=== PATIENT | female | born 1955 | race Caucasian/White ===

== ENCOUNTER 2023-10-02 11:31 | Emergency (ER) | payer MEDICARE, MEDICAID, SELFPAY ==
--- NOTE | 2023-10-02 12:04 | XR_ITS ---
[facility] [id number] Patient Name: MACKENZIE RANDALL MRN: [id number] date: 1955 Sex: F Assigned Patient Location: ER Current Patient Location: ER Accession/Order Number: [id number] Exam Date: 10/02/2023 12:15 Report Date: 10/02/2023 13:01 At the request of: SAMINA COCHRAN Procedure: XR foot LT min 3V STUDY: XR foot LT min 3V, [id number] HISTORY: diabetic, 4th toe infection COMPARISON: None FINDINGS: No acute fracture, dislocation, or suspicious osseous lesion. No osteolysis to suggest osteomyelitis. No radiopaque foreign body. Small curvilinear henry of calcification projecting over the dorsal and medial aspect of the left fourth middle phalanx which is favored represent a chronic soft tissue calcification. Mild osteoarthritis of the first metatarsophalangeal joint. There is a large plantar calcaneal spur and moderate Achilles insertional enthesopathy. Extensive vascular calcifications are present. There is an unfused os peroneus. XR/XR foot LT min 3V IMPRESSION: No radiographic evidence of osteomyelitis. Electronically authenticated by: EMELIA TRAMMELL Date: 10/02/2023 13:01
--- NOTE | 2023-10-02 12:04 | ED.GENADUL1 ---
HPI - General Adult General Chief complaint: Skin/Abscess/Foreign Body Stated complaint: TOE TURNING BLACK Time Seen by Provider: 10/02/23 12:00 History of Present Illness HPI narrative: 68-year-old female presents for problem with her left 4th toe. She states several months ago she was trying to trim an ingrown nail and she cut her toe. Sexually she developed an infection and she saw a foot doctor in [place]. She states over the past week or two it's looking discolored and she is worried about an infection. No fever or drainage. Related Data Previous Rx's Medication Instructions Recorded amoxicillin 875 mg-potassium 1 tab PO BID #20 tabs 10/02/23 clavulanate 125 mg tablet Allergies Allergy/AdvReac Type Severity Reaction Status Date / Time moxifloxacin [From Avelox] Allergy Severe Verified 10/02/23 12:16 keflex Allergy Severe Uncoded 10/02/23 12:16 Review of Systems ROS Narrative A ten point review of systems is negative except as noted above. Exam Narrative Exam Narrative: Nurses note and vital signs reviewed and patient is not hypoxic. General: The patient appears well and in no apparent distress. Patient is resting comfortably on cart. Skin: Warm, dry, no pallor noted. There is no rash noted. Head: Normocephalic, atraumatic Eye: Normal conjunctiva, no drainage Ears, Nose, Mouth, and Throat: oral mucosa is moist. Nares patent. Cardiovascular: Regular Rate and Rhythm Respiratory: Patient is in no distress, no accessory muscle use, lungs are clear to auscultation, no wheezing, rales or rhonchi Back: non-tender GI: nontender Musculoskeletal: left 4th toe is discolored at the distal aspect. Dorsalis pedis pulse 2+ in the other toes are unaffected. The toe is not black but rather white to yellow discoloration. Neurological: A&O, normal speech Psychiatric: Cooperative Constitutional Vital Signs, click to edit/add: Last Vital Signs Temp 98.4 F 10/02/23 12:17 Pulse 72 10/02/23 12:17 Resp 18 10/02/23 12:17 BP 171/59 H 10/02/23 12:17 Pulse Ox 100 10/02/23 12:17 O2 Del Method Room Air 10/02/23 12:17 Course Vital Signs Vital signs: Vital Signs Temperature 98.4 F 10/02/23 12:17 Pulse Rate 72 10/02/23 12:17 Respiratory Rate 18 10/02/23 12:17 Blood Pressure 171/59 H 10/02/23 12:17 Pulse Oximetry 100 10/02/23 12:17 Oxygen Delivery Method Room Air 10/02/23 12:17 Temperature 98.4 F 10/02/23 12:17 Pulse Rate 72 10/02/23 12:17 Respiratory Rate 18 10/02/23 12:17 Blood Pressure 171/59 H 10/02/23 12:17 Pulse Oximetry 100 10/02/23 12:17 Oxygen Delivery Method Room Air 10/02/23 12:17 Medical Decision Making MDM Narrative Medical decision making narrative: x-ray and blood work are negative. She is referred to podiatry and prescribed Augmentin. Incision and drainage is not indicated at this point. Treatment diagnosis and follow-up were discussed with the patient Lab Data Lab results reviewed: Yes I reviewed the patient's lab results Labs: Lab Results 10/02/23 Range/Units 12:20 WBC 10.2 (4.0-11.0) 10^3/uL RBC 3.99 L (4.20-5.40) 10^6/uL Hgb 12.5 (12.0-16.0) g/dL Hct 37.9 (36.0-48.0) % MCV 95.0 (81.0-99.0) fL MCH 31.3 (26.7-34.0) pg MCHC 33.0 (29.9-35.2) g/dL RDW 14.3 (11.0-15.0) % Plt Count 226 (150-450) 10^3/uL MPV 10.6 (9.5-13.5) fL Neut % (Auto) 57.0 (43.0-75.0) % Lymph % (Auto) 28.6 (20.5-60.0) % Jack % (Auto) 10.3 (1.7-12.0) % Eos % (Auto) 2.2 (0.9-7.0) % Baso % (Auto) 1.0 (0.2-2.0) % Neut # (Auto) 5.8 (1.4-6.5) 10^3/uL Lymph # (Auto) 2.9 (1.2-3.8) 10^3/uL Jack # (Auto) 1.1 H (0.3-0.8) 10^3/uL Eos # (Auto) 0.2 (0.0-0.7) 10^3/uL Baso # (Auto) 0.1 (0.0-0.1) 10^3/uL Abs Immat Gran (auto) 0.09 H (0.00-0.03) 10^3/uL Imm/Tot Granulo (auto) 0.9 H (0.0-0.5) % Sodium 135 L (136-145) mmol/L Potassium 4.6 (3.5-5.1) mmol/L Chloride 103 (98-107) mmol/L Carbon Dioxide 24.7 (21.0-32.0) mmol/L Anion Gap 11.9 BUN 22.0 H (7.0-18.0) mg/dL Creatinine 0.71 (0.55-1.02) mg/dL Est GFR ( Amer) >60 (>=60) Est GFR (Non-Af Amer) >60 (>=60) BUN/Creatinine Ratio 31.0 Glucose 211 H (74-106) mg/dL Calcium 9.3 (8.5-10.1) mg/dL Imaging Data foot x-ray: Radiologist's impression: no acute findings per radiologist Discharge Plan Discharge Chief Complaint: Skin/Abscess/Foreign Body Clinical Impression: Cellulitis Patient Disposition: Home, Self-Care Time of Disposition Decision: 13:19 Condition: Good Mode of Transportation: Private Vehicle Prescriptions / Home Meds: New amoxicillin-pot clavulanate 875-125 mg tablet 1 tab PO BID Qty: 20 0RF Instructions: Cellulitis (ED), Warm Compress or Soak (ED) Additional Instructions: follow-up with Dr. Lopes. Call today to make an appointment. Stand Alone Forms: Portal Instructions Referrals: Physician,Non-Staff, MD [Primary Care Provider] - 1 week
[2023-10-02 12:17] VITALS: BP 171/59; PULSE 72; RESP 18; TEMP 36.9; O2SAT 100; BMI 35.5
[2023-10-02 12:32] LABS: Basophils Absolute Auto 0.1 10^3/uL (0.0-0.1); Eosinophils Absolute Auto 0.2 10^3/uL (0.0-0.7); Eosinophils Percent Auto 2.2 % (0.9-7.0); Hematocrit 37.9 % (36.0-48.0); Hemoglobin 12.5 g/dL (12.0-16.0); Immature Granulocytes Abs Auto 0.09 10^3/uL (0.00-0.03); Immature Granulocytes Pct Auto 0.9 % (0.0-0.5); Lymphocytes Absolute Auto 2.9 10^3/uL (1.2-3.8); Lymphocytes Percent Auto 28.6 % (20.5-60.0); Mean Corpuscular Hemoglobin 31.3 pg (26.7-34.0); Mean Platelet Volume 10.6 fL (9.5-13.5); Monocytes Absolute Auto 1.1 10^3/uL (0.3-0.8); Monocytes Percent Auto 10.3 % (1.7-12.0); Neutrophils Absolute Auto 5.8 10^3/uL (1.4-6.5); Platelet Count 226 10^3/uL (150-450); Red Blood Count 3.99 10^6/uL (4.20-5.40); Red Cell Distribution Width 14.3 % (11.0-15.0); White Blood Count 10.2 10^3/uL (4.0-11.0)
[2023-10-02 12:40] LABS: Anion Gap 11.9; Calcium 9.3 mg/dL (8.5-10.1); Carbon Dioxide 24.7 mmol/L (21.0-32.0); Chloride 103 mmol/L (98-107); Estimated GFR (African America >60 (>=60); Estimated GFR (Non-African Ame >60 (>=60); Glucose 211 mg/dL (74-106); Potassium 4.6 mmol/L (3.5-5.1); Sodium 135 mmol/L (136-145)
== END 2023-10-02 13:32 | disposition home or self-care (01) ==
PROVIDERS: Emergency Provider Emergency Medicine
DX: L03.032 Cellulitis of left toe (principal)
CPT/HCPCS: 36415; 73630; 80048; 85025; 99284

== ENCOUNTER 2023-10-28 08:48 | Outpatient (OUT) | payer MEDICARE, MEDICAID, SELFPAY ==
--- OUTSIDE RECORDS SUMMARY | 2023-10-28 08:56 | XMS_ITS | CCD ---
Author Name Unknown Address [id number] [place] [address] Organization [facility] Care Team Providers Care Presser First Name Role Phone SOLOMON SCHMITT JR Unavailable Unavailable GALILEO HARRISON Unavailable Unavailable Minna Segura Primary Care Provider MINNA SEGURA Primary Care Unavailable Minna Smith APRN, CNP Primary Care Provider Minna Smith APRN, CNP Primary Care Provider DAGO GARDNER Admitting Unavailabl DAGO Choi Primary Care Unavailabl e DAGO GARDNER Consulting Unavailabl e DAGO GARDNER Attending Unavailabl e HARIS ANGELO Attending Unavailable MINNA VOSS Primary Care Unavail able DASIA CARL Consulting Unavailable HARIS ANGLEO Admitting Unavailable MARIELRADHA THOMPSON S Consulting Unavailable Allergies Allergy Classification Reported Allergen(s) Allergy Type Date of Onset Reaction(s) Facility (3 sources) Cephalexin Drug Allergy 4 [place] (3 sources) insulin detemir Drug Allergy 4 [place] (3 sources) MITE EXTRACT Drug Allergy 4 [place] (3 sources) Mold Extract Drug Allergy 4 [place] (3 sources) moxifloxacin Drug Allergy 4 [place] (3 sources) predniSONE Drug Allergy 4 Itching [facility] [place], [place] (3 sources) traMADol Drug Allergy 6 [place] NEGATED: Highlighted row has been ruled out! (2 sources) Other Propensity to adverse reactions 1 [facility] (See Comments[facility] Current Medications Medication Drug Class(es) Dates Sig (Normalized) Sig (Original) Acetaminophen (2 sources) Start: 01-03-2023 acetaminophen (TYLENOL) tablet 650 mg Start: 11-12-2020 End: 11-12-2020 acetaminophen (TYLENOL) tabl et 1,000 mg Aerosol Tubing (2 sources) Start: 05-08-2017 Aerosol Tubing Indications: Pulmonary emphysema, unspecified emphysema type (HCC) To be used with Nebulizer every 4-6 hours as needed for wheezing. 1 each 11 05/08/2017 Active albuterol 0.833 mg/ml / ipratropium bromide 0.167 mg/ml inhalant solution (1 source) Anticholinergic, beta2-Adrenergic Agonist Start: 04-02-2017 take 3 mL by inhalation every four hours as needed ipratropium-albute rol (DUONEB) 0.5-2.5 (3) MG/3ML SOLN nebulizer solution Indications: Cough due to bronchospasm Inhale 3 mLs into the lungs every 4 hours as needed for Shortness of Breath 360 mL 1 04/02/2017 Active ascorbic acid 60 mg / beta carotene 5000 unt / copper sulfate 40 mg / dl-alpha tocopheryl acetate 30 unt / sodium selenite 0.04 mg / zinc oxide 40 mg oral tablet (1 source) Vitamin C take 1 tablet by mouth once daily Multiple Vitamins-Minerals (THERAPEUTIC MULTIVITAMIN-COMMERCIAL GREEN RETROFIT ARCHITECT ALS) tablet Take 1 tablet by mouth daily. 0 Active atorvastatin 80 mg oral tablet (1 source) HMG-CoA Reductase Inhibitor take 1 tablet by mouth once daily atorvastatin (LIPITOR) 80 MG tablet Indications: HLD (hyperlipidemia) Take 80 mg by mouth daily. 0 Active 60 actuat budesonide 0.16 mg/actuat / formoterol fumarate 0.0045 mg/actuat metered dose inhaler (1 source) Corticosteroid, beta2-Adrenergic Agonist Start: 12-06-2015 take 2 puff(s) by inhalation twice daily budesonide-formote rol (SYMBICORT) 160-4.5 MCG/ACT AERO Indications: Chronic obstructive pulmonary disease, unspecified COPD type (HCC) Inhale 2 puffs into the lungs 2 times daily 1 Inhaler 3 12/06/2015 Active Calcium Carbonate / Vitamin D (2 sources) take 600 mg by mouth once daily Calcium Carbonate-Vitamin D (CALCIUM + D PO) Take 600 mg by mouth Daily. 0 Active carvedilol 12.5 mg oral tablet (4 sources) alpha-Adrenergic Mariusz, beta-Adrenergic Mariusz Start: 12-31-2021 carvedilol (COREG) tablet 12.5 mg Start: 05-10-2016 take 1 tablet by marjorie twice daily carvedilol (COREG) 12.5 MG tablet Indications: Hyperlipidemia, unspecified hyperlipidemia type Take 1 tablet by mouth 2 times daily 180 tablet 3 05/10/2016 Active clobetasol propionate 0.5 mg/ml topical solution (1 source) Corticosteroid Start: 05-28-2016 clobetasol (TE MOVATE) 0.05 % external solution clotrimazole 10 mg/ml topical cream (1 source) Azole Antifungal clotrimazole (LOTRIMIN) 1 % cream Apply topically 2 times daily as needed. Apply topically 2 times daily. 0 Active diatrizoate meglumine-sodium (GASTROGRAFIN) 66-10 % solution 30 mL (1 source) Start: 01-03-2023 diatrizoate meglumine-sodium (GASTROGRAFIN) 66-10 % solution 30 mL 0.5 ml dulaglutide 1.5 mg/ml auto-injector (1 source) GLP-1 Receptor Agonist Start: 02-21-2017 TRULICI TY 0.75 MG/0.5ML SOPN fluocinonide 0.5 mg/ml topical cream (1 source) Corticosteroid Start: 06-14-2016 fluocinonide ( LIDEX) 0.05 % cream Glucose (3 sources) Start: 01-03-2023 dextrose bolus 10% 125 mL Start: 01-03-2023 take 1 mL intravenou sly every hour IntraVENous, at 100 mL/hr, CONTINUOUS PRN, if blood glucose remains LESS THAN 70 mg/dL after 2 dextrose 10% intravenous boluses or administration of glucagon, Starting on Fri01/03/23 at 0216 If blood glucose fails to stabilize after 2 dextrose 10% intravenous boluses or glucagon administration, start dextrose 10% infusion at 100 mL/hour and repeat blood glucose at 30 and 60 minutes. If blood glucose is GREATER THAN 70 mg/dL after 60 minutes, discontinue dextrose 10% infusion. Start: 01-03-2023 16 g (4 tablet ), Oral, PRN, Starting on Fri01/03/23 at 0216, Until Discontinued, Low blood sugar If blood glucose is LESS than 70 mg/dL and patient is alert and tolerating oral. Give 4 tablets (16g) Repeat blood glucose in 15 minutes. If blood glucose is less than 70 mg/dL, repeat treatment and recheck blood glucose in 15 minutes x 2. If blood glucose remains LESS than 70 mg/dL, notify provider. hydrocortisone 25 mg/ml topical cream (2 sources) Corticosteroid Start: 10-01-2021 hydrocortisone (ANUSOL-HC) 2.5 % CREA rectal cream Place rectally 2 times daily 28 g 0 10/01/2021 Active Start: 10-01-2021 hydrocortisone (ANUSOL-HC) 2.5 % CREA rectal cream Place rectally 2 times daily 28 g 0 10/01/2021 Suspended ibuprofen 600 mg oral tablet (3 sources) Nonsteroidal Anti-inflammatory Drug Start: 07-22-2022 End: 01-06-2023 take 1 tablet by mouth twice daily at mealtime as needed ibuprofen (ADVIL;MOTRIN) 600 MG tablet TAKE 1 TABLET BY MOUTH TWICE A DAY WITH FOOD OR MILK NEEDED 180 tablet 0 07/22/2022 01/06/2023 Discontinued (Stop Taking at Discharge) Start: 12-17-2021 take 1 tablet by marjorie th twice daily at mealtime as needed ibuprofen (ADVIL;MOTRIN) 600 MG tablet TAKE 1 TABLET BY MOUTH TWICE A DAY WITH FOOD OR MILK NEEDED 120 tablet 0 12/17/2021 Active Start: 07-27-2020 take 1 tablet by marjorie th twice daily at mealtime as needed ibuprofen (ADVIL;MOTRIN) 600 MG tablet TAKE 1 TABLET BY MOUTH TWICE A DAY WITH FOOD OR MILK NEEDED 0 07/27/2020 Active icosapent ethyl 1000 mg oral capsule (1 source) Start: 07-17-2020 take 2 capsules by mouth twice daily at mealtime VASCEPA 1 g CAPS capsule TAKE 2 CAPSULES BY MOUTH TWICE A DAY WITH MEALS 0 07/17/2020 Active 3 ml insulin lispro 50 unt/ml / insulin, protamine lispro, human 50 unt/ml pen injector (1 source) Insulin Analog insulin lispro prot & lispro (HUMALOG MIX 50/50 KWIKPEN) (50-50) 100 UNIT per ML SUPN injection pen Inject 60 Units into the skin 3 times daily 0 Active lidocaine 0.05 mg/mg medicated patch (1 source) Antiarrhythmic, Amide Local Anesthetic Start: 11-12-2020 End: 11-22-2020 lidocaine (LIDODERM) 5 % Place 1 patch onto the skin daily for 10 days 12 hours on, 12 hours off. 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) , Decreased pedal pulses by Does not apply route 1 each 0 07/04/2022 Suspended loratadine 10 mg oral tablet (2 sources) Start: 05-02-2017 take 1 tablet by mouth once daily ALLERGY RELIEF 10 MG tablet TAKE 1 TABLET BY MOUTH EVERY DAY 90 tablet 0 05/02/2017 Active mometasone furoate 0.05 mg/actuat metered dose nasal spray (1 source) Corticosteroid Start: 01-01-2016 take 2 spray(s) by inhalation once daily mometasone (NASONEX) 50 MCG/ACT nasal spray 2 sprays by Nasal route daily 1 Inhaler 3 01/01/2016 Active 1 ml morphine sulfate 2 mg/ml cartridge (1 source) Opioid Agonist Start: 01-03-2023 morphine (PF) injection 2 mg Multiple Vitamins-Minerals (THERAPEUTIC MULTIVITAMIN-COMMERCIAL GREEN RETROFIT ARCHITECT ALS) tablet (1 source) take 1 tablet by mouth once daily Multiple Vitamins-Minerals (THERAPEUTIC MULTIVITAMIN-COMMERCIAL GREEN RETROFIT ARCHITECT ALS) tablet Take 1 tablet by mouth daily. 0 Active nitroglycerin 0.4 mg sublingual tablet (2 sources) Nitrate Vasodilator Start: 10-31-2021 nitroGLYCERIN (NITROSTAT) 0.[address] 1 tablet under the tongue every 5 minutes as needed for Chest pain 25 tablet 2 10/31/2021 Active nitroGLYCERIN (N ITROSTAT) 0.[address] 0.4 mg under the tongue every 5 minutes as needed for Chest pain. 0 Active Nutritional Supplements (ARTHRO-COMPLEX PO) (1 source) Nutritional Supplements (ARTHRO-COMPLEX PO) Take by mouth 0 Active omega-3 acid ethyl esters (group home) 1000 mg oral capsule (1 source) take 2 capsules by mouth twice daily omega-3 acid ethyl esters (LOVAZA) 1 G capsule Indications: HLD (hyperlipidemia) Take 2 g by mouth 2 times daily. 2 capsules twice daily 0 Active ondansetron (ZOFRAN-ODT) disintegrating tablet 4 mg (1 source) Start: 023 ondansetron (ZOFRAN-ODT) disintegrating tablet 4 mg pantoprazole (PROTONIX) 40 mg in sodium chloride (PF) 0.9 % 10 mL injection (1 source) Start: 023 40 mg, IntraVENous, DAILY, First dose on Fri01/03/23 at 0900 Reconstitute with 10 mL 0.9 % sodium chloride and administer over at least 2 minutes. regular insulin, human 500 unt/ml injectable solution (1 source) Insulin Start: 014 insulin regular human (HUMULIN R) 500 UNIT/ML injection Inject 23 Units into the skin 3 times daily (before meals). 1 vial 0 08/21/2014 Active rifAXIMin 550 mg oral tablet (1 source) Rifamycin Antibacterial take 1 tablet by mouth twice daily rifaximin (XIFAXAN) 550 MG tablet Take 550 mg by mouth 2 times daily 0 Active 0.25 mg, 0.5 mg dose 1.5 ml semaglutide 1.34 mg/ml pen injector (3 sources) Start: 020 End: 023 OZEMPIC, 0.25 OR 0.5 MG/DOSE, 2 MG/1.5ML SOPN Inject 0.5 mg into the skin once a week 0 06/11/2020 01/06/2023 Discontinued (Stop Taking at Discharge) Completed/Discontinued Medications Medication Drug Class(es) Dates Sig (Normalized) Sig (Original) [id number] 200 actuat albuterol 0.09 mg/actuat metered dose inhaler (3 sources) beta2-Adrenergic Agonist Start: 02-05-2021 take 2 puff(s) by inhalation every six hours as needed 2 puff, Inhalation, EVERY 6 HOURS PRN, Starting on 01/05/23 at 1036, Until Discontinued, Wheezing Initiate RT Bronchodilator Protocol: Yes - Inpatient Protocol aspirin 81 mg delayed release oral tablet (4 sources) Platelet Aggregation Inhibitor, Nonsteroidal Anti-inflammatory Drug Start: 11-19-2021 End: 02-17-2022 take 81 mg by mouth once daily 81 mg, Oral, DAILY, First dose on 01/05/23 at 1100, Until Discontinued Do not crush or break. take 1 tablet by mouth once gage y aspirin 81 MG tablet Take 81 mg by mouth daily. 0 Active 24 hr buPROPion hydrochloride 300 mg extended release oral tablet (4 sources) Aminoketone Start: 12-26-2022 End: 01-25-2023 take 300 mg by mouth once daily 300 mg, Oral, NIGHTLY, First dose on 01/04/23 at 2100, Until Discontinued Do not crush or break. Start: 12-17-2021 take 1 tablet by marjorie th once daily in the morning buPROPion (WELLBUTRIN XL) 150 MG extended release tablet TAKE 1 TABLET BY MOUTH EVERY DAY IN THE MORNING 90 tablet 0 12/17/2021 Active Start: 03-18-2019 take 1 tablet by marjorie th once daily buPROPion (WELLBUTRIN XL) 150 MG extended release tablet TAKE 1 TABLET BY MOUTH EVERY DAY 2 03/18/2019 Active canagliflozin 100 mg oral tablet (3 sources) Sodium-Glucose Cotransporter 2 Inhibitor Start: 07-28-2020 take 1 tablet by mouth once daily before breakfast INVOKANA 100 MG TABS tablet Take 100 mg by mouth every morning (before breakfast) 0 07/28/2020 Suspended clopidogrel 75 mg oral tablet (4 sources) P2Y12 Platelet Inhibitor Start: 04-16-2016 take 75 mg by mouth once daily 75 mg, Oral, DAILY, First dose on 01/05/23 at 1100, Until Discontinued cyclobenzaprine hydrochloride 10 mg oral tablet (5 sources) Muscle Relaxant Start: 11-26-2022 take 10 mg by mouth once daily 10 mg, Oral, NIGHTLY, First dose on 01/05/23 at 2100, Until Discontinued Start: 12-17-2021 take 1 tablet by marjorie th once daily at bedtime as needed cyclobenzaprine (FLEXERIL) 10 MG tablet Indications: Hyperlipidemia, unspecified hyperlipidemia type , Tooth ache TAKE 1 TABLET BY MOUTH EVERY DAY AT BEDTIME NEEDED 30 tablet 2 12/17/2021 Active Start: 11-12-2020 take 1 tablet by marjorie th twice daily as needed for muscle spasms cyclobenzaprine (FLEXERIL) 5 MG tablet Take 1 tablet by mouth 2 times daily as needed for Muscle spasms 10 tablet 0 11/12/2020 Active Start: 11-06-2020 End: 11-12-2020 take 1 tablet by mouth at bedtime as needed cyclobenzaprine (FLEXERIL) 10 MG tablet Indications: Hyperlipidemia, unspecified hyperlipidemia type , Tooth ache TAKE 1 TABLET BY MOUTH AT BEDTIME NEEDED 30 tablet 1 11/06/2020 11/12/2020 Discontinued (LIST CLEANUP) desoximetasone 0.5 mg/ml topical cream (1 source) Corticosteroid desoximetasone (TOPICORT) 0.05 % cream Apply topically 2 times daily Apply topically 2 times daily. 0 Suspended docusate sodium 100 mg oral capsule (1 source) take 1 capsule by mouth in the morning docusate sodium (COLACE) 100 MG capsule Take 100 mg by mouth in the morning. 0 Suspended 3.5 ml evolocumab 120 mg/ml cartridge (3 sources) PCSK9 Inhibitor Start: 0 REPATHA PUSHTRONEX SYSTEM 420 MG/3.5ML SOCT Inject 420 mg into the skin every 30 days 0 05/19/2020 Suspended Start: 05-19-2020 REPATHA PUSHTR ONEX SYSTEM 420 MG/3.5ML SOCT 3.5 ML MONTHLY SUBCUTANEOUS 90 DAYS 0 05/19/2020 Active ezetimibe 10 mg oral tablet (4 sources) Dietary Cholesterol Absorption Inhibitor Start: 05-10-2016 take 10 mg by mouth once daily 10 mg, Oral, DAILY, First dose on 01/05/23 at 1100, Until Discontinued fenofibrate 134 mg oral capsule (5 sources) Peroxisome Proliferator Receptor alpha Agonist Start: 12-16-2022 take 1 capsule by mouth once daily before breakfast fenofibrate micronized (LOFIBRA) 134 MG capsule TAKE 1 CAPSULE BY MOUTH EVERY DAY IN THE MORNING BEFORE BREAKFAST 90 capsule 0 12/16/2022 Suspended Start: 11-02-2021 take 1 capsule by mo uth once daily before breakfast fenofibrate micronized (LOFIBRA) 134 MG capsule TAKE 1 CAPSULE BY MOUTH EVERY DAY IN THE MORNING BEFORE BREAKFAST 90 capsule 1 11/02/2021 Active Start: 10-02-2020 take 1 capsule by mo ut once daily before breakfast fenofibrate micronized (LOFIBRA) 134 MG capsule TAKE 1 CAPSULE BY MOUTH EVERY DAY IN THE MORNING BEFORE BREAKFAST 30 capsule 2 10/02/2020 Active Start: 03-29-2016 take 1 capsule by mo uth once daily choline fenofibrate (TRILIPIX) 135 MG CPDR Indications: Hyperlipidemia, unspecified hyperlipidemia type Take 1 capsule by mouth daily 90 capsule 3 03/29/2016 Active take 1 tablet by marjorie once daily fenofibrate (TRICOR) 145 MG tablet Take 145 mg by mouth daily 0 Active 1 ml fentaNYL 0.05 mg/ml injection (1 source) Opioid Agonist Start: 01-02-2023 End: 01-02-2023 fentaNYL (SUBLIMAZE) injection 50 mcg furosemide 20 mg oral tablet (4 sources) Loop Diuretic Start: 02-23-2016 take 20 mg by mouth once daily 20 mg, Oral, DAILY, First dose on Fri01/03/23 at 0900, Until Discontinued glimepiride 2 mg oral tablet (2 sources) Sulfonylurea Start: 03-21-2022 glimepiride (A MARYL) 2 MG tablet TAKE 1 TABLET 3 TIMES DAILY FOR 90 DAYS 0 03/21/2022 Suspended Start: 05-24-2020 glimepiride (A MARYL) 2 MG tablet TAKE 1 TABLET 3 TIMES DAILY 0 05/24/2020 Active glucagon (rdna) 1 mg injection (1 source) Antihypoglycemic Agent Start: 01-03-2023 take 1 mL intravenously every hour 1 mg, IntraMUSCular, PRN, Starting on Fri01/03/23 at 0216, Until Discontinued, Low blood sugar, Blood glucose less than 70 mg/dL and patient NOT ALERT or NPO and does not have IV access. After administration, attempt intravenous access and start D5W at 100 mL/hr. Repeat blood glucose in 15 minutes x2 and notify provider. 250 ml glucose 50 mg/ml / sodium chloride 9 mg/ml injection (1 source) Start: 01-03-2023 End: 01-05-2023 dextrose 5 % and 0.9 % sodium chloride infusion Handicap Placard MISC (1 source) Start: 05-22-2022 Handicap Placard MISC Indications: Chronic ischemic heart disease , Chronic knee pain, unspecified laterality , Coronary artery disease involving venetie coronary artery of venetie heart without angina pectoris , Other diabetic neurological complication associated with type 2 diabetes mellitus (HCC) by Does not apply route Sanya is disabled and is in need of renewal of disability plates. Duration 05/22/2022 through 05/21/2027 1 each 0 05/22/2022 Suspended 3 ml insulin glargine 300 unt/ml pen injector (3 sources) Insulin Analog Insulin Glargine , 2 Unit Dial, (TOUJEO MAX SOLOSTAR) 300 UNIT/ML SOPN Inject 90 Units into the skin daily 0 Suspended Insulin Glargine , 2 Unit Dial, (TOUJEO MAX SOLOSTAR) 300 UNIT/ML SOPN Kwikpen, 90u in am 0 Active insulin lispro 100 unt/ml injectable solution (4 sources) Insulin Analog Start: 01-03-2023 0-4 Units, Sub CUTAneous, NIGHTLY, First dose on Fri01/03/23 at 2100, Until Discontinued If continuous tube feedings/TPN/NPO, give correction dose based on result, no reduction in dose. If eating or bolus tube feeding: Corrective Bedtime Algorithm Glucose: Dose: 70-299 No Insulin 300-349 4 Units Over 349 4 Units and notify physician Start: 01-03-2023 0-8 Units, Sub CUTAneous, 3 TIMES DAILY WITH MEALS, First dose on Fri01/03/23 at 0800, Until Discontinued Medium Dose Corrective Algorithm Glucose: Dose: 70-199 No Insulin 200-249 2 Units 250-299 4 Units 300-349 6 Units Over 349 8 Units and notify physician insulin lispro, 1 Unit Dial, 100 UNIT/ML SOPN up to 200units daily 0 Suspended iopamidol (ISOVUE-370) 76 % injection 100 mL (1 source) Start: 01-02-2023 End: 01-02-2023 iopamidol (ISOVUE-370) 76 % injection 100 mL ketoconazole 20 mg/ml topical cream (1 source) Azole Antifungal Start: 09-10-2022 ketoconazole (NIZORAL) 2 % cream Indications: Rash of foot Apply topically daily. 30 g 1 09/10/2022 Suspended levothyroxine (4 sources) l-Thyroxine Start: 01-03-2023 take 137 ug by mouth once daily 137 mcg, Oral, DAILY, First dose on Fri01/03/23 at 0900, Until Discontinued Tube feeding (TF) interaction, obtain physician order to manage, recommend holding TF for 30 minutes before and after dose. Start: 01-15-2021 take 1 tablet by marjorie th once daily levothyroxine (SYNTHROID) 137 MCG tablet Take 137 mcg by mouth daily 0 01/15/2021 Suspended take 1 tablet by marjorie th once daily levothyroxine (SYNTHROID) 112 MCG tablet Indications: Hypothyroidism Take 112 mcg by mouth Daily. 0 Active linaclotide 0.145 mg oral capsule (3 sources) Guanylate Cyclase-C Agonist Start: 10-08-2022 take 1 capsule by mouth once daily before breakfast linaclotide (LINZESS) 145 MCG capsule Indications: Other constipation TAKE 1 CAPSULE BY MOUTH EVERY DAY IN THE MORNING BEFORE BREAKFAST 30 capsule 2 10/08/2022 Suspended Start: 11-30-2021 take 1 capsule by mo uth once daily before breakfast LINZESS 145 MCG capsule Indications: Other constipation TAKE 1 CAPSULE BY MOUTH EVERY DAY IN THE MORNING BEFORE BREAKFAST 30 capsule 2 11/30/2021 Active Start: 11-06-2020 take 1 capsule by mo uth once daily before breakfast linaclotide (LINZESS) 145 MCG capsule Indications: Chronic constipation TAKE 1 CAPSULE BY MOUTH EVERY DAY IN THE MORNING BEFORE BREAKFAST 30 capsule 1 11/06/2020 Active lisinopril 20 mg oral tablet (3 sources) Angiotensin Converting Enzyme Inhibitor Start: 11-07-2022 take 1 tablet by mouth once daily lisinopril (PRINIVIL;ZESTRIL) 20 MG tablet TAKE 1 TABLET BY MOUTH EVERY DAY 90 tablet 1 11/07/2022 Suspended Start: 08-14-2021 take 1 tablet by marjorie th once daily lisinopril (PRINIVIL;ZESTRIL) 20 MG tablet TAKE 1 TABLET BY MOUTH EVERY DAY 90 tablet 1 08/14/2021 Active Start: 09-08-2020 take 1 tablet by marjorie th once daily lisinopril (PRINIVIL;ZESTRIL) 20 MG tablet Take 1 tablet by mouth daily 30 tablet 0 09/08/2020 Active meclizine hydrochloride 25 mg oral tablet (3 sources) Antiemetic Start: 01-08-2022 take 1 tablet by mouth twice daily as needed meclizine (ANTIVERT) 25 MG tablet TAKE 1 TABLET BY MOUTH TWICE A DAY NEEDED 60 tablet 2 01/08/2022 Suspended meclizine (ANTIV ERT) 25 MG CHEW Take 25 mg by mouth 0 Active Nebulizers (COMPRESSOR/NEBULIZER) MIS (2 sources) Start: 11-22-2015 Nebulizers (COMPRESSOR/NEBULIZER) [facility] [place]ications: SOB (shortness of breath) , Bronchitis with bronchospasm 1 each by Does not apply route 4 times daily for 14 days Use with medications as directed 1 each 0 11/22/2015 Suspended Start: 11-22-2015 Nebulizers (CO MPRESSOR/NEBULIZER) [facility] [place] Indications: SOB (shortness of breath) , Bronchitis with bronchospasm 1 each by Does not apply route 4 times daily for 14 days Use with medications as directed 1 each 0 11/22/2015 Active omeprazole 20 mg delayed release oral capsule (3 sources) Proton Pump Inhibitor Start: 12-06-2022 take 1 capsule by mouth once daily omeprazole (PRILOSEC) 20 MG delayed release capsule TAKE 1 CAPSULE BY MOUTH EVERY DAY 30 capsule 0 12/06/2022 Suspended Start: 07-09-2021 take [address] [facility] once daily omeprazole (PRILOSEC) 20 MG delayed release capsule TAKE 1 CAPSULE BY MOUTH EVERY DAY 90 capsule 3 07/09/2021 Active Start: 05-14-2017 take 1 capsule by mo uth once daily omeprazole (PRILOSEC) 20 MG delayed release capsule TAKE 1 CAPSULE BY MOUTH DAILY 90 capsule 3 05/14/2017 Active 2 ml ondansetron 2 mg/ml injection (1 source) Serotonin-3 Receptor Antagonist Start: 01-02-2023 End: 01-02-2023 ondansetron (ZOFRAN) injection 4 mg polyethylene glycol [id number] mg powder for oral solution (1 source) Osmotic Laxative Start: 01-03-2023 17 g, Oral, D AILY PRN, Starting on Fri01/03/23 at 0216, Until Discontinued, Constipation First line therapy for constipation pregabalin 100 mg oral capsule (4 sources) Start: 01-05-2023 take 100 mg by mouth once daily 100 mg, Oral, DAILY, First dose on Fri01/05/23 at 1100, Until Discontinued Start: 05-30-2020 take [address] [facility] at bedtime pregabalin (LYRICA) 75 MG capsule TAKE 1 CAPSULE BY MOUTH AT BEDTIME 0 05/30/2020 Active rOPINIRole 4 mg oral tablet (3 sources) Nonergot Dopamine Agonist Start: 12-23-2022 take 1 tablet by mouth once daily in the evening rOPINIRole (REQUIP) 4 MG tablet Indications: Restless leg TAKE 1 TABLET BY MOUTH EVERY DAY IN THE EVENING 14 tablet 0 12/23/2022 Suspended Start: 12-17-2021 take 1 tablet by marjorie once daily in the evening rOPINIRole (REQUIP) 4 MG tablet Indications: Restless leg TAKE 1 TABLET BY MOUTH EVERY DAY IN THE EVENING 90 tablet 0 12/17/2021 Active Start: 01-21-2017 take 1 tablet by marjorie once daily in the evening rOPINIRole (REQUIP) 4 MG tablet TAKE 1 TABLET BY MOUTH EVERY EVENING 90 tablet 0 01/21/2017 Active 5 ml sodium chloride 9 mg/ml injection (7 sources) Start: 01-03-2023 take 1 dose intravenously twice daily 5-40 mL, IntraVENous, EVERY 12 HOURS SCHEDULED (2 times per day), First dose on Fri01/03/23 at 0900, Until Discontinued For Line Patency: Peripheral IV = 5 mL; Midline or Central Line = 10 mL/lumen. If following IV push medication, administer flush at same rate as the IV push. Flush volume is determined by type of infusion therapy being given. For non-viscous solutions use: Peripheral IV = 5 mL Midline or Central Line = 10 mL/lumen For viscous solutions (i.e. blood components, parenteral nutrition, contrast media, or after obtaining blood sample) use: Peripheral IV = 10 mL Midline or Central Line = 20 mL/lumen Start: 01-03-2023 End: 01-03-2023 IntraVENous, at 50 mL/hr, CONTINUOUS, Starting on Fri01/03/23 at 0245 Start: 01-03-2023 IntraVENous, a t 5-250 mL/hr, PRN, if patient receiving piggyback infusions and maintenance fluids are not ordered OR KVO fluids to protect IV site / prevent frequent line interruptions/ long duration, Starting on Fri01/03/23 at 0216 For piggyback infusion, administer at same rate as piggyback for a total of 25 mL. Enter 25 mL into dose field and piggyback rate into rate field of order. If piggyback is infusing at a rate less than 100 mL/hr, enter 25 mL into dose field and 100 mL/hr into rate field of order. For KVO fluids, enter rate of 20 mL/hr or less into rate field of order. Start: 01-03-2023 take 5-40 mL intrave nously once as needed 5-40 mL, IntraVENous, PRN, Starting on Fri01/03/23 at 0216, Until Discontinued, Line Care, After every IV line use For Line Patency: Peripheral IV = 5 mL; Midline or Central Line = 10 mL/lumen. If following IV push medication, administer flush at same rate as the IV push. Flush volume is determined by type of infusion therapy being given. For non-viscous solutions use: Peripheral IV = 5 mL Midline or Central Line = 10 mL/lumen For viscous solutions (i.e. blood components, parenteral nutrition, contrast media, or after obtaining blood sample) use: Peripheral IV = 10 mL Midline or Central Line = 20 mL/lumen Start: 01-02-2023 sodium chlorid e flush 0.9 % injection 10 mL Start: 01-02-2023 End: 01-03-2023 0.9 % sodium chloride bolus Problems Active Problems Problem Classification Problem Date Documented Date Episodic/Chronic Cataract (2 sources) Age-related nuclear cataract, right eye; Translations: [Age-related nuclear cataract, right eye] Onset: 06-03-2017 Chronic Chronic obstructive pulmonary disease and bronchiectasis (7 sources) Pulmonary emphysema; Translations: [Chronic obstructive lung disease] Onset: 12-06-2015 02-24-2014 Chronic Coronary atherosclerosis and other heart disease (5 sources) Coronary arteriosclerosis; Translations: [Atherosclerotic heart disease of [place] coronary artery without angina pectoris] Onset: 01-31-2021 02-24-2014 Chronic Diabetes mellitus with complications (6 sources) Type 2 diabetes mellitus; Translations: [Type 2 diabetes mellitus with other specified complication] Onset: 01-31-2021 01-31-2021 Chronic Diabetes mellitus without complication (5 sources) Diabetes mellitus; Translations: [Type 2 diabetes mellitus] Onset: 12-19-2014 08-16-2015 Chronic Disorders of lipid metabolism (6 sources) Hyperlipidemia; Translations: [Hypercholesterolemia] Onset: 02-24-2014 02-24-2014 Chronic Esophageal disorders (3 sources) Gastroesophageal reflux disease; Translations: [Gastro-esophageal reflux disease without esophagitis] 02-24-2014 Chronic Essential hypertension (3 sources) Hypertensive disorder; Translations: [Essential hypertension] 02-24-2014 Chronic External cause codes: Fall (1 source) Fall; Translations: [Fall, initial encounter] Fracture of lower limb (1 source) Closed fracture of calcaneus; Translations: [Closed traumatic nondisplaced fracture of left calcaneus, initial encounter] Episodic Menopausal disorders (2 sources) Menopausal and postmenopausal disorders; Translations: [Unspecified menopausal and perimenopausal disorder] Onset: 01-31-2021 01-31-2021 Chronic Mood disorders (3 sources) Depressive disorder; Translations: [Depression] 02-24-2014 Chronic Osteoarthritis (3 sources) Osteoarthritis; Translations: [Unspecified osteoarthritis, unspecified site] 02-24-2014 Chronic Other aftercare (1 source) Other buttermaker (current) drug therapy; Translations: [Other buttermaker (current) drug therapy] Onset: 07-18-2023 Episodic Other connective tissue disease (1 source) Calcaneal spur of left foot; Translations: [Calcaneal spur of foot, left] Other endocrine disorders (2 sources) Hyperaldosteronism; Translations: [Hyperaldosteronism, unspecified] Onset: 01-31-2021 01-31-2021 Chronic Other inflammatory condition of skin (3 sources) Psoriasis; Translations: [Psoriasis, unspecified] Onset: 02-24-2014 02-24-2014 Chronic Other nutritional; endocrine; and metabolic disorders (2 sources) Body mass index 40+ - severely obese; Translations: [Body mass index (BMI) 40.0-44.9, adult] Onset: 01-31-2021 01-31-2021 Chronic Other nutritional; endocrine; and metabolic disorders (2 sources) Severe obesity; Translations: [Morbid (severe) obesity due to excess calories] Onset: 05-03-2021 10-31-2021 Chronic Other screening for suspected conditions (not mental disorders or infectious disease) (1 source) Patient encounter status; Translations: [Encounter for screening mammogram for malignant neoplasm of breast] Episodic Peripheral and visceral atherosclerosis (3 sources) Intermittent claudication; Translations: [Peripheral vascular disease, unspecified] Onset: 12-19-2014 12-19-2014 Chronic Residual codes; unclassified (3 sources) Sleep apnea; Translations: [Sleep apnea, unspecified] Onset: 05-18-2014 05-18-2014 Chronic Screening and history of mental health and substance abuse codes (1 source) Tobacco use and exposure - finding; Translations: [Tobacco use] Onset: 02-24-2014 02-24-2014 Chronic Spondylosis; intervertebral disc disorders; other back problems (3 sources) Prolapsed lumbar intervertebral disc; Translations: [Other intervertebral disc displacement, lumbar region] 02-24-2014 Chronic Sprains and strains (1 source) Lumbar sprain; Translations: [Lumbar sprain, initial encounter] Episodic Thyroid disorders (4 sources) Hypothyroidism; Translations: [Hypothyroidism, unspecified] 08-16-2015 Chronic Past or Other Problems Problem Classification Problem Date Documented Da te Episodic/Chronic Acute and unspecified renal failure (3 sources) Acute injury of kidney; Translations: [Acute kidney failure, unspecified] Onset: 01-03-2023 Episodic Intestinal obstruction without hernia (4 sources) Small bowel obstruction; Translations: [Unspecified intestinal obstruction, unspecified as to partial versus complete obstruction] Onset: 01-03-2023 Episodic Other connective tissue disease (3 sources) Acquired trigger finger; Translations: [Trigger finger, unspecified finger] Onset: 09-25-2016 07-26-2017 Episodic Other ear and sense organ disorders (3 sources) Bilateral earache; Translations: [Otalgia, bilateral] Onset: 03-19-2016 03-19-2016 Episodic Other non-traumatic joint disorders (1 source) Knee pain; Translations: [Chronic knee pain] Onset: 06-26-2016 06-26-2016 Episodic Other non-traumatic joint disorders (2 sources) Pain in unspecified knee; Translations: [Pain in joint, lower leg] Onset: 06-26-2016 06-26-2016 Episodic Other skin disorders (2 sources) Alopecia; Translations: [Nonscarring hair loss, unspecified] Onset: 01-31-2021 01-31-2021 Episodic Other skin disorders (2 sources) Hirsutism; Translations: [Hirsutism] Onset: 01-31-2021 01-31-2021 Episodic Other upper respiratory disease (3 sources) Bronchospasm; Translations: [Acute bronchospasm] Onset: 04-02-2017 04-02-2017 Episodic Residual codes; unclassified (3 sources) Needs influenza immunization; Translations: [Encounter for immunization] Onset: 06-26-2016 06-26-2016 Episodic Residual codes; unclassified (2 sources) Tobacco user; Translations: [Tobacco use] Onset: 02-24-2014 01-31-2021 Episodic Unclassified (1 source) Patient encounter status; Translations: [Encounter for screening mammogram for malignant neoplasm of breast] Onset: 05-05-2017 Resolved: 07-08-2018 07-08-2018 Urinary tract infections (3 sources) Cystitis; Translations: [Cystitis, unspecified without hematuria] Onset: 05-10-2016 05-10-2016 Episodic Results Test Name Value Interpretation Reference Range Facility Basic Metabolic Profon 07-20 Anion gap [Moles/Vol] 9 mmol/L Normal 9-17 [facility] Comment on above: Performed By: #### C JUAN A BMP #### [facility] [address] [place] [address] Ring Facer: Ajit Stevens DO Calcium [Mass/Vol] 9.8 mg/dL Normal 8.6-10.4 [facility] Comment on above: Performed By: #### C DP, BMP #### [facility] [address] [facility] [place] [address] Ring Facer: Ajit Stevens DO Chloride [Moles/Vol] 105 mmol/L Normal 98-107 [facility] Comment on above: Performed By: #### C DP, BMP #### [facility] [address] [facility] [place] [address] Ring Facer: Ajit Stevens DO CO2 [Moles/Vol] 23 mmol/L Normal 20-31 [facility] Comment on above: Performed By: #### C JUAN A, BMP #### [facility] [address] [facility] [place] [address] Ring Facer: Ajit Stevens DO Creatinine [Mass/Vol] 0.6 mg/dL Normal 0.5-0.9 [facility] Comment on above: Performed By: #### C JUAN A, BMP #### [facility] [address] [facility] [place] [address] Ring Facer: Ajit Stevens DO GFR/1.73 sq M.predicted among non-blacks MDRD (S/P/Bld) [Vol rate/Area] mL/min/{1.73_m2} Normal >60 [facility] Comment on above: Result Comment: These results are not intended for use in patients <18 years of age. eGFR results are calculated without a race factor using the 2020 CKD-EPI equation. Careful clinical correlation is recommended, particularly when comparing to results calculated using previous equations. The CKD-EPI equation is less accurate in patients with extremes of muscle mass, extra-renal metabolism of creatine, excessive creatine ingestion, or following therapy that affects renal tubular secretion. Performed By: #### C DP, BMP #### [facility] [address] [facility] [place] [address] Ring Facer: Ajit Stevens DO Glucose [Mass/Vol] 198 mg/dL High 70-99 [facility] Comment on above: Performed By: #### C JUAN A, BMP #### [facility] [address] [place] [address] Ring Facer: Ajit Stevens DO Potassium [Moles/Vol] 4.0 mmol/L Normal 3.7-5.3 [facility] Comment on above: Performed By: #### C JUAN A, BMP #### [facility] [address] [place], [place] [address] [place] [address] Ring Facer: Ajit Stevens DO Sodium [Moles/Vol] 137 mmol/L Normal 135-144 [facility] Comment on above: Performed By: #### C JUAN A, BMP #### [facility] [address] [place] [phone] Ring Facer: Ajit Stevens DO Urea nitrogen [Mass/Vol] 14 mg/dL Normal 8-23 [facility] Comment on above: Performed By: #### C JUAN A, BMP #### [facility] [address] [place] [address] Ring Facer: Ajit Stevens DO CBC with Diffon 07-20-2023 Abs. Basophil 0.10 k/uL Normal 0.0-0.2 [facility] Comment on above: Performed By: #### C JUAN A, BMP #### [facility] [address] [place] [address] Ring Facer: Ajit Stevens DO Abs.Neutrophil (Seg) 4.80 k/uL Normal 1.3-9.1 [facility] Comment on above: Performed By: #### C JUAN A, BMP #### [facility] [address] [place] [phone] Ring Facer: Ajit Stevens DO Basophils/100 WBC (Bld) 1 % Normal 0-2 [facility] Comment on above: Performed By: #### C DP, BMP #### [facility] [address] [place] [address] Ring Facer: Ajit Stevens DO Eosinophils (Bld) [#/Vol] 0.30 10*3/uL Normal 0.0-0.4 [facility] Comment on above: Performed By: #### C DP, BMP #### [facility] [place] [address] Ring Facer: Ajit Stevens DO Eosinophils/100 WBC (Bld) 3 % Normal 0-4 [facility] Comment on above: Performed By: #### C DP, BMP #### [facility] [address] [place] [address] Ring Facer: Ajit Stevens DO Erythrocyte distribution width (RBC) [Ratio] 14.2 % Normal 11.5-14.9 [facility] Comment on above: Performed By: #### C JUAN A, BMP #### [facility] [address] [place] [address] Ring Facer: Ajit Stevens DO Hematocrit (Bld) [Volume fraction] 38.3 % Normal 36-46 [facility] Comment on above: Performed By: #### C JUAN A, BMP #### [facility] [address] [place] [address] Ring Facer: Ajit Stevens DO Hemoglobin (Bld) [Mass/Vol] 12.8 g/dL Normal 12.0-16.0 [facility] Comment on above: Performed By: #### C DP, BMP #### [facility] [place] [address] Ring Facer: Ajit Stevens DO Lymphocytes (Bld) [#/Vol] 2.50 10*3/uL Normal 1.0-4.8 [facility] Comment on above: Performed By: #### C DP, BMP #### [facility] [place] [address] Ring Facer: Ajit Stevens DO Lymphocytes/100 WBC (Bld) 29 % Normal 24-44 [facility] Comment on above: Performed By: #### C DP, BMP #### [facility] [address] [place] [phone] Ring Facer: Ajit Stevens DO MCH (RBC) [Entitic mass] 31.4 pg Normal 26-34 [facility] Comment on above: Performed By: #### C DP, BMP #### [facility] [address] [place] [phone] Ring Facer: Ajit Stevens DO MCHC (RBC) [Mass/Vol] 33.3 g/dL Normal 31-37 [facility] Comment on above: Performed By: #### C DP, BMP #### [facility] [address] [place] [address] Ring Facer: Ajit Stevens DO MCV (RBC) [Entitic vol] 94.1 fL Normal 80-100 [facility] Comment on above: Performed By: #### C DP, BMP #### [facility] [address] [place] [phone] Ring Facer: Ajit Stevens DO Monocytes (Bld) [#/Vol] 0.70 10*3/uL Normal 0.1-1.3 [facility] Comment on above: Performed By: #### C DP, BMP #### [facility] [address] [place] [address] Ring Facer: Ajit Stevens DO Monocytes/100 WBC (Bld) 9 % High 1-7 [facility] Comment on above: Performed By: #### C DP, BMP #### [facility] [address] [place] [address] Ring Facer: Ajit Stevens DO Neutrophil (Seg) 58 % Normal 36-66 [facility] Comment on above: Performed By: #### C DP, BMP #### [facility] [address] [facility] [place] [address] Ring Facer: Ajit Stevens DO Platelet mean volume (Bld) [Entitic vol] 8.7 fL Normal 6.0-12.0 [facility] Comment on above: Performed By: #### C JUAN A, BMP #### [facility] [address] [facility] [place] [address] Ring Facer: Ajit Stevens DO Platelets (Bld) [#/Vol] 196 10*3/uL Normal 150-450 [facility] Comment on above: Performed By: #### C JUAN A, BMP #### [facility] [place] [address] Ring Facer: Ajit Stevens DO RBC (Bld) [#/Vol] 4.07 10*6/uL Normal 4.0-5.2 [facility] Comment on above: Performed By: #### C JUAN A, BMP #### [facility] [place] [address] Ring Facer: Ajit Stevens DO WBC (Bld) [#/Vol] 8.4 10*3/uL Normal 3.5-11.0 [facility] Comment on above: Performed By: #### C DP, BMP #### [facility] [place] [address] Ring Facer: Ajit Stevens DO Basic Metab w/rfx MGon 07-19 Anion gap [Moles/Vol] 9 mmol/L Normal 9-17 [facility] Comment on above: Performed By: #### P HO, BMPX, BNP #### [facility] [address] [facility] [place] [address] Ring Facer: Ajit Stevens DO Calcium [Mass/Vol] 9.7 mg/dL Normal 8.6-10.4 [facility] Comment on above: Performed By: #### P HO, BMPX, BNP #### [facility] [address] [facility] [place] [address] Ring Facer: Ajit Stevens DO Chloride [Moles/Vol] 102 mmol/L Normal 98-107 [facility] Comment on above: Performed By: #### P HO, BMPX, BNP #### [facility] [address] [facility] [place] [address] Ring Facer: Ajit Stevens DO CO2 [Moles/Vol] 26 mmol/L Normal 20-31 [facility] Comment on above: Performed By: #### P HO, BMPX, BNP #### [facility] [address] [facility] [place] [address] Ring Facer: Ajit Stevens DO Creatinine [Mass/Vol] 0.6 mg/dL Normal 0.5-0.9 [facility] Comment on above: Performed By: #### P HO, BMPX, BNP #### [facility] [address] [facility] [place] [address] Ring Facer: Ajit Stevens DO GFR/1.73 sq M.predicted among non-blacks MDRD (S/P/Bld) [Vol rate/Area] mL/min/{1.73_m2} Normal >60 [facility] Comment on above: Result Comment: These results are not intended for use in patients <18 years of age. eGFR results are calculated without a race factor using the 2020 CKD-EPI equation. Careful clinical correlation is recommended, particularly when comparing to results calculated using previous equations. The CKD-EPI equation is less accurate in patients with extremes of muscle mass, extra-renal metabolism of creatine, excessive creatine ingestion, or following therapy that affects renal tubular secretion. Performed By: #### P HO, BMPX, BNP #### [facility] [address] [place] [address] Ring Facer: Ajit Stevens DO Glucose [Mass/Vol] 308 mg/dL High 70-99 [facility] Comment on above: Performed By: #### P HO, BMPX, BNP #### [facility] [address] [place] [phone] Ring Facer: Ajit Stevens DO Potassium [Moles/Vol] 4.4 mmol/L Normal 3.7-5.3 [facility] Comment on above: Performed By: #### P HO, BMPX, BNP #### [facility] [address] [place] [address]. [place] [address] Ring Facer: Ajit Stevens DO Sodium [Moles/Vol] 137 mmol/L Normal 135-144 [facility] Comment on above: Performed By: #### P HO, BMPX, BNP #### [facility] [address] [place] [address] Ring Facer: Ajit Stevens DO Urea nitrogen [Mass/Vol] 17 mg/dL Normal 8-23 [facility] Comment on above: Performed By: #### P HO, BMPX, BNP #### [facility] [address] [place] [phone] Ring Facer: Ajit Stevens DO CBC with Diffon 07-19-2023 Abs. Basophil 0.10 k/uL Normal 0.0-0.2 [facility] Comment on above: Performed By: #### P HO, BMPX, BNP #### [facility] [address] [place] [phone] Ring Facer: Ajit Stevens DO Abs.Neutrophil (Seg) 4.70 k/uL Normal 1.3-9.1 [facility] Comment on above: Performed By: #### P HO, BMPX, BNP #### [facility] [address] [place] [address] Ring Facer: Ajit Stevens DO Basophils/100 WBC (Bld) 1 % Normal 0-2 [facility] Comment on above: Performed By: #### P HO, BMPX, BNP #### [facility] [address] [place] [address] Ring Facer: Ajit Stevens DO Eosinophils (Bld) [#/Vol] 0.20 10*3/uL Normal 0.0-0.4 [facility] Comment on above: Performed By: #### P HO, BMPX, BNP #### [facility] [address] [place] [phone] Ring Facer: Ajit Stevens DO Eosinophils/100 WBC (Bld) 2 % Normal 0-4 [facility] Comment on above: Performed By: #### P HO, BMPX, BNP #### [facility] [address] [place] [address] Ring Facer: Ajit Stevens DO Erythrocyte distribution width (RBC) [Ratio] 14.5 % Normal 11.5-14.9 [facility] Comment on above: Performed By: #### P HO, BMPX, BNP #### [facility] [address] [place] [address] Ring Facer: Ajit Stevens DO Hematocrit (Bld) [Volume fraction] 38.2 % Normal 36-46 [facility] Comment on above: Performed By: #### P HO, BMPX, BNP #### [facility] [address] [place] [phone] Ring Facer: Ajit Stevens DO Hemoglobin (Bld) [Mass/Vol] 12.4 g/dL Normal 12.0-16.0 [facility] Comment on above: Performed By: #### P HO, BMPX, BNP #### [facility] [place] [address] Ring Facer: Ajit Stevens DO Lymphocytes (Bld) [#/Vol] 2.20 10*3/uL Normal 1.0-4.8 [facility] Comment on above: Performed By: #### P HO, BMPX, BNP #### [facility] [address] [place] [address] Ring Facer: Ajit Stevens DO Lymphocytes/100 WBC (Bld) 28 % Normal 24-44 [facility] Comment on above: Performed By: #### P HO, BMPX, BNP #### [facility] [address] [place] [address] Ring Facer: Ajit Stevens DO MCH (RBC) [Entitic mass] 30.7 pg Normal 26-34 [facility] Comment on above: Performed By: #### P HO, BMPX, BNP #### [facility] [address] [place] [phone] Ring Facer: Ajit Stevens DO MCHC (RBC) [Mass/Vol] 32.5 g/dL Normal 31-37 [facility] Comment on above: Performed By: #### P HO, BMPX, BNP #### [facility] [address] [place] [address] Ring Facer: Ajit Stevens DO MCV (RBC) [Entitic vol] 94.5 fL Normal 80-100 [facility] Comment on above: Performed By: #### P HO, BMPX, BNP #### [facility] [place] [address] Ring Facer: Ajit Stevens DO Monocytes (Bld) [#/Vol] 0.60 10*3/uL Normal 0.1-1.3 [facility] Comment on above: Performed By: #### P HO, BMPX, BNP #### [facility] [address] [place] [address] Ring Facer: Ajit Stevens DO Monocytes/100 WBC (Bld) 7 % Normal 1-7 [facility] Comment on above: Performed By: #### P HO, BMPX, BNP #### [facility] [address] [place] [phone] Ring Facer: Ajit Stevens DO Neutrophil (Seg) 62 % Normal 36-66 [facility] Comment on above: Performed By: #### P HO, BMPX, BNP #### [facility] [address] [place] [address] Ring Facer: Ajit Stevens DO Platelet mean volume (Bld) [Entitic vol] 8.4 fL Normal 6.0-12.0 [facility] Comment on above: Performed By: #### P HO, BMPX, BNP #### [facility] [address] [place] [phone] Ring Facer: Ajit Stevens DO Platelets (Bld) [#/Vol] 214 10*3/uL Normal 150-450 [facility] Comment on above: Performed By: #### P HO, BMPX, BNP #### [facility] [address] [place] [phone] Ring Facer: Ajit Stevens DO RBC (Bld) [#/Vol] 4.04 10*6/uL Normal 4.0-5.2 [facility] Comment on above: Performed By: #### P HO, BMPX, BNP #### [facility] [address] [facility] [place] [address] Ring Facer: Ajit Stevens DO WBC (Bld) [#/Vol] 7.7 10*3/uL Normal 3.5-11.0 [facility] Comment on above: Performed By: #### P HO, BMPX, BNP #### [facility] [address] [facility] [place] [address] Ring Facer: Ajit Stevens DO Cult,Urineon 07-19-2023 Cult,Urine Specimen Description .CLEAN CATCH URINE Culture ESCHERICHIA COLI >100,000 CFU/ML Report Status FINAL 07/19/2023 SUSCEPTIBILITY Organism ESCHERICHIA COLI Method CADENCE Ampicillin <=2 SUSCEPTIBLE Cefazolin <=4 SUSCEPTIBLE Cefazolin sensitivity results can be used to predict the effectiveness of oral cephalosporins (eg. Cephalexin) in uncomplicated Urinary Tract Infections due to E. coli, K. pneumoniae, and P. mirabilis Ceftriaxone <=0.25 SUSCEPTIBLE ESBL NEGATIVE Gentamicin <=1 SUSCEPTIBLE Levofloxacin <=0.12 SUSCEPTIBLE Nitrofurantoin <=16 SUSCEPTIBLE Piperacillin/Tazobact am <=4 SUSCEPTIBLE Tobramycin <=1 SUSCEPTIBLE Trimethoprim/Sulfa <=20 SUSCEPTIBLE Susceptible [facility] Comment on above: Performed By: #### V BG #### [facility] [address] [facility] [place] [address] Ring Facer: Ajit Stevens DO CT HEAD WO CONTRASTon 2022 CT HEAD WO CONTRAST EXAMINATION: CT OF THE HEAD WITHOUT CONTRAST 07/17/2023 9:40 pm TECHNIQUE: CT of the head was performed without the administration of intravenous contrast. Automated exposure control, iterative reconstruction, and/or weight based adjustment of the mA/kV was utilized to reduce the radiation dose to as low as reasonably achievable. COMPARISON: None. HISTORY: Altered mental status, multiple falls a few weeks ago. FINDINGS: BRAIN/VENTRICLES: No acute intracranial hemorrhage, mass effect, or midline shift. No abnormal extra-axial fluid collection. The pacheco-white differentiation is maintained without evidence of an acute infarct. Age commensurate parenchymal volume loss. No hydrocephalus. ORBITS: The visualized portion of the orbits demonstrate no acute abnormality. SINUSES: The visualized paranasal sinuses and mastoid air cells demonstrate no acute abnormality. SOFT TISSUES/SKULL: No acute abnormality of the visualized skull or soft tissues. IMPRESSION: No acute abnormality. Interpreted by: Flip Ferris MD Signed by: Flip Ferris MD 07/17/23 Final result Normal [facility] Hemoglobin A1Con 07-18-2023 Glucose [Mass/Vol] 186 mg/dL Normal [facility] Comment on above: Result Comment: The ADA and AACC recommend providing the estimated average glucose result to permit better patient understanding of their HBA1c result. Performed By: #### P HO, BMPX, BNP #### [facility] [address] [place] [address] Ring Facer: Ajit Stevens DO HbA1c (Bld) [Mass fraction] 8.1 % High 4.0-6.0 [facility] Comment on above: Performed By: #### P HO, BMPX, BNP #### [facility] [address] [place] [address] Ring Facer: Ajit Stevens DO TSH w/reflex to FT4on 2022 Thyroid Stim. Horm. 5.23 uIU/mL High 0.30-5.00 [facility] Comment on above: Performed By: #### P HO, BMPX, BNP #### [facility] [address] [place] [address] Ring Facer: Ajit Stevens DO Thyroxine, Freeon 07-18-2023 Thyroxine, Free 1.5 ng/dL Normal 0.9-1.7 [facility] Comment on above: Performed By: #### P HO, BMPX, BNP #### [facility] [address] [place] [address] Ring Facer: Ajit Stevens DO Urinalysis, Routineon 2022 Bilirubin, SemiQt,Ur Negative Normal NEG [facility] Comment on above: Performed By: #### U WILLY, UAX #### [facility] [address] [place] [phone] Ring Facer: Ajit Stevens DO Blood, Urine Negative Normal NEG [facility] Comment on above: Performed By: #### U JAMIO, UAX #### [facility] [address] [place] [phone] Ring Facer: Ajit Stevens DO Clarity (U) Cloudy Abnormal CLEAR [facility] Comment on above: Performed By: #### U JAMIO, UAX #### [facility] [address] [place] [address] Ring Facer: Ajit Stevens DO Color (U) Dark Yellow Abnormal YEL [facility] Comment on above: Performed By: #### U JAMIO, UAX #### [facility] [address] [place] [address] Ring Facer: Ajit Stevens DO Glucose Ql (U) LARGE Abnormal NEG [facility] Comment on above: Performed By: #### U JAMIO, UAX #### [facility] [address] [place] [phone] Ring Facer: Ajit Stevens DO Ketones Ql (U) Negative Normal NEG [facility] Comment on above: Performed By: #### U WILLY, UAX #### [facility] [address] [place] [phone] Ring Facer: Ajit Stevens DO Leukocyte esterase Test strip Ql (U) Negative Normal NEG [facility] Comment on above: Performed By: #### U WILLY, UAX #### [facility] [address] [place] [address] Ring Facer: Ajit Stevens DO Nitrite,Ur Negative Normal NEG [facility] Comment on above: Performed By: #### COREY BOUCHERX #### [facility] [address] [place] [address] Ring Facer: Ajit Stevens DO PH,Ur 5.0 Normal 5.0-8.0 [facility] Comment on above: Performed By: #### Elaina AGUILERA UAX #### [facility] [address] [place] [address] Ring Facer: Ajit Stevens DO Protein Ql (U) TRACE Abnormal NEG [facility] Comment on above: Performed By: #### COREY BOUCHERX #### [facility] [address] [place] [address] Ring Facer: Ajit Stevens DO Spec. [place],Ur 1.026 Normal 1.000-1.030 [facility] Comment on above: Performed By: #### TODD BOUCHER #### [facility] [address] [place] [address] Ring Facer: Ajit Stevens DO Urobilinogen,Ur Normal Normal 0.0-1.0 [facility] Comment on above: Performed By: #### TODD BOUCHER #### [facility] [address] [place] [address] Ring Facer: Ajit Stevens DO Urinalysis,Microon 3 Bacteria MANY Abnormal NONE [facility] Comment on above: Performed By: #### Elaina AGUILERA UAX #### [facility] [address] [place] [phone] Ring Facer: Ajit Stevens DO Epithelial cells LM Ql (Urine sed) 0 TO 2 Normal [facility] Comment on above: Performed By: #### Elaina AGUILERA UAX #### [facility] [place] [address] Ring Facer: Ajit Stevens DO Urine RBC's 0 TO 2 Normal R02 [facility] Comment on above: Performed By: #### Elaina AGUILERA UAX #### [facility] [place] [address] Ring Facer: Ajit Stevens DO Urine WBC's 0 TO 2 Abnormal R05 [facility] Comment on above: Performed By: #### Elaina AGUILERA UAX #### [facility] [place] [address] Ring Facer: Ajit Stevens DO Venous Blood Gaseson 023 Carboxy Hgb 5.1 % High 0-5 [facility] Comment on above: Result Comment: Reference Range: Non-Smokers 0-2% Average Smoker 2-4% Heavy Smoker <10% Performed By: #### V BG #### [facility] [address] [place] [address] Ring Facer: Ajit Stevens DO HCO3 (Bld) [Moles/Vol] 27.6 mmol/L Normal 24.0-30.0 [facility] Comment on above: Performed By: #### V BG #### [facility] [address] [place] [phone] Ring Facer: Ajit Stevens DO Methemoglobin 0.4 % Normal 0.0-1.9 [facility] Comment on above: Performed By: #### V BG #### [facility] [address] [place] [address] Ring Facer: Ajit Stevens DO Oxygen saturation in Blood 87.2 % High 60.0-85.0 [facility] Comment on above: Performed By: #### V BG #### [facility] [address] [facility] [place] [address] Ring Facer: Ajit Stevens DO pCO2 46.4 mm Hg Normal 39.0-55.0 [facility] Comment on above: Performed By: #### V BG #### [facility] [place] [address] Ring Facer: Ajit Stevens DO pH (Bld) 7.383 [pH] Normal 7.320-7.420 [facility] Comment on above: Performed By: #### V BG #### [facility] [place] [address] Ring Facer: Ajit Stevens DO pO2 57.8 mm Hg High 30.0-50.0 [facility] Comment on above: Performed By: #### V BG #### [facility] [place] [address] Ring Facer: Ajit Stevens DO Positive Base Excess 2.5 mmol/L High 0.0-2.0 [facility] Comment on above: Performed By: #### V BG #### [facility] [address] [place] [address]. [place] [address] Ring Facer: Ajit Stevens DO Text for Respiratory RESULTS GIVEN TO PHYSICIAN. Normal [facility] Comment on above: Performed By: #### V BG #### [facility] [address] [place] [address] Ring Facer: Ajit Stevens DO XR CHEST PORTABLEon 07-18-20 XR CHEST PORTABLE EXAMINATION: ONE XRAY VIEW OF THE CHEST 07/17/2023 9:26 pm COMPARISON: None. HISTORY: ORDERING SYSTEM PROVIDED HISTORY: sepsis r/o TECHNOLOGIST PROVIDED HISTORY: sepsis r/o Reason for Exam: sepsis r/o Additional signs and symptoms: sepsis r/o Relevant Medical/Surgical History: sepsis r/o FINDINGS: The cardiomediastinal silhouette is within normal limits. There is no consolidation, pneumothorax or evidence for edema. No evidence for effusion. No acute osseous abnormality is identified. IMPRESSION: No acute airspace disease identified. Interpreted by: Kevin Andujar MD Signed by: Kevin Andujar MD 07/17/23 Final result Normal [facility] XR HIP 2-3 VW W PELVIS RIGHT on 07-18-2023 XR HIP 2-3 VW W PELVIS RIGHT EXAMINATION: ONE XRAY VIEW OF THE PELVIS AND TWO XRAY VIEWS RIGHT HIP 07/17/2023 9:26 pm COMPARISON: None. HISTORY: ORDERING SYSTEM PROVIDED HISTORY: R hip pain, AMS TECHNOLOGIST PROVIDED HISTORY: R hip pain, AMS Reason for Exam: R hip pain, AMS pt denies fall. States hips have hurt her for awhile FINDINGS: There is mild joint space narrowing of the weight-bearing aspect of both hip joints. There is no evidence of fracture or dislocation. The SI joints and pubic symphysis are congruent. Arterial vascular calcifications are noted. IMPRESSION: No fracture or dislocation. Interpreted by: Cory Leong MD Signed by: Cory Leong MD 07/17/23 Final result Normal [facility] CBC with Diffon 07-17-2023 Abs. Basophil 0.10 k/uL Normal 0.0-0.2 [facility] Comment on above: Performed By: #### P HO, BMPX, BNP #### [facility] [address] [facility] [place] [address] Ring Facer: Ajit Stevens DO Abs.Neutrophil (Seg) 6.00 k/uL Normal 1.3-9.1 [facility] Comment on above: Performed By: #### P HO, BMPX, BNP #### [facility] [address] [facility] [place] [address] Ring Facer: Ajit Stevens DO Basophils/100 WBC (Bld) 1 % Normal 0-2 [facility] Comment on above: Performed By: #### P HO, BMPX, BNP #### [facility] [place] [address] Ring Facer: Ajit Stevens DO Eosinophils (Bld) [#/Vol] 0.20 10*3/uL Normal 0.0-0.4 [facility] Comment on above: Performed By: #### P HO, BMPX, BNP #### [facility] [address] [place] [phone] Ring Facer: Ajit Stevens DO Eosinophils/100 WBC (Bld) 2 % Normal 0-4 [facility] Comment on above: Performed By: #### P HO, BMPX, BNP #### [facility] [address] [place] [address] Ring Facer: Ajit Stevens DO Erythrocyte distribution width (RBC) [Ratio] 14.6 % Normal 11.5-14.9 [facility] Comment on above: Performed By: #### P HO, BMPX, BNP #### [facility] [address] [place] [address] Ring Facer: Ajit Stevens DO Hematocrit (Bld) [Volume fraction] 37.2 % Normal 36-46 [facility] Comment on above: Performed By: #### P HO, BMPX, BNP #### [facility] [address] [place] [phone] Ring Facer: Ajit Stevens DO Hemoglobin (Bld) [Mass/Vol] 12.4 g/dL Normal 12.0-16.0 [facility] Comment on above: Performed By: #### P HO, BMPX, BNP #### [facility] [address] [place] [address] Ring Facer: Ajit Stevens DO Lymphocytes (Bld) [#/Vol] 2.70 10*3/uL Normal 1.0-4.8 [facility] Comment on above: Performed By: #### P HO, BMPX, BNP #### [facility] [place] [address] Ring Facer: Ajit Stevens DO Lymphocytes/100 WBC (Bld) 27 % Normal 24-44 [facility] Comment on above: Performed By: #### P HO, BMPX, BNP #### [facility] [address] [place] [address] Ring Facer: Ajit Stevens DO MCH (RBC) [Entitic mass] 31.5 pg Normal 26-34 [facility] Comment on above: Performed By: #### P HO, BMPX, BNP #### [facility] [address] [place] [address] Ring Facer: Ajit Stevens DO MCHC (RBC) [Mass/Vol] 33.3 g/dL Normal 31-37 [facility] Comment on above: Performed By: #### P HO, BMPX, BNP #### [facility] [address] [place] [phone] Ring Facer: Ajit Stevens DO MCV (RBC) [Entitic vol] 94.5 fL Normal 80-100 [facility] Comment on above: Performed By: #### P HO, BMPX, BNP #### [facility] [address] [place] [address] Ring Facer: Ajit Stevens DO Monocytes (Bld) [#/Vol] 0.90 10*3/uL Normal 0.1-1.3 [facility] Comment on above: Performed By: #### P HO, BMPX, BNP #### [facility] [address] [place] [address] Ring Facer: Ajit Stevens DO Monocytes/100 WBC (Bld) 9 % High 1-7 [facility] Comment on above: Performed By: #### P HO, BMPX, BNP #### [facility] [address] [place] [address] Ring Facer: Ajit Stevens DO Neutrophil (Seg) 61 % Normal 36-66 [facility] Comment on above: Performed By: #### P HO, BMPX, BNP #### [facility] [address] [place] [phone] Ring Facer: Ajit Stevens DO Platelet mean volume (Bld) [Entitic vol] 8.7 fL Normal 6.0-12.0 [facility] Comment on above: Performed By: #### P HO, BMPX, BNP #### [facility] [address] [place] [address] Ring Facer: Ajit Stevens DO Platelets (Bld) [#/Vol] 200 10*3/uL Normal 150-450 [facility] Comment on above: Performed By: #### P HO, BMPX, BNP #### [facility] [address] [place] [address] Ring Facer: Ajit Stevens DO RBC (Bld) [#/Vol] 3.94 10*6/uL Low 4.0-5.2 [facility] Comment on above: Performed By: #### P HO, BMPX, BNP #### [facility] [address] [place] [address] Ring Facer: Ajit Stevens DO WBC (Bld) [#/Vol] 9.9 10*3/uL Normal 3.5-11.0 [facility] Comment on above: Performed By: #### P HO, BMPX, BNP #### [facility] [address] [place] [phone] Ring Facer: Ajit Stevens DO Comp Metabolic Pr/rfx MGon 1 0--2022 Bilirubin [Mass/Vol] mg/dL Low 0.3-1.2 [facility] Comment on above: Performed By: #### P HO, BMPX, BNP #### [facility] [address] [place] [address] Ring Facer: Ajit Stevens DO Albumin [Mass/Vol] 3.6 g/dL Normal 3.5-5.2 [facility] Comment on above: Performed By: #### P HO, BMPX, BNP #### [facility] [place] [address] Ring Facer: Ajit Stevens DO Alkaline Phos 64 U/L Normal 35-104 [facility] Comment on above: Performed By: #### P HO, BMPX, BNP #### [facility] [address] [place] [address] Ring Facer: Ajit Stevens DO ALT [Catalytic activity/Vol] 15 U/L Normal 5-33 [facility] Comment on above: Performed By: #### P HO, BMPX, BNP #### [facility] [place] [address] Ring Facer: Ajit Stevens DO Anion gap [Moles/Vol] 12 mmol/L Normal 9-17 [facility] Comment on above: Performed By: #### P HO, BMPX, BNP #### [facility] [address] [place] [address] Ring Facer: Ajit Stevens DO AST [Catalytic activity/Vol] 11 U/L Normal <32 [facility] Comment on above: Performed By: #### P HO, BMPX, BNP #### [facility] [address] [place] [address] Ring Facer: Ajit Stevens DO Calcium [Mass/Vol] 9.5 mg/dL Normal 8.6-10.4 [facility] Comment on above: Performed By: #### P HO, BMPX, BNP #### [facility] [address] [facility] [place] [address] Ring Facer: Ajit Stevens DO Chloride [Moles/Vol] 105 mmol/L Normal 98-107 [facility] Comment on above: Performed By: #### P HO, BMPX, BNP #### [facility] [address] [facility] [place] [address] Ring Facer: Ajit Stevens DO CO2 [Moles/Vol] 24 mmol/L Normal 20-31 [facility] Comment on above: Performed By: #### P HO, BMPX, BNP #### [facility] [address] [facility] [place] [address] Ring Facer: Ajit Stevens DO Creatinine [Mass/Vol] 1.2 mg/dL High 0.5-0.9 [facility] Comment on above: Performed By: #### P HO, BMPX, BNP #### [facility] [address] [facility] [place] [address] Ring Facer: Ajit Stevens DO GFR/1.73 sq M.predicted among non-blacks MDRD (S/P/Bld) [Vol rate/Area] 49 mL/min/{1.73_m2} Low >60 [facility] Comment on above: Result Comment: These results are not intended for use in patients <18 years of age. eGFR results are calculated without a race factor using the 2020 CKD-EPI equation. Careful clinical correlation is recommended, particularly when comparing to results calculated using previous equations. The CKD-EPI equation is less accurate in patients with extremes of muscle mass, extra-renal metabolism of creatine, excessive creatine ingestion, or following therapy that affects renal tubular secretion. Performed By: #### P HO, BMPX, BNP #### [facility] [address] [facility] [place] [address] Ring Facer: Ajit Stevens DO Glucose [Mass/Vol] 113 mg/dL High 70-99 [facility] Comment on above: Performed By: #### P HO, BMPX, BNP #### [facility] [place] [address] Ring Facer: Ajit Stevens DO Potassium [Moles/Vol] 3.9 mmol/L Normal 3.7-5.3 [facility] Comment on above: Performed By: #### P HO, BMPX, BNP #### [facility] [place] [address] Ring Facer: Ajit Stevens DO Protein [Mass/Vol] 6.6 g/dL Normal 6.4-8.3 [facility] Comment on above: Performed By: #### P HO, BMPX, BNP #### [facility] [address] [place] [phone] Ring Facer: Ajit Stevens DO Sodium [Moles/Vol] 141 mmol/L Normal 135-144 [facility] Comment on above: Performed By: #### P HO, BMPX, BNP #### [facility] [address] [place] [phone] Ring Facer: Ajit Stevens DO Urea nitrogen [Mass/Vol] 34 mg/dL High 8-23 [facility] Comment on above: Performed By: #### P HO, BMPX, BNP #### [facility] [address] [place] [phone] Ring Facer: Ajit Stevens DO Lactic Acidon 07-17-2023 Lactate [Moles/Vol] 1.5 mmol/L Normal 0.5-2.2 [facility] Comment on above: Performed By: #### P HO, BMPX, BNP #### [facility] [address] [facility] [place] [address] Ring Facer: Ajit Stevens DO Prot. Electroph, Blon 2022 Pathologist Review: ELECTRONICALLY SIGNED. ALLEN BRICENO M.D. Normal [facility] Comment on above: Performed By: #### P HO, BMPX, BNP #### [facility] [place] [address] Ring Facer: Ajit Stevens DO Prot. Elect-Interp NORMAL ELECTROPHORETIC PATTERN Normal [facility] Comment on above: Performed By: #### P HO, BMPX, BNP #### [facility] [address] [place] [address]. [place] [address] Ring Facer: Ajit Stevens DO PAUL Screen w/reflexon 2022 PAUL Screen Negative Normal NEG [facility] Comment on above: Performed By: #### P HO, BMPX, BNP #### [facility] [place] [address] Ring Facer: Ajit Stevens DO Anti-dsDNA 1.1 IU/mL Normal <10.0 [facility] Comment on above: Result Comment: Reference Range: <10.0 Negative 10.0-15.0 Equivocal >15.0 Positive Performed By: #### P HO, BMPX, BNP #### [facility] [place] [address] Ring Facer: Ajit Stevens DO SVETLANA Screen 0.3 U/mL Normal <0.7 [facility] Comment on above: Result Comment: Reference Range: <0.7 Negative 0.7-1.0 Equivocal >1.0 Positive SVETLANA Screen includes U1RNP,RNP70,Sm,Ro(SS-A),La(SS-B),CENP,Scl-70,Gem-1 Performed By: #### P HO, BMPX, BNP #### [facility] [address] [place] [address] Ring Facer: Ajit Stevens, CBC with Auto Differentialon 01-06-2023 Absolute Eos # 0.20 [facility] Absolute Lymph # 3.20 [facility] Absolute Morris # 0.80 [facility] Basophils (Bld) [#/Vol] 0.10 10*3/uL [facility] Basophils/100 WBC (Bld) 1 % 0 - 2 % [facility] Eosinophils/100 WBC (Bld) 3 % 0 - 4 % [facility] Hematocrit (Bld) [Volume fraction] 41.8 % 36 - 46 % [facility] Hemoglobin (Bld) [Mass/Vol] 14.1 g/dL 12.0 - 16.0 g/dL [facility] Interpretation and review of laboratory results Abnormal [facility] Lymphocytes/100 WBC (Bld) 37 % 24 - 44 % [facility] MCH (RBC) [Entitic mass] 30.8 pg 26 - 34 pg [facility] MCHC (RBC) [Mass/Vol] 33.7 g/dL 31 - 37 g/dL [facility] MCV (RBC) [Entitic vol] 91.5 fL 80 - 100 fL [facility] Monocytes/100 WBC (Bld) 9 % High 1 - 7 % [facility] Platelet distribution width (Bld) [Ratio] 14.2 % 11.5 - 14.9 % [facility] Platelet mean volume (Bld) [Entitic vol] 8.2 fL 6.0 - 12.0 fL [facility] Platelets (Bld) [#/Vol] 260 10*3/uL [facility] RBC (Bld) [#/Vol] 4.56 10*6/uL 4.0 - 5.2 m/uL [facility] Segmented neutrophils/100 WBC (Bld) 50 % 36 - 66 % [facility] Segs Absolute 4.40 [facility] WBC (Bld) [#/Vol] 8.7 10*3/uL [facility] CBC with Diffon 01-06-2023 Abs. Basophil 0.10 k/uL Normal 0.0-0.2 [facility] Comment on above: Performed By: #### V BG #### [facility] [address] [place] [address] Ring Facer: Ajit Stevens DO Abs.Neutrophil (Seg) 4.40 k/uL Normal 1.3-9.1 [facility] Comment on above: Performed By: #### V BG #### [facility] [address] [place] [phone] Ring Facer: Ajit Stevens DO Basophils/100 WBC (Bld) 1 % Normal 0-2 [facility] Comment on above: Performed By: #### V BG #### [facility] [place] [address] Ring Facer: Ajit Stevens DO Eosinophils (Bld) [#/Vol] 0.20 10*3/uL Normal 0.0-0.4 [facility] Comment on above: Performed By: #### V BG #### [facility] [address] [place] [address] Ring Facer: Ajit Stevens DO Eosinophils/100 WBC (Bld) 3 % Normal 0-4 [facility] Comment on above: Performed By: #### V BG #### [facility] [place] [address] Ring Facer: Ajit Stevens DO Erythrocyte distribution width (RBC) [Ratio] 14.2 % Normal 11.5-14.9 [facility] Comment on above: Performed By: #### V BG #### [facility] [place] [address] Ring Facer: Ajit Stevens DO Hematocrit (Bld) [Volume fraction] 41.8 % Normal 36-46 [facility] Comment on above: Performed By: #### Eladia BG #### [facility] [address] [place] [address] Ring Facer: Ajit Stevens DO Hemoglobin (Bld) [Mass/Vol] 14.1 g/dL Normal 12.0-16.0 [facility] Comment on above: Performed By: #### Eladia BG #### [facility] [place] [address] Ring Facer: Ajit Stevens DO Lymphocytes (Bld) [#/Vol] 3.20 10*3/uL Normal 1.0-4.8 [facility] Comment on above: Performed By: #### Eladia BG #### [facility] [place] [address] Ring Facer: Ajit Stevens DO Lymphocytes/100 WBC (Bld) 37 % Normal 24-44 [facility] Comment on above: Performed By: #### Eladia BG #### [facility] [place] [address] Ring Facer: Ajit Stevens DO MCH (RBC) [Entitic mass] 30.8 pg Normal 26-34 [facility] Comment on above: Performed By: #### V BG #### [facility] [place] [address] Ring Facer: Ajit Stevens DO MCHC (RBC) [Mass/Vol] 33.7 g/dL Normal 31-37 [facility] Comment on above: Performed By: #### Eladia BG #### [facility] [place] [address] Ring Facer: Ajit Stevens DO MCV (RBC) [Entitic vol] 91.5 fL Normal 80-100 [facility] Comment on above: Performed By: #### Eladia BG #### [facility] [address] [place] [address] Ring Facer: Ajit Stevens DO Monocytes (Bld) [#/Vol] 0.80 10*3/uL Normal 0.1-1.3 [facility] Comment on above: Performed By: #### Eladia BG #### [facility] [address] [place] [address] Ring Facer: Ajit Stevens DO Monocytes/100 WBC (Bld) 9 % High 1-7 [facility] Comment on above: Performed By: #### Eladia JOHNSON #### [facility] [address] [place] [address] Ring Facer: Ajit Stevens DO Neutrophil (Seg) 50 % Normal 36-66 [facility] Comment on above: Performed By: #### Eladia JOHNSON #### [facility] [address] [place] [address] Ring Facer: Ajit Stevens DO Platelet mean volume (Bld) [Entitic vol] 8.2 fL Normal 6.0-12.0 [facility] Comment on above: Performed By: #### Eladia BG #### [facility] [place] [address] Ring Facer: Ajit Stevens DO Platelets (Bld) [#/Vol] 260 10*3/uL Normal 150-450 [facility] Comment on above: Performed By: #### Eladia BG #### [facility] [place] [address] Ring Facer: Ajit Stevens DO RBC (Bld) [#/Vol] 4.56 10*6/uL Normal 4.0-5.2 [facility] Comment on above: Performed By: #### V BG #### [facility] [address] [facility] [place] [address] Ring Facer: Ajit Stevens DO WBC (Bld) [#/Vol] 8.7 10*3/uL Normal 3.5-11.0 [facility] Comment on above: Performed By: #### V BG #### [facility] [address] [place] [address] Ring Facer: Ajit Stevens DO POC Glucose Fingerstickon Glucose [Mass/Vol] 319 mg/dL High 65 - 105 mg/dL [facility] Interpretation and review of laboratory results Abnormal [facility] Glucose [Mass/Vol] 210 mg/dL High 65 - 105 mg/dL [facility] Interpretation and review of laboratory results Abnormal [facility] Prot. Electroph, Blon 2022 Albumin [Mass/Vol] 3.5 g/dL Normal 3.2-5.2 [facility] Comment on above: Performed By: #### P HO, BMPX, BNP #### [facility] [address] [facility] [place] [address] Ring Facer: Ajit Stevens DO Albumin, % 59 % Normal 45-65 [facility] Comment on above: Performed By: #### P HO, BMPX, BNP #### [facility] [address] [place] [address] Ring Facer: Ajit Stevens DO Bdebn-1-tnqcnofzl 0.2 g/dL Normal 0.1-0.4 [facility] Comment on above: Performed By: #### P HO, BMPX, BNP #### [facility] [address] [place] [address] Ring Facer: Ajit Stevens, DO Rqubq-1-qnbehixey,% 3 % Normal 3-6 [facility] Comment on above: Performed By: #### P HO, BMPX, BNP #### [facility] [address] [facility] [place] [address] Ring Facer: Ajit Stevens DO Oewqh-0-vkeblaewd 0.8 g/dL Normal 0.5-0.9 [facility] Comment on above: Performed By: #### P HO, BMPX, BNP #### [facility] [address] [place] [address] Ring Facer: Ajit Stevens DO Hqjjl-0-sadhehwcx,% 13 % Normal 6-13 [facility] Comment on above: Performed By: #### P HO, BMPX, BNP #### [facility] [place] [address] Ring Facer: Ajit Stevens DO Beta-globulins 0.9 g/dL Normal 0.5-1.1 [facility] Comment on above: Performed By: #### P HO, BMPX, BNP #### [facility] [place] [address] Ring Facer: Ajit Stevens DO Beta-globulins,% 14 % Normal 11-19 [facility] Comment on above: Performed By: #### P HO, BMPX, BNP #### [facility] [address] [facility] [place] [address] Ring Facer: Ajit Stevens DO Gamma-globulins 0.7 g/dL Normal 0.5-1.5 [facility] Comment on above: Performed By: #### P HO, BMPX, BNP #### [facility] [place] [address] Ring Facer: Ajit Stevens DO Gamma-globulins,% 11 % Normal 9-20 [facility] Comment on above: Performed By: #### P HO, BMPX, BNP #### [facility] [address] [place] [address] Ring Facer: Ajit Stevens DO Total Prot. Sum 6.1 g/dL Low 6.3-8.2 [facility] Comment on above: Performed By: #### P HO, BMPX, BNP #### [facility] [address] [facility] [place] [address] Ring Facer: Ajit Stevens DO Total Prot. Sum,% 100 % Normal 98-102 [facility] Comment on above: Performed By: #### P HO, BMPX, BNP #### [facility] [address] [facility] [place] [address] Ring Facer: Ajit Stevens DO Basic Metab w/rfx MGon 01-05 Anion gap [Moles/Vol] 12 mmol/L Normal 9-17 [facility] Comment on above: Performed By: #### C DP, BMPX #### [facility] [address] [facility] [place] [address] Ring Facer: Ajit Stevens DO Calcium [Mass/Vol] 9.0 mg/dL Normal 8.6-10.4 [facility] Comment on above: Performed By: #### C DP, BMPX #### [facility] [address] [facility] [place] [address] Ring Facer: Ajit Stevens DO Chloride [Moles/Vol] 104 mmol/L Normal 98-107 [facility] Comment on above: Performed By: #### C DP, BMPX #### [facility] [address] [facility] [place] [address] Ring Facer: Fanelly, Ajit, DO CO2 [Moles/Vol] 20 mmol/L Normal 20-31 [facility] Comment on above: Performed By: #### C DP, BMPX #### [facility] [address] [facility] [place] [address] Ring Facer: Ajit Stevens DO Creatinine [Mass/Vol] 0.58 mg/dL Normal 0.50-0.90 [facility] Comment on above: Performed By: #### C DP, BMPX #### [facility] [address] [facility] [place] [address] Ring Facer: Ajit Stevens DO GFR/1.73 sq M.predicted among non-blacks MDRD (S/P/Bld) [Vol rate/Area] mL/min/{1.73_m2} Normal >60 [facility] Comment on above: Result Comment: These results are not intended for use in patients <18 years of age. eGFR results are calculated without a race factor using the 2020 CKD-EPI equation. Careful clinical correlation is recommended, particularly when comparing to results calculated using previous equations. The CKD-EPI equation is less accurate in patients with extremes of muscle mass, extra-renal metabolism of creatine, excessive creatine ingestion, or following therapy that affects renal tubular secretion. Performed By: #### C DP, BMPX #### [facility] [address] [facility] [place] [address] Ring Facer: Ajit Stevens DO Glucose [Mass/Vol] 191 mg/dL High 70-99 [facility] Comment on above: Performed By: #### C DP, BMPX #### [facility] [address] [facility] [place] [address] Ring Facer: Ajit Stevens DO Potassium [Moles/Vol] 3.9 mmol/L Normal 3.7-5.3 [facility] Comment on above: Performed By: #### C DP, BMPX #### [facility] [address] [facility] [place] [address] Ring Facer: Ajit Stevens DO Sodium [Moles/Vol] 136 mmol/L Normal 135-144 [facility] Comment on above: Performed By: #### C DP, BMPX #### [facility] [address] [facility] [place] [address] Ring Facer: Ajit Stevens DO Urea nitrogen [Mass/Vol] 9 mg/dL Normal 8-23 [facility] Comment on above: Performed By: #### C DP, BMPX #### [facility] [address] [facility] [place] [address] Ring Facer: Ajit Stevens DO Basic Metabolic Panel w/ Ref tena to MG 01-05-2023 Anion gap [Moles/Vol] 12 mmol/L 9 - 17 mmol/L [facility] Calcium [Mass/Vol] 9.0 mg/dL 8.6 - 10. 4 mg/dL [facility] Chloride [Moles/Vol] 104 mmol/L 98 - 10 7 mmol/L [facility] CO2 [Moles/Vol] 20 mmol/L 20 - 31 mmol/L [facility] Creatinine [Mass/Vol] 0.58 mg/dL 0.50 - 0.90 mg/dL [facility] GFR/1.73 sq M.predicted MDRD (S/P/Bld) [Vol rate/Area] - PINF [facility] Comment on above: These results are not intended for use in patients <18 years of age. eGFR results are calculated without a race factor using the 2020 CKD-EPI equation. Careful clinical correlation is recommended, particularly when comparing to results calculated using previous equations. The CKD-EPI equation is less accurate in patients with extremes of muscle mass, extra-renal metabolism of creatine, excessive creatine ingestion, or following therapy that affects renal tubular secretion. Glucose [Mass/Vol] 191 mg/dL High 70 - 99 mg/dL [facility] Interpretation and review of laboratory results Abnormal [facility] Potassium [Moles/Vol] 3.9 mmol/L 3.7 - 5.3 mmol/L [facility] Sodium [Moles/Vol] 136 mmol/L 135 - 144 mmol/L [facility] Urea nitrogen [Mass/Vol] 9 mg/dL 8 - 23 mg/dL [facility] CBC with Auto Differentialon 01-05-2023 Absolute Eos # 0.30 [facility] Absolute Lymph # 2.70 [facility] Absolute Morris # 0.90 [facility] Basophils (Bld) [#/Vol] 0.10 10*3/uL [facility] Basophils/100 WBC (Bld) 1 % 0 - 2 % [facility] Eosinophils/100 WBC (Bld) 3 % 0 - 4 % [facility] Hematocrit (Bld) [Volume fraction] 38.8 % 36 - 46 % [facility] Hemoglobin (Bld) [Mass/Vol] 12.9 g/dL 12.0 - 16.0 g/dL [facility] Interpretation and review of laboratory results Abnormal [facility] Lymphocytes/100 WBC (Bld) 32 % 24 - 44 % [facility] MCH (RBC) [Entitic mass] 31.3 pg 26 - 34 pg [facility] MCHC (RBC) [Mass/Vol] 33.3 g/dL 31 - 37 g/dL [facility] MCV (RBC) [Entitic vol] 94.2 fL 80 - 100 fL [facility] Monocytes/100 WBC (Bld) 10 % High 1 - 7 % [facility] Platelet distribution width (Bld) [Ratio] 14.6 % 11.5 - 14.9 % [facility] Platelet mean volume (Bld) [Entitic vol] 7.9 fL 6.0 - 12.0 fL [facility] Platelets (Bld) [#/Vol] 217 10*3/uL [facility] RBC (Bld) [#/Vol] 4.12 10*6/uL 4.0 - 5.2 m/uL [facility] Segmented neutrophils/100 WBC (Bld) 54 % 36 - 66 % [facility] Segs Absolute 4.70 [facility] WBC (Bld) [#/Vol] 8.7 10*3/uL [facility] CBC with Diffon 01-05-2023 Abs. Basophil 0.10 k/uL Normal 0.0-0.2 [facility] Comment on above: Performed By: #### C DP, BMPX #### [facility] [place] [address] Ring Facer: Ajit Stevens DO Abs.Neutrophil (Seg) 4.70 k/uL Normal 1.3-9.1 [facility] Comment on above: Performed By: #### C DP, BMPX #### [facility] [address] [place] [address] Ring Facer: Ajit Stevens DO Basophils/100 WBC (Bld) 1 % Normal 0-2 [facility] Comment on above: Performed By: #### C DP, BMPX #### [facility] [place] [address] Ring Facer: Ajit Stevens DO Eosinophils (Bld) [#/Vol] 0.30 10*3/uL Normal 0.0-0.4 [facility] Comment on above: Performed By: #### C DP, BMPX #### [facility] [address] [place] [address] Ring Facer: Ajit Stevens DO Eosinophils/100 WBC (Bld) 3 % Normal 0-4 [facility] Comment on above: Performed By: #### C DP, BMPX #### [facility] [address] [place] [address] Ring Facer: Ajit Stevens DO Erythrocyte distribution width (RBC) [Ratio] 14.6 % Normal 11.5-14.9 [facility] Comment on above: Performed By: #### C DP, BMPX #### [facility] [address] [place] [address] Ring Facer: Ajit Stevens DO Hematocrit (Bld) [Volume fraction] 38.8 % Normal 36-46 [facility] Comment on above: Performed By: #### C DP, BMPX #### [facility] [place] [address] Ring Facer: Ajit Stevens DO Hemoglobin (Bld) [Mass/Vol] 12.9 g/dL Normal 12.0-16.0 [facility] Comment on above: Performed By: #### C DP, BMPX #### [facility] [address] [place] [address] Ring Facer: Ajit Stevens DO Lymphocytes (Bld) [#/Vol] 2.70 10*3/uL Normal 1.0-4.8 [facility] Comment on above: Performed By: #### C DP, BMPX #### [facility] [place] [address] Ring Facer: Ajit Stevens DO Lymphocytes/100 WBC (Bld) 32 % Normal 24-44 [facility] Comment on above: Performed By: #### C DP, BMPX #### [facility] [address] [place] [address] Ring Facer: Ajit Stevens DO MCH (RBC) [Entitic mass] 31.3 pg Normal 26-34 [facility] Comment on above: Performed By: #### C DP, BMPX #### [facility] [address] [place] [address] Ring Facer: Ajit Stevens DO MCHC (RBC) [Mass/Vol] 33.3 g/dL Normal 31-37 [facility] Comment on above: Performed By: #### C DP, BMPX #### [facility] [address] [facility] [place] [address] Ring Facer: Ajit Stevens DO MCV (RBC) [Entitic vol] 94.2 fL Normal 80-100 [facility] Comment on above: Performed By: #### C DP, BMPX #### [facility] [place] [address] Ring Facer: Ajit Stevens DO Monocytes (Bld) [#/Vol] 0.90 10*3/uL Normal 0.1-1.3 [facility] Comment on above: Performed By: #### C DP, BMPX #### [facility] [address] [place] [address] Ring Facer: Ajit Stevens DO Monocytes/100 WBC (Bld) 10 % High 1-7 [facility] Comment on above: Performed By: #### C DP, BMPX #### [facility] [address] [place] [address] Ring Facer: Ajit Stevens DO Neutrophil (Seg) 54 % Normal 36-66 [facility] Comment on above: Performed By: #### C DP, BMPX #### [facility] [address] [place] [address] Ring Facer: Ajit Stevens DO Platelet mean volume (Bld) [Entitic vol] 7.9 fL Normal 6.0-12.0 [facility] Comment on above: Performed By: #### C DP, BMPX #### [facility] [address] [place] [address] Ring Facer: Ajit Stevens DO Platelets (Bld) [#/Vol] 217 10*3/uL Normal 150-450 [facility] Comment on above: Performed By: #### C DP, BMPX #### [facility] [address] [place] [address] Ring Facer: Ajit Stevens DO RBC (Bld) [#/Vol] 4.12 10*6/uL Normal 4.0-5.2 [facility] Comment on above: Performed By: #### C DP, BMPX #### [facility] [address] [facility] [place] [address] Ring Facer: Ajit Stevens DO WBC (Bld) [#/Vol] 8.7 10*3/uL Normal 3.5-11.0 [facility] Comment on above: Performed By: #### C JUAN A BMPX #### [facility] [address] [facility] [place] [address] Ring Facer: Ajit Stevens DO POC Glucose Fingerstickon Glucose [Mass/Vol] 260 mg/dL High 65 - 105 mg/dL [facility] Interpretation and review of laboratory results Abnormal [facility] Glucose [Mass/Vol] 182 mg/dL High 65 - 105 mg/dL [facility] Interpretation and review of laboratory results Abnormal [facility] Glucose [Mass/Vol] 238 mg/dL High 65 - 105 mg/dL [facility] Interpretation and review of laboratory results Abnormal [facility] Glucose [Mass/Vol] 185 mg/dL High 65 - 105 mg/dL [facility] Interpretation and review of laboratory results Abnormal [facility] Basic Metab w/rfx MGon 01-04 GFR/1.73 sq M.predicted among non-blacks MDRD (S/P/Bld) [Vol rate/Area] mL/min/{1.73_m2} Normal >60 [facility] Comment on above: Result Comment: These results are not intended for use in patients <18 years of age. eGFR results are calculated without a race factor using the 2020 CKD-EPI equation. Careful clinical correlation is recommended, particularly when comparing to results calculated using previous equations. The CKD-EPI equation is less accurate in patients with extremes of muscle mass, extra-renal metabolism of creatine, excessive creatine ingestion, or following therapy that affects renal tubular secretion. Performed By: #### P HO, BMPX, BNP #### [facility] [address] [place] [address]. [place] [address] Ring Facer: Ajit Stevens DO Anion gap [Moles/Vol] 10 mmol/L Normal 9-17 [facility] Comment on above: Performed By: #### P HO, BMPX, BNP #### [facility] [address] [place] [address]. [place] [address] Ring Facer: Ajit Stevens DO Calcium [Mass/Vol] 9.1 mg/dL Normal 8.6-10.4 [facility] Comment on above: Performed By: #### P HO, BMPX, BNP #### [facility] [address] [place] [address]. [place] [address] Ring Facer: Ajit Stevens DO Chloride [Moles/Vol] 105 mmol/L Normal 98-107 [facility] Comment on above: Performed By: #### P HO, BMPX, BNP #### [facility] [address] [place] [address]. [place] [address] Ring Facer: Ajit Stevens DO CO2 [Moles/Vol] 24 mmol/L Normal 20-31 [facility] Comment on above: Performed By: #### P HO, BMPX, BNP #### [facility] [address] [place] [address]. [place] [address] Ring Facer: Ajit Stevens DO Creatinine [Mass/Vol] 0.77 mg/dL Normal 0.50-0.90 [facility] Comment on above: Performed By: #### P HO, BMPX, BNP #### [facility] [address] [place] [address]. [place] [address] Ring Facer: Ajit Stevens DO Glucose [Mass/Vol] 170 mg/dL High 70-99 [facility] Comment on above: Performed By: #### P HO, BMPX, BNP #### [facility] [address] [place] [address]. [place] [address] Ring Facer: Ajit Stevens DO Potassium [Moles/Vol] 4.2 mmol/L Normal 3.7-5.3 [facility] Comment on above: Performed By: #### P HO, BMPX, BNP #### [facility] [address] [place] [address]. [place] [address] Ring Facer: Ajit Stevens DO Sodium [Moles/Vol] 139 mmol/L Normal 135-144 [facility] Comment on above: Performed By: #### P HO, BMPX, BNP #### [facility] [address] [place] [address]. [place] [address] Ring Facer: Ajit Stevens DO Urea nitrogen [Mass/Vol] 20 mg/dL Normal 8-23 [facility] Comment on above: Performed By: #### P HO, BMPX, BNP #### [facility] [address] [place] [address]. [place] [address] Ring Facer: Ajit Stevens DO Basic Metabolic Panel w/ Ref tena to MGon 01-04-2023 GFR/1.73 sq M.predicted MDRD (S/P/Bld) [Vol rate/Area] - PINF [facility] Comment on above: These results are not intended for use in patients <18 years of age. eGFR results are calculated without a race factor using the 2020 CKD-EPI equation. Careful clinical correlation is recommended, particularly when comparing to results calculated using previous equations. The CKD-EPI equation is less accurate in patients with extremes of muscle mass, extra-renal metabolism of creatine, excessive creatine ingestion, or following therapy that affects renal tubular secretion. Interpretation and review of laboratory results Abnormal [facility] CBC with Auto Differentialon 01-04-2023 Absolute Eos # 0.20 [facility] Absolute Lymph # 2.90 [facility] Absolute Morris # 0.80 [facility] Basophils (Bld) [#/Vol] 0.10 10*3/uL [facility] Basophils/100 WBC (Bld) 1 % 0 - 2 % [facility] Eosinophils/100 WBC (Bld) 3 % 0 - 4 % [facility] Hematocrit (Bld) [Volume fraction] 38.7 % 36 - 46 % [facility] Hemoglobin (Bld) [Mass/Vol] 13.2 g/dL 12.0 - 16.0 g/dL [facility] Interpretation and review of laboratory results Abnormal [facility] Lymphocytes/100 WBC (Bld) 33 % 24 - 44 % [facility] MCH (RBC) [Entitic mass] 31.3 pg 26 - 34 pg [facility] MCHC (RBC) [Mass/Vol] 34.1 g/dL 31 - 37 g/dL [facility] MCV (RBC) [Entitic vol] 91.7 fL 80 - 100 fL [facility] Monocytes/100 WBC (Bld) 9 % High 1 - 7 % [facility] Platelet distribution width (Bld) [Ratio] 14.6 % 11.5 - 14.9 % [facility] Platelet mean volume (Bld) [Entitic vol] 8.1 fL 6.0 - 12.0 fL [facility] Platelets (Bld) [#/Vol] 231 10*3/uL [facility] RBC (Bld) [#/Vol] 4.21 10*6/uL 4.0 - 5.2 m/uL [facility] Segmented neutrophils/100 WBC (Bld) 54 % 36 - 66 % [facility] Segs Absolute 4.80 [facility] WBC (Bld) [#/Vol] 8.8 10*3/uL [facility] CBC with Diffon 01-04-2023 Abs. Basophil 0.10 k/uL Normal 0.0-0.2 [facility] Comment on above: Performed By: #### P HO, BMPX, BNP #### [facility] [facility] [place] [address] Ring Facer: Ajit Stevens DO Abs.Neutrophil (Seg) 4.80 k/uL Normal 1.3-9.1 [facility] Comment on above: Performed By: #### P HO, BMPX, BNP #### [facility] [address] [place] [phone] Ring Facer: Ajit Stevens DO Basophils/100 WBC (Bld) 1 % Normal 0-2 [facility] Comment on above: Performed By: #### P HO, BMPX, BNP #### [facility] [address] [place] [phone] Ring Facer: Ajit Stevens DO Eosinophils (Bld) [#/Vol] 0.20 10*3/uL Normal 0.0-0.4 [facility] Comment on above: Performed By: #### P HO, BMPX, BNP #### [facility] [address] [place] [phone] Ring Facer: Ajit Stevens DO Eosinophils/100 WBC (Bld) 3 % Normal 0-4 [facility] Comment on above: Performed By: #### P HO, BMPX, BNP #### [facility] [address] [place] [phone] Ring Facer: Ajit Stevens DO Erythrocyte distribution width (RBC) [Ratio] 14.6 % Normal 11.5-14.9 [facility] Comment on above: Performed By: #### P HO, BMPX, BNP #### [facility] [address] [place] [phone] Ring Facer: Ajit Stevens DO Hematocrit (Bld) [Volume fraction] 38.7 % Normal 36-46 [facility] Comment on above: Performed By: #### P HO, BMPX, BNP #### [facility] [place] [address] Ring Facer: Ajit Stevens DO Hemoglobin (Bld) [Mass/Vol] 13.2 g/dL Normal 12.0-16.0 [facility] Comment on above: Performed By: #### P HO, BMPX, BNP #### [facility] [address] [place] [phone] Ring Facer: Ajit Stevens DO Lymphocytes (Bld) [#/Vol] 2.90 10*3/uL Normal 1.0-4.8 [facility] Comment on above: Performed By: #### P HO, BMPX, BNP #### [facility] [address] [place] [phone] Ring Facer: Ajit Stevens DO Lymphocytes/100 WBC (Bld) 33 % Normal 24-44 [facility] Comment on above: Performed By: #### P HO, BMPX, BNP #### [facility] [address] [place] [phone] Ring Facer: Ajit Stevens DO MCH (RBC) [Entitic mass] 31.3 pg Normal 26-34 [facility] Comment on above: Performed By: #### P HO, BMPX, BNP #### [facility] [address] [place] [phone] Ring Facer: Ajit Stevens DO MCHC (RBC) [Mass/Vol] 34.1 g/dL Normal 31-37 [facility] Comment on above: Performed By: #### P HO, BMPX, BNP #### [facility] [address] [place] [phone] Ring Facer: Ajit Stevens DO MCV (RBC) [Entitic vol] 91.7 fL Normal 80-100 [facility] Comment on above: Performed By: #### P HO, BMPX, BNP #### [facility] [address] [facility] [place] [address] Ring Facer: Ajit Stevens DO Monocytes (Bld) [#/Vol] 0.80 10*3/uL Normal 0.1-1.3 [facility] Comment on above: Performed By: #### P HO, BMPX, BNP #### [facility] [address] [place] [phone] Ring Facer: Ajit Stevens DO Monocytes/100 WBC (Bld) 9 % High 1-7 [facility] Comment on above: Performed By: #### P HO, BMPX, BNP #### [facility] [place] [address] Ring Facer: Ajit Stevens DO Neutrophil (Seg) 54 % Normal 36-66 [facility] Comment on above: Performed By: #### P HO, BMPX, BNP #### [facility] [address] [place] [phone] Ring Facer: Ajit Stevens DO Platelet mean volume (Bld) [Entitic vol] 8.1 fL Normal 6.0-12.0 [facility] Comment on above: Performed By: #### P HO, BMPX, BNP #### [facility] [address] [place] [phone] Ring Facer: Ajit Stevens DO Platelets (Bld) [#/Vol] 231 10*3/uL Normal 150-450 [facility] Comment on above: Performed By: #### P HO, BMPX, BNP #### [facility] [address] [place] [address] [place] [address] Ring Facer: Ajit Stevens DO RBC (Bld) [#/Vol] 4.21 10*6/uL Normal 4.0-5.2 [facility] Comment on above: Performed By: #### P HO, BMPX, BNP #### [facility] [address] [facility] [place] [address] Ring Facer: Ajit Stevens DO WBC (Bld) [#/Vol] 8.8 10*3/uL Normal 3.5-11.0 [facility] Comment on above: Performed By: #### P HO, BMPX, BNP #### [facility] [address] [facility] [place] [address] Ring Facer: Ajit Stevens DO CT ABDOMEN PELVIS WO CONTRAS Ton 01-04-2023 CT ABDOMEN PELVIS WO CONTRAST EXAMINATION: CT OF THE ABDOMEN AND PELVIS WITHOUT CONTRAST 01/03/2023 4:49 pm TECHNIQUE: CT of the abdomen and pelvis was performed without the administration of intravenous contrast. Multiplanar reformatted images are provided for review. Automated exposure control, iterative reconstruction, and/or weight based adjustment of the mA/kV was utilized to reduce the radiation dose to as low as reasonably achievable. COMPARISON: 01/02/2023 HISTORY: ORDERING SYSTEM PROVIDED HISTORY: Evaluate small bowel obstruction TECHNOLOGIST PROVIDED HISTORY: Evaluate small bowel obstruction Reason for Exam: Evaluate small bowel obstruction Additional signs and symptoms: abdominal pain, nausea FINDINGS: Lower Chest: No acute abnormality. Organs: The liver continues to demonstrate fatty infiltration but no focal disease. Status post cholecystectomy. The pancreas, spleen, adrenals, kidneys, aorta and IVC appear stable. The aorta is calcified but nonaneurysmal. GI/Bowel: Nasogastric tube well positioned in the stomach. There is persistent dilation of small bowel loops with some air-fluid levels perhaps slightly less pronounced compared to the previous evaluation. There is transit of small-bowel contrast to proximal ileum. Normal appendix. Constipation and stool impaction in the rectum. Pelvis: The urinary bladder appears unremarkable. The uterus and adnexa appear unremarkable. No evidence of lymphadenopathy. Peritoneum/Retroperit oneum: No evidence of retroperitoneal lymphadenopathy. No evidence of free air. Bones/Soft Tissues: No acute abnormality. IMPRESSION: 1. Persistent dilation of small bowel loops with air-fluid levels beyond the jejunum which likely represents ileus rather than bowel obstruction. Early bowel obstruction cannot be excluded although there is no significant worsening compared to the previous evaluation. Normal appendix. 2. Constipation and stool impaction in the rectum. 3. Fatty liver but no focal disease. Status post cholecystectomy. 4. Well-positioned nasogastric tube in the stomach. Interpreted by: Ledy Betancourt MD Signed by: Ledy Betancourt MD 01/03/23 Final result Normal [facility] EKG 12 LeadOrdered By: Jerman Obando on 01-04-2023 Atrial Rate 79 BPM [employer] Work Phone: P [place] 36 degrees [employer] [place] Work Phone: P-R Interval 136 ms [employer] Work Phone: Q-T Interval 386 ms [employer] Work Phone: QRS Duration 94 ms [employer] Work Phone: QTc Calculation (Bazett) 442 ms [employer] Work Phone: R [place] 36 degrees [employer] Work Phone: T [place] 35 degrees [employer] Work Phone: Ventricular Rate 79 BPM [employer] Work Phone: [employer] Work Phone: EKG 12 Leadon 01-04-2023 Normal sinus rhythm Normal ECG When compared with ECG of 25-NOV-2015 01:31, No significant change was found [facility] ST MUSE Gisella, Jerman Estrada MD - 01/04/2023 Normal sinus rhythm Normal ECG When compared with ECG of 25-NOV-2015 01:31, No significant change was found [employer] Phone: POC Glucose Fingerstickon 03 -25-2023 Glucose [Mass/Vol] 188 mg/dL High 65 - 105 mg/dL [facility] Interpretation and review of laboratory results Abnormal [facility] Glucose [Mass/Vol] 192 mg/dL High 65 - 105 mg/dL [facility] Interpretation and review of laboratory results Abnormal [facility] Glucose [Mass/Vol] 173 mg/dL High 65 - 105 mg/dL [facility] Interpretation and review of laboratory results Abnormal [facility] PTH, Intacton 01-04-2023 Calcium [Moles/Vol] 1.31 mmol/L Normal 1.13-1.33 [facility] Comment on above: Performed By: #### P CARLEY BMPX, BNP #### [facility] [address] [facility]. [place] [id number] Ring Facer: Ajit Stevens DO PTH, Intact 12.2 pg/mL Low 14.0-72.0 [facility] Comment on above: Result Comment: SAMP LES FROM PATIENTS ROUTINELY RECEIVING HIGH DOSE BIOTIN THERAPY MAY SHOW FALSELY DEPRESSED RESULTS. ADDITIONAL INFORMATION MAY BE REQUIRED FOR DIAGNOSIS. Performed By: #### P CARLEY BMPX, BNP #### [facility] [address] [facility] [place] [address] Ring Facer: Ajit Stevens DO PTH, Intact with Ionized Owen ciumon 01-04-2023 Calcium.ionized (Bld) [Moles/Vol] 1.31 mmol/L 1.13 - 1.33 mmol/L [facility] Interpretation and review of laboratory results Abnormal [facility] Parathyrin.intact [Mass/Vol] 12.2 pg/mL Low 14.0 - 72.0 pg/mL [facility] Comment on above: SAMPLES FROM PATIENT S ROUTINELY RECEIVING HIGH DOSE BIOTIN THERAPY MAY SHOW FALSELY DEPRESSED RESULTS. ADDITIONAL INFORMATION MAY BE REQUIRED FOR DIAGNOSIS. [facility] Prot. Electroph, Blon 2022 Protein [Mass/Vol] 6.0 g/dL Low 6.4-8.3 [facility] Comment on above: Performed By: #### P HO, BMPX, BNP #### [facility] [address] [place] [address] Ring Facer: Ajit Stevens DO US RETROPERITONEAL COMPLETEo n 01-04-2023 US RETROPERITONEAL COMPLETE EXAMINATION: RETROPERITONEAL ULTRASOUND OF THE KIDNEYS 01/04/2023 COMPARISON: None HISTORY: ORDERING SYSTEM PROVIDED HISTORY: renal failure TECHNOLOGIST PROVIDED HISTORY: renal failure FINDINGS: Kidneys: The right kidney measures 12.3 cm in length and the left kidney measures 12.4 cm in length. Kidneys demonstrate normal cortical echogenicity. No evidence of hydronephrosis or intrarenal stones. IMPRESSION: Unremarkable appearing kidneys Interpreted by: Clif Shane MD Signed by: Clif Shane MD 01/04/23 Final result Normal [facility] Unremarkable appearing kidneys [facility] RIS CONSOLIDATED EXAMINATION: RETROPERITONEAL ULTRASOUND OF THE KIDNEYS 01/04/2023 COMPARISON: None HISTORY: ORDERING SYSTEM PROVIDED HISTORY: renal failure TECHNOLOGIST PROVIDED HISTORY: renal failure FINDINGS: Kidneys: The right kidney measures 12.3 cm in length and the left kidney measures 12.4 cm in length. Kidneys demonstrate normal cortical echogenicity. No evidence of hydronephrosis or intrarenal stones. [facility] RIS CONSOLIDATED Clif Shaen MD - 01/04/2023 EXAMINATION: RETROPERITONEAL ULTRASOUND OF THE KIDNEYS 01/04/2023 COMPARISON: None HISTORY: ORDERING SYSTEM PROVIDED HISTORY: renal failure TECHNOLOGIST PROVIDED HISTORY: renal failure FINDINGS: Kidneys: The right kidney measures 12.3 cm in length and the left kidney measures 12.4 cm in length. Kidneys demonstrate normal cortical echogenicity. No evidence of hydronephrosis or intrarenal stones. IMPRESSION: Unremarkable appearing kidneys [employer] Phone: Radiology Study observation (narrative) [employer] Phone: US RETROPERITONEAL COMPLETEO rdered By: Clif Shane on 01-04-2023 [employer] Phone: XR ABDOMEN (KUB) (SINGLE AP VIEW)on 01-04-2023 XR ABDOMEN (KUB) (SINGLE AP VIEW) EXAMINATION: ONE SUPINE XRAY VIEW(S) OF THE ABDOMEN 01/03/2023 11:06 pm COMPARISON: 01/03/2023 HISTORY: ORDERING SYSTEM PROVIDED HISTORY: Evaluate contrast to rule out small bowel obstruction TECHNOLOGIST PROVIDED HISTORY: Evaluate contrast to rule out small bowel obstruction Reason for Exam: Evaluate contrast to rule out small bowel obstruction. Ordered for 23:00 bb Additional signs and symptoms: Evaluate contrast to rule out small bowel obstruction. Ordered for 23:00 bb Relevant Medical/Surgical History: Evaluate contrast to rule out small bowel obstruction. Ordered for 23:00 bb FINDINGS: Enteric tube tip and side hole project at the gastric body. Enteric contrast material is now in the colon. Diffuse gaseous distention of the small and large bowel. No free air or pneumatosis. No gross bony abnormality. IMPRESSION: Ileus with contrast material now in the large bowel. Interpreted by: Juan Schmitz MD Signed by: Juan Schmitz MD 01/03/23 Final result Normal [facility] Basic Metab w/rfx MGon 01-03 Anion gap [Moles/Vol] 15 mmol/L Normal 9-17 [facility] Comment on above: Performed By: #### P HO, BMPX, BNP #### [facility] [place] [address] Ring [employer]: Ajit Stevens, DO Calcium [Mass/Vol] 11.0 mg/dL High 8.6-10.4 [facility] Comment on above: Performed By: #### P HO, BMPX, BNP #### [facility] [place] [address] Ring Facer: Ajit Stevens, DO Chloride [Moles/Vol] 97 mmol/L Low 98-107 [facility] Comment on above: Performed By: #### P HO, BMPX, BNP #### [facility] [place] [address] Ring [employer]: Ajit Stevens, DO CO2 [Moles/Vol] 26 mmol/L Normal 20-31 [facility] Comment on above: Performed By: #### P HO, BMPX, BNP #### [facility] [address] [facility] [place] [address] Ring Facer: Ajit Stevens DO Creatinine [Mass/Vol] 1.92 mg/dL High 0.50-0.90 [facility] Comment on above: Performed By: #### P HO, BMPX, BNP #### [facility] [address] [facility] [place] [address] Ring Facer: Ajit Stevens DO GFR/1.73 sq M.predicted among non-blacks MDRD (S/P/Bld) [Vol rate/Area] 28 mL/min/{1.73_m2} Low >60 [facility] Comment on above: Result Comment: These results are not intended for use in patients <18 years of age. eGFR results are calculated without a race factor using the 2020 CKD-EPI equation. Careful clinical correlation is recommended, particularly when comparing to results calculated using previous equations. The CKD-EPI equation is less accurate in patients with extremes of muscle mass, extra-renal metabolism of creatine, excessive creatine ingestion, or following therapy that affects renal tubular secretion. Performed By: #### P HO, BMPX, BNP #### [facility] [address] [facility] [place] [address] Ring Facer: Ajit Stevens DO Glucose [Mass/Vol] 216 mg/dL High 70-99 [facility] Comment on above: Performed By: #### P HO, BMPX, BNP #### [facility] [address] [facility] [place] [address] Ring Facer: Ajit Stevens DO Potassium [Moles/Vol] 4.8 mmol/L Normal 3.7-5.3 [facility] Comment on above: Performed By: #### P HO, BMPX, BNP #### [facility] [address] [facility] [place] [address] Ring Facer: Ajit Stevens DO Sodium [Moles/Vol] 138 mmol/L Normal 135-144 [facility] Comment on above: Performed By: #### P CARLEY BMPX, BNP #### [facility] [address] [facility] [place] [address] Ring [employer]: Ajit Stevens DO Urea nitrogen [Mass/Vol] 34 mg/dL High 8-23 [facility] Comment on above: Performed By: #### P CARLEY BMPX, BNP #### [facility] [address] [facility] [place] [address] Ring Facer: Ajit Stevens DO Basic Metabolic Panel w/ Ref tena to MG 01-03-2023 Anion gap [Moles/Vol] 15 mmol/L 9 - 17 mmol/L [facility] Calcium [Mass/Vol] 11.0 mg/dL High 8.6 - 10. 4 mg/dL [facility] Chloride [Moles/Vol] 97 mmol/L Low 98 - 10 7 mmol/L [facility] CO2 [Moles/Vol] 26 mmol/L 20 - 31 mmol/L [facility] Creatinine [Mass/Vol] 1.92 mg/dL High 0.50 - 0.90 mg/dL [facility] GFR/1.73 sq M.predicted MDRD (S/P/Bld) [Vol rate/Area] 28 mL/min/{1.73_m2} Low - PINF [facility] Comment on above: These results are not intended for use in patients <18 years of age. eGFR results are calculated without a race factor using the 2020 CKD-EPI equation. Careful clinical correlation is recommended, particularly when comparing to results calculated using previous equations. The CKD-EPI equation is less accurate in patients with extremes of muscle mass, extra-renal metabolism of creatine, excessive creatine ingestion, or following therapy that affects renal tubular secretion. Glucose [Mass/Vol] 216 mg/dL High 70 - 99 mg/dL [facility] [employer] [place] Interpretation and review of laboratory results Abnormal [facility] Potassium [Moles/Vol] 4.8 mmol/L 3.7 - 5.3 mmol/L [facility] Sodium [Moles/Vol] 138 mmol/L 135 - 144 mmol/L [facility] Urea nitrogen [Mass/Vol] 34 mg/dL High 8 - 23 mg/dL [facility] Basic Metabolic Profon 01-03 Anion gap [Moles/Vol] 15 mmol/L Normal 9-17 [facility] Comment on above: Performed By: #### P HO, BMPX, BNP #### [facility] [address] [place] [address] [employer]: Ajit Stevens DO Calcium [Mass/Vol] 11.6 mg/dL High 8.6-10.4 [facility] Comment on above: Performed By: #### P HO, BMPX, BNP #### [facility] [address] [place] [id number] [employer]: Ajit Stevens DO Chloride [Moles/Vol] 98 mmol/L Normal 98-107 [facility] Comment on above: Performed By: #### P HO, BMPX, BNP #### [facility] [place] [address] Ring Facer: Ajit Stevens DO CO2 [Moles/Vol] 24 mmol/L Normal 20-31 [facility] Comment on above: Performed By: #### P HO, BMPX, BNP #### [facility] [place] [address] Ring Facer: Ajit Stevens DO Creatinine [Mass/Vol] 1.42 mg/dL High 0.50-0.90 [facility] Comment on above: Performed By: #### P HO, BMPX, BNP #### [facility] [place] [address] Ring Facer: Ajit Stevens DO GFR/1.73 sq M.predicted among non-blacks MDRD (S/P/Bld) [Vol rate/Area] 40 mL/min/{1.73_m2} Low >60 [facility] Comment on above: Result Comment: These results are not intended for use in patients <18 years of age. eGFR results are calculated without a race factor using the 2020 CKD-EPI equation. Careful clinical correlation is recommended, particularly when comparing to results calculated using previous equations. The CKD-EPI equation is less accurate in patients with extremes of muscle mass, extra-renal metabolism of creatine, excessive creatine ingestion, or following therapy that affects renal tubular secretion. Performed By: #### P HO, BMPX, BNP #### [facility] [address] [facility] [place] [address] [employer]: Ajit Stevens DO Glucose [Mass/Vol] 186 mg/dL High 70-99 [facility] Comment on above: Performed By: #### P HO, BMPX, BNP #### [facility] [address] [facility] [place] [address] Ring Facer: Ajit Stevens DO Potassium [Moles/Vol] 4.9 mmol/L Normal 3.7-5.3 [facility] Comment on above: Performed By: #### P HO, BMPX, BNP #### [facility] [address] [facility] [place] [address] [employer]: Ajit Stevens DO Sodium [Moles/Vol] 137 mmol/L Normal 135-144 [facility] Comment on above: Performed By: #### P HO, BMPX, BNP #### [facility] [address] [facility] [place] [address] [employer]: Ajit Stevens DO Urea nitrogen [Mass/Vol] 27 mg/dL High 8-23 [facility] Comment on above: Performed By: #### P HO, BMPX, BNP #### [facility] [place] [address] [employer]: Ajit Stevens DO Brain Natri. Peptideon 01-03 Natriuretic peptide B (Bld) [Mass/Vol] 293 pg/mL Normal <300 [facility] Comment on above: Result Comment: An age-independent cutoff point of 300 pg/ml has a 98% negative predictive value excluding acute heart failure. Performed By: #### P HO, BMPX, BNP #### [facility] [place] [address] [employer]: Ajit Stevens DO Brain Natriuretic Peptideon 01-03-2023 Natriuretic peptide B (Bld) [Mass/Vol] 293 pg/mL NINF - 300 pg/mL [facility] Comment on above: An age-independent cutoff point of 300 pg/ml has a 98% negative predictive value excluding acute heart failure. CBC with Diffon 01-03-2023 Abs. Basophil 0.20 k/uL Normal 0.0-0.2 [facility] Comment on above: Performed By: #### P HO, BMPX, BNP #### [facility] [place] [address] [employer]: Ajit Stevens DO Abs.Neutrophil (Seg) 9.90 k/uL High 1.3-9.1 [facility] Comment on above: Performed By: #### P HO, BMPX, BNP #### [facility] [address] [place] [phone] [employer]: Ajit Stevens DO Basophils/100 WBC (Bld) 1 % Normal 0-2 [facility] Comment on above: Performed By: #### P HO, BMPX, BNP #### [facility] [address] [place] [phone] [employer]: Ajit Stevens DO Eosinophils (Bld) [#/Vol] 0.30 10*3/uL Normal 0.0-0.4 [facility] Comment on above: Performed By: #### P HO, BMPX, BNP #### [facility] [address] [facility] [place] [address] [employer]: Ajit Stevens DO Eosinophils/100 WBC (Bld) 2 % Normal 0-4 [facility] Comment on above: Performed By: #### P HO, BMPX, BNP #### [facility] [place] [address] [employer]: Ajit Stevens DO Erythrocyte distribution width (RBC) [Ratio] 15.0 % High 11.5-14.9 [facility] Comment on above: Performed By: #### P HO, BMPX, BNP #### [facility] [place] [address] [employer]: Ajit Stevens DO Hematocrit (Bld) [Volume fraction] 46.0 % Normal 36-46 [facility] Comment on above: Performed By: #### P HO, BMPX, BNP #### [facility] [place] [address] [employer]: Ajit Stevens DO Hemoglobin (Bld) [Mass/Vol] 15.6 g/dL Normal 12.0-16.0 [facility] Comment on above: Performed By: #### P HO, BMPX, BNP #### [facility] [address] [place] [phone] [employer]: Ajit Stevens DO Lymphocytes (Bld) [#/Vol] 2.70 10*3/uL Normal 1.0-4.8 [facility] Comment on above: Performed By: #### P HO, BMPX, BNP #### [facility] [place] [address] Ring Facer: Ajit Stevens DO Lymphocytes/100 WBC (Bld) 19 % Low 24-44 [facility] Comment on above: Performed By: #### P HO, BMPX, BNP #### [facility] [place] [address] Ring Facer: Ajit Stevens DO MCH (RBC) [Entitic mass] 31.4 pg Normal 26-34 [facility] Comment on above: Performed By: #### P HO, BMPX, BNP #### [facility] [address] [place] [phone] [employer]: Ajit Stevens DO MCHC (RBC) [Mass/Vol] 34.0 g/dL Normal 31-37 [facility] Comment on above: Performed By: #### P HO, BMPX, BNP #### [facility] [address] [place], [place] [id number] Ring Facer: Ajit Stevens DO MCV (RBC) [Entitic vol] 92.3 fL Normal 80-100 [facility] Comment on above: Performed By: #### P HO, BMPX, BNP #### [facility] [address] [place] [id number] Ring Facer: Ajit Stevens DO Monocytes (Bld) [#/Vol] 1.30 10*3/uL Normal 0.1-1.3 [facility] Comment on above: Performed By: #### P HO, BMPX, BNP #### [facility] [address] [place] [phone] Ring Facer: Ajit Stevens DO Monocytes/100 WBC (Bld) 9 % High 1-7 [facility] Comment on above: Performed By: #### P HO, BMPX, BNP #### [facility] [address] [place] [phone] Ring Facer: Ajit Stevens DO Neutrophil (Seg) 69 % High 36-66 [facility] Comment on above: Performed By: #### P HO, BMPX, BNP #### [facility] [address] [facility] [place] [address] Ring Facer: Ajit Stevens DO Platelet mean volume (Bld) [Entitic vol] 8.6 fL Normal 6.0-12.0 [facility] Comment on above: Performed By: #### P HO, BMPX, BNP #### [facility] [address] [facility] [place] [address] Ring Facer: Ajit Stevens DO Platelets (Bld) [#/Vol] 334 10*3/uL Normal 150-450 [facility] Comment on above: Performed By: #### P HO, BMPX, BNP #### [facility] [place] [address] Ring Facer: Ajit Stevens DO RBC (Bld) [#/Vol] 4.99 10*6/uL Normal 4.0-5.2 [facility] Comment on above: Performed By: #### P HO, BMPX, BNP #### [facility] [place] [address] Ring Facer: Ajti Stevens DO WBC (Bld) [#/Vol] 14.3 10*3/uL High 3.5-11.0 [facility] Comment on above: Performed By: #### P HO, BMPX, BNP #### [facility] [place] [address] Ring Facer: Ajit Stevens DO CT ABDOMEN PELVIS W IV CONTR Neeraj 01-03-2023 CT ABDOMEN PELVIS W IV CONTRAST EXAMINATION: CT OF THE ABDOMEN AND PELVIS WITH CONTRAST; CTA OF THE CHEST 01/02/2023 10:58 pm; 01/02/2023 10:57 pm TECHNIQUE: CT of the abdomen and pelvis was performed with the administration of intravenous contrast. Multiplanar reformatted images are provided for review. Automated exposure control, iterative reconstruction, and/or weight based adjustment of the mA/kV was utilized to reduce the radiation dose to as low as reasonably achievable.; CTA of the chest was performed after the administration of intravenous contrast. Multiplanar reformatted images are provided for review. MIP images are provided for review. Automated exposure control, iterative reconstruction, and/or weight based adjustment of the mA/kV was utilized to reduce the radiation dose to as low as reasonably achievable. COMPARISON: Chest radiograph 01/02/2023, abdomen and pelvis CT 01/11/2019 HISTORY: ORDERING SYSTEM PROVIDED HISTORY: lower abd pain, nausea, vomiting TECHNOLOGIST PROVIDED HISTORY: lower abd pain, nausea, vomiting Decision Support Exception - unselect if not a suspected or confirmed emergency medical condition->Emergency Medical Condition ([place]) Reason for Exam: lower abd pain, nausea, vomiting Relevant Medical/Surgical History: HTN, diabetes; ORDERING SYSTEM PROVIDED HISTORY: chest pain TECHNOLOGIST PROVIDED HISTORY: chest pain Decision Support Exception - unselect if not a suspected or confirmed emergency medical condition->Emergency Medical Condition ([place]) Reason for Exam: chest pain Relevant Medical/Surgical History: HTN, diabetes, emphysema FINDINGS: Chest: Mediastinum: No lymphadenopathy. No pericardial effusion. The thoracic aorta is normal in caliber. Pulmonary arteries: There is adequate contrast opacification of the pulmonary arteries. No pulmonary arterial filling defect is seen. No evidence of right heart strain. The main pulmonary artery is normal in caliber. Lungs/pleura: The central airways are patent. No pleural effusion or pneumothorax is seen. Respiratory motion artifact limits assessment of the lung parenchyma. No focal lung consolidation is identified. Soft Tissues/Bones: No acute bony abnormality is seen. Multilevel degenerative changes are seen in the spine. There is a 1.3 x 1.3 cm epidermal inclusion cyst in the right back subcutaneous tissues, series 2, image 147. Abdomen/Pelvis: Organs: The liver, spleen, pancreas, adrenal glands, and kidneys demonstrate no acute abnormality. Prior cholecystectomy. Hepatomegaly and hepatic steatosis. GI/Bowel: Normal appendix. There are fluid-filled mildly dilated small bowel loops. A transition point is seen in the mid abdomen on series 3, image 112 and series 610, image 40. Pelvis: The urinary bladder is unremarkable. Peritoneum/Retroperit oneum: Vascular calcifications are seen. No lymphadenopathy is seen. No intraperitoneal free air or significant free fluid. Bones/Soft Tissues: No acute bony abnormality is seen. IMPRESSION: Fluid-filled mildly dilated small bowel loops, with a possible transition point in the mid abdomen. This could represent a low-grade small-bowel obstruction or ileus. No pulmonary embolism is identified. No acute pulmonary abnormality is seen. Hepatomegaly and hepatic steatosis. Interpreted by: Milad Mireles MD Signed by: Milad Mireles MD 01/03/23 Final result Normal [facility] CT ABDOMEN PELVIS WO CONTRAS T Additional Contrast? Oralon 01-03-2023 1. Persistent dilation of small bowel loops with air-fluid levels beyond the jejunum which likely represents ileus rather than bowel obstruction. Early bowel obstruction cannot be excluded although there is no significant worsening compared to the previous evaluation. Normal appendix. 2. Constipation and stool impaction in the rectum. 3. Fatty liver but no focal disease. Status post cholecystectomy. 4. Well-positioned nasogastric tube in the stomach. [facility] CONSOLIDATED EXAMINATION: CT OF THE ABDOMEN AND PELVIS WITHOUT CONTRAST 01/03/2023 4:49 pm TECHNIQUE: CT of the abdomen and pelvis was performed without the administration of intravenous contrast. Multiplanar reformatted images are provided for review. Automated exposure control, iterative reconstruction, and/or weight based adjustment of the mA/kV was utilized to reduce the radiation dose to as low as reasonably achievable. COMPARISON: 01/02/2023 HISTORY: ORDERING SYSTEM PROVIDED HISTORY: Evaluate small bowel obstruction TECHNOLOGIST PROVIDED HISTORY: Evaluate small bowel obstruction Reason for Exam: Evaluate small bowel obstruction Additional signs and symptoms: abdominal pain, nausea FINDINGS: Lower Chest: No acute abnormality. Organs: The liver continues to demonstrate fatty infiltration but no focal disease. Status post cholecystectomy. The pancreas, spleen, adrenals, kidneys, aorta and IVC appear stable. The aorta is calcified but nonaneurysmal. GI/Bowel: Nasogastric tube well positioned in the stomach. There is persistent dilation of small bowel loops with some air-fluid levels perhaps slightly less pronounced compared to the previous evaluation. There is transit of small-bowel contrast to proximal ileum. Normal appendix. Constipation and stool impaction in the rectum. Pelvis: The urinary bladder appears unremarkable. The uterus and adnexa appear unremarkable. No evidence of lymphadenopathy. Peritoneum/Retroperit oneum: No evidence of retroperitoneal lymphadenopathy. No evidence of free air. Bones/Soft Tissues: No acute abnormality. MHLedy Hernandez MD - 01/03/2023 EXAMINATION: CT OF THE ABDOMEN AND PELVIS WITHOUT CONTRAST 01/03/2023 4:49 pm TECHNIQUE: CT of the abdomen and pelvis was performed without the administration of intravenous contrast. Multiplanar reformatted images are provided for review. Automated exposure control, iterative reconstruction, and/or weight based adjustment of the mA/kV was utilized to reduce the radiation dose to as low as reasonably achievable. COMPARISON: 01/02/2023 HISTORY: ORDERING SYSTEM PROVIDED HISTORY: Evaluate small bowel obstruction TECHNOLOGIST PROVIDED HISTORY: Evaluate small bowel obstruction Reason for Exam: Evaluate small bowel obstruction Additional signs and symptoms: abdominal pain, nausea FINDINGS: Lower Chest: No acute abnormality. Organs: The liver continues to demonstrate fatty infiltration but no focal disease. Status post cholecystectomy. The pancreas, spleen, adrenals, kidneys, aorta and IVC appear stable. The aorta is calcified but nonaneurysmal. GI/Bowel: Nasogastric tube well positioned in the stomach. There is persistent dilation of small bowel loops with some air-fluid levels perhaps slightly less pronounced compared to the previous evaluation. There is transit of small-bowel contrast to proximal ileum. Normal appendix. Constipation and stool impaction in the rectum. Pelvis: The urinary bladder appears unremarkable. The uterus and adnexa appear unremarkable. No evidence of lymphadenopathy. Peritoneum/Retroperit oneum: No evidence of retroperitoneal lymphadenopathy. No evidence of free air. Bones/Soft Tissues: No acute abnormality. IMPRESSION: 1. Persistent dilation of small bowel loops with air-fluid levels beyond the jejunum which likely represents ileus rather than bowel obstruction. Early bowel obstruction cannot be excluded although there is no significant worsening compared to the previous evaluation. Normal appendix. 2. Constipation and stool impaction in the rectum. 3. Fatty liver but no focal disease. Status post cholecystectomy. 4. Well-positioned nasogastric tube in the stomach. [employer] Phone: Radiology Study observation (narrative) [employer] Phone: CT ABDOMEN PELVIS WO CONTRAS T Additional Contrast? OralOrdered By: Ledy Betancourt on 01-03-2023 [employer] Phone: CT CHEST PULMONARY EMBOLISM W CONTRASTon 01-03-2023 CT CHEST PULMONARY EMBOLISM W CONTRAST EXAMINATION: CT OF THE ABDOMEN AND PELVIS WITH CONTRAST; CTA OF THE CHEST 01/02/2023 10:58 pm; 01/02/2023 10:57 pm TECHNIQUE: CT of the abdomen and pelvis was performed with the administration of intravenous contrast. Multiplanar reformatted images are provided for review. Automated exposure control, iterative reconstruction, and/or weight based adjustment of the mA/kV was utilized to reduce the radiation dose to as low as reasonably achievable.; CTA of the chest was performed after the administration of intravenous contrast. Multiplanar reformatted images are provided for review. MIP images are provided for review. Automated exposure control, iterative reconstruction, and/or weight based adjustment of the mA/kV was utilized to reduce the radiation dose to as low as reasonably achievable. COMPARISON: Chest radiograph 01/02/2023, abdomen and pelvis CT 01/11/2019 HISTORY: ORDERING SYSTEM PROVIDED HISTORY: lower abd pain, nausea, vomiting TECHNOLOGIST PROVIDED HISTORY: lower abd pain, nausea, vomiting Decision Support Exception - unselect if not a suspected or confirmed emergency medical condition->Emergency Medical Condition ([place]) Reason for Exam: lower abd pain, nausea, vomiting Relevant Medical/Surgical History: HTN, diabetes; ORDERING SYSTEM PROVIDED HISTORY: chest pain TECHNOLOGIST PROVIDED HISTORY: chest pain Decision Support Exception - unselect if not a suspected or confirmed emergency medical condition->Emergency Medical Condition ([place]) Reason for Exam: chest pain Relevant Medical/Surgical History: HTN, diabetes, emphysema FINDINGS: Chest: Mediastinum: No lymphadenopathy. No pericardial effusion. The thoracic aorta is normal in caliber. Pulmonary arteries: There is adequate contrast opacification of the pulmonary arteries. No pulmonary arterial filling defect is seen. No evidence of right heart strain. The main pulmonary artery is normal in caliber. Lungs/pleura: The central airways are patent. No pleural effusion or pneumothorax is seen. Respiratory motion artifact limits assessment of the lung parenchyma. No focal lung consolidation is identified. Soft Tissues/Bones: No acute bony abnormality is seen. Multilevel degenerative changes are seen in the spine. There is a 1.3 x 1.3 cm epidermal inclusion cyst in the right back subcutaneous tissues, series 2, image 147. Abdomen/Pelvis: Organs: The liver, spleen, pancreas, adrenal glands, and kidneys demonstrate no acute abnormality. Prior cholecystectomy. Hepatomegaly and hepatic steatosis. GI/Bowel: Normal appendix. There are fluid-filled mildly dilated small bowel loops. A transition point is seen in the mid abdomen on series 3, image 112 and series 610, image 40. Pelvis: The urinary bladder is unremarkable. Peritoneum/Retroperit oneum: Vascular calcifications are seen. No lymphadenopathy is seen. No intraperitoneal free air or significant free fluid. Bones/Soft Tissues: No acute bony abnormality is seen. IMPRESSION: Fluid-filled mildly dilated small bowel loops, with a possible transition point in the mid abdomen. This could represent a low-grade small-bowel obstruction or ileus. No pulmonary embolism is identified. No acute pulmonary abnormality is seen. Hepatomegaly and hepatic steatosis. Interpreted by: Milad Mireles MD Signed by: Milad Mireles MD 01/03/23 Final result Normal [facility] Electrolytes urine randomon 01-03-2023 Chloride, Ur 20 mmol/L [facility] Comment on above: No normal range esta blished. Potassium, Ur 43.4 mmol/L [facility] Comment on above: No normal range esta blished. Sodium (U) [Moles/Vol] 25 mmol/L [facility] Comment on above: No normal range esta blished. [facility] Electrolytes,[place] Uron 01-03 Chloride [Moles/Vol] 20 mmol/L Normal [facility] Comment on above: Result Comment: No n ormal range established. Performed By: #### U WILLY UAX #### [facility] [address] [facility]. [place], [place] [id number] Ring Facer: Ajit Stevens DO Potassium [Moles/Vol] 43.4 mmol/L Normal [facility] Comment on above: Result Comment: No n ormal range established. Performed By: #### U WILLY UAX #### [facility] [address] [facility] [place] [address] Ring Facer: Ajit Stevens DO Sodium (U) [Moles/Vol] 25 mmol/L [facility] Comment on above: Result Comment: No n ormal range established. Performed By: #### U WILLY UAX #### [facility] [address] [place] [address] Ring Facer: Ajit Stevens DO Lactic Acidon 01-03-2023 Lactate [Moles/Vol] 1.9 mmol/L Normal 0.5-2.2 [facility] Comment on above: Performed By: #### V BG #### [facility] [address] [place] [address] Ring Facer: Ajit Stevens DO Lipaseon 01-03-2023 Lipase [Catalytic activity/Vol] 74 U/L High 13-60 [facility] Comment on above: Performed By: #### P HO, BMPX, BNP #### [facility] [address] [place] [address] Ring Facer: Ajit Stevens DO Liver Profileon 01-03-2023 Albumin [Mass/Vol] 4.5 g/dL Normal 3.5-5.2 [facility] Comment on above: Performed By: #### P HO, BMPX, BNP #### [facility] [address] [place] [address] Ring Facer: Ajit Stevens DO Alkaline Phos 66 U/L Normal 35-104 [facility] Comment on above: Performed By: #### P HO, BMPX, BNP #### [facility] [address] [place] [address] Ring Facer: Ajit Stevens DO ALT [Catalytic activity/Vol] 29 U/L Normal 5-33 [facility] Comment on above: Performed By: #### P HO, BMPX, BNP #### [facility] [address] [place] [address] Ring Facer: Ajit Stevens DO AST [Catalytic activity/Vol] 25 U/L Normal <32 [facility] Comment on above: Performed By: #### P HO, BMPX, BNP #### [facility] [address] [place] [phone] Ring Facer: Ajit Stevens DO Bilirubin [Mass/Vol] 0.3 mg/dL Normal 0.3-1.2 [facility] Comment on above: Performed By: #### P HO, BMPX, BNP #### [facility] [address] [place] [id number] Ring Facer: Ajit Stevens DO Bilirubin, Indirect 0.2 mg/dL Normal 0.0-1.0 [facility] Comment on above: Performed By: #### P HO, BMPX, BNP #### [facility] [address] [place] [phone] Ring Facer: Ajit Stevens DO Bilirubin.indirect [Mass/Vol] 0.1 mg/dL Normal <0.3 [facility] Comment on above: Performed By: #### P HO, BMPX, BNP #### [facility] [address] [place] [phone] Ring Facer: Ajit Stevens DO Protein [Mass/Vol] 8.1 g/dL Normal 6.4-8.3 [facility] Comment on above: Performed By: #### P HO, BMPX, BNP #### [facility] [address] [place] [phone] Ring Facer: Ajit Stevens DO Magnesiumon 8601 Magnesium [Mass/Vol] 2.3 mg/dL Normal 1.6-2.6 [facility] Comment on above: Performed By: #### P HO, BMPX, BNP #### [facility] [address] [place] [phone] Ring Facer: Aijt Stevens DO Microscopic Urinalysison Bacteria, UA MANY Abnormal None [facility] Casts UA 3 to 5 /LPF [facility] Epithelial Cells UA 3 to 5 /HPF [facility] Interpretation and review of laboratory results Abnormal [facility] RBC clumps Auto (Urine sed) [#/Area] 0 TO 2 /HPF [facility] WBC, UA 3 to 5 /HPF [facility] No Panel Informationon 01-03 Fluid-filled mildly dilated small bowel loops, with a possible transition point in the mid abdomen. This could represent a low-grade small-bowel obstruction or ileus. No pulmonary embolism is identified. No acute pulmonary abnormality is seen. Hepatomegaly and hepatic steatosis. [facility] CONSOLIDATED EXAMINATION: CT OF THE ABDOMEN AND PELVIS WITH CONTRAST; CTA OF THE CHEST 01/02/2023 10:58 pm; 01/02/2023 10:57 pm TECHNIQUE: CT of the abdomen and pelvis was performed with the administration of intravenous contrast. Multiplanar reformatted images are provided for review. Automated exposure control, iterative reconstruction, and/or weight based adjustment of the mA/kV was utilized to reduce the radiation dose to as low as reasonably achievable.; CTA of the chest was performed after the administration of intravenous contrast. Multiplanar reformatted images are provided for review. MIP images are provided for review. Automated exposure control, iterative reconstruction, and/or weight based adjustment of the mA/kV was utilized to reduce the radiation dose to as low as reasonably achievable. COMPARISON: Chest radiograph 01/02/2023, abdomen and pelvis CT 01/11/2019 HISTORY: ORDERING SYSTEM PROVIDED HISTORY: lower abd pain, nausea, vomiting TECHNOLOGIST PROVIDED HISTORY: lower abd pain, nausea, vomiting Decision Support Exception - unselect if not a suspected or confirmed emergency medical condition->Emergency Medical Condition ([place]) Reason for Exam: lower abd pain, nausea, vomiting Relevant Medical/Surgical History: HTN, diabetes; ORDERING SYSTEM PROVIDED HISTORY: chest pain TECHNOLOGIST PROVIDED HISTORY: chest pain Decision Support Exception - unselect if not a suspected or confirmed emergency medical condition->Emergency Medical Condition ([place]) Reason for Exam: chest pain Relevant Medical/Surgical History: HTN, diabetes, emphysema FINDINGS: Chest: Mediastinum: No lymphadenopathy. No pericardial effusion. The thoracic aorta is normal in caliber. Pulmonary arteries: There is adequate contrast opacification of the pulmonary arteries. No pulmonary arterial filling defect is seen. No evidence of right heart strain. The main pulmonary artery is normal in caliber. Lungs/pleura: The central airways are patent. No pleural effusion or pneumothorax is seen. Respiratory motion artifact limits assessment of the lung parenchyma. No focal lung consolidation is identified. Soft Tissues/Bones: No acute bony abnormality is seen. Multilevel degenerative changes are seen in the spine. There is a 1.3 x 1.3 cm epidermal inclusion cyst in the right back subcutaneous tissues, series 2, image 147. Abdomen/Pelvis: Organs: The liver, spleen, pancreas, adrenal glands, and kidneys demonstrate no acute abnormality. Prior cholecystectomy. Hepatomegaly and hepatic steatosis. GI/Bowel: Normal appendix. There are fluid-filled mildly dilated small bowel loops. A transition point is seen in the mid abdomen on series 3, image 112 and series 610, image 40. Pelvis: The urinary bladder is unremarkable. Peritoneum/Retroperit oneum: Vascular calcifications are seen. No lymphadenopathy is seen. No intraperitoneal free air or significant free fluid. Bones/Soft Tissues: No acute bony abnormality is seen. PN RIS CONSOLIDATED Milad Mireles MD - 01/03/2023 EXAMINATION: CT OF THE ABDOMEN AND PELVIS WITH CONTRAST; CTA OF THE CHEST 01/02/2023 10:58 pm; 01/02/2023 10:57 pm TECHNIQUE: CT of the abdomen and pelvis was performed with the administration of intravenous contrast. Multiplanar reformatted images are provided for review. Automated exposure control, iterative reconstruction, and/or weight based adjustment of the mA/kV was utilized to reduce the radiation dose to as low as reasonably achievable.; CTA of the chest was performed after the administration of intravenous contrast. Multiplanar reformatted images are provided for review. MIP images are provided for review. Automated exposure control, iterative reconstruction, and/or weight based adjustment of the mA/kV was utilized to reduce the radiation dose to as low as reasonably achievable. COMPARISON: Chest radiograph 01/02/2023, abdomen and pelvis CT 01/11/2019 HISTORY: ORDERING SYSTEM PROVIDED HISTORY: lower abd pain, nausea, vomiting TECHNOLOGIST PROVIDED HISTORY: lower abd pain, nausea, vomiting Decision Support Exception - unselect if not a suspected or confirmed emergency medical condition->Emergency Medical Condition ([place]) Reason for Exam: lower abd pain, nausea, vomiting Relevant Medical/Surgical History: HTN, diabetes; ORDERING SYSTEM PROVIDED HISTORY: chest pain TECHNOLOGIST PROVIDED HISTORY: chest pain Decision Support Exception - unselect if not a suspected or confirmed emergency medical condition->Emergency Medical Condition ([place]) Reason for Exam: chest pain Relevant Medical/Surgical History: HTN, diabetes, emphysema FINDINGS: Chest: Mediastinum: No lymphadenopathy. No pericardial effusion. The thoracic aorta is normal in caliber. Pulmonary arteries: There is adequate contrast opacification of the pulmonary arteries. No pulmonary arterial filling defect is seen. No evidence of right heart strain. The main pulmonary artery is normal in caliber. Lungs/pleura: The central airways are patent. No pleural effusion or pneumothorax is seen. Respiratory motion artifact limits assessment of the lung parenchyma. No focal lung consolidation is identified. Soft Tissues/Bones: No acute bony abnormality is seen. Multilevel degenerative changes are seen in the spine. There is a 1.3 x 1.3 cm epidermal inclusion cyst in the right back subcutaneous tissues, series 2, image 147. Abdomen/Pelvis: Organs: The liver, spleen, pancreas, adrenal glands, and kidneys demonstrate no acute abnormality. Prior cholecystectomy. Hepatomegaly and hepatic steatosis. GI/Bowel: Normal appendix. There are fluid-filled mildly dilated small bowel loops. A transition point is seen in the mid abdomen on series 3, image 112 and series 610, image 40. Pelvis: The urinary bladder is unremarkable. Peritoneum/Retroperit oneum: Vascular calcifications are seen. No lymphadenopathy is seen. No intraperitoneal free air or significant free fluid. Bones/Soft Tissues: No acute bony abnormality is seen. IMPRESSION: Fluid-filled mildly dilated small bowel loops, with a possible transition point in the mid abdomen. This could represent a low-grade small-bowel obstruction or ileus. No pulmonary embolism is identified. No acute pulmonary abnormality is seen. Hepatomegaly and hepatic steatosis. [employer] Work Phone: [employer] Work Phone: [facility] [employer] [place] POC Glucose Fingerstickon Glucose [Mass/Vol] 142 mg/dL High 65 - 105 mg/dL [facility] [employer] [place] Interpretation and review of laboratory results Abnormal [facility] Glucose [Mass/Vol] 207 mg/dL High 65 - 105 mg/dL [facility] Interpretation and review of laboratory results Abnormal [facility] Glucose [Mass/Vol] 188 mg/dL High 65 - 105 mg/dL [facility] Interpretation and review of laboratory results Abnormal [facility] Glucose [Mass/Vol] 204 mg/dL High 65 - 105 mg/dL [facility] Interpretation and review of laboratory results Abnormal [facility] PTon 01-03-2023 INR Coag (PPP) [Relative time] 0.9 {INR} Normal [facility] Comment on above: Result Comment: Therapeutic Range: Moderate Anticoagulant Intensity: INR = 2.0-3.0 High Anticoagulant Intensity: INR = 2.5-3.5 Performed By: #### P HO, BMPX, BNP #### [facility] [address] [facility] [place] [address] Ring Facer: Ajit Stevens DO PT Coag (PPP) [Time] 12.9 s Normal 11.8-14.6 [facility] Comment on above: Performed By: #### P CARLEY BMPX, BNP #### [facility] [address] [facility] [place] [address] Ring Facer: Ajit Stevens DO Phosphoruson 01-03-2023 Phosphate [Mass/Vol] 4.3 mg/dL 2.6 - 4 .5 mg/dL [facility] Phosphorus, Inorg.on 023 Phosphorus, Inorg. 4.3 mg/dL Normal 2.6-4.5 [facility] Comment on above: Performed By: #### P HO, BMPX, BNP #### [facility] [address] [place] [address] Ring Facer: Ajit Stevens DO Protein / creatinine ratio, urineon 01-03-2023 Creatinine, Ur 133.1 mg/dL 28.0 - 217.0 mg/dL [facility] Interpretation and review of laboratory results Abnormal [facility] Protein (U) [Mass/Vol] 29 mg/dL [facility] Comment on above: No normal range esta blished. Urine Total Protein Creatinine Ratio 0.22 High 0.00 - 0.20 [facility] Protein,Tot,[place]iber[place] Uron 2022 Creatinine [Mass/Vol] 133.1 mg/dL Normal 28.0-217.0 [facility] Comment on above: Performed By: #### U WILLY, UAX #### [facility] [address] [place] [address] Ring Facer: Ajit Stevens DO Tot Prot. Conc. 29 mg/dL Normal [facility] Comment on above: Result Comment: No n ormal range established. Performed By: #### U WILLY UAX #### [facility] [address] [place] [address] Ring Facer: Ajit Stevens DO TP/Cre Ratio 0.22 High 0.00-0.20 [facility] Comment on above: Performed By: #### U WILLY, UAX #### [facility] [place] [address] Ring Facer: Ajit Stevens DO Troponinon 01-03-2023 Troponin, High Sens 18 ng/L High 0-14 [facility] Comment on above: Result Comment: High Sensitivity Troponin values cannot be compared with other Troponin methodologies. Performed By: #### U MICAO, UAX #### [facility] [place] [address] Ring Facer: Ajit Stevens DO Troponin, High Sens 17 ng/L High 0-14 [facility] Comment on above: Result Comment: High Sensitivity Troponin values cannot be compared with other Troponin methodologies. Performed By: #### P HO, BMPX, BNP #### [facility] [address] [place] [address] Ring Facer: Ajit Stevens DO Troponin Now and Q 1 Houron 01-03-2023 Interpretation and review of laboratory results Abnormal [facility] Troponin I.cardiac DL <= 0.01 ng/mL [Mass/Vol] 18 ng/L High 0 - 14 ng/L [facility] Comment on above: High Sensitivity Tro ponin values cannot be compared with other Troponin methodologies. [facility] UA w/Reflex Cultureon 2022 Bilirubin, SemiQt,Ur Negative Normal NEG [facility] Comment on above: Performed By: #### COREY BOUCHERX #### [facility] [address] [place] [phone] Ring Facer: Ajit Stevens DO Blood, Urine Negative Normal NEG [facility] Comment on above: Performed By: #### COREY BOUCHERX #### [facility] [address] [place] [phone] Ring F[employer]: Ajit Stevens DO Clarity (U) Cloudy Abnormal CLEAR [facility] Comment on above: Performed By: #### Elaina AGUILERA UAX #### [facility] [address] [place] [id number] Ring Facer: Ajit Stevens DO Color (U) Yellow Normal YEL [facility] Comment on above: Performed By: #### Elaina AGUILERA UAX #### [facility] [place] [address] Ring Facer: Ajit Stevens DO Glucose Ql (U) LARGE Abnormal NEG [facility] Comment on above: Performed By: #### Elaina AGUILERA UAX #### [facility] [address] [place] [phone] Ring Facer: Fanelly, Ajit, DO Ketones Ql (U) TRACE Abnormal NEG [facility] Comment on above: Performed By: #### U WILLY, UAX #### [facility] [place] [address] Ring Facer: Ajit Stevens DO Leukocyte esterase Test strip Ql (U) Negative Normal NEG [facility] Comment on above: Performed By: #### U JAMIO, UAX #### [facility] [address] [place] [address] Ring Facer: Ajit Stevens DO Nitrite,Ur Negative Normal NEG [facility] Comment on above: Performed By: #### U WILLY UAX #### [facility] [address] [place] [address] Ring Facer: Ajit Stevens DO PH,Ur 5.0 Normal 5.0-8.0 [facility] Comment on above: Performed By: #### U JAMIO, UAX #### [facility] [address] [place] [phone] Ring Facer: Ajit Stevens DO Protein Ql (U) 1+ Abnormal NEG [facility] Comment on above: Performed By: #### U WILLY, UAX #### [facility] [address] [place] [phone] Ring Facer: Ajit Stevens DO Spec. [place],Ur 1.029 Normal 1.000-1.030 [facility] Comment on above: Performed By: #### U WLILY, UAX #### [facility] [address] [place] [phone] Ring Facer: Ajit Stevens DO Urobilinogen,Ur Normal Normal NORM [facility] Comment on above: Performed By: #### U JAMIO, UAX #### [facility] [address] [place] [phone] Ring Facer: Ajit Stevens DO Urinalysis,Microon 3 Bacteria MANY Abnormal NONE [facility] Comment on above: Performed By: #### Elaina AGUILERA, UAX #### [facility] [address] [place] [phone] Ring Facer: Ajit Stevens DO Casts 3 to 5 Normal [facility] Comment on above: Performed By: #### Elaina AGUILERA UAX #### [facility] [address] [place] [phone] Ring Facer: Ajit Stevens DO Epithelial cells LM Ql (Urine sed) 3 to 5 Normal [facility] Comment on above: Performed By: #### Elaina AGUILERA UAX #### [facility] [address] [place] [phone] Ring Facer: Ajit Stevens DO Urine RBC's 0 TO 2 Normal [facility] Comment on above: Performed By: #### COREY BOUCHERX #### [facility] [address] [place] [phone] Ring Facer: Ajit Stevens DO Urine WBC's 3 to 5 Normal [facility] Comment on above: Performed By: #### COREY BOUCHERX #### [facility] [address] [place] [phone] Ring Facer: Ajit Stevens DO XR ABDOMEN (KUB) (SINGLE AP VIEW)on 01-03-2023 Ileus with contrast material now in the large bowel. [facility] RIS CONSOLIDATED EXAMINATION: ONE SUPINE XRAY VIEW(S) OF THE ABDOMEN 01/03/2023 11:06 pm COMPARISON: 01/03/2023 HISTORY: ORDERING SYSTEM PROVIDED HISTORY: Evaluate contrast to rule out small bowel obstruction TECHNOLOGIST PROVIDED HISTORY: Evaluate contrast to rule out small bowel obstruction Reason for Exam: Evaluate contrast to rule out small bowel obstruction. Ordered for 23:00 bb Additional signs and symptoms: Evaluate contrast to rule out small bowel obstruction. Ordered for 23:00 bb Relevant Medical/Surgical History: Evaluate contrast to rule out small bowel obstruction. Ordered for 23:00 bb FINDINGS: Enteric tube tip and side hole project at the gastric body. Enteric contrast material is now in the colon. Diffuse gaseous distention of the small and large bowel. No free air or pneumatosis. No gross bony abnormality. PN RIS CONSOLIDATED Juan Schmitz MD - 01/03/2023 EXAMINATION: ONE SUPINE XRAY VIEW(S) OF THE ABDOMEN 01/03/2023 11:06 pm COMPARISON: 01/03/2023 HISTORY: ORDERING SYSTEM PROVIDED HISTORY: Evaluate contrast to rule out small bowel obstruction TECHNOLOGIST PROVIDED HISTORY: Evaluate contrast to rule out small bowel obstruction Reason for Exam: Evaluate contrast to rule out small bowel obstruction. Ordered for 23:00 bb Additional signs and symptoms: Evaluate contrast to rule out small bowel obstruction. Ordered for 23:00 bb Relevant Medical/Surgical History: Evaluate contrast to rule out small bowel obstruction. Ordered for 23:00 bb FINDINGS: Enteric tube tip and side hole project at the gastric body. Enteric contrast material is now in the colon. Diffuse gaseous distention of the small and large bowel. No free air or pneumatosis. No gross bony abnormality. IMPRESSION: Ileus with contrast material now in the large bowel. [employer] Phone: Radiology Study observation (narrative) [employer] Phone: XR ABDOMEN (KUB) (SINGLE AP VIEW)Ordered By: Juan Schmitz on 01-03-2023 [employer] Phone: XR ABDOMEN FOR NG/OG/NE TUBE PLACEMENTon 01-03-2023 XR ABDOMEN FOR NG/OG/NE TUBE PLACEMENT EXAMINATION: ONE SUPINE XRAY VIEW(S) OF THE ABDOMEN 01/03/2023 1:18 am COMPARISON: None. HISTORY: ORDERING SYSTEM PROVIDED HISTORY: Confirmation of course of NG/OG/NE tube and location of tip of tube TECHNOLOGIST PROVIDED HISTORY: Confirmation of course of NG/OG/NE tube and location of tip of tube Portable?->Yes Reason for Exam: NG placement FINDINGS: The tip of the OG/NG and side hole/port are in good position in the mid stomach. IMPRESSION: The OG/NG tube has been placed in good position. Interpreted by: Ottoniel Avendano MD Signed by: Ottoniel Avendano MD 01/03/23 Final result Normal [facility] The OG/NG tube has been placed in good position. [facility] CONSOLIDATED EXAMINATION: ONE SUPINE XRAY VIEW(S) OF THE ABDOMEN 01/03/2023 1:18 am COMPARISON: None. HISTORY: ORDERING SYSTEM PROVIDED HISTORY: Confirmation of course of NG/OG/NE tube and location of tip of tube TECHNOLOGIST PROVIDED HISTORY: Confirmation of course of NG/OG/NE tube and location of tip of tube Portable?->Yes Reason for Exam: NG placement FINDINGS: The tip of the OG/NG and side hole/port are in good position in the mid stomach. [facility] CONSOLIDATED Ottoniel Avendano MD - 01/03/2023 EXAMINATION: ONE SUPINE XRAY VIEW(S) OF THE ABDOMEN 01/03/2023 1:18 am COMPARISON: None. HISTORY: ORDERING SYSTEM PROVIDED HISTORY: Confirmation of course of NG/OG/NE tube and location of tip of tube TECHNOLOGIST PROVIDED HISTORY: Confirmation of course of NG/OG/NE tube and location of tip of tube Portable?->Yes Reason for Exam: NG placement FINDINGS: The tip of the OG/NG and side hole/port are in good position in the mid stomach. IMPRESSION: The OG/NG tube has been placed in good position. [employer] Phone: Radiology Study observation (narrative) [employer] Phone: XR ABDOMEN FOR NG/OG/NE TUBE PLACEMENTOrdered By: Ottoniel Avendano on 01-03-2023 [facility] [employer] Phone: XR CHEST PORTABLEon 01-04-20 XR CHEST PORTABLE EXAMINATION: ONE XRAY VIEW OF THE CHEST 01/02/2023 9:55 pm COMPARISON: 11/12/2020 HISTORY: ORDERING SYSTEM PROVIDED HISTORY: cough TECHNOLOGIST PROVIDED HISTORY: cough Reason for Exam: Pt states she has not been feeling well since yesterday. Nausea, chest pain, sweats. FINDINGS: The heart is similar in size to the prior study. No pleural effusion or pneumothorax is seen. No focal lung consolidation is identified. IMPRESSION: No acute cardiopulmonary abnormality is identified. Interpreted by: Milad Mireles MD Signed by: Milad Mireles MD 01/03/23 Final result Normal [facility] No acute cardiopulmonary abnormality is identified. [facility] CONSOLIDATED EXAMINATION: ONE XRAY VIEW OF THE CHEST 01/02/2023 9:55 pm COMPARISON: 11/12/2020 HISTORY: ORDERING SYSTEM PROVIDED HISTORY: cough TECHNOLOGIST PROVIDED HISTORY: cough Reason for Exam: Pt states she has not been feeling well since yesterday. Nausea, chest pain, sweats. FINDINGS: The heart is similar in size to the prior study. No pleural effusion or pneumothorax is seen. No focal lung consolidation is identified. [facility] CONSOLIDATED Milad Mireles MD - 01/03/2023 EXAMINATION: ONE XRAY VIEW OF THE CHEST 01/02/2023 9:55 pm COMPARISON: 11/12/2020 HISTORY: ORDERING SYSTEM PROVIDED HISTORY: cough TECHNOLOGIST PROVIDED HISTORY: cough Reason for Exam: Pt states she has not been feeling well since yesterday. Nausea, chest pain, sweats. FINDINGS: The heart is similar in size to the prior study. No pleural effusion or pneumothorax is seen. No focal lung consolidation is identified. IMPRESSION: No acute cardiopulmonary abnormality is identified. [employer] Work Phone: XR CHEST PORTABLEOrdered By: Milad Mireles on 01-03-2023 [facility] [employer] Work Phone: BMPon 01-02-2023 Anion gap [Moles/Vol] 15 mmol/L 9 - 17 mmol/L [facility] [employer] Calcium [Mass/Vol] 11.6 mg/dL High 8.6 - 10. 4 mg/dL [facility] [employer] Chloride [Moles/Vol] 98 mmol/L 98 - 10 7 mmol/L [facility] CO2 [Moles/Vol] 24 mmol/L 20 - 31 mmol/L [facility] [employer] Creatinine [Mass/Vol] 1.42 mg/dL High 0.50 - 0.90 mg/dL [facility] GFR/1.73 sq M.predicted MDRD (S/P/Bld) [Vol rate/Area] 40 mL/min/{1.73_m2} Low - PINF [facility] Comment on above: These results are not intended for use in patients <18 years of age. eGFR results are calculated without a race factor using the 2020 CKD-EPI equation. Careful clinical correlation is recommended, particularly when comparing to results calculated using previous equations. The CKD-EPI equation is less accurate in patients with extremes of muscle mass, extra-renal metabolism of creatine, excessive creatine ingestion, or following therapy that affects renal tubular secretion. Glucose [Mass/Vol] 186 mg/dL High 70 - 99 mg/dL [facility] Potassium [Moles/Vol] 4.9 mmol/L 3.7 - 5.3 mmol/L [facility] Sodium [Moles/Vol] 137 mmol/L 135 - 144 mmol/L [facility] Urea nitrogen [Mass/Vol] 27 mg/dL High 8 - 23 mg/dL [facility] CBC with Auto Differentialon 01-02-2023 Absolute Eos # 0.30 [facility] Absolute Lymph # 2.70 [facility] Absolute Morris # 1.30 [facility] Basophils (Bld) [#/Vol] 0.20 10*3/uL [facility] Basophils/100 WBC (Bld) 1 % 0 - 2 % [facility] Eosinophils/100 WBC (Bld) 2 % 0 - 4 % [facility] Hematocrit (Bld) [Volume fraction] 46.0 % 36 - 46 % [facility] Hemoglobin (Bld) [Mass/Vol] 15.6 g/dL 12.0 - 16.0 g/dL [facility] Interpretation and review of laboratory results Abnormal [facility] Lymphocytes/100 WBC (Bld) 19 % Low 24 - 44 % [facility] MCH (RBC) [Entitic mass] 31.4 pg 26 - 34 pg [facility] MCHC (RBC) [Mass/Vol] 34.0 g/dL 31 - 37 g/dL [facility] MCV (RBC) [Entitic vol] 92.3 fL 80 - 100 fL [facility] [employer] Monocytes/100 WBC (Bld) 9 % High 1 - 7 % [facility] [employer] Platelet distribution width (Bld) [Ratio] 15.0 % High 11.5 - 14.9 % [facility] [employer] Platelet mean volume (Bld) [Entitic vol] 8.6 fL 6.0 - 12.0 fL [facility] [employer] Platelets (Bld) [#/Vol] 334 10*3/uL [facility] RBC (Bld) [#/Vol] 4.99 10*6/uL 4.0 - 5.2 m/uL [facility] [employer] Segmented neutrophils/100 WBC (Bld) 69 % High 36 - 66 % [facility] [employer] Segs Absolute 9.90 High [facility] WBC (Bld) [#/Vol] 14.3 10*3/uL High [facility] [employer] [facility] [employer] CT ABDOMEN PELVIS W IV CONTR AST Additional Contrast? Noneon 01-02-2023 Radiology Study observation (narrative) [facility] Work Phone: CT CHEST PULMONARY EMBOLISM W CONTRASTon 01-02-2023 Radiology Study observation (narrative) [facility] [employer] Work Phone: EKG 12 Leadon 01-02-2023 Raymond Lopes MD 01/03/2023 1:49 AM EKG 12 Lead Date/Time: 01/02/2023 9:35 PM Performed by: Raymond Lopes MD Authorized by: Raymond Lopes MD ECG reviewed by ED Physician in the absence of a security operations center analyst: yes Interpretation: Interpretation: normal Rate: ECG rate: 79 ECG rate assessment: normal Rhythm: Rhythm: sinus rhythm Ectopy: Ectopy: none QRS: QRS axis: Normal QRS intervals: Normal QRS conduction: normal ST segments: ST segments: Normal T waves: T waves: normal Q waves: Abnormal Q-waves: not present [employer] Work Phone: [employer] Work Phone: Hepatic Function Panelon Albumin [Mass/Vol] 4.5 g/dL 3.5 - 5.2 g/dL [facility] ALP [Catalytic activity/Vol] 66 U/L 35 - 104 U/L [facility] ALT [Catalytic activity/Vol] 29 U/L 5 - 33 U/L [facility] AST [Catalytic activity/Vol] 25 U/L NINF - 32 U/L [facility] Bilirubin [Mass/Vol] 0.3 mg/dL 0.3 - 1 .2 mg/dL [facility] Bilirubin.direct [Mass/Vol] 0.1 mg/dL NINF - 0.3 mg/dL [facility] Bilirubin.indirect [Mass/Vol] 0.2 mg/dL 0.0 - 1.0 mg/dL [facility] Protein [Mass/Vol] 8.1 g/dL 6.4 - 8.3 g/dL [facility] Lactic Acidon 01-02-2023 Lactate (P elena) [Moles/Vol] 1.9 mmol/L 0.5 - 2.2 mmol/L [facility] Lipaseon 01-02-2023 Lipase [Catalytic activity/Vol] 74 U/L High 13 - 60 U/L [facility] Magnesiumon 01-02-2023 Magnesium [Mass/Vol] 2.3 mg/dL 1.6 - 2 .6 mg/dL [facility] No Panel Informationon 01-02 Interpretation and review of laboratory results Abnormal [facility] Protime-INRon 01-02-2023 INR Coag (PPP) [Relative time] 0.9 {INR} [facility] Comment on above: Therapeutic Range: Moderate Anticoagulant Intensity: INR = 2.0-3.0 High Anticoagulant Intensity: INR = 2.5-3.5 PT Coag (PPP) [Time] 12.9 s [facility] Troponin Now and Q 1 Houron 01-02-2023 Interpretation and review of laboratory results Abnormal [facility] Troponin I.cardiac DL <= 0.01 ng/mL [Mass/Vol] 17 ng/L High 0 - 14 ng/L [facility] Comment on above: High Sensitivity Tro ponin values cannot be compared with other Troponin methodologies. [facility] Urinalysis with Reflex to Cu ltureon 01-02-2023 Bilirubin Urine Negative NEGATIVE [facility] Color, UA Yellow Yellow [facility] Glucose Auto test strip (U) [Mass/Vol] LARGE Abnormal NEGATIVE [facility] Interpretation and review of laboratory results Abnormal [facility] Ketones (U) [Mass/Vol] TRACE Abnormal NEGATIVE [facility] Leukocyte esterase Auto test strip Ql (U) Negative NEGATIVE [facility] Nitrite Auto test strip Ql (U) Negative NEGATIVE [facility] Protein (U) [Mass/Vol] 5.0 mg/dL 5.0 - 8.0 [facility] Protein (U) [Mass/Vol] 1+ Abnormal NEGATIVE [facility] Specific [place], UA 1.029 1.000 - 1.030 B ON [facility] Turbidity UA Cloudy Abnormal Clear [facility] Urine Hgb Negative NEGATIVE [facility] Urobilinogen, Urine Normal Normal [facility] XR CHEST PORTABLEon 01-03-20 Radiology Study observation (narrative) [facility] Work Phone: VANE NORMA DIGITAL SCREEN CHRIS Luis 01-30-2022 Unremarkable study o f the breasts. No evidence of significant interval change. BIRADS: BIRADS - CATEGORY 1 Negative, no evidence of malignancy. Normal interval follow-up is recommended in 12 months. OVERALL ASSESSMENT - NEGATIVE A letter of notification will be sent to the patient regarding the results. [employer] recommends annual mammograms for women 40 years and older. [facility] RIS CONSOLIDATED EXAMINATION: SCREENING DIGITAL BILATERAL MAMMOGRAM WITH TOMOSYNTHESIS 01/30/2022 TECHNIQUE: Screening mammography was performed with tomosynthesis including MLO and CC views of the bilateral breasts. Computer aided detection was used for the interpretation of this exam. COMPARISON: Mammographic imaging from an outside source May 04, 2019 and May 07, 2017. HISTORY: Screening. FINDINGS: There are scattered areas of fibroglandular density. There is no new dominant mass, suspicious microcalcification, or area of architectural distortion. Small 7 mm diameter well-defined structure again apparent upper-outer aspect of the right breast, and a few scattered smaller similar structures, unchanged. [facility] RIS CONSOLIDATED Radiology Study observation (narrative) [employer] Work Phone: VANE NORMA DIGITAL SCREEN BILA TERALOrdered By: Mary Alice Patel on 01-30-2022 [employer] Work Phone: Otheron 11-12-2020 Gregg, [facility] Incoming Radiant Results From [employer] - 11/12/2020 4:33 PM EST EXAMINATION: 2 XRAY VIEWS OF THE LEFT CALCANEUS; THREE XRAY VIEWS OF THE LUMBAR SPINE; THREE XRAY VIEWS OF THE THORACIC SPINE; THREE XRAY VIEWS OF THE LEFT KNEE; ONE XRAY VIEW OF THE PELVIS 11/12/2020 4:16 pm COMPARISON: None. HISTORY: ORDERING SYSTEM PROVIDED HISTORY: pain, fall TECHNOLOGIST PROVIDED HISTORY: pain, fall Reason for Exam: pain, fall, rule out fx Acuity: Unknown Type of Exam: Unknown FINDINGS: Calcaneus: The patient has a fracture through a plantar calcaneal spur. The body of the calcaneus is intact. Mild arthritic changes are present in the ankle. Vascular calcification is present around the heel. Lumbar spine: Mild to moderate degenerative and degenerative disc changes are noted without acute fracture or subluxation. Pedicles are intact. SI joints are symmetrical. Significant calcification of the aorta and iliac arteries is noted. Splenic artery calcification is noted. Surgical clips are present in the gallbladder fossa. Thoracic spine: Moderate to moderately severe diffuse spondylosis is noted in the thoracic spine with sequential non marginal bridging osteophytes consistent with diffuse idiopathic skeletal hyperostosis. No acute fracture or subluxation is noted. Pedicles are intact. Soft tissues are grossly unremarkable. Left knee: Mineralization and alignment are satisfactory. No acute fracture, dislocation or effusion is noted. Atherosclerotic calcification of the femoral artery and branches is noted. Pelvis: Both femoral heads are well circumscribed and situated within the acetabula. Degenerative changes are present in both hips. Moderate visualized lumbar spine degenerative changes are present. No acute fracture, dislocation or effusion is noted. Atherosclerotic calcifications are noted. IMPRESSION: Calcaneus: Nondisplaced fracture through a plantar calcaneal spur. Body of the calcaneus appears intact. Vascular calcification. Lumbar spine: Mild to moderate degenerative and degenerative disc changes without acute fracture or subluxation. Atherosclerotic calcifications as above. Thoracic spine: Moderate to moderately severe spondylosis in the thoracic spine. No acute fracture or subluxation. Left knee: No acute osseous abnormality. Vascular calcification. Pelvis: Degenerative change in the hips. No acute fracture, dislocation, or effusion. Vascular calcification in the pelvis. [place] Calcaneus: Nondisplaced fracture through a plantar calcaneal spur. Body of the calcaneus appears intact. Vascular calcification. Lumbar spine: Mild to moderate degenerative and degenerative disc changes without acute fracture or subluxation. Atherosclerotic calcifications as above. Thoracic spine: Moderate to moderately severe spondylosis in the thoracic spine. No acute fracture or subluxation. Left knee: No acute osseous abnormality. Vascular calcification. Pelvis: Degenerative change in the hips. No acute fracture, dislocation, or effusion. Vascular calcification in the pelvis. [place] EXAMINATION: 2 XRAY VIEWS OF THE LEFT CALCANEUS; THREE XRAY VIEWS OF THE LUMBAR SPINE; THREE XRAY VIEWS OF THE THORACIC SPINE; THREE XRAY VIEWS OF THE LEFT KNEE; ONE XRAY VIEW OF THE PELVIS 11/12/2020 4:16 pm COMPARISON: None. HISTORY: ORDERING SYSTEM PROVIDED HISTORY: pain, fall TECHNOLOGIST PROVIDED HISTORY: pain, fall Reason for Exam: pain, fall, rule out fx Acuity: Unknown Type of Exam: Unknown FINDINGS: Calcaneus: The patient has a fracture through a plantar calcaneal spur. The body of the calcaneus is intact. Mild arthritic changes are present in the ankle. Vascular calcification is present around the heel. Lumbar spine: Mild to moderate degenerative and degenerative disc changes are noted without acute fracture or subluxation. Pedicles are intact. SI joints are symmetrical. Significant calcification of the aorta and iliac arteries is noted. Splenic artery calcification is noted. Surgical clips are present in the gallbladder fossa. Thoracic spine: Moderate to moderately severe diffuse spondylosis is noted in the thoracic spine with sequential non marginal bridging osteophytes consistent with diffuse idiopathic skeletal hyperostosis. No acute fracture or subluxation is noted. Pedicles are intact. Soft tissues are grossly unremarkable. Left knee: Mineralization and alignment are satisfactory. No acute fracture, dislocation or effusion is noted. Atherosclerotic calcification of the femoral artery and branches is noted. Pelvis: Both femoral heads are well circumscribed and situated within the acetabula. Degenerative changes are present in both hips. Moderate visualized lumbar spine degenerative changes are present. No acute fracture, dislocation or effusion is noted. Atherosclerotic calcifications are noted. [facility] (SINGLE VIEW FRONTA L)on 11-12-2020 Gregg, Mhpn Incoming Radiant Results From [employer] - 11/12/2020 4:30 PM EST EXAMINATION: ONE XRAY VIEW OF THE CHEST 11/12/2020 1:16 pm COMPARISON: [id number] 2010 HISTORY: ORDERING SYSTEM PROVIDED HISTORY: pain along superior left chest and clavicle, rule out fracture TECHNOLOGIST PROVIDED HISTORY: pain along superior left chest and clavicle, rule out fracture Reason for Exam: pain along superior left chest and clavicle, rule out fracture Acuity: Unknown Type of Exam: Unknown FINDINGS: The cardiac size is normal. No acute infiltrates or pleural effusions are seen. Pulmonary vascularity appears normal. There is mild ectasia of the thoracic aorta. There are degenerative changes in the spine . No acute bony abnormalities. The hilar structures are normal. IMPRESSION: No acute cardiopulmonary disease [facility] EX[facility]: ONE XRA Y VIEW OF THE CHEST 11/12/2020 1:16 pm COMPARISON: [id number] 2010 HISTORY: ORDERING SYSTEM PROVIDED HISTORY: pain along superior left chest and clavicle, rule out fracture TECHNOLOGIST PROVIDED HISTORY: pain along superior left chest and clavicle, rule out fracture Reason for Exam: pain along superior left chest and clavicle, rule out fracture Acuity: Unknown Type of Exam: Unknown FINDINGS: The cardiac size is normal. No acute infiltrates or pleural effusions are seen. Pulmonary vascularity appears normal. There is mild ectasia of the thoracic aorta. There are degenerative changes in the spine . No acute bony abnormalities. The hilar structures are normal. [facility] No acute cardiopulmonary disease [place] FT3on 08-27-2018 FT3 3.32 pg/mL Normal 2.45-5.93 [facility] Comment on above: Performed By: #### 1 005, 4500, 4510, 4520 ####[facility] Unless Otherwise [id number] [address]Adwvm: [phone]/ VSMV #4724/CLIA # [id number] FT4on 08-27-2018 T4 free mass conc 1.36 ng/dL Normal 0.78-2.44 [facility] Diabetes [facility] Comment on above: Performed By: #### 1 005, 4500, 4510, 4520 ####[facility] Unless Otherwise [id number] [address] [address]Gywew: [phone]/ HGAL #4724/CLIA # [id number] Lipidson 08-27-2018 Cholesterol in HDL mass conc 38.0 mg/dL Low 40.0-60.0 [facility] Comment on above: Performed By: #### 1 005, 4500, 4510, 4520 ####[facility] Unless Otherwise [id number] [address] [address]Pacuw: [phone]/ EZGB #4724/CLIA # [id number] Cholesterol in LDL mass conc 74.8 mg/dL Normal 0.0-100.0 [facility] Diabetes [facility] Comment on above: Performed By: #### 1 005, 4500, 4510, 4520 ####[facility] Unless Otherwise [id number] [address] [address]Hkuve: [phone]/ QZBB #4724/CLIA # [id number] Cholesterol in VLDL mass conc 66.2 mg/dL Normal [facility] Comment on above: Performed By: #### 1 005, 4500, 4510, 4520 ####[facility] Unless Otherwise [id number] [address] [address]Rrfuo: [phone]/ CCJE #4724/CLIA # [id number] Cholesterol mass conc 179.0 mg/dL Normal 0.0-199.0 [facility] Comment on above: Performed By: #### 1 005, 4500, 4510, 4520 ####[facility] Unless Otherwise [id number] [address] [address]Oxkai: [phone]/ OIKT #4724/CLIA # [id number] Cholesterol.total/Ch olesterol in HDL mass ratio 4.7 {ratio} Normal [facility] Comment on above: Performed By: #### 1 005, 4500, 4510, 4520 ####[facility] Unless Otherwise [id number] [address]Qxqqn: [phone]/ ZQXJ #4724/CLIA # [id number] Triglyceride mass conc 331.0 mg/dL High 0.0-150.0 [facility] Diabetes [facility] Comment on above: Performed By: #### 1 005, 4500, 4510, 4520 ####[facility] Unless Otherwise [id number] [address]Octfs: [phone]/ NNHF #4724/CLIA # [id number] TSHon 08-27-2018 Thyrotropin Qn 3.53 uIU/ml Normal 0.47-4.68 [facility] Comment on above: Performed By: #### 1 005, 4500, 4510, 4520 ####[facility] Unless Otherwise [id number] [address]Dkqzx: [phone]/ PGNI #4724/CLIA # [id number] Vital Signs Date Time Vital Sign Value Performing Clinician Arley elliott 01-06-2023 08:12-0400 Heart rate 67 /min Raymond Lopes MD Work Phone: [facility] 01-06-2023 08:12-0400 Respiratory rate 16 /min Raymond Lopes MD Work Phone: [facility] 01-06-2023 08:12-0400 SaO2% (BldA) [Mass fraction] 96 % Raymond Lopes MD Work Phone: [employer] 01-06-2023 06:19-0400 Body temperature 97.9 [degF] Raymond Lopes MD Work Phone: [employer] 01-06-2023 06:19-0400 Diastolic blood pressure 48 mm[Hg] Raymond Lopes MD Work Phone: [employer] 01-06-2023 06:19-0400 Systolic blood pressure 153 mm[Hg] Raymond Lopes MD Work Phone: [facility] [employer] 01-03-2023 02:15-0400 Body mass index (BMI) [Ratio] 35.31 kg/m2 Raymond Lopes MD Work Phone: [employer] 01-03-2023 02:15-0400 Body weight 82 kg Raymond Lopes MD Work Phone: [facility] [employer] [place] 01-02-2023 20:43-0400 Body height 152.4 cm Raymond Lopes MD Work Phone: [facility] [employer] [place] 11-12-2020 14:29-0500 BMI (Body Mass Index) 37.79 kg/m2 [facility] [place] 11-12-2020 14:29-0500 Body Temperature 97.9 [degF] [facility] [place] 11-12-2020 14:29-0500 Body weight 90.72 kg [facility] [place] 11-12-2020 14:29-0500 BP Diastolic 42 mm[Hg] [facility] [place] 11-12-2020 14:29-0500 BP Systolic 172 mm[Hg] [facility] [place] 11-12-2020 14:29-0500 Height 154.9 cm [facility] [place] 11-12-2020 14:29-0500 Pulse (Heart Rate) 76 /min [facility] [place], [place] 11-12-2020 14:29-0500 Respiratory Rate 14 /min [facility] [place], [place] Encounters Encounter Date Encounter Type Care Provider Facility Start: 07-17-2023 End: 07-20-2023 Evaluation and management of inpatient DAGO GARDNER [facility] Start: 01-02-2023 End: 01-06-2023 Evaluation and management of inpatient HARIS ANGELO [facility] Start: 01-02-2023 End: 01-06-2023 Evaluation and management of inpatient Raymond Lopes MD Work Phone: [facility] Med Surg Comment on above: SBO (small bowel obs truction) (HCC) (Primary Dx) Start: 01-30-2022 End: 02-01-2022 Subsequent hospital visit by physician [facility] Mammo [address] Mammography Comment on above: Screening mammogram for breast cancer Start: 12-14-2020 End: 12-14-2020 Patient encounter procedure MINNA SEGURA [facility] Start: 11-12-2020 End: 11-12-2020 Emergency department patient visit Ottoniel Shelton Work Phone: [facility] ED Comment on above: Fall, initial encoun ter (Primary Dx); Calcaneal spur of foot, left; Closed traumatic nondisplaced fracture of left calcaneus, initial encounter; Lumbar sprain, initial encounter Start: 06-03-2017 End: 06-04-2017 Ambulatory SOLOMON SCHMITT [facility] Start: 05-05-2017 End: 03-02-2021 Patient encounter status [address] Work Phone: Procedures Date Procedure Procedure Detail Performing Clinician Start: 01-06-2023 Glucose blood reagent strip Haris Angelo MD Work Phone: Start: 01-06-2023 End: 01-06-2023 Blood count complete auto&auto difrntl wbc Vickie Barahona [employer]IMARY CLASS TE[employer]ER - [employer]NAGED CARE Work Phone: Start: 01-05-2023 Glucose blood reagent strip Haris Angelo MD Work Phone: Start: 01-05-2023 Glucose blood reagent strip Haris Angelo MD Work Phone: Start: 01-05-2023 Glucose blood reagent strip Haris Angelo MD Work Phone: Start: 01-05-2023 BASIC METABOLIC PANE L W/ REFLEX TO MG FOR LOW K Vickie Barahona PRIMARY CLASS TEACHER - RN [employer]NAGED CARE Work Phone: Start: 01-05-2023 End: 01-05-2023 Blood count complete auto&auto difrntl wbc Vickie Barahona PRIMARY CLASS TEACHER - [employer] Work Phone: Start: 01-04-2023 Glucose blood reagent strip Haris Angelo MD Work Phone: Start: 01-04-2023 Glucose blood reagent strip Haris Angelo MD Work Phone: Start: 01-04-2023 Us retroperitoneal r eal time w/image complete Tacho Au MD Work Phone: Start: 01-04-2023 BASIC METABOLIC PANE L W/ REFLEX TO MG FOR LOW K Vickie Barahona PRIMARY CLASS TEACHER - [employer] Work Phone: Start: 01-04-2023 Cell count misc body fluids w/differential count Tacho Au MD Work Phone: Start: 01-04-2023 End: 01-04-2023 Protein electrophoretic fractj&quantj serum Tacho Au MD Work Phone: Start: 01-03-2023 Radiologic exam abdo men 1 view Dasia J Imel DO Work Phone: Start: 01-03-2023 Cul fngi mold/yeast prsmptv id skn hair/nail Tacho Au MD Work Phone: Start: 01-03-2023 Protein total xcpt refractometry urine Tacho Au MD Work Phone: Start: 01-03-2023 Ct abdomen & pelvis w/o contrast material Dasia Carl DO Work Phone: Start: 01-03-2023 Glucose blood reagent strip Haris Angelo MD Work Phone: Start: 01-03-2023 Glucose blood reagent strip Haris Agnelo MD Work Phone: Start: 01-03-2023 Glucose blood reagent strip Haris Angelo MD Work Phone: Start: 01-03-2023 BASIC METABOLIC PANE L W/ REFLEX TO MG FOR LOW K Vickiegwen Barahona PRIMARY CLASS TE[employer]ER - [employer] Work Phone: Start: 01-03-2023 Natriuretic peptide Lisa dell Barahona PRIMARY CLASS TE[employer]ER - RN [employer]NAG[employer]ARE Work Phone: Start: 01-03-2023 Glucose blood reagent strip Haris Angelo MD Work Phone: Start: 01-03-2023 Radiologic exam abdo men 1 view Raymond Lopes MD Work Phone: Start: 01-02-2023 Ct abdomen & pelvis w/contrast material Raymond Lopes MD Work Phone: Start: 01-02-2023 Ct thorax w/contrast material Raymond Lopes MD Work Phone: Start: 01-02-2023 Urinalysis microscopic only Raymond Lopes MD Work Phone: Start: 01-02-2023 Urnls dip stick/tabl et rgnt auto w/o microscopy Raymond Lopes MD Work Phone: Start: 01-02-2023 Radiologic exam ches t single view Raymond Lopes MD Work Phone: Start: 01-02-2023 End: 01-02-2023 Ecg routine ecg w/least 12 lds w/i&r Raymond Lopes MD Work Phone: Start: 01-02-2023 End: 01-02-2023 Basic metabolic panel calcium total Raymond Lopes MD Work Phone: Start: 01-02-2023 Hepatic function panel Raymond Lopes MD Work Phone: Start: 01-30-2022 Screening mammograph y bi 2-view breast inc cad Minna Voss PRIMARY CLASS TEACHER - AIRCRAFT INSTRUMENT MECHANIC Work Phone: Start: 05-03-[address] [address] Start: 11-12-2020 Radiologic examinati on pelvis 1/2 views Tab Mullins Work Phone: Start: 11-12-2020 Radex spine lumbosac ral 2/3 views Tab Mullins Work Phone: Start: 11-12-2020 Radiologic examinati on knee 3 views Tab Mullins Work Phone: Start: 11-12-2020 Radex calcaneus mini mum 2 views Tab Mullins Work Phone: Start: 11-12-2020 Radex spine thoracic 3 views Tab Mullins Work Phone: Start: 11-12-2020 Radiologic exam ches t single view Tab Mullins Work Phone: Plan of Treatment Date Care Activity Detail Author Start: 05-03-2031 Screening for malignant neoplasm of colon [employer] Start: 01-31-2024 Screening for malignant neoplasm of breast Breast cancer screen [employer] Start: 01-06-2024 GFR test (Diabetes, CKD 3-4, OR last GFR 15-59) GFR test (Diabetes, CKD 3-4, OR last GFR 15-59) [employer] Start: 01-04-2024 Urine screening for protein Diabetic Alb to Cr ratio (uACR) test [facility] [employer] [place] Start: 12-26-2023 Hemoglobin A1c measurement A1C test (Diabetic or Prediabetic) [facility] [employer] [place] Start: 07-17-2023 Glaucoma screening Diabetic retinal exam [facility] [employer] [place] Comment on above: Postponed from 09/21/2015 (Patient Refus ed) Start: 07-13-2023 Screening for malignant neoplasm of colon Colon cancer screen colonoscopy [place] Start: 07-04-2023 Depression Monitoring Depression Monitoring [facility] Start: 07-02-2023 Lipid panel Lipids [facility] Start: 07-01-2023 Pneumococcal 65+ years Vaccine (2 - PCV) Pneumococcal 65+ years Vaccine (2 - PCV) [facility] Start: 02-19-2023 Diabetic foot examination Diabetic foot exam [facility] Start: 01-03-2023 Depression Monitoring Depression Monitoring [facility] Start: 12-31-2022 Hemoglobin A1c measurement A1C test (Diabetic or Prediabetic) [facility] Start: 11-01-2022 Annual Wellness Visit (AWV) Annual Wellness Visit (AWV) [facility] Start: 10-31-2022 DTaP/Tdap/Td vaccine (1 - Tdap) DTaP/Tdap/Td vaccine (1 - Tdap) [facility] [employer] Comment on above: Postponed from 1972 (Insurance / F inancial) Start: 10-31-2022 Urine screening for protein Diabetic microalbuminuria test [facility] Start: 10-03-2022 Creatinine measurement Creatinine [facility] Start: 10-03-2022 Potassium [Moles/volume] in Serum or Plasma Potassium [facility] Start: 03-30-2022 Lipid panel Lipids [facility] Start: 03-30-2022 Screening for malignant neoplasm of colon FIT/FOBT: Average risk [facility] Start: 03-17-2022 Pneumococcal 65+ years Vaccine (1 of 1 - PPSV23) Pneumococcal 65+ years Vaccine (1 of 1 - PPSV23) [place] Start: 02-27-2022 End: 02-27-2022 Patient encounter procedure 02/27/2022 Office Visit Primary Care Minna Voss, PRIMARY CLASS TEACHER - AIRCRAFT INSTRUMENT MECHANIC [address] [place] [address] [facility] Start: 01-11-2022 Diabetic foot examination Diabetic foot exam [facility] Start: 08-05-2021 COVID-19 Vaccine (3 - Booster for Moderna series) COVID-19 Vaccine (3 - Booster for Moderna series) [facility] Start: 05-04-2021 Screening for malignant neoplasm of breast Breast cancer screen [place] Start: 04-30-2021 COVID-19 Vaccine (3 - Booster for Moderna series) COVID-19 Vaccine (3 - Booster for Moderna series) [facility] Start: 12-11-2020 End: 12-11-2020 Office Visit 12/11/2020 Office Visit Primary Care Minna Segura, PRIMARY CLASS TEACHER - AIRCRAFT INSTRUMENT MECHANIC [address] [place] [address] [phone] [facility] Start: 05-27-2020 Diabetic foot examination Diabetic foot exam [place] Start: 01-12-2020 Creatinine measurement Creatinine monitoring [place], [place] Start: 01-12-2020 Potassium monitoring Potassium monitoring [place] Start: 04-04-2019 Annual Wellness Visit (AWV) Annual Wellness Visit (AWV) [place] Start: 08-13-2018 Diabetic retinal exam Diabetic retinal exam [facility] Start: 05-07-2018 Lipid panel Lipid screen [place] Start: 03-17-2018 Diabetic microalbuminuria test Diabetic microalbuminuria test [place] Start: 03-17-2018 Pneumococcal 65+ years Vaccine (2 - PCV) Pneumococcal 65+ years Vaccine (2 - PCV) [facility] Start: 06-26-2017 HbA1c (Bld) [Mass fraction] A1C test (Diabetic or Prediabetic) [place] Start: 09-18-2016 Thyroid stimulating hormone measurement TSH [facility] Start: 09-18-2016 TSH Qn TSH testing [place] Start: 09-21-2015 Diabetic retinal exam Diabetic retinal exam [place], [place] Start: 2003 Shingles Vaccine (1 of 2) Shingles Vaccine (1 of 2) [place], [place] Start: 1998 Screening for malignant neoplasm of colon [facility] Start: 1972 DTaP/Tdap/Td vaccine (1 - Tdap) DTaP/Tdap/Td vaccine (1 - Tdap) [facility] Start: 1955 Hepatitis C screening Hepatitis C screen [place], [place] Adult NIV/Positive A irway Pressure Adult NIV/Positive Airway Pressure Respiratory Care Routine HS until discontinued starting 01/03/2023 [facility] [employer] Phone: Comment on above: HS until discontinued starting End: 01-04-2023 PAUL Screen with Reflex PAUL Screen with Reflex Lab Routine Tomorrow AM for 1 Occurrences starting 01/04/2023 until 01/04/2023 [employer] Phone: Comment on above: Tomorrow AM for 1 Occurrences starting 0 01/04/2023 until 01/04/2023 PAUL Screen with Reflex PAUL Scree n with Reflex Lab Routine 01/04/2023 6:31 AM EDT [facility] [employer] Phone: Electrophoresis Prot ein, Serum Electrophoresis Protein, Serum Lab Routine 01/04/2023 6:31 AM EDT [employer] Phone: Glucose [Mass/volume ] in Serum or Plasma [employer] Phone: Comment on above: As Needed until discontinued starting 4X Daily (AC & HS) u ntil discontinued starting 01/03/2023 Oxygen therapy [[facility] Data Set] Initiate Oxygen Therapy Protocol Respiratory Care Routine As Needed until discontinued starting 01/03/2023 [facility] [employer] Phone: Comment on above: As Needed until discontinued starting Immunizations Immunization Date Immunization Notes Care Provider Fa [facility] 07-01-2022 Influenza, FLUAD, (a ge 65 y+), Adjuvanted, 0.5mL Raymond Lopes MD Work Phone: [facility] [employer] [place] 07-01-2022 pneumococcal polysaccharide vaccine, 23 valent Raymond Lopes MD Work Phone: [facility] [employer] [place] Work Phone: 06-27-2021 Influenza, Quadv, adjuvanted, 65 yrs +, IM, PF (Fluad) [facility] [address] [employer] Work Phone: 04-12-2021 zoster vaccine recombinant [address] [employer] Phone: 03-05-2021 COVID-19, Moderna, Primary or Immunocompromised, PF, 100mcg/0.5mL [address] [employer] Phone: 02-05-2021 COVID-19, Moderna, Primary or Immunocompromised, PF, 100mcg/0.5mL [address] [employer] Phone: 12-22-2020 zoster vaccine recombinant [address] [employer] Phone: 08-31-2020 Influenza, Quadv, adjuvanted, 65 yrs +, IM, PF (Fluad) [address] [employer] Phone: 08-14-2020 Influenza, High-dose , Quadv, 65 yrs +, IM (Fluzone) [address] [employer] Phone: 07-29-2019 influenza, high dose seasonal, preservative-free [address] [employer] Phone: 07-06-2019 seasonal influenza, intradermal, preservative free [address] [employer] Phone: 06-15-2019 seasonal influenza, intradermal, preservative free [address] [employer] Phone: 06-13-2019 seasonal influenza, intradermal, preservative free [address] [employer] Phone: 07-20-2018 influenza, high dose seasonal, preservative-free [address] [employer] Phone: 03-17-2017 pneumococcal polysaccharide vaccine, 23 valent [facility] 06-26-2016 influenza, injectabl e, quadrivalent, preservative free [facility] 06-04-2016 seasonal influenza, intradermal, preservative free [address] [employer] Phone: 07-12-2015 Influenza Vaccine, unspecified formulation [facility]- [place] , [place] 09-12-2010 pneumococcal polysaccharide vaccine, [address] [facility] Work Phone: 05-15-2006 pneumococcal polysaccharide vaccine, [address] [facility] Work Phone: Payers Date Payer Category Payer Medicare [id number] 2018 Medicaid [id number] 2014 Medicare [id number] 1955 Unknown [id number] 1955 Unknown [id number] 1955 Unknown [id number] Social History Date Type Detail Facility Start: 11-12-2020 End: 01-02-2023 Tobacco smoking status NHIS Current every day smoker [place] History of tobacco use Cigarette Smoker [place], [place] Start: 11-12-2020 End: 01-02-2023 Tobacco use and exposure Never used [place] Start: 11-12-2020 End: 01-03-2023 Alcohol intake Current non-drinker of alcohol (finding) [place] Start: 09-11-2020 End: 01-02-2023 Tobacco Comment about 5 per day [place] Start: 1955 Sex Assigned At Not on file [place], [place] Start: 12-24-2021 End: 01-03-2023 Exposure to SARS-CoV-2 (event) Not sure [place] Start: 09-11-2020 End: 01-03-2023 Cigarettes smoked current (pack per day) - Reported 0.25 [facility] [employer] Work Phone: Start: 12-12-2021 History [employer] Phone: Start: 11-15-2020 End: 12-12-2021 History [employer] Phone: History of tobacco use Tobacco U se Types Packs/Day Years Used Date Smoking Tobacco: Every Day Cigarettes 0.3 40 E-Cigarettes Smokeless Tobacco: Never [employer] Phone: Medical Equipment Procedure Code Equipment Code Equipment Origin al Text Equipment Identifier Dates B-D INS SYRINGE 0.5CC/30GX1/2 30G X 1/2 0.5 ML MISC [id number] Start: 08-08-2016 BD INSULIN SYRIN GE ULTRAFINE 31G X 5/16 0.3 ML MISC [id number] Start: 02-21-2017 THE THREE TIME S DAILY TEST THREE TIMES DAILY [id number] Start: 06-03-2017 USE DIRECTED TWICE A DAY [id number] Start: 05-30-2022 TEST THREE TIMES A DAY & NEEDED FOR SYMPTOMS OF IRREGULAR BLOOD GLUCOSE. ONE TOUCH VIVIO [id number] Start: 07-29-2022 History of Present illness Narrative 01-06-2023 Dasia Carl DO - 01/06/2023 11:31 AM DONATO BassP - 01/05/2023 11:55 PM Jareth Mclaughlin MD - 01/05/2023 10:33 AM Reji Talley MD - 01/05/2023 8:22 AM EDT Note Date & Type Note Facility 01-06-2023 History of Present illness Narrative Images from the original note were not included. PROGRESS NOTE PATIENT NAME: Sanya Randall DATE: 01/06/2023 HD: # 3 Patient Active Problem List Diagnosis Lumbar herniated disc Osteoarthritis Hypothyroidism CAD (coronary artery disease) Type 2 diabetes mellitus with other specified complication (HCC) Essential hypertension Hypercholesterolemia GERD (gastroesophageal reflux disease) Depression Emphysema of lung (HCC) Mixed hyperlipidemia Psoriasis Tobacco user Sleep apnea Claudication in peripheral vascular disease (HCC) Diabetes mellitus with peripheral artery disease (HCC) Chronic obstructive pulmonary disease (HCC) Chronic pain of both ears Cystitis Need for prophylactic vaccination and inoculation against influenza Chronic knee pain Trigger finger, acquired Cough due to bronchospasm Alopecia BMI 40.0-44.9, adult (HCC) Chronic ischemic heart disease Diabetic neuropathy (HCC) Diabetic retinopathy associated with type 2 diabetes mellitus (HCC) Hirsutism Hyperaldosteronism (HCC) Menopausal and postmenopausal disorder Severe obesity (BMI 35.0-39.9) with comorbidity (HCC) SBO (small bowel obstruction) (HCC) LAURA (acute kidney injury) (HCC) resolved DIAGNOSIS AND PLAN 67 yo F with resolving SBO. Regular diet and tolerating Ok for d/c Chief Complaint: im feeling better SUBJECTIVE Doing well. Up in chair with regular clothes on this AM asking for discharge. Tolerating regular diet. OBJECTIVE VITALS: Vitals: 01/06/23 0812 BP: Pulse: 67 Resp: 16 Temp: SpO2: 96% Physical Exam Constitutional: Appearance: Normal appearance. HENT: Head: Normocephalic. Cardiovascular: Rate and Rhythm: Normal rate and regular rhythm. Pulmonary: Breath sounds: Normal breath sounds. No wheezing. Abdominal: General: Abdomen is flat. Bowel sounds are normal. There is no distension. Palpations: Abdomen is soft. Tenderness: There is no abdominal tenderness. Skin: General: Skin is warm and dry. Neurological: Mental Status: She is alert. LAB: CBC: Recent Labs 01/04/23 0631 01/05/23 0645 01/06/23 0654 WBC 8.8 8.7 8.7 HGB 13.2 12.9 14.1 HCT 38.7 38.8 41.8 MCV 91.7 94.2 91.5 PLT 231 217 260 BMP: Recent Labs 01/04/23 0631 01/05/23 0645 NA 139 136 K 4.2 3.9 CL 105 104 CO2 24 20 BUN 20 9 CREATININE 0.77 0.58 GLUCOSE 170* 191* Dasia Carl DO 01/06/2023, 11:31 AM PATIENT REFUSES TO WEAR BIPAP [x] Risks and benefits explained to patient [x] Patient refuses to wear Bipap stating no [x] Patient verbalizes understanding of information presented. Images from the original note were not included. [facility] Internal Medicine Fred Correa MD; Arthur Mclaughlin MD; Maurisio Ames MD; MD Yumi Javed MD; Shira Billingsley MD [facility] Internal Medicine IN-PATIENT SERVICE [facility] Progress Note Date: 01/05/2023 Patient name: Sanya Randall Date of admission: 01/02/2023 8:42 PM Account: [id number] Date of : 1955 PCP: NUZHAT Carver CNP Room: Code Status: Full Code Chief Complaint: Chief Complaint Patient presents with Abdominal Pain Chest Pain Nausea History Obtained From: patient, electronic medical record History of Present Illness: Sanya Randall is a 67 y.o. Non- / non female who presents with Abdominal Pain, Chest Pain, and Nausea and is admitted to the hospital for the management of SBO (small bowel obstruction) (HCC). 67-year-old female admitted with history of abdominal pain nausea Dilated bowel small bowels For longstanding history of constipation Last bowel movement was on Friday 3 days ago No prior abdominal surgery Patient has significant history of hypertension hyperlipidemia coronary artery disease disease emphysema diabetes Not on any narcotics At present patient has NG tube to low intermittent suction and is draining General surgery consulted Sanya Randall is a 67 y.o. Non- / non female who presents with Abdominal Pain, Chest Pain, and Nausea and is admitted to the hospital for the management of SBO (small bowel obstruction) (HCC). Difficult medical history of HTN, HLD, CAD, emphysema and DM. According to patient, she has been experiencing nausea and vomiting over the past month intermittently. She reports that over the past 2 days she has had increased abdominal pain and increased vomiting. She is also reporting pressure-like chest pain that is not radiating and seems to be associated with abdominal pain. WBC 14.3, lipase 74. Chest x-ray unremarkable. CT abdomen pelvis reveals low-grade small bowel obstruction versus ileus. General surgery consulted in ED. NG tube placed. EKG normal sinus rhythm. Troponin 18 and repeat 17. Patient reports improvement in chest pain after NG tube being placed. Denies fever, chills, cough, diarrhea, and urinary symptoms. There are no aggravating or alleviating factors. Symptoms are reported as Acute, constant and moderate in severity. 01/04/23 Had 2 bowel movements . Feels better . NGG Tube clamped . Past Medical History: Past Medical History: Diagnosis Date LAURA (acute kidney injury) ([facility]) 01/03/2023 BMI 40.0-44.9, adult ([facility]) 01/31/2021 CAD (coronary artery disease) Claudication in peripheral vascular disease ([facility]) 12/19/2014 Depression Emphysema of lung ([facility]) GERD (gastroesophageal reflux disease) Hypercholesterolemia Hypertension Hypothyroidism Lumbar herniated disc Osteoarthritis Sleep apnea 05/18/2014 Type II or unspecified type diabetes mellitus without mention of complication, not stated as uncontrolled Past Surgical History: Past Surgical History: Procedure Laterality Date CARDIAC CATHETERIZATION CHOLECYSTECTOMY CORONARY ANGIOPLASTY WITH STENT PLACEMENT NECK SURGERY TUBAL LIGATION TUMOR REMOVAL Medications Prior to Admission: Prior to Admission medications Medication Sig Start Date End Date Taking? Authorizing Provider buPROPion (WELLBUTRIN XL) 300 MG extended release tablet Take 1 tablet by mouth every morning Patient taking differently: Take 300 mg by mouth nightly 12/26/22 01/25/23 Yes NUZHAT Carver CNP rOPINIRole (REQUIP) 4 MG tablet TAKE 1 TABLET BY MOUTH EVERY DAY IN THE EVENING 12/23/22 Yes NUZHAT Carver CNP fenofibrate micronized (LOFIBRA) 134 MG capsule TAKE 1 CAPSULE BY MOUTH EVERY DAY IN THE MORNING BEFORE BREAKFAST 12/16/22 Yes NUZHAT Carver CNP omeprazole (PRILOSEC) 20 MG delayed release capsule TAKE 1 CAPSULE BY MOUTH EVERY DAY 12/06/22 Yes NUZHAT Carver CNP cyclobenzaprine (FLEXERIL) 10 MG tablet TAKE 1 TABLET BY MOUTH EVERY DAY AT BEDTIME NEEDED 11/26/22 Yes NUZHAT Carver CNP lisinopril (PRINIVIL;ZESTRIL) 20 MG tablet TAKE 1 TABLET BY MOUTH EVERY DAY 11/07/22 Yes NUZHAT Carver CNP linaclotide (LINZESS) 145 MCG capsule TAKE 1 CAPSULE BY MOUTH EVERY DAY IN THE MORNING BEFORE BREAKFAST 10/08/22 Yes NUZHAT Carver CNP ibuprofen (ADVIL;MOTRIN) 600 MG tablet TAKE 1 TABLET BY MOUTH TWICE A DAY WITH FOOD OR MILK NEEDED 07/22/22 Yes NUZHAT Carver CNP glimepiride (AMARYL) 2 MG tablet TAKE 1 TABLET 3 TIMES DAILY FOR 90 DAYS 03/21/22 Yes Historical Provider, meclizine (ANTIVERT) 25 MG tablet TAKE 1 TABLET BY MOUTH TWICE A DAY NEEDED 01/08/22 Yes NUZHAT Carver CNP carvedilol (COREG) 12.5 MG tablet TAKE 1 TABLET BY MOUTH TWICE A DAY 12/31/21 Yes NUZHAT Carver CNP pregabalin (LYRICA) 100 MG capsule Take 100 mg by mouth daily. Yes Historical Provider, insulin lispro, 1 Unit Dial, 100 UNIT/ML SOPN up to 200units daily Yes Historical Provider, Insulin Glargine, 2 Unit Dial, (TOUJEO MAX SOLOSTAR) 300 UNIT/ML SOPN Inject 90 Units into the skin daily Yes Historical Provider, levothyroxine (SYNTHROID) 137 MCG tablet Take 137 mcg by mouth daily 01/15/21 Yes Historical Provider, albuterol sulfate HFA 108 (90 Base) MCG/ACT inhaler Inhale 2 puffs into the lungs every 6 hours as needed for Wheezing 02/05/21 Yes NUZHAT Carver CNP INVOKANA 100 MG TABS tablet Take 100 mg by mouth every morning (before breakfast) 07/28/20 Yes Historical Provider, OZEMPIC, 0.25 OR 0.5 MG/DOSE, 2 MG/1.5ML SOPN Inject 0.5 mg into the skin once a week 06/11/20 Yes Historical Provider, ezetimibe (ZETIA) 10 MG tablet Take 1 tablet by mouth daily 05/10/16 Yes Galileo Harrison MD clopidogrel (PLAVIX) 75 MG tablet Take 1 tablet by mouth daily 04/16/16 Yes Galileo Harrison MD furosemide (LASIX) 20 MG tablet TAKE ONE TABLET BY MOUTH EVERY DAY 02/23/16 Yes NUZHAT Rogers CNP ketoconazole (NIZORAL) 2 % cream Apply topically daily. 09/10/22 NUZHAT Carver CNP ONETOUCH VERIO strip TEST THREE TIMES A DAY & NEEDED FOR SYMPTOMS OF IRREGULAR BLOOD GLUCOSE. ONE TOUCH VIVIO 07/29/22 NUZHAT Carver CNP Lift Chair MISC by Does not apply route 07/04/22 NUZHAT Carver CNP Insulin Pen Needle (BD ULTRA-FINE PEN NEEDLES) 29G X 12.7MM MISC USE DIRECTED TWICE A DAY 05/30/22 NUZHAT Carver CNP Handicap Placard MISC by Does not apply route Sanya is disabled and is in need of renewal of disability plates. Duration 05/22/2022 through 05/21/2027 05/22/22 NUZHAT Carver CNP desoximetasone (TOPICORT) 0.05 % cream Apply topically 2 times daily Apply topically 2 times daily. Historical Provider, docusate sodium (COLACE) 100 MG capsule Take 100 mg by mouth in the morning. Historical Provider, aspirin 81 MG EC tablet Take 1 tablet by mouth daily 11/19/21 07/04/22 NUZHAT Carver CNP hydrocortisone (ANUSOL-HC) 2.5 % CREA rectal cream Place rectally 2 times daily Patient taking differently: Place rectally 2 times daily Use as needed 10/01/21 Hemanth Kahn MD REPATHA PUSHTRONEX SYSTEM 420 MG/3.5ML SOCT Inject 420 mg into the skin every 30 days 05/19/20 Historical Provider, glucose blood test strips (TRUE METRIX BLOOD GLUCOSE TEST) strip THEST THREE TIMES DAILY TEST THREE TIMES DAILY 06/03/17 Galileo Harrison MD B-D INS SYRINGE 0.5CC/30GX1/2 30G X 1/2 0.5 ML MISC 08/08/16 Historical Provider, Nebulizers (COMPRESSOR/NEBULIZER) MISC 1 each by Does not apply route 4 times daily for 14 days Use with medications as directed 11/22/15 07/04/22 Yusef Monroe, PRIMARY CLASS TEACHER - [employer] Allergies: Avelox [moxifloxacin], Dust mite extract, Keflex [cephalexin], Levemir [insulin detemir], Molds & smuts, Other, Prednisone, and Ultram [tramadol] Social History: Tobacco: reports that she has been smoking cigarettes and e-cigarettes. She has a 10.00 pack-year smoking history. She has never used smokeless tobacco. Alcohol: reports no history of alcohol use. Drug Use: reports current drug use. Drug: Marijuana ([place]). Family History: Family History Problem Relation Age of Onset High Blood Pressure Father Diabetes Father Diabetes Sister High Blood Pressure Mother High Blood Pressure Brother Mental Retardation Brother Review of Systems: Positive and Negative as described in HPI. CONSTITUTIONAL: negative for fevers, chills, sweats, fatigue, weight loss HEENT: negative for vision, hearing changes, runny nose, throat pain RESPIRATORY: negative for shortness of breath, cough, congestion, wheezing CARDIOVASCULAR: negative for chest pain, palpitations GASTROINTESTINAL: negative for nausea, vomiting, diarrhea, constipation, change in bowel habits, abdominal pain GENITOURINARY: negative for difficulty of urination, burning with urination, frequency INTEGUMENT: negative for rash, skin lesions, easy bruising HEMATOLOGIC/LYMPHATIC: negative for swelling/edema ALLERGIC/IMMUNOLOGIC: negative for urticaria , itching ENDOCRINE: negative increase in drinking, increase in urination, hot or cold intolerance MUSCULOSKELETAL: negative joint pains, muscle aches, swelling of joints NEUROLOGICAL: negative for headaches, dizziness, lightheadedness, numbness, pain, tingling extremities BEHAVIOR/PSYCH: negative for depression, anxiety Prior history of abdominal surgeries Not on narcotics Does take muscle relaxants and Lyrica for chronic pain Physical Exam: BP (!) 143/58 Pulse 75 Temp 97.7 F (36.5 C) (Oral) Resp 16 Ht 5' (1.524 m) Wt 180 lb 12.4 oz (82 kg) SpO2 98% BMI 35.31 kg/m Temp (24hrs), Av F (36.7 C), Min:97.7 F (36.5 C), Max:98.1 F (36.7 C) Recent Labs 03/25/23 0640 01/04/23 1625 01/04/23200101/05/23 0639 POCGLU 173* 192* 188* 185* Intake/Output Summary (Last 24 hours) at 01/05/2023 1033 Last data filed at 01/04/2023 1545 Gross per 24 hour Intake 120 ml Output 900 ml Net -780 ml General Appearance: alert, well appearing, and in no acute distress Mental status: oriented to person, place, and time Head: normocephalic, atraumatic Eye: no icterus, redness, pupils equal and reactive, extraocular eye movements intact, conjunctiva clear Ear: normal external ear, no discharge, hearing intact Nose: no drainage noted Mouth: mucous membranes moist Neck: supple, no carotid bruits, thyroid not palpable Lungs: Bilateral equal air entry, clear to ausculation, no wheezing, rales or rhonchi, normal effort Cardiovascular: normal rate, regular rhythm, no murmur, gallop, rub Abdomen: Abdominal distended Soft Bowel sounds hyperactive No localized tenderness Since NG tube abdominal pain has improved Neurologic: There are no new focal motor or sensory deficits, normal muscle tone and bulk, no abnormal sensation, normal speech, cranial nerves II through XII grossly intact Skin: No gross lesions, rashes, bruising or bleeding on exposed skin area Extremities: peripheral pulses palpable, no pedal edema or calf pain with palpation Psych: normal affect Investigations: Laboratory Testing: Recent Results (from the past 24 hour(s)) POC Glucose Fingerstick Collection Time: 01/04/23 4:25 PM Result Value Ref Range POC Glucose 192 (H) 65 - 105 mg/dL POC Glucose Fingerstick Collection Time: 01/04/23 8:02 PM Result Value Ref Range POC Glucose 188 (H) 65 - 105 mg/dL POC Glucose Fingerstick Collection Time: 01/05/23 6:39 AM Result Value Ref Range POC Glucose 185 (H) 65 - 105 mg/dL Basic Metabolic Panel w/ Reflex to MG Collection Time: 01/05/23 6:45 AM Result Value Ref Range Glucose 191 (H) 70 - 99 mg/dL BUN 9 8 - 23 mg/dL Creatinine 0.58 0.50 - 0.90 mg/dL Est, Glom Filt Rate >60 >60 mL/min/1.73m2 Calcium 9.0 8.6 - 10.4 mg/dL Sodium 136 135 - 144 mmol/L Potassium 3.9 3.7 - 5.3 mmol/L Chloride 104 98 - 107 mmol/L CO2 20 20 - 31 mmol/L Anion Gap 12 9 - 17 mmol/L CBC with Auto Differential Collection Time: 01/05/23 6:45 AM Result Value Ref Range WBC 8.7 3.5 - 11.0 k/uL RBC 4.12 4.0 - 5.2 m/uL Hemoglobin 12.9 12.0 - 16.0 g/dL Hematocrit 38.8 36 - 46 % MCV 94.2 80 - 100 fL MCH 31.3 26 - 34 pg MCHC 33.3 31 - 37 g/dL RDW 14.6 11.5 - 14.9 % Platelets 217 150 - 450 k/uL MPV 7.9 6.0 - 12.0 fL Seg Neutrophils 54 36 - 66 % Lymphocytes 32 24 - 44 % Monocytes 10 (H) 1 - 7 % Eosinophils % 3 0 - 4 % Basophils 1 0 - 2 % Segs Absolute 4.70 1.3 - 9.1 k/uL Absolute Lymph # 2.70 1.0 - 4.8 k/uL Absolute Morris # 0.90 0.1 - 1.3 k/uL Absolute Eos # 0.30 0.0 - 0.4 k/uL Basophils Absolute 0.10 0.0 - 0.2 k/uL Imaging/Diagnostics: CT ABDOMEN PELVIS W IV CONTRAST Additional Contrast? None Result Date: 01/03/2023 Fluid-filled mildly dilated small bowel loops, with a possible transition point in the mid abdomen. This could represent a low-grade small-bowel obstruction or ileus. No pulmonary embolism is identified. No acute pulmonary abnormality is seen. Hepatomegaly and hepatic steatosis. XR CHEST PORTABLE Result Date: 01/03/2023 No acute cardiopulmonary abnormality is identified. CT CHEST PULMONARY EMBOLISM W CONTRAST Result Date: 01/03/2023 Fluid-filled mildly dilated small bowel loops, with a possible transition point in the mid abdomen. This could represent a low-grade small-bowel obstruction or ileus. No pulmonary embolism is identified. No acute pulmonary abnormality is seen. Hepatomegaly and hepatic steatosis. XR ABDOMEN FOR NG/OG/NE TUBE PLACEMENT Result Date: 01/03/2023 The OG/NG tube has been placed in good position. Assessment : Hospital Problems Last Modified POA * (Principal) SBO (small bowel obstruction) ([facility]) 01/03/2023 Yes Hypothyroidism 01/03/2023 Yes Overview Addendum 10/31/2021 8:10 AM by Gabi Bazzi CMA Care managed by Dr. Wetzel (endocrine) Emphysema of lung ([facility]) 01/03/2023 Yes Diabetes mellitus with peripheral artery disease ([facility]) 01/03/2023 Yes Overview Signed 08/16/2015 9:28 AM by Shae Lopez MA Care managed by Dr. Wetzel (endocrine). LAURA (acute kidney injury) ([facility]) 01/03/2023 Yes Plan: Patient status inpatient in the Med/Surge 1. 67-year-old female Known to have diabetes mellitus coronary artery disease hyperlipidemia chronic pain Emphysema lung admitted with abdominal pain distention diagnosis small bowel obstruction Has NG tube to low intermittent suction Feeling better General surgery Dr. Carl consulted We will change her IV to D5 normal saline Monitor electrolytes She has LAURA Creatinine is 1.92 was 1.48 last night Baseline creatinine is around 0.84 Nephrology consulted Has underlying history of coronary artery disease diabetes mellitus chronic pain emphysema Is n.p.o. Was on carvedilol 12.5 mg twice daily and Lasix We will start her on metoprolol 5 mg IV every 12 hours We will monitor With history of chronic constipation Last bowel movement 3 days ago Admitted with abdominal distention discomfort nausea Has small bowel obstruction Possibility of fecal impaction No prior history of abdominal surgery Medications: Allergies: Allergies Allergen Reactions Avelox [Moxifloxacin] Itching Dust Mite Extract Keflex [Cephalexin] Yeast infection Levemir [Insulin Detemir] Itching Molds & Smuts Other Other (See Comments) Other reaction(s): Unknown Other reaction(s): Unknown Prednisone Itching Ultram [Tramadol] Current Meds: Scheduled Meds: buPROPion 300 mg Oral Nightly [Held by provider] carvedilol 12.5 mg Oral BID [Held by provider] furosemide 20 mg Oral Daily [Held by provider] levothyroxine 137 mcg Oral Daily pantoprazole (PROTONIX) 40 mg injection 40 mg IntraVENous Daily insulin lispro 0-8 Units SubCUTAneous TID WC insulin lispro 0-4 Units SubCUTAneous Nightly sodium chloride flush 5-40 mL IntraVENous 2 times per day Continuous Infusions: dextrose sodium chloride PRN Meds: glucose, dextrose bolus OR dextrose bolus, glucagon (rDNA), dextrose, sodium chloride flush, sodium chloride, ondansetron OR ondansetron, polyethylene glycol, acetaminophen OR acetaminophen, morphine, diatrizoate meglumine-sodium, sodium chloride flush 2. Disposition home on discharge 01/04/23 Had 2 bowel movements . Feels better . NGG Tube clamped . Labs ok . Vitals stable . NG tube is clamped Bowel sounds present Had ultrasound done today If NG output after 4 hours of clamping is less than 200 mL NG will be discontinued per Dr. Carl and clear liquid start 01/05/23 Patient diet is being advanced She feeling comfortable Plan is to discharge home tomorrow if she tolerates Vital stable LAURA resolved Patient feeling better Blood sugars , BP ok Home meds reviewed and reconciled Consultations: IP CONSULT TO GENERAL SURGERY IP CONSULT TO SPIRITUAL SERVICES IP CONSULT TO RESPIRATORY CARE IP CONSULT TO NEPHROLOGY IP CONSULT TO SPIRITUAL SERVICES Patient is admitted as inpatient status because of co-morbidities listed above, severity of signs and symptoms as outlined, requirement for current medical therapies and most importantly because of direct risk to patient if care not provided in a hospital setting. Expected length of stay > 48 hours. Arthur Mclaughlin MD 01/05/2023 10:33 AM Copy sent to Dr. Minna Voss, PRIMARY CLASS TEACHER - [facility] Please note that this chart was generated using voice recognition [employer] dictation software. Although every effort was made to ensure the accuracy of this automated chocolate coater, some errors in chocolate coater may have occurred. Images from the original note were not included. PROGRESS NOTE PATIENT NAME: Sanya Randall DATE: 01/05/2023 HD: # 2 Patient Active Problem List Diagnosis Lumbar herniated disc Osteoarthritis Hypothyroidism CAD (coronary artery disease) Type 2 diabetes mellitus with other specified complication (HCC) Essential hypertension Hypercholesterolemia GERD (gastroesophageal reflux disease) Depression Emphysema of lung (HCC) Mixed hyperlipidemia Psoriasis Tobacco user Sleep apnea Claudication in peripheral vascular disease (HCC) Diabetes mellitus with peripheral artery disease (HCC) Chronic obstructive pulmonary disease (HCC) Chronic pain of both ears Cystitis Need for prophylactic vaccination and inoculation against influenza Chronic knee pain Trigger finger, acquired Cough due to bronchospasm Alopecia BMI 40.0-44.9, adult (HCC) Chronic ischemic heart disease Diabetic neuropathy (HCC) Diabetic retinopathy associated with type 2 diabetes mellitus (HCC) Hirsutism Hyperaldosteronism (HCC) Menopausal and postmenopausal disorder Severe obesity (BMI 35.0-39.9) with comorbidity (HCC) SBO (small bowel obstruction) (HCC) LAURA (acute kidney injury) (HCC) DIAGNOSIS AND PLAN 67 yo F with resolving SBO. Advance diet to regular diet. If tolerates regular today can DC later today vs tomorrow from surgical standpoint. Chief Complaint: im feeling better SUBJECTIVE Doing well. No issues overnight. Passing gas and having BM. Tolerating clears but she does not like them. No nausea or vomiting. No fevers or chills. Up in chair. No complaints other than the clear diet. Wants to eat more. OBJECTIVE VITALS: Vitals: 01/05/23 0714 BP: (!) 143/58 Pulse: 75 Resp: 16 Temp: 97.7 F (36.5 C) SpO2: 98% Physical Exam General- NAD HEENT- normocephalic, atraumatic. Lungs- equal chest rise bilateral. Non-labored breathing. CV-RRR Abdomen- soft nontender nondistended. No rebound or guarding. Skin- no rashes, dry, intact. MSK- normal ROM. LAB: CBC: Recent Labs 01/02/23204901/04/23 0631 01/05/23 0645 WBC 14.3* 8.8 8.7 HGB 15.6 13.2 12.9 HCT 46.0 38.7 38.8 MCV 92.3 91.7 94.2 PLT 334 231 217 BMP: Recent Labs 01/03/23 0651 01/04/23 0631 01/05/23 0645 NA 138 139 136 K 4.8 4.2 3.9 CL 97* 105 104 CO2 26 24 20 BUN 34* 20 9 CREATININE 1.92* 0.77 0.58 GLUCOSE 216* 170* 191* Luiza Talley MD 01/05/2023, 8:22 AM Schedule Supervisor page Dr. Lu to get a order to d/c fluids for pt. Order received and placed. Bowel sounds active. Large loose brown stool. Denies any N&V. Schedule Supervisor responded to consult for advance directives. See ACP note of this date. No documents executed so pt's 3 children are all primary agents. Schedule Supervisor left booklet with pt. Pt is hoping her corporate fitness program coordinator will be able to visit; she's a member at [facility] in [place]. Pt also shared medical update and welcomed prayer. 01/04/23 1251 Encounter Summary Encounter Overview/Reason Advance Care Planning Service Provided For: Patient Referral/Consult From: Patient Support System Children;Family members;[employer]/alberto community Last Encounter 01/04/23 Complexity of Encounter Moderate Begin Time 1100 End Time 1120 Total Time Calculated 20 min Spiritual/Emotional needs Type Spiritual Support Advance Care Planning Type ACP conversation Assessment/Intervention/Outcome Assessment Calm Intervention Active listening;Discussed illness injury and it s impact;Explored/Affirmed feelings, thoughts, concerns;Explored Coping Skills/Resources;Prayer (assurance of)/[place];Sustaining Presence/Ministry of presence Outcome Coping;Engaged in conversation;Expressed feelings, needs, and concerns;Expressed Gratitude;Receptive Images from the original note were not included. PROGRESS NOTE PATIENT NAME: Sanya Randall DATE: 01/04/2023 HD: # 1 Patient Active Problem List Diagnosis Lumbar herniated disc Osteoarthritis Hypothyroidism CAD (coronary artery disease) Type 2 diabetes mellitus with other specified complication (HCC) Essential hypertension Hypercholesterolemia GERD (gastroesophageal reflux disease) Depression Emphysema of lung (HCC) Mixed hyperlipidemia Psoriasis Tobacco user Sleep apnea Claudication in peripheral vascular disease (HCC) Diabetes mellitus with peripheral artery disease (HCC) Chronic obstructive pulmonary disease (HCC) Chronic pain of both ears Cystitis Need for prophylactic vaccination and inoculation against influenza Chronic knee pain Trigger finger, acquired Cough due to bronchospasm Alopecia BMI 40.0-44.9, adult (HCC) Chronic ischemic heart disease Diabetic neuropathy (HCC) Diabetic retinopathy associated with type 2 diabetes mellitus (HCC) Hirsutism Hyperaldosteronism (HCC) Menopausal and postmenopausal disorder Severe obesity (BMI 35.0-39.9) with comorbidity (HCC) SBO (small bowel obstruction) (HCC) LAURA (acute kidney injury) (HCC) DIAGNOSIS AND PLAN 67 yo F with SBO. Resolving. DC NGT OK for CLD today. Continue to encourage activity. Chief Complaint: im feeling better SUBJECTIVE Patient feels better today. She states she passed some gas. Did tolerate some clears this morning. Denies any nausea or vomiting. No fevers or chills. Minimal to no abdominal pain. OBJECTIVE VITALS: Vitals: 01/04/23 1158 BP: (!) 148/44 Pulse: 85 Resp: 18 Temp: 97.9 F (36.6 C) SpO2: 97% Physical Exam NAD Alert and awake Equal chest rise bilateral. Skin - no rashes, dry , intact. MSK- normal ROM. No abnormalities. Abdomen- soft , non-tender, non-distended. Neuro- CN intact. LAB: CBC: Recent Labs 01/02/23204901/04/23 0631 WBC 14.3* 8.8 HGB 15.6 13.2 HCT 46.0 38.7 MCV 92.3 91.7 PLT 334 231 BMP: Recent Labs 01/02/23204901/03/23 0651 01/04/23 0631 NA 137 138 139 K 4.9 4.8 4.2 CL 98 97* 105 CO2 24 26 24 BUN 27* 34* 20 CREATININE 1.42* 1.92* 0.77 GLUCOSE 186* 216* 170* Luiza Talley MD 01/04/2023, 12:51 PM Images from the original note were not included. [facility] Internal Medicine Fred Correa MD; Arthur Mclaughlin MD; Maurisio Ames MD; MD Yumi Javed MD; Shira Billingsley MD [facility] Internal Medicine IN-PATIENT SERVICE [facility] Progress Note Date: 01/04/2023 Patient name: Sanya Randall Date of admission: 01/02/2023 8:42 PM Account: [id number] Date of : 1955 PCP: NUZHAT Carver CNP Room: Code Status: Full Code Chief Complaint: Chief Complaint Patient presents with Abdominal Pain Chest Pain Nausea History Obtained From: patient, electronic medical record History of Present Illness: Sanya Randall is a 67 y.o. Non- / non female who presents with Abdominal Pain, Chest Pain, and Nausea and is admitted to the hospital for the management of SBO (small bowel obstruction) (HCC). 67-year-old female admitted with history of abdominal pain nausea Dilated bowel small bowels For longstanding history of constipation Last bowel movement was on Friday 3 days ago No prior abdominal surgery Patient has significant history of hypertension hyperlipidemia coronary artery disease disease emphysema diabetes Not on any narcotics At present patient has NG tube to low intermittent suction and is draining General surgery consulted Sanya Randall is a 67 y.o. Non- / non female who presents with Abdominal Pain, Chest Pain, and Nausea and is admitted to the hospital for the management of SBO (small bowel obstruction) (HCC). Difficult medical history of HTN, HLD, CAD, emphysema and DM. According to patient, she has been experiencing nausea and vomiting over the past month intermittently. She reports that over the past 2 days she has had increased abdominal pain and increased vomiting. She is also reporting pressure-like chest pain that is not radiating and seems to be associated with abdominal pain. WBC 14.3, lipase 74. Chest x-ray unremarkable. CT abdomen pelvis reveals low-grade small bowel obstruction versus ileus. General surgery consulted in ED. NG tube placed. EKG normal sinus rhythm. Troponin 18 and repeat 17. Patient reports improvement in chest pain after NG tube being placed. Denies fever, chills, cough, diarrhea, and urinary symptoms. There are no aggravating or alleviating factors. Symptoms are reported as Acute, constant and moderate in severity. 01/04/23 Had 2 bowel movements . Feels better . NGG Tube clamped . Past Medical History: Past Medical History: Diagnosis Date LAURA (acute kidney injury) ([facility]) 01/03/2023 BMI 40.0-44.9, adult ([facility]) 01/31/2021 CAD (coronary artery disease) Claudication in peripheral vascular disease ([facility]) 12/19/2014 Depression Emphysema of lung ([facility]) GERD (gastroesophageal reflux disease) Hypercholesterolemia Hypertension Hypothyroidism Lumbar herniated disc Osteoarthritis Sleep apnea 05/18/2014 Type II or unspecified type diabetes mellitus without mention of complication, not stated as uncontrolled Past Surgical History: Past Surgical History: Procedure Laterality Date CARDIAC CATHETERIZATION CHOLECYSTECTOMY CORONARY ANGIOPLASTY WITH STENT PLACEMENT NECK SURGERY TUBAL LIGATION TUMOR REMOVAL Medications Prior to Admission: Prior to Admission medications Medication Sig Start Date End Date Taking? Authorizing Provider buPROPion (WELLBUTRIN XL) 300 MG extended release tablet Take 1 tablet by mouth every morning Patient taking differently: Take 300 mg by mouth nightly 12/26/22 01/25/23 Yes NUZHAT Carver CNP rOPINIRole (REQUIP) 4 MG tablet TAKE 1 TABLET BY MOUTH EVERY DAY IN THE EVENING 12/23/22 Yes NUZHAT Carver CNP fenofibrate micronized (LOFIBRA) 134 MG capsule TAKE 1 CAPSULE BY MOUTH EVERY DAY IN THE MORNING BEFORE BREAKFAST 12/16/22 Yes NUZHAT Carver CNP omeprazole (PRILOSEC) 20 MG delayed release capsule TAKE 1 CAPSULE BY MOUTH EVERY DAY 12/06/22 Yes NUZHAT Carver CNP cyclobenzaprine (FLEXERIL) 10 MG tablet TAKE 1 TABLET BY MOUTH EVERY DAY AT BEDTIME NEEDED 11/26/22 Yes NUZHAT Carver CNP lisinopril (PRINIVIL;ZESTRIL) 20 MG tablet TAKE 1 TABLET BY MOUTH EVERY DAY 11/07/22 Yes NUZHAT Carver CNP linaclotide (LINZESS) 145 MCG capsule TAKE 1 CAPSULE BY MOUTH EVERY DAY IN THE MORNING BEFORE BREAKFAST 10/08/22 Yes NUZHAT Carver CNP ibuprofen (ADVIL;MOTRIN) 600 MG tablet TAKE 1 TABLET BY MOUTH TWICE A DAY WITH FOOD OR MILK NEEDED 07/22/22 Yes NUZHAT Carver CNP glimepiride (AMARYL) 2 MG tablet TAKE 1 TABLET 3 TIMES DAILY FOR 90 DAYS 03/21/22 Yes Historical Provider, meclizine (ANTIVERT) 25 MG tablet TAKE 1 TABLET BY MOUTH TWICE A DAY NEEDED 01/08/22 Yes NUZHAT Carver CNP carvedilol (COREG) 12.5 MG tablet TAKE 1 TABLET BY MOUTH TWICE A DAY 12/31/21 Yes NUZHAT Carver CNP pregabalin (LYRICA) 100 MG capsule Take 100 mg by mouth daily. Yes Historical Provider, insulin lispro, 1 Unit Dial, 100 UNIT/ML SOPN up to 200units daily Yes Historical Provider, Insulin Glargine, 2 Unit Dial, (TOUJEO MAX SOLOSTAR) 300 UNIT/ML SOPN Inject 90 Units into the skin daily Yes Historical Provider, levothyroxine (SYNTHROID) 137 MCG tablet Take 137 mcg by mouth daily 01/15/21 Yes Historical Provider, albuterol sulfate HFA 108 (90 Base) MCG/ACT inhaler Inhale 2 puffs into the lungs every 6 hours as needed for Wheezing 02/05/21 Yes NUZHAT Carver CNP INVOKANA 100 MG TABS tablet Take 100 mg by mouth every morning (before breakfast) 07/28/20 Yes Historical Provider, OZEMPIC, 0.25 OR 0.5 MG/DOSE, 2 MG/1.5ML SOPN Inject 0.5 mg into the skin once a week 06/11/20 Yes Historical Provider, ezetimibe (ZETIA) 10 MG tablet Take 1 tablet by mouth daily 05/10/16 Yes Galileo Harrison MD clopidogrel (PLAVIX) 75 MG tablet Take 1 tablet by mouth daily 04/16/16 Yes Galileo Harrison MD furosemide (LASIX) 20 MG tablet TAKE ONE TABLET BY MOUTH EVERY DAY 02/23/16 Yes NUZHAT Rogers CNP ketoconazole (NIZORAL) 2 % cream Apply topically daily. 09/10/22 NUZHAT Carver CNP ONETOUCH VERIO strip TEST THREE TIMES A DAY & NEEDED FOR SYMPTOMS OF IRREGULAR BLOOD GLUCOSE. ONE TOUCH VIVIO 07/29/22 NUZHAT Carver CNP Lift Chair MISC by Does not apply route 07/04/22 NUZHAT Carver CNP Insulin Pen Needle (BD ULTRA-FINE PEN NEEDLES) 29G X 12.7MM MISC USE DIRECTED TWICE A DAY 05/30/22 NUZHAT Carver CNP Handicap Placard MISC by Does not apply route Sanya is disabled and is in need of renewal of disability plates. Duration 05/22/2022 through 05/21/2027 05/22/22 NUZHAT Carver CNP desoximetasone (TOPICORT) 0.05 % cream Apply topically 2 times daily Apply topically 2 times daily. Historical Provider, docusate sodium (COLACE) 100 MG capsule Take 100 mg by mouth in the morning. Historical Provider, aspirin 81 MG EC tablet Take 1 tablet by mouth daily 11/19/21 07/04/22 NUZHAT Carver CNP hydrocortisone (ANUSOL-HC) 2.5 % CREA rectal cream Place rectally 2 times daily Patient taking differently: Place rectally 2 times daily Use as needed 10/01/21 Hemanth Kahn MD REPATHA PUSHTRONEX SYSTEM 420 MG/3.5ML SOCT Inject 420 mg into the skin every 30 days 05/19/20 Historical Provider, glucose blood test strips (TRUE METRIX BLOOD GLUCOSE TEST) strip THEST THREE TIMES DAILY TEST THREE TIMES DAILY 06/03/17 Galileo Harrison MD B-D INS SYRINGE 0.5CC/30GX1/2 30G X 1/2 0.5 ML MISC 08/08/16 Historical Provider, Nebulizers (COMPRESSOR/NEBULIZER) MISC 1 each by Does not apply route 4 times daily for 14 days Use with medications as directed 11/22/15 07/04/22 NUZHAT Caruso CNP Allergies: Avelox [moxifloxacin], Dust mite extract, Keflex [cephalexin], Levemir [insulin detemir], Molds & smuts, Other, Prednisone, and Ultram [tramadol] Social History: Tobacco: reports that she has been smoking cigarettes and e-cigarettes. She has a 10.00 pack-year smoking history. She has never used smokeless tobacco. Alcohol: reports no history of alcohol use. Drug Use: reports current drug use. Drug: Marijuana ([place]). Family History: Family History Problem Relation Age of Onset High Blood Pressure Father Diabetes Father Diabetes Sister High Blood Pressure Mother High Blood Pressure Brother Mental Retardation Brother Review of Systems: Positive and Negative as described in HPI. CONSTITUTIONAL: negative for fevers, chills, sweats, fatigue, weight loss HEENT: negative for vision, hearing changes, runny nose, throat pain RESPIRATORY: negative for shortness of breath, cough, congestion, wheezing CARDIOVASCULAR: negative for chest pain, palpitations GASTROINTESTINAL: negative for nausea, vomiting, diarrhea, constipation, change in bowel habits, abdominal pain GENITOURINARY: negative for difficulty of urination, burning with urination, frequency INTEGUMENT: negative for rash, skin lesions, easy bruising HEMATOLOGIC/LYMPHATIC: negative for swelling/edema ALLERGIC/IMMUNOLOGIC: negative for urticaria , itching ENDOCRINE: negative increase in drinking, increase in urination, hot or cold intolerance MUSCULOSKELETAL: negative joint pains, muscle aches, swelling of joints NEUROLOGICAL: negative for headaches, dizziness, lightheadedness, numbness, pain, tingling extremities BEHAVIOR/PSYCH: negative for depression, anxiety Prior history of abdominal surgeries Not on narcotics Does take muscle relaxants and Lyrica for chronic pain Physical Exam: BP (!) 144/66 Pulse 84 Temp 97.7 F (36.5 C) (Oral) Resp 18 Ht 5' (1.524 m) Wt 180 lb 12.4 oz (82 kg) SpO2 99% BMI 35.31 kg/m Temp (24hrs), Av.6 F (36.4 C), Min:97.5 F (36.4 C), Max:97.7 F (36.5 C) Recent Labs 01/03/23 0818 01/03/23 1109 01/03/23 1604 01/04/23 0640 POCGLU 188* 207* 142* 173* Intake/Output Summary (Last 24 hours) at 01/04/2023 0910 Last data filed at 01/04/2023 0830 Gross per 24 hour Intake 360 ml Output 1700 ml Net -1340 ml General Appearance: alert, well appearing, and in no acute distress Mental status: oriented to person, place, and time Head: normocephalic, atraumatic Eye: no icterus, redness, pupils equal and reactive, extraocular eye movements intact, conjunctiva clear Ear: normal external ear, no discharge, hearing intact Nose: no drainage noted Mouth: mucous membranes moist Neck: supple, no carotid bruits, thyroid not palpable Lungs: Bilateral equal air entry, clear to ausculation, no wheezing, rales or rhonchi, normal effort Cardiovascular: normal rate, regular rhythm, no murmur, gallop, rub Abdomen: Abdominal distended Soft Bowel sounds hyperactive No localized tenderness Since NG tube abdominal pain has improved Neurologic: There are no new focal motor or sensory deficits, normal muscle tone and bulk, no abnormal sensation, normal speech, cranial nerves II through XII grossly intact Skin: No gross lesions, rashes, bruising or bleeding on exposed skin area Extremities: peripheral pulses palpable, no pedal edema or calf pain with palpation Psych: normal affect Investigations: Laboratory Testing: Recent Results (from the past 24 hour(s)) POC Glucose Fingerstick Collection Time: 01/03/23 11:09 AM Result Value Ref Range POC Glucose 207 (H) 65 - 105 mg/dL POC Glucose Fingerstick Collection Time: 01/03/23 4:04 PM Result Value Ref Range POC Glucose 142 (H) 65 - 105 mg/dL Electrolytes urine random Collection Time: 01/03/23 8:24 PM Result Value Ref Range Chloride, Ur 20 mmol/L Potassium, Ur 43.4 mmol/L Sodium,Ur 25 mmol/L Protein / creatinine ratio, urine Collection Time: 01/03/23 8:24 PM Result Value Ref Range Total Protein, Urine 29 mg/dL Creatinine, Ur 133.1 28.0 - 217.0 mg/dL Urine Total Protein Creatinine Ratio 0.22 (H) 0.00 - 0.20 Basic Metabolic Panel w/ Reflex to MG Collection Time: 01/04/23 6:31 AM Result Value Ref Range Glucose 170 (H) 70 - 99 mg/dL BUN 20 8 - 23 mg/dL Creatinine 0.77 0.50 - 0.90 mg/dL Est, Glom Filt Rate >60 >60 mL/min/1.73m2 Calcium 9.1 8.6 - 10.4 mg/dL Sodium 139 135 - 144 mmol/L Potassium 4.2 3.7 - 5.3 mmol/L Chloride 105 98 - 107 mmol/L CO2 24 20 - 31 mmol/L Anion Gap 10 9 - 17 mmol/L CBC with Auto Differential Collection Time: 01/04/23 6:31 AM Result Value Ref Range WBC 8.8 3.5 - 11.0 k/uL RBC 4.21 4.0 - 5.2 m/uL Hemoglobin 13.2 12.0 - 16.0 g/dL Hematocrit 38.7 36 - 46 % MCV 91.7 80 - 100 fL MCH 31.3 26 - 34 pg MCHC 34.1 31 - 37 g/dL RDW 14.6 11.5 - 14.9 % Platelets 231 150 - 450 k/uL MPV 8.1 6.0 - 12.0 fL Seg Neutrophils 54 36 - 66 % Lymphocytes 33 24 - 44 % Monocytes 9 (H) 1 - 7 % Eosinophils % 3 0 - 4 % Basophils 1 0 - 2 % Segs Absolute 4.80 1.3 - 9.1 k/uL Absolute Lymph # 2.90 1.0 - 4.8 k/uL Absolute Morris # 0.80 0.1 - 1.3 k/uL Absolute Eos # 0.20 0.0 - 0.4 k/uL Basophils Absolute 0.10 0.0 - 0.2 k/uL POC Glucose Fingerstick Collection Time: 01/04/23 6:40 AM Result Value Ref Range POC Glucose 173 (H) 65 - 105 mg/dL Imaging/Diagnostics: CT ABDOMEN PELVIS W IV CONTRAST Additional Contrast? None Result Date: 01/03/2023 Fluid-filled mildly dilated small bowel loops, with a possible transition point in the mid abdomen. This could represent a low-grade small-bowel obstruction or ileus. No pulmonary embolism is identified. No acute pulmonary abnormality is seen. Hepatomegaly and hepatic steatosis. XR CHEST PORTABLE Result Date: 01/03/2023 No acute cardiopulmonary abnormality is identified. CT CHEST PULMONARY EMBOLISM W CONTRAST Result Date: 01/03/2023 Fluid-filled mildly dilated small bowel loops, with a possible transition point in the mid abdomen. This could represent a low-grade small-bowel obstruction or ileus. No pulmonary embolism is identified. No acute pulmonary abnormality is seen. Hepatomegaly and hepatic steatosis. XR ABDOMEN FOR NG/OG/NE TUBE PLACEMENT Result Date: 01/03/2023 The OG/NG tube has been placed in good position. Assessment : Hospital Problems Last Modified POA * (Principal) SBO (small bowel obstruction) ([facility]) 01/03/2023 Yes Hypothyroidism 01/03/2023 Yes Overview Addendum 10/31/2021 8:10 AM by Gabi Bazzi CMA Care managed by Dr. Wetzel (endocrine) Emphysema of lung ([facility]) 01/03/2023 Yes Diabetes mellitus with peripheral artery disease ([facility]) 01/03/2023 Yes Overview Signed 08/16/2015 9:28 AM by Shae Lopez MA Care managed by Dr. Wetzel (endocrine). LAURA (acute kidney injury) ([facility]) 01/03/2023 Yes Plan: Patient status inpatient in the Med/Surge 1. 67-year-old female Known to have diabetes mellitus coronary artery disease hyperlipidemia chronic pain Emphysema lung admitted with abdominal pain distention diagnosis small bowel obstruction Has NG tube to low intermittent suction Feeling better General surgery Dr. Carl consulted We will change her IV to D5 normal saline Monitor electrolytes She has LAURA Creatinine is 1.92 was 1.48 last night Baseline creatinine is around 0.84 Nephrology consulted Has underlying history of coronary artery disease diabetes mellitus chronic pain emphysema Is n.p.o. Was on carvedilol 12.5 mg twice daily and Lasix We will start her on metoprolol 5 mg IV every 12 hours We will monitor With history of chronic constipation Last bowel movement 3 days ago Admitted with abdominal distention discomfort nausea Has small bowel obstruction Possibility of fecal impaction No prior history of abdominal surgery Medications: Allergies: Allergies Allergen Reactions Avelox [Moxifloxacin] Itching Dust Mite Extract Keflex [Cephalexin] Yeast infection Levemir [Insulin Detemir] Itching Molds & Smuts Other Other (See Comments) Other reaction(s): Unknown Other reaction(s): Unknown Prednisone Itching Ultram [Tramadol] Current Meds: Scheduled Meds: buPROPion 300 mg Oral Nightly [Held by provider] carvedilol 12.5 mg Oral BID [Held by provider] furosemide 20 mg Oral Daily [Held by provider] levothyroxine 137 mcg Oral Daily pantoprazole (PROTONIX) 40 mg injection 40 mg IntraVENous Daily insulin lispro 0-8 Units SubCUTAneous TID WC insulin lispro 0-4 Units SubCUTAneous Nightly sodium chloride flush 5-40 mL IntraVENous 2 times per day Continuous Infusions: dextrose sodium chloride dextrose 5 % and 0.9 % NaCl 100 mL/hr at 01/04/23 0029 PRN Meds: glucose, dextrose bolus OR dextrose bolus, glucagon (rDNA), dextrose, sodium chloride flush, sodium chloride, ondansetron OR ondansetron, polyethylene glycol, acetaminophen OR acetaminophen, morphine, diatrizoate meglumine-sodium, sodium chloride flush 2. Disposition home on discharge 01/04/23 Had 2 bowel movements . Feels better . NGG Tube clamped . Labs ok . Vitals stable . NG tube is clamped Bowel sounds present Had ultrasound done today If NG output after 4 hours of clamping is less than 200 mL NG will be discontinued per Dr. Carl and clear liquid start Consultations: IP CONSULT TO GENERAL SURGERY IP CONSULT TO SPIRITUAL SERVICES IP CONSULT TO RESPIRATORY CARE IP CONSULT TO NEPHROLOGY IP CONSULT TO SPIRITUAL SERVICES Patient is admitted as inpatient status because of co-morbidities listed above, severity of signs and symptoms as outlined, requirement for current medical therapies and most importantly because of direct risk to patient if care not provided in a hospital setting. Expected length of stay > 48 hours. Arthur Mclaughlin MD 01/04/2023 9:10 AM Copy sent to Dr. Minna Voss, PRIMARY CLASS TEACHER - AIRCRAFT INSTRUMENT MECHANIC Please note that this chart was generated using voice recognition Xigen dictation software. Although every effort was made to ensure the accuracy of this automated chocolate coater, some errors in chocolate coater may have occurred. Schedule Supervisor inform Dr. Carl that the pt. results for her KUB were in. Dr. Carl stated to start pt. on clears with the NGT clamp. At 4 hours connect the NGT to suction. If less than 200 output, NGT can be pull and diet can be advance as tolerated. If output is more then 200 keep pt. on clears and the keep NGT. Orders received and placed. Patient refused V60 has NG tube. RA 96% Schedule Supervisor gerry served message Dr. Carl to let her know that the results for the CT w/ contrast were in. Dr. Carl placed an ordered a KUB for tonight and to keep the NG tube clamped unless nausea occurs. No nausea at this time, will continue to monitor. Schedule Supervisor received consult to see patient; patient stated she did not want to speak with a hospital paying teller but with her own corporate fitness program coordinator, Magdaleno Cortez, [facility] [place]; typewriter mechanic called Pastor Cortez while in patient's room and facilitated communication in this regard; typewriter mechanic also called patient's sister and daughter, per patient's request due to patient having a hard time talking and because patient did not have her cell phone; listening presence and support; welcomed prayer; 01/03/23 1830 Encounter Summary Encounter Overview/Reason Spiritual/Emotional Needs Service Provided For: Patient Referral/Consult From: Patient;Rounding Support System Family members;Children;[facility] Last Encounter 01/03/23 Complexity of Encounter Moderate Spiritual/Emotional needs Type Spiritual Support Assessment/Intervention/Outcome Assessment Anxious;Coping;Impaired resilience;Powerlessness;Tearful Intervention Active listening;Discussed belief system/taoist practices/alberto;Explored/Affirmed feelings, thoughts, concerns;Prayer (assurance of)/[place];Sustaining Presence/Ministry of presence Outcome Engaged in conversation;Expressed feelings, needs, and concerns;Expressed Gratitude;Receptive;Coping;Comfor t Plan and Referrals Plan/Referrals Contacted support as requested per patient/family request Plan (Pastor [place], [place]) Comprehensive Nutrition Assessment Type and Reason for Visit: Initial, Positive Nutrition Screen (Wt loss, poor appetite) Nutrition Recommendations/Plan: Will monitor for start of diet vs need for nutrition support Malnutrition Assessment: Malnutrition Status: At risk for malnutrition (Comment) (01/03/23 1219) Context: Acute Illness Findings of the 6 clinical characteristics of malnutrition: Energy Intake: Mild decrease in energy intake (Comment) Weight Loss: Unable to assess (stated wt history) Body Fat Loss: No significant body fat loss Muscle Mass Loss: No significant muscle mass loss Fluid Accumulation: No significant fluid accumulation Home Health Assistant Strength: Not Performed Nutrition Assessment: Pt admitted due to N/V/abdominal pain and found to have SBO. Pt is currently npo with NG. Based on stated wt history, pt seems to have lost around 20# over the last 3-4 months. Nutrition Related Findings: PMH: DM, emphesema, CAD, Labs: K 4.8, Glu 216, Meds: Zofran Wound Type: None Current Nutrition Intake & Therapies: Average Meal Intake: NPO Diet NPO Anthropometric Measures: Height: 5' (152.4 cm) [place] Body Weight (IBW): 100 lbs (45 kg) Admission Body Weight: 180 lb (81.6 kg) (stated) Current Body Weight: 187 lb 6.3 oz (85 kg), IBW. Weight Source: Bed Scale Current BMI (kg/m2): 36.6 Usual Body Weight: (around 200# stated) BMI Categories: Obese Class 2 (BMI 35.0 -39.9) Estimated Daily Nutrient Needs: Energy Requirements Based On: Formula Weight Used for Energy Requirements: Current Energy (kcal/day): [place] x 1-1.2= 3586-8516 kcal Weight Used for Protein Requirements: Current Protein (g/day): 1.2g/kg= 100-105 g Nutrition Diagnosis: Inadequate oral intake related to altered GI function as evidenced by NPO or clear liquid status due to medical condition Nutrition Interventions: Food and/or Nutrient Delivery: Continue NPO Nutrition Education/Counseling: No recommendation at this time Coordination of Nutrition Care: Continue to monitor while inpatient Goals: Goals: (initiate nutrition) Nutrition Monitoring and Evaluation: Food/Nutrient Intake Outcomes: Diet Advancement/Tolerance Physical Signs/Symptoms Outcomes: Biochemical Data, GI Status, Fluid Status or Edema, Skin, Weight, Constipation Discharge Planning: Too soon to determine Kena Rudd RD, RASHAD Contact: [phone] Torres to notify him of new consult Pt. arrived to floor and placed in room 2046. Pt. Is alert x 4. Admission question and assessment completed. Call lights and bedside table in reach. Pt. resting comfortable. Images from the original note were not included. [facility] Internal Medicine Fred Correa MD; Arthur Mclaughlin MD; Mauriiso Ames MD; MD Yumi Javed MD; Shira Billingsley MD [facility] Internal Medicine IN-PATIENT SERVICE [facility] Date: 01/03/2023 Patientname: Sanya Randall Date of admission: 01/02/2023 8:42 PM Account: [id number] Date of : 1955 PCP: NUZHAT Carver CNP Room: Code Status: Full Code Chief Complaint: Chief Complaint Patient presents with Abdominal Pain Chest Pain Nausea History of Present Illness: Sanya Randall is a 67 y.o. Non- / non female who presents with Abdominal Pain, Chest Pain, and Nausea and is admitted to the hospital for the management of SBO (small bowel obstruction) (HCC). Difficult medical history of HTN, HLD, CAD, emphysema and DM. According to patient, she has been experiencing nausea and vomiting over the past month intermittently. She reports that over the past 2 days she has had increased abdominal pain and increased vomiting. She is also reporting pressure-like chest pain that is not radiating and seems to be associated with abdominal pain. WBC 14.3, lipase 74. Chest x-ray unremarkable. CT abdomen pelvis reveals low-grade small bowel obstruction versus ileus. General surgery consulted in ED. NG tube placed. EKG normal sinus rhythm. Troponin 18 and repeat 17. Patient reports improvement in chest pain after NG tube being placed. Denies fever, chills, cough, diarrhea, and urinary symptoms. There are no aggravating or alleviating factors. Symptoms are reported as Acute, constant and moderate in severity. Past Medical History: Past Medical History: Diagnosis Date BMI 40.0-44.9, adult ([facility]) 01/31/2021 CAD (coronary artery disease) Claudication in peripheral vascular disease ([facility]) 12/19/2014 Depression Emphysema of lung ([facility]) GERD (gastroesophageal reflux disease) Hypercholesterolemia Hypertension Hypothyroidism Lumbar herniated disc Osteoarthritis Sleep apnea 05/18/2014 Type II or unspecified type diabetes mellitus without mention of complication, not stated as uncontrolled Past Surgical History: Past Surgical History: Procedure Laterality Date CARDIAC CATHETERIZATION CHOLECYSTECTOMY CORONARY ANGIOPLASTY WITH STENT PLACEMENT NECK SURGERY TUBAL LIGATION TUMOR REMOVAL Medications Prior to Admission: Prior to Admission medications Medication Sig Start Date End Date Taking? Authorizing Provider buPROPion (WELLBUTRIN XL) 300 MG extended release tablet Take 1 tablet by mouth every morning Patient taking differently: Take 300 mg by mouth nightly 12/26/22 01/25/23 Yes NUZHAT Carver CNP rOPINIRole (REQUIP) 4 MG tablet TAKE 1 TABLET BY MOUTH EVERY DAY IN THE EVENING 12/23/22 Yes NUZHAT Carver CNP fenofibrate micronized (LOFIBRA) 134 MG capsule TAKE 1 CAPSULE BY MOUTH EVERY DAY IN THE MORNING BEFORE BREAKFAST 12/16/22 Yes NUZHAT Carver CNP omeprazole (PRILOSEC) 20 MG delayed release capsule TAKE 1 CAPSULE BY MOUTH EVERY DAY 12/06/22 Yes NUZHAT Carver CNP cyclobenzaprine (FLEXERIL) 10 MG tablet TAKE 1 TABLET BY MOUTH EVERY DAY AT BEDTIME NEEDED 11/26/22 Yes NUZHAT Carver CNP lisinopril (PRINIVIL;ZESTRIL) 20 MG tablet TAKE 1 TABLET BY MOUTH EVERY DAY 11/07/22 Yes NUZHAT Carver CNP linaclotide (LINZESS) 145 MCG capsule TAKE 1 CAPSULE BY MOUTH EVERY DAY IN THE MORNING BEFORE BREAKFAST 10/08/22 Yes NUZHAT Carver CNP ibuprofen (ADVIL;MOTRIN) 600 MG tablet TAKE 1 TABLET BY MOUTH TWICE A DAY WITH FOOD OR MILK NEEDED 07/22/22 Yes NUZHAT Carver CNP glimepiride (AMARYL) 2 MG tablet TAKE 1 TABLET 3 TIMES DAILY FOR 90 DAYS 03/21/22 Yes Historical Provider, meclizine (ANTIVERT) 25 MG tablet TAKE 1 TABLET BY MOUTH TWICE A DAY NEEDED 01/08/22 Yes NUZHAT Carver CNP carvedilol (COREG) 12.5 MG tablet TAKE 1 TABLET BY MOUTH TWICE A DAY 12/31/21 Yes NUZHAT Carver CNP pregabalin (LYRICA) 100 MG capsule Take 100 mg by mouth daily. Yes Historical Provider, insulin lispro, 1 Unit Dial, 100 UNIT/ML SOPN up to 200units daily Yes Historical Provider, Insulin Glargine, 2 Unit Dial, (TOUJEO MAX SOLOSTAR) 300 UNIT/ML SOPN Inject 90 Units into the skin daily Yes Historical Provider, levothyroxine (SYNTHROID) 137 MCG tablet Take 137 mcg by mouth daily 01/15/21 Yes Historical Provider, albuterol sulfate HFA 108 (90 Base) MCG/ACT inhaler Inhale 2 puffs into the lungs every 6 hours as needed for Wheezing 02/05/21 Yes NUZHAT Carver CNP INVOKANA 100 MG TABS tablet Take 100 mg by mouth every morning (before breakfast) 07/28/20 Yes Historical Provider, OZEMPIC, 0.25 OR 0.5 MG/DOSE, 2 MG/1.5ML SOPN Inject 0.5 mg into the skin once a week 06/11/20 Yes Historical Provider, ezetimibe (ZETIA) 10 MG tablet Take 1 tablet by mouth daily 05/10/16 Yes Galileo Harriosn MD clopidogrel (PLAVIX) 75 MG tablet Take 1 tablet by mouth daily 04/16/16 Yes Galileo Harrison MD furosemide (LASIX) 20 MG tablet TAKE ONE TABLET BY MOUTH EVERY DAY 02/23/16 Yes NUZHAT Rogers CNP ketoconazole (NIZORAL) 2 % cream Apply topically daily. 09/10/22 NUZHAT Carver CNP ONETOUCH VERIO strip TEST THREE TIMES A DAY & NEEDED FOR SYMPTOMS OF IRREGULAR BLOOD GLUCOSE. ONE TOUCH VIVIO 10/17/22 NUZHAT Carver CNP Lift Chair MISC by Does not apply route 07/04/22 NUZHAT Carver CNP Insulin Pen Needle (BD ULTRA-FINE PEN NEEDLES) 29G X 12.7MM MISC USE DIRECTED TWICE A DAY 05/30/22 NUZHAT Carver CNP Handicap Placard MISC by Does not apply route Sanya is disabled and is in need of renewal of disability plates. Duration 05/22/2022 through 05/21/2027 05/22/22 NUZHAT Carver CNP desoximetasone (TOPICORT) 0.05 % cream Apply topically 2 times daily Apply topically 2 times daily. Historical Provider, docusate sodium (COLACE) 100 MG capsule Take 100 mg by mouth in the morning. Historical Provider, aspirin 81 MG EC tablet Take 1 tablet by mouth daily 11/19/21 07/04/22 NUZHAT Carver CNP hydrocortisone (ANUSOL-HC) 2.5 % CREA rectal cream Place rectally 2 times daily Patient taking differently: Place rectally 2 times daily Use as needed 10/01/21 Hemanth Kahn MD REPATHA PUSHTRONEX SYSTEM 420 MG/3.5ML SOCT Inject 420 mg into the skin every 30 days 05/19/20 Historical Provider, glucose blood test strips (TRUE METRIX BLOOD GLUCOSE TEST) strip THEST THREE TIMES DAILY TEST THREE TIMES DAILY 06/03/17 Galileo Harrison MD B-D INS SYRINGE 0.5CC/30GX1/2 30G X 1/2 0.5 ML MISC 08/08/16 Historical Provider, Nebulizers (COMPRESSOR/NEBULIZER) MISC 1 each by Does not apply route 4 times daily for 14 days Use with medications as directed 11/22/15 07/04/22 NUZHAT Caruso CNP Allergies: Avelox [moxifloxacin], Dust mite extract, Keflex [cephalexin], Levemir [insulin detemir], Molds & smuts, Other, Prednisone, and Ultram [tramadol] Social History: Tobacco: reports that she has been smoking cigarettes and e-cigarettes. She has a 10.00 pack-year smoking history. She has never used smokeless tobacco. Alcohol: reports no history of alcohol use. Drug Use: reports current drug use. Drug: Marijuana ([place]). Family History: Family History Problem Relation Age of Onset High Blood Pressure Father Diabetes Father Diabetes Sister High Blood Pressure Mother High Blood Pressure Brother Mental Retardation Brother Investigations: Laboratory Testing: Recent Results (from the past 24 hour(s)) CBC with Auto Differential Collection Time: 01/02/23 8:50 PM Result Value Ref Range WBC 14.3 (H) 3.5 - 11.0 k/uL RBC 4.99 4.0 - 5.2 m/uL Hemoglobin 15.6 12.0 - 16.0 g/dL Hematocrit 46.0 36 - 46 % MCV 92.3 80 - 100 fL MCH 31.4 26 - 34 pg MCHC 34.0 31 - 37 g/dL RDW 15.0 (H) 11.5 - 14.9 % Platelets 334 150 - 450 k/uL MPV 8.6 6.0 - 12.0 fL Seg Neutrophils 69 (H) 36 - 66 % Lymphocytes 19 (L) 24 - 44 % Monocytes 9 (H) 1 - 7 % Eosinophils % 2 0 - 4 % Basophils 1 0 - 2 % Segs Absolute 9.90 (H) 1.3 - 9.1 k/uL Absolute Lymph # 2.70 1.0 - 4.8 k/uL Absolute Morris # 1.30 0.1 - 1.3 k/uL Absolute Eos # 0.30 0.0 - 0.4 k/uL Basophils Absolute 0.20 0.0 - 0.2 k/uL BMP Collection Time: 01/02/23 8:50 PM Result Value Ref Range Glucose 186 (H) 70 - 99 mg/dL BUN 27 (H) 8 - 23 mg/dL Creatinine 1.42 (H) 0.50 - 0.90 mg/dL Est, Glom Filt Rate 40 (L) >60 mL/min/1.73m2 Calcium 11.6 (H) 8.6 - 10.4 mg/dL Sodium 137 135 - 144 mmol/L Potassium 4.9 3.7 - 5.3 mmol/L Chloride 98 98 - 107 mmol/L CO2 24 20 - 31 mmol/L Anion Gap 15 9 - 17 mmol/L Hepatic Function Panel Collection Time: 01/02/23 8:50 PM Result Value Ref Range Albumin 4.5 3.5 - 5.2 g/dL Alkaline Phosphatase 66 35 - 104 U/L ALT 29 5 - 33 U/L AST 25 <32 U/L Total Bilirubin 0.3 0.3 - 1.2 mg/dL Bilirubin, Direct 0.1 <0.3 mg/dL Bilirubin, Indirect 0.2 0.0 - 1.0 mg/dL Total Protein 8.1 6.4 - 8.3 g/dL Lactic Acid Collection Time: 01/02/23 8:50 PM Result Value Ref Range Lactic Acid 1.9 0.5 - 2.2 mmol/L Lipase Collection Time: 01/02/23 8:50 PM Result Value Ref Range Lipase 74 (H) 13 - 60 U/L Magnesium Collection Time: 01/02/23 8:50 PM Result Value Ref Range Magnesium 2.3 1.6 - 2.6 mg/dL Protime-INR Collection Time: 01/02/23 8:50 PM Result Value Ref Range Protime 12.9 11.8 - 14.6 sec INR 0.9 Troponin Now and Q 1 Hour Collection Time: 01/02/23 8:50 PM Result Value Ref Range Troponin, High Sensitivity 17 (H) 0 - 14 ng/L Urinalysis with Reflex to Culture Collection Time: 01/02/23 10:14 PM Specimen: Urine, clean catch Result Value Ref Range Color, UA Yellow Yellow Turbidity UA Cloudy (A) Clear Glucose, Ur LARGE (A) NEGATIVE Bilirubin Urine NEGATIVE NEGATIVE Ketones, Urine TRACE (A) NEGATIVE Specific [place], UA 1.029 1.000 - 1.030 Urine Hgb NEGATIVE NEGATIVE pH, UA 5.0 5.0 - 8.0 Protein, UA 1+ (A) NEGATIVE Urobilinogen, Urine Normal Normal Nitrite, Urine NEGATIVE NEGATIVE Leukocyte Esterase, Urine NEGATIVE NEGATIVE Microscopic Urinalysis Collection Time: 01/02/23 10:14 PM Result Value Ref Range WBC, UA 3 to 5 /HPF RBC, UA 0 TO 2 /HPF Casts UA 3 to 5 /LPF Epithelial Cells UA 3 to 5 /HPF Bacteria, UA MANY (A) None POC Glucose Fingerstick Collection Time: 01/03/23 2:20 AM Result Value Ref Range POC Glucose 204 (H) 65 - 105 mg/dL Imaging/Diagnostics: CT ABDOMEN PELVIS W IV CONTRAST Additional Contrast? None Result Date: 01/02/2023 Fluid-filled mildly dilated small bowel loops, with a possible transition point in the mid abdomen. This could represent a low-grade small-bowel obstruction or ileus. No pulmonary embolism is identified. No acute pulmonary abnormality is seen. Hepatomegaly and hepatic steatosis. XR CHEST PORTABLE Result Date: 01/03/2023 No acute cardiopulmonary abnormality is identified. CT CHEST PULMONARY EMBOLISM W CONTRAST Result Date: 01/02/2023 Fluid-filled mildly dilated small bowel loops, with a possible transition point in the mid abdomen. This could represent a low-grade small-bowel obstruction or ileus. No pulmonary embolism is identified. No acute pulmonary abnormality is seen. Hepatomegaly and hepatic steatosis. Plan: Patient status inpatient in the Med/Surge Small bowel Obstruction vs ileius -NPO -NS infusion @50 ml/hr due to hx of chf -Pain and nausea control -General surgery consult -NG tube to LIWS Diabetes Mellitus -hold home dose insulin due to npo status -hold oral hypoglycemics/metformin for now -POCT ac and hs with sliding scale coverage Full code NUZHAT BROUSSARD NP 01/03/2023 5:41 AM Please note that this chart was generated using voice recognition Xigen dictation software. Although every effort was made to ensure the accuracy of this automated chocolate coater, some errors in chocolate [place] [address]. documented in this encounter [facility] Work Phone: Hospital course Narrative 01-06-2023 Markel Callejas MD - 01/06/2023 10:06 AM EDT Note Date & Type Note Facility 01-06-2023 Hospital course Narrative Images from the original note were not included. IN-PATIENT SERVICE [facility] Internal Medicine Discharge Summary Patient ID: Sanya Randall : 1955 ACCOUNT: [id number] Patient's PCP: NUZHAT Carver CNP Admit Date: 01/02/2023 Discharge Date: 01/06/2023 Length of Stay: 3 Code Status: Full Code Admitting Physician: Haris Angelo MD Discharge Physician: Markel Callejas MD Active Discharge Diagnoses: Primary Problem SBO (small bowel obstruction) ([facility]) Hospital Problems Active Hospital Problems Diagnosis Date Noted SBO (small bowel obstruction) ([facility]) [K56.609] 01/03/2023 LAURA (acute kidney injury) ([facility]) resolved [N17.9] 01/03/2023 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 female who was admitted for the management of SBO (small bowel obstruction) ([facility]) , presented to ER with Abdominal Pain, Chest Pain, and Nausea Patient, has past medical history multiple medical problem which include morbid obesity, obstructive sleep apnea on CPAP, hypothyroidism, hypertension, diabetes, hyperlipidemia, coronary artery disease Patient admitted with abdominal pain, found to have small bowel obstruction, patient was treated medically with NG suction Her symptoms improved Was evaluated by nephrology also since she has elevated creatinine, she was given IV contrast for CT abdomen pelvis Her creatinine improved Patient getting discharge back home We will follow-up with PCP as outpatient I kept her Ozempic on hold, since GLP-1 agonist is associated with GI side effects, 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 Patient voiced understanding General Appearance: alert, well appearing, and in no acute distress Mental status: oriented to person, place, and time Head: normocephalic, atraumatic Eye: no icterus, redness, pupils equal and reactive, extraocular eye movements intact, conjunctiva clear Ear: normal external ear, no discharge, hearing intact Nose: no drainage noted Mouth: mucous membranes moist Neck: supple, no carotid bruits, thyroid not palpable Lungs: Bilateral equal air entry, clear to ausculation, no wheezing, rales or rhonchi, normal effort Cardiovascular: normal rate, regular rhythm, no murmur, gallop, rub Abdomen: Soft, nontender, has good bowel sounds Significant therapeutic interventions: Significant Diagnostic Studies: Labs / Micro: , Radiology: CT ABDOMEN PELVIS WO CONTRAST Additional Contrast? Oral Result Date: 01/03/2023 EXAMINATION: CT OF THE ABDOMEN AND PELVIS WITHOUT CONTRAST 01/03/2023 4:49 pm TECHNIQUE: CT of the abdomen and pelvis was performed without the administration of intravenous contrast. Multiplanar reformatted images are provided for review. Automated exposure control, iterative reconstruction, and/or weight based adjustment of the mA/kV was utilized to reduce the radiation dose to as low as reasonably achievable. COMPARISON: 01/02/2023 HISTORY: ORDERING SYSTEM PROVIDED HISTORY: Evaluate small bowel obstruction TECHNOLOGIST PROVIDED HISTORY: Evaluate small bowel obstruction Reason for Exam: Evaluate small bowel obstruction Additional signs and symptoms: abdominal pain, nausea FINDINGS: Lower Chest: No acute abnormality. Organs: The liver continues to demonstrate fatty infiltration but no focal disease. Status post cholecystectomy. The pancreas, spleen, adrenals, kidneys, aorta and IVC appear stable. The aorta is calcified but nonaneurysmal. GI/Bowel: Nasogastric tube well positioned in the stomach. There is persistent dilation of small bowel loops with some air-fluid levels perhaps slightly less pronounced compared to the previous evaluation. There is transit of small-bowel contrast to proximal ileum. Normal appendix. Constipation and stool impaction in the rectum. Pelvis: The urinary bladder appears unremarkable. The uterus and adnexa appear unremarkable. No evidence of lymphadenopathy. Peritoneum/Retroperitoneum: No evidence of retroperitoneal lymphadenopathy. No evidence of free air. Bones/Soft Tissues: No acute abnormality. 1. Persistent dilation of small bowel loops with air-fluid levels beyond the jejunum which likely represents ileus rather than bowel obstruction. Early bowel obstruction cannot be excluded although there is no significant worsening compared to the previous evaluation. Normal appendix. 2. Constipation and stool impaction in the rectum. 3. Fatty liver but no focal disease. Status post cholecystectomy. 4. Well-positioned nasogastric tube in the stomach. XR ABDOMEN (KUB) (SINGLE AP VIEW) Result Date: 01/03/2023 EXAMINATION: ONE SUPINE XRAY VIEW(S) OF THE ABDOMEN 01/03/2023 11:06 pm COMPARISON: 01/03/2023 HISTORY: ORDERING SYSTEM PROVIDED HISTORY: Evaluate contrast to rule out small bowel obstruction TECHNOLOGIST PROVIDED HISTORY: Evaluate contrast to rule out small bowel obstruction Reason for Exam: Evaluate contrast to rule out small bowel obstruction. Ordered for 23:00 bb Additional signs and symptoms: Evaluate contrast to rule out small bowel obstruction. Ordered for 23:00 bb Relevant Medical/Surgical History: Evaluate contrast to rule out small bowel obstruction. Ordered for 23:00 bb FINDINGS: Enteric tube tip and side hole project at the gastric body. Enteric contrast material is now in the colon. Diffuse gaseous distention of the small and large bowel. No free air or pneumatosis. No gross bony abnormality. Ileus with contrast material now in the large bowel. CT ABDOMEN PELVIS W IV CONTRAST Additional Contrast? None Result Date: 01/03/2023 EXAMINATION: CT OF THE ABDOMEN AND PELVIS WITH CONTRAST; CTA OF THE CHEST 01/02/2023 10:58 pm; 01/02/2023 10:57 pm TECHNIQUE: CT of the abdomen and pelvis was performed with the administration of intravenous contrast. Multiplanar reformatted images are provided for review. Automated exposure control, iterative reconstruction, and/or weight based adjustment of the mA/kV was utilized to reduce the radiation dose to as low as reasonably achievable.; CTA of the chest was performed after the administration of intravenous contrast. Multiplanar reformatted images are provided for review. MIP images are provided for review. Automated exposure control, iterative reconstruction, and/or weight based adjustment of the mA/kV was utilized to reduce the radiation dose to as low as reasonably achievable. COMPARISON: Chest radiograph 01/02/2023, abdomen and pelvis CT 01/11/2019 HISTORY: ORDERING SYSTEM PROVIDED HISTORY: lower abd pain, nausea, vomiting TECHNOLOGIST PROVIDED HISTORY: lower abd pain, nausea, vomiting Decision Support Exception - unselect if not a suspected or confirmed emergency medical condition->Emergency Medical Condition ([place]) Reason for Exam: lower abd pain, nausea, vomiting Relevant Medical/Surgical History: HTN, diabetes; ORDERING SYSTEM PROVIDED HISTORY: chest pain TECHNOLOGIST PROVIDED HISTORY: chest pain Decision Support Exception - unselect if not a suspected or confirmed emergency medical condition->Emergency Medical Condition ([place]) Reason for Exam: chest pain Relevant Medical/Surgical History: HTN, diabetes, emphysema FINDINGS: Chest: Mediastinum: No lymphadenopathy. No pericardial effusion. The thoracic aorta is normal in caliber. Pulmonary arteries: There is adequate contrast opacification of the pulmonary arteries. No pulmonary arterial filling defect is seen. No evidence of right heart strain. The main pulmonary artery is normal in caliber. Lungs/pleura: The central airways are patent. No pleural effusion or pneumothorax is seen. Respiratory motion artifact limits assessment of the lung parenchyma. No focal lung consolidation is identified. Soft Tissues/Bones: No acute bony abnormality is seen. Multilevel degenerative changes are seen in the spine. There is a 1.3 x 1.3 cm epidermal inclusion cyst in the right back subcutaneous tissues, series 2, image 147. Abdomen/Pelvis: Organs: The liver, spleen, pancreas, adrenal glands, and kidneys demonstrate no acute abnormality. Prior cholecystectomy. Hepatomegaly and hepatic steatosis. GI/Bowel: Normal appendix. There are fluid-filled mildly dilated small bowel loops. A transition point is seen in the mid abdomen on series 3, image 112 and series 610, image 40. Pelvis: The urinary bladder is unremarkable. Peritoneum/Retroperitoneum: Vascular calcifications are seen. No lymphadenopathy is seen. No intraperitoneal free air or significant free fluid. Bones/Soft Tissues: No acute bony abnormality is seen. Fluid-filled mildly dilated small bowel loops, with a possible transition point in the mid abdomen. This could represent a low-grade small-bowel obstruction or ileus. No pulmonary embolism is identified. No acute pulmonary abnormality is seen. Hepatomegaly and hepatic steatosis. XR CHEST PORTABLE Result Date: 01/03/2023 EXAMINATION: ONE XRAY VIEW OF THE CHEST 01/02/2023 9:55 pm COMPARISON: 11/12/2020 HISTORY: ORDERING SYSTEM PROVIDED HISTORY: cough TECHNOLOGIST PROVIDED HISTORY: cough Reason for Exam: Pt states she has not been feeling well since yesterday. Nausea, chest pain, sweats. FINDINGS: The heart is similar in size to the prior study. No pleural effusion or pneumothorax is seen. No focal lung consolidation is identified. No acute cardiopulmonary abnormality is identified. CT CHEST PULMONARY EMBOLISM W CONTRAST Result Date: 01/03/2023 EXAMINATION: CT OF THE ABDOMEN AND PELVIS WITH CONTRAST; CTA OF THE CHEST 01/02/2023 10:58 pm; 01/02/2023 10:57 pm TECHNIQUE: CT of the abdomen and pelvis was performed with the administration of intravenous contrast. Multiplanar reformatted images are provided for review. Automated exposure control, iterative reconstruction, and/or weight based adjustment of the mA/kV was utilized to reduce the radiation dose to as low as reasonably achievable.; CTA of the chest was performed after the administration of intravenous contrast. Multiplanar reformatted images are provided for review. MIP images are provided for review. Automated exposure control, iterative reconstruction, and/or weight based adjustment of the mA/kV was utilized to reduce the radiation dose to as low as reasonably achievable. COMPARISON: Chest radiograph 01/02/2023, abdomen and pelvis CT 01/11/2019 HISTORY: ORDERING SYSTEM PROVIDED HISTORY: lower abd pain, nausea, vomiting TECHNOLOGIST PROVIDED HISTORY: lower abd pain, nausea, vomiting Decision Support Exception - unselect if not a suspected or confirmed emergency medical condition->Emergency Medical Condition ([place]) Reason for Exam: lower abd pain, nausea, vomiting Relevant Medical/Surgical History: HTN, diabetes; ORDERING SYSTEM PROVIDED HISTORY: chest pain TECHNOLOGIST PROVIDED HISTORY: chest pain Decision Support Exception - unselect if not a suspected or confirmed emergency medical condition->Emergency Medical Condition ([place]) Reason for Exam: chest pain Relevant Medical/Surgical History: HTN, diabetes, emphysema FINDINGS: Chest: Mediastinum: No lymphadenopathy. No pericardial effusion. The thoracic aorta is normal in caliber. Pulmonary arteries: There is adequate contrast opacification of the pulmonary arteries. No pulmonary arterial filling defect is seen. No evidence of right heart strain. The main pulmonary artery is normal in caliber. Lungs/pleura: The central airways are patent. No pleural effusion or pneumothorax is seen. Respiratory motion artifact limits assessment of the lung parenchyma. No focal lung consolidation is identified. Soft Tissues/Bones: No acute bony abnormality is seen. Multilevel degenerative changes are seen in the spine. There is a 1.3 x 1.3 cm epidermal inclusion cyst in the right back subcutaneous tissues, series 2, image 147. Abdomen/Pelvis: Organs: The liver, spleen, pancreas, adrenal glands, and kidneys demonstrate no acute abnormality. Prior cholecystectomy. Hepatomegaly and hepatic steatosis. GI/Bowel: Normal appendix. There are fluid-filled mildly dilated small bowel loops. A transition point is seen in the mid abdomen on series 3, image 112 and series 610, image 40. Pelvis: The urinary bladder is unremarkable. Peritoneum/Retroperitoneum: Vascular calcifications are seen. No lymphadenopathy is seen. No intraperitoneal free air or significant free fluid. Bones/Soft Tissues: No acute bony abnormality is seen. Fluid-filled mildly dilated small bowel loops, with a possible transition point in the mid abdomen. This could represent a low-grade small-bowel obstruction or ileus. No pulmonary embolism is identified. No acute pulmonary abnormality is seen. Hepatomegaly and hepatic steatosis. XR ABDOMEN FOR NG/OG/NE TUBE PLACEMENT Result Date: 01/03/2023 EXAMINATION: ONE SUPINE XRAY VIEW(S) OF THE ABDOMEN 01/03/2023 1:18 am COMPARISON: None. HISTORY: ORDERING SYSTEM PROVIDED HISTORY: Confirmation of course of NG/OG/NE tube and location of tip of tube TECHNOLOGIST PROVIDED HISTORY: Confirmation of course of NG/OG/NE tube and location of tip of tube Portable?->Yes Reason for Exam: NG placement FINDINGS: The tip of the OG/NG and side hole/port are in good position in the mid stomach. The OG/NG tube has been placed in good position. US RETROPERITONEAL COMPLETE Result Date: 01/04/2023 EXAMINATION: RETROPERITONEAL ULTRASOUND OF THE KIDNEYS 01/04/2023 COMPARISON: None HISTORY: ORDERING SYSTEM PROVIDED HISTORY: renal failure TECHNOLOGIST PROVIDED HISTORY: renal failure FINDINGS: Kidneys: The right kidney measures 12.3 cm in length and the left kidney measures 12.4 cm in length. Kidneys demonstrate normal cortical echogenicity. No evidence of hydronephrosis or intrarenal stones. Unremarkable appearing kidneys Consultations: Consults: Final Specialist Recommendations/Findings: IP CONSULT TO GENERAL SURGERY IP CONSULT TO SPIRITUAL SERVICES IP CONSULT TO RESPIRATORY CARE IP CONSULT TO NEPHROLOGY IP CONSULT TO SPIRITUAL SERVICES The patient was seen and examined on day of discharge and this discharge summary is in conjunction with any daily progress note from day of discharge. Discharge plan: Disposition: Home Physician Follow Up: No follow-up provider specified. Requiring Further Evaluation/Follow Up POST HOSPITALIZATION/Incidental Findings: Diet: cardiac diet Activity: As tolerated Instructions to Patient: Discharge Medications: Medication List CHANGE how you take these medications buPROPion 300 MG extended release tablet Commonly known as: WELLBUTRIN XL Take 1 tablet by mouth every morning What changed: when to take this hydrocortisone 2.5 % Crea rectal cream Commonly known as: ANUSOL-HC Place rectally 2 times daily What changed: additional instructions CONTINUE taking these medications albuterol sulfate HFA 108 (90 Base) MCG/ACT inhaler Commonly known as: PROVENTIL;VENTOLIN;PROAIR Inhale 2 puffs into the lungs every 6 hours as needed for Wheezing aspirin 81 MG EC tablet Take 1 tablet by mouth daily B-D INS SYRINGE 0.5CC/30GX1/2 30G X 1/2 0.5 ML Misc Generic drug: Insulin Syringe-Needle U-100 BD ULTRA-FINE PEN NEEDLES 29G X 12.7MM Misc Generic drug: Insulin Pen Needle USE DIRECTED TWICE A DAY * blood glucose test strips strip Commonly known as: True Metrix Blood Glucose Test THEST THREE TIMES DAILY TEST THREE TIMES DAILY * OneTouch Verio strip Generic drug: blood glucose test strips TEST THREE TIMES A DAY & NEEDED FOR SYMPTOMS OF IRREGULAR BLOOD GLUCOSE. ONE TOUCH VIVIO carvedilol 12.5 MG tablet Commonly known as: COREG TAKE 1 TABLET BY MOUTH TWICE A DAY clopidogrel 75 MG tablet Commonly known as: PLAVIX Take 1 tablet by mouth daily Compressor/Nebulizer Misc 1 each by Does not apply route 4 times daily for 14 days Use with medications as directed cyclobenzaprine 10 MG tablet Commonly known as: FLEXERIL TAKE 1 TABLET BY MOUTH EVERY DAY AT BEDTIME NEEDED desoximetasone 0.05 % cream Commonly known as: TOPICORT docusate sodium 100 MG capsule Commonly known as: COLACE ezetimibe 10 MG tablet Commonly known as: ZETIA Take 1 tablet by mouth daily fenofibrate micronized 134 MG capsule Commonly known as: LOFIBRA TAKE 1 CAPSULE BY MOUTH EVERY DAY IN THE MORNING BEFORE BREAKFAST furosemide 20 MG tablet Commonly known as: LASIX TAKE ONE TABLET BY MOUTH EVERY DAY glimepiride 2 MG tablet Commonly known as: AMARYL Handicap Placard Misc by Does not apply route Sanya is disabled and is in need of renewal of disability plates. Duration 05/22/2022 through 05/21/2027 insulin lispro (1 Unit Dial) 100 UNIT/ML Sopn Commonly known as: HUMALOG/ADMELOG Invokana 100 MG Tabs tablet Generic drug: canagliflozin ketoconazole 2 % cream Commonly known as: NIZORAL Apply topically daily. levothyroxine 137 MCG tablet Commonly known as: SYNTHROID Lift Chair Misc by Does not apply route linaclotide 145 MCG capsule Commonly known as: Linzess TAKE 1 CAPSULE BY MOUTH EVERY DAY IN THE MORNING BEFORE BREAKFAST lisinopril 20 MG tablet Commonly known as: PRINIVIL;ZESTRIL TAKE 1 TABLET BY MOUTH EVERY DAY meclizine 25 MG tablet Commonly known as: ANTIVERT TAKE 1 TABLET BY MOUTH TWICE A DAY NEEDED omeprazole 20 MG delayed release capsule Commonly known as: PRILOSEC TAKE 1 CAPSULE BY MOUTH EVERY DAY pregabalin 100 MG capsule Commonly known as: LYRICA Repatha Pushtronex System 420 MG/3.5ML Soct Generic drug: Evolocumab with Infusor rOPINIRole 4 MG tablet Commonly known as: REQUIP TAKE 1 TABLET BY MOUTH EVERY DAY IN THE EVENING Marina Pritchett SoloStar 300 UNIT/ML Sopn Generic drug: Insulin Glargine (2 Unit Dial) * This list has 2 medication(s) that are the same as other medications prescribed for you. Read the directions carefully, and ask your doctor or other care provider to review them with you. STOP taking these medications ibuprofen 600 MG tablet Commonly known as: ADVIL;MOTRIN Ozempic (0.25 or 0.5 MG/DOSE) 2 MG/1.5ML Sopn Generic drug: Semaglutide(0.25 or 0.5MG/DOS) Time Spent on discharge is 35 mins in patient examination, evaluation, counseling as well as medication reconciliation, prescriptions for required medications, discharge plan and follow up. Electronically signed by Markel Callejas MD 01/06/2023 10:06 AM Thank you NUZHAT Cifuentes CNP for the opportunity to be involved in this patient's care. documented in this encounter [facility] [employer] Phone: Hospital Discharge instructions 01-06-2023 Discharge Instr - [facility] Note Date & Type Note Facility 01-06-2023 Hospital Discharg e instructions Markel Callejas MD - 01/06/2023 10:06 AM EDT Continuity of Care Form Patient Name: Sanya Randall : 1955 Admit date: 01/02/2023 Discharge date: Code Status Order: Full Code Advance Directives: Admitting Physician: Haris Angelo MD PCP: NUZHAT Carver CNP Discharging Nurse: Discharging Hospital Unit/Room#: 2047/2046-01 Discharging Unit Phone Number: Emergency Contact: Extended Emergency Contact Information Primary Emergency Contact: Meredith Harper [place] Mobile Relation: Child Secondary Emergency Contact: Makenna Rangel Address: [address] [place] [address] Mobile Relation: Brother/Sister Geophysical Observer needed? No Past Surgical History: Past Surgical History: Procedure Laterality Date CARDIAC CATHETERIZATION CHOLECYSTECTOMY CORONARY ANGIOPLASTY WITH STENT PLACEMENT NECK SURGERY TUBAL LIGATION TUMOR REMOVAL Immunization History: Immunization History Administered Date(s) Administered COVID-19, MODERNA BLUE border, Primary or Immunocompromised, (age 12y+), IM, 100 mcg/0.5mL 02/05/2021, 03/05/2021 Influenza Vaccine, unspecified formulation 07/12/2015 Influenza, FLUAD, (age 65 y+), Adjuvanted, 0.5mL 08/31/2020, 06/27/2021, 07/01/2022 Influenza, FLUARIX, FLULAVAL, FLUZONE (age 6 mo+) AND AFLURIA, (age 3 y+), PF, 0.5mL 06/26/2016 Influenza, FLUZONE (age 65 y+), High Dose, 0.7mL 08/14/2020 Influenza, High Dose (Fluzone 65 yrs and older) 07/20/2018, 07/29/2019 Influenza, Intradermal, Preservative free 06/04/2016, 06/13/2019, 06/13/2019, 06/15/2019, 07/06/2019 Pneumococcal, PPSV23, PNEUMOVAX 23, (age 2y+), SC/IM, 0.5mL 05/15/2006, 09/12/2010, 03/17/2017, 07/01/2022 Zoster Recombinant (Shingrix) 12/22/2020, 04/12/2021 Active Problems: Patient Active Problem List Diagnosis Code Lumbar herniated disc M51.26 Osteoarthritis M19.90 Hypothyroidism E03.9 CAD (coronary artery disease) I25.10 Type 2 diabetes mellitus with other specified complication (HCC) E11.69 Essential hypertension I10 Hypercholesterolemia E78.00 GERD (gastroesophageal reflux disease) K21.9 Depression F32.A Emphysema of lung (HCC) J43.9 Mixed hyperlipidemia E78.2 Psoriasis L40.9 Tobacco user Z72.0 Sleep apnea G47.30 Claudication in peripheral vascular disease ([facility]) I73.9 Diabetes mellitus with peripheral artery disease ([facility]) E11.51 Chronic obstructive pulmonary disease ([facility]) J44.9 Chronic pain of both ears H92.03, G89.29 Cystitis N30.90 Need for prophylactic vaccination and inoculation against influenza Z23 Chronic knee pain M25.569, G89.29 Trigger finger, acquired M65.30 Cough due to bronchospasm J98.01 Alopecia L65.9 BMI 40.0-44.9, adult ([facility]) Z68.41 Chronic ischemic heart disease I25.9 Diabetic neuropathy ([facility]) E11.40 Diabetic retinopathy associated with type 2 diabetes mellitus ([facility]) E11.319 Hirsutism L68.0 Hyperaldosteronism ([facility]) E26.9 Menopausal and postmenopausal disorder N95.9 Severe obesity (BMI 35.0-39.9) with comorbidity ([facility]) E66.01 SBO (small bowel obstruction) ([facility]) K56.609 LAURA (acute kidney injury) ([facility]) resolved N17.9 Isolation/Infection: Isolation No Isolation Patient Infection Status None to display Nurse Assessment: Last Vital Signs: BP (!) 153/48 Pulse 67 Temp 97.9 F (36.6 C) (Axillary) Resp 16 Ht 5' (1.524 m) Wt 180 lb 12.4 oz (82 kg) SpO2 96% BMI 35.31 kg/m Last documented pain score (0-10 scale): Pain Level: 8 Last Weight: Wt Readings from Last 1 Encounters: 01/03/23 180 lb 12.4 oz (82 kg) Mental Status: {IP PT MENTAL STATUS:} IV Access: { [facility] IV ACCESS:808767420} Nursing Mobility/ADLs: Walking {[facility] DME ADLs:322296847} Transfer {CHP DME ADLs:846566638} Bathing {CHP DME ADLs:669085845} Dressing {CHP DME ADLs:309560036} Toileting {CHP DME ADLs:190802752} Feeding {CHP DME ADLs:057881751} Silo Worker {CHP DME ADLs:846466533} Med Delivery { [facility] MED Delivery:247773412} Wound Care Documentation and Therapy: Elimination: Continence: Bowel: {YES / NO:} Bladder: {YES / NO:} Urinary Catheter: {Urinary Catheter:583954409} Colostomy/Ileostomy/Ileal Conduit: {YES / NO:} Date of Last BM: No intake or output data in the 24 hours ending 01/06/23 1005 No intake/output data recorded. Safety Concerns: { [facility] Safety Concerns:333036181} Impairments/Disabilities: { [facility] Impairments/Disabilities:7757176 73} Nutrition Therapy: Current Nutrition Therapy: { [facility] Diet List:128198982} Routes of Feeding: {[facility] DME Other Feedings:594043795} Liquids: {[facility] liquid thickness:08842} Daily Fluid Restriction: {[facility] DME Yes amt example:033791800} Last Modified Barium Swallow with Video (Video Swallowing Test): {Done Not Done Date:} Treatments at the Time of Hospital Discharge: Respiratory Treatments: Oxygen Therapy: {Therapy; copd oxygen:78031} Ventilator: {[facility] Vent List:557901911} Rehab Therapies: {THERAPEUTIC INTERVENTION:6618923387} Weight Bearing Status/Restrictions: {[facility] Weight Bearin} Other Medical Equipment (for information only, NOT a DME order): {EQUIPMENT:377574251} Other Treatments: Patient's personal belongings (please select all that are sent with patient): {[facility] DME Belongings:006910139} RN SIGNATURE: {Esignature:227780242} CASE MANAGEMENT/SOCIAL WORK SECTION Inpatient Status Date: Readmission Risk Assessment Score: Readmission Risk Risk of Unplanned Readmission: 12 Discharging to Facility/ Agency Name: Address: Phone: Fax: Dialysis Facility (if applicable) Name: Address: Dialysis Schedule: Phone: Fax: Test Developer/Commissary Steward signature: {Esignature:699289549} PHYSICIAN SECTION Prognosis: {Prognosis:9801486006} Condition at Discharge: { Patient Condition:439456770} Rehab Potential (if transferring to Rehab): {Prognosis:3274691810} Recommended Labs or Other Treatments After Discharge: Physician Certification: I certify the above information and transfer of Sanya Randall is necessary for the continuing treatment of the diagnosis listed and that she requires {Admit to Appropriate Level of Care:95251} for {GREATER/LESS:083603806} 30 days. Update Admission H&P: {[facility] DME Changes in HandP:100090245} PHYSICIAN SIGNATURE: documented in this encounter [employer] Phone: Evaluation note Note Date & Type Note Facility Evaluation note Diagnosis Screening mammogram for breast cancer documented in this encounter [employer] Phone: Evaluation note Note Date & Type Note Facility Evaluation note Diagnosis SBO (small bowel obstruction) (HCC)- Primary Unspecified intestinal obstruction SBO (small bowel obstruction) (HCC) Unspecified intestinal obstruction Diabetes mellitus with peripheral artery disease (HCC) Type II or unspecified type diabetes mellitus with peripheral circulatory disorders, not stated as uncontrolled Emphysema of lung (HCC) Other emphysema Hypothyroidism Unspecified hypothyroidism LAURA (acute kidney injury) (HCC) resolved Acute kidney failure, unspecified documented in this encounter [employer] Phone: Summary Purpose Family History No Family History Records FoundNo Family History Records FoundNo Family History Records FoundNo Family History Records Found Advance Directives No Advanced Directives Records FoundDocuments on File Type Date Recorded Patient Ios Software Engineer Expl anation ACP-Advance Directive ACP-Power of Vice Principal Documents on File Type Date Recorded Patient Ios Software Engineer Expl anation ACP-Advance Directive ACP-Power of Vice Principal Latest Code Status on File Code Status Date Activated Date Inactivated Comments Full Code 01/03/2023 2:16 AM Healthcare Agents on File Name Relationship Healthcare Agent Relationship Communication Meredith Harpre Child Primary Decision Maker Lewis Harper Child Primary Decision Maker Jorge Alberto Ackerman Child Primary Decision Maker Discharge Instructions * Instructions* Tab Mullins DO - 11/12/2020 You were seen and evaluated in the emergency department with concerns for foot pain and back pain. X-rays did not show any fracture of the back or left knee. You have a small fracture of the spur coming off your left heel. Recommend postop shoe as needed for comfort. Using a walker for ambulation to prevent further falls. Alternate doses of 600 mg ibuprofen/Motrin with 500 mg Tylenol/acetaminophen every 3 hours as needed. Ice frequently. Use lidocaine patch as needed. Muscle relaxer, Flexeril, as needed. Please be aware that muscle relaxer can make you very drowsy and dizzy. If you develop any new or worsening symptoms including severe pain, numbness, tingling, weakness, inability to urinate, urinary incontinence, or any other concerning symptoms please return immediately emergency department for further evaluation and treatment. Recommend follow-up with PCP and your property management supervisor as soon as possible. Please call tomorrow to schedule follow-up ointment. * Attachments The following attachments cannot be sent through Care Everywhere. * Foot Fracture ([place]) * Back: Strain ([place]) * Back Pain: Relief: General Info ([place]) documented in this encounter Assessments Diagnosis Fall, initial encounter- Primary Calcaneal spur of foot, left Closed traumatic nondisplaced fracture of left calcaneus, initial encounter Lumbar sprain, initial encounter Additional Source Comments INFORMATION SOURCE (unrecogn ized section and content) DATE CREATED AUTHOR 04/08/2018 [facility] DATE CREATED AUTHOR AUTHOR'S ORGANIZ ATION [facility] DATE CREATED AUTHOR AUTHOR'S ORGANIZ ATION 12/15/2020 [facility] DATE CREATED AUTHOR AUTHOR'S ORGANIZ ATION 07/21/2023 [facility] Reason for Visit (unrecogniz ed section and content) Reason Comments Fall 2 step ladder-no LOC - Rt hip,lt knee,shoulder Specialty Diagnoses / Procedures Referred By Alma Rosa jones Referred To Contact Radiology Diagnoses Screening mammogram for breast cancer Procedures VANE NORMA DIGITAL SCREEN BILATERAL VANE DIGITAL SCREEN W OR WO CAD BILATERAL Colton-Minna Mays, PRIMARY CLASS TEACHER - AIRCRAFT INSTRUMENT MECHANIC [address] [place] [address] Referral ID Status Reason Start Date Expiration Date Visits Re quested Visits Authorized [id number] Closed 10/31/2021 10/31/2022 1 1 Reason Comments Abdominal Pain Chest Pain Nausea Specialty Diagnoses / Procedures Referred By Alma Rosa jones Referred To Contact Diagnoses SBO (small bowel obstruction) ([facility]) Haris Angelo MD [address] [place] [address] [facility] [address] [place] [address] Referral ID Status Reason Start Date Expiration Date Visits Re quested Visits Authorized [id number] 1 1 Ordered Prescriptions (unrec ognized section and content) Prescription Sig Dispensed Refills Start Date End Da te lidocaine (LIDODERM) 5 % Place 1 patch onto the skin daily for 10 days 12 hours on, 12 hours off. 10 patch 0 11/12/2020 11/22/2020 cyclobenzaprine (FLEXERIL) 5 MG tablet Take 1 tablet by mouth 2 times daily as needed for Muscle spasms 10 tablet 0 11/12/2020 Care Teams (unrecognized sec tion and content) Presser First Relationship Specialty Start Date End Date Minna Voss, PRIMARY CLASS TEACHER - AIRCRAFT INSTRUMENT MECHANIC [address] [place] [id number] PCP - General Family Medicine 08/28/20 Presser First Relationship Specialty Start Date End Date Minna Voss, PRIMARY CLASS TEACHER - AIRCRAFT INSTRUMENT MECHANIC [address] [place] [address] PCP - General Family Medicine 08/28/20 Scheduled Active and Recently Administ ered Medications (unrecognized section and content) Medication Order 01/04/2023 01/05/2023 01/06/2023 aspirin EC tablet 81 mg 81 mg, Oral, DAILY, First dose on 01/05/23 at 1100, Until Discontinued, Do not crush or break. 1121 (Given - Provider: Roshni Fisher RN) 0818 (Given - Provider: Deanna Parra RN) buPROPion (WELLBUTRIN XL) extended release tablet 300 mg 300 mg, Oral, NIGHTLY, First dose on 01/04/23 at 2100, Until Discontinued, Do not crush or break. 213 (Given - Provider: Savanah Cortes RN) 2158 (Given - Provider: Savanah Cortes RN) 2100 (Due) carvedilol (COREG) tablet 12.5 mg 12.5 mg, Oral, 2 TIMES DAILY WITH MEALS, First dose on 01/05/23 at 1700, Until Discontinued, Administer with food to minimize the risk of orthostatic hypotension 170 (Given - Provider: Roshni Fisher RN) 08 (Given - Provider: Deanna Parra RN)1699 (Due) clopidogrel (PLAVIX) tablet 75 mg 75 mg, Oral, DAILY, First dose on Fri01/05/23 at 1100, Until Discontinued 1120 (Given - Provider: Roshni Fisher RN) 08 (Given - Provider: Deanna Parra RN) cyclobenzaprine (FLEXERIL) tablet 10 mg 10 mg, Oral, NIGHTLY, First dose on Fri01/05/23 at 2100, Until Discontinued 2158 (Given - Provider: Savanah Cortes RN) 2099 (Due) ezetimibe (ZETIA) tablet 10 mg 10 mg, Oral, DAILY, First dose on 01/05/23 at 1100, Until Discontinued 1120 (Given - Provider: Roshni Fisher RN) 817 (Given - Provider: Deanna Parra, JUSTO) furosemide (LASIX) tablet 20 mg 20 mg, Oral, DAILY, First dose on Fri01/03/23 at 0900, Until Discontinued 0900 (Automatically Held) 0900 (Automatically Held) 0900 (Automatically Held) insulin lispro (HUMALOG) injection vial 0-4 Units 0-4 Units, SubCUTAneous, NIGHTLY, First dose on Fri01/03/23 at 2100, Until Discontinued, If continuous tube feedings/TPN/NPO, give correction dose based on result, no reduction in dose. If eating or bolus tube feeding: Corrective Bedtime Algorithm Glucose: Dose: 70-299 No Insulin 300-349 4 Units Over 349 4 Units and notify physician 2135 (Not Given - Provider: Savanah Cortes RN - Reason: Order parameters not met - Comment: pt. bs was 188) 2049 (Not Given - Provider: Savanah Cortes RN - Reason: Order parameters not met - Comment: pt. bs 260) 2099 (Due) insulin lispro (HUMALOG) injection vial 0-8 Units 0-8 Units, SubCUTAneous, 3 TIMES DAILY WITH MEALS, First dose on Fri01/03/23 at 0800, Until Discontinued, Medium Dose Corrective Algorithm Glucose: Dose: 70-199 No Insulin 200-249 2 Units 250-299 4 Units 300-349 6 Units Over 349 8 Units and notify physician 0940 (Not Given - Provider: Sharda Lewis - Reason: Order parameters not met)1248 (Given - Provider: Sharda Lewis - Comment: bs 283)1704 (Not Given - Provider: Loyda Huang RN - Reason: Order parameters not met - Comment: blood sugar 192) 0716 (Not Given - Provider: Roshni Fisher RN - Reason: Order parameters not met)1122 (Given - Provider: Roshni Fisher RN)1641 (Not Given - Provider: Roshni Fisher RN - Reason: Order parameters not met) 0820 (Not Given - Provider: Deanna Parra RN - Reason: Order parameters not met - Comment: bs [phone] (Given - Provider: Deanna Parra RN)1700 (Due) levothyroxine (SYNTHROID) tablet 137 mcg 137 mcg, Oral, DAILY, First dose on Fri01/03/23 at 0900, Until Discontinued, Tube feeding (TF) interaction, obtain physician order to manage, recommend holding TF for 30 minutes before and after dose. 0900 (Automatically Held) 0900 (Automatically Held) 0900 (Automatically Held) pantoprazole (PROTONIX) 40 mg in sodium chloride (PF) 0.9 % 10 mL injection 40 mg, IntraVENous, DAILY, First dose on Fri01/03/23 at 0900, Reconstitute with 10 mL 0.9 % sodium chloride and administer over at least 2 minutes. 0942 (Given - Provider: Sharda Lewis) 0738 (Given - Provider: Roshni Fisher RN) 0818 (Given - Provider: Deanna Parra RN) pregabalin (LYRICA) capsule 100 mg 100 mg, Oral, DAILY, First dose on Fri01/05/23 at 1100, Until Discontinued 2158 (Given - Provider: Savanah Cortes RN) 2099 (Due - Provider: Royce Curry [facility]) sodium chloride flush 0.9 % injection 5-40 mL 5-40 mL, IntraVENous, EVERY 12 HOURS SCHEDULED (2 times per day), First dose on Fri01/03/23 at 0900, Until Discontinued, For Line Patency: Peripheral IV = 5 mL; Midline or Central Line = 10 mL/lumen. If following IV push medication, administer flush at same rate as the IV push. Flush volume is determined by type of infusion therapy being given. For non-viscous solutions use: Peripheral IV = 5 mL Midline or Central Line = 10 mL/lumen For viscous solutions (i.e. blood components, parenteral nutrition, contrast media, or after obtaining blood sample) use: Peripheral IV = 10 mL Midline or Central Line = 20 mL/lumen 0943 (Given - Provider: Sharda Lewis)2136 (Not Given - Provider: Savanah Cortes, RN - Reason: IV Fluid Infusing) 0738 (Given - Provider: Roshni Fisher RN)2052 (Given - Provider: Savanah Cortes, JUSTO) 0820 (Given - Provider: Deanna Parra RN)2100 (Due) Continuous Medication Order 01/04/2023 01/05/2023 01/06/2023 dextrose 5 % and 0.9 % sodium chloride infusion (CANCELED) IntraVENous, at 100 mL/hr, CONTINUOUS, Starting on Fri01/03/23 at 0945 0029 (New Bag - Provider: Savanah Cortes, RN)1110 (New Bag - Provider: Sharda Lewis)2140 (New Bag - Provider: Savanah Cortes, RN) PRN Medication Order 01/04/2023 01/05/2023 01/06/2023 0.9 % sodium chloride infusion IntraVENous, at 5-250 mL/hr, PRN, if patient receiving piggyback infusions and maintenance fluids are not ordered OR KVO fluids to protect IV site / prevent frequent line interruptions/ long duration, Starting on Fri01/03/23 at 0216, For piggyback infusion, administer at same rate as piggyback for a total of 25 mL. Enter 25 mL into dose field and piggyback rate into rate field of order. If piggyback is infusing at a rate less than 100 mL/hr, enter 25 mL into dose field and 100 mL/hr into rate field of order. For KVO fluids, enter rate of 20 mL/hr or less into rate field of order. acetaminophen (TYLENOL) suppository 650 mg(Linked Group 1) 650 mg, Rectal, EVERY 6 HOURS PRN, Starting on Fri01/03/23 at 0216, Until Discontinued, Pain Mild (1-3), Fever, For temp greater than 100.4 F (38 C), Administer if oral route cannot be used. acetaminophen (TYLENOL) tablet 650 mg(Linked Group 1) 650 mg, Oral, EVERY 6 HOURS PRN, Starting on Fri01/03/23 at 0216, Until Discontinued, Pain Mild (1-3), Fever, For temp greater than 100.4 F (38 C), Maximum dose of acetaminophen is 4000 mg from all sources in 24 hours. albuterol sulfate HFA (PROVENTIL;VENTOLIN;PROAIR) 108 (90 Base) MCG/ACT inhaler 2 puff 2 puff, Inhalation, EVERY 6 HOURS PRN, Starting on Fri01/05/23 at 1036, Until Discontinued, Wheezing, Initiate RT Bronchodilator Protocol: Yes - Inpatient Protocol dextrose 10 % infusion IntraVENous, at 100 mL/hr, CONTINUOUS PRN, if blood glucose remains LESS THAN 70 mg/dL after 2 dextrose 10% intravenous boluses or administration of glucagon, Starting on Fri01/03/23 at 0216, If blood glucose fails to stabilize after 2 dextrose 10% intravenous boluses or glucagon administration, start dextrose 10% infusion at 100 mL/hour and repeat blood glucose at 30 and 60 minutes. If blood glucose is GREATER THAN 70 mg/dL after 60 minutes, discontinue dextrose 10% infusion. dextrose bolus 10% 125 mL(Linked Group 2) 125 mL, IntraVENous, at 937.5 mL/hr, Administer over 8 Minutes, PRN, Other, Blood glucose 40 - 69 mg/dL and patient NOT ALERT or NPO, Starting on Fri01/03/23 at 0216, Start D5W at 100 mL/hour until ordering provider can be reached. Repeat blood glucose in 15 minutes. If blood glucose is 40 - 69 mg/dL, repeat treatment and recheck blood glucose in 15 minutes x 2. If using Glucostabilizer, dose as instructed per system. dextrose bolus 10% 250 mL(Linked Group 2) 250 mL, IntraVENous, at 937.5 mL/hr, Administer over 16 Minutes, PRN, Other, Blood glucose LESS than 40 mg/dL and patient NOT ALERT or NPO, Starting on Fri01/03/23 at 0216, Start D5W at 100 mL/hour until ordering provider can be reached. Repeat blood glucose in 15 minutes. If blood glucose is LESS than 40 mg/dL, repeat treatment and recheck blood glucose in 15 minutes x 2. If using Glucostabilizer, dose as instructed per system. diatrizoate meglumine-sodium (GASTROGRAFIN) 66-10 % solution 30 mL 30 mL, Oral, IMG ONCE PRN, Starting on Fri01/03/23 at 1450, Until Discontinued, Other glucagon (rDNA) injection 1 mg 1 mg, IntraMUSCular, PRN, Starting on Fri01/03/23 at 0216, Until Discontinued, Low blood sugar, Blood glucose less than 70 mg/dL and patient NOT ALERT or NPO and does not have IV access., After administration, attempt intravenous access and start D5W at 100 mL/hr. Repeat blood glucose in 15 minutes x2 and notify provider. glucose chewable tablet 16 g 16 g (4 tablet), Oral, PRN, Starting on Fri01/03/23 at 0216, Until Discontinued, Low blood sugar, If blood glucose is LESS than 70 mg/dL and patient is alert and tolerating oral. Give 4 tablets (16g) Repeat blood glucose in 15 minutes. If blood glucose is less than 70 mg/dL, repeat treatment and recheck blood glucose in 15 minutes x 2. If blood glucose remains LESS than 70 mg/dL, notify provider. morphine (PF) injection 2 mg 2 mg, IntraVENous, EVERY 4 HOURS PRN, Starting on Fri01/03/23 at 0128, Until Discontinued, Pain Severe (7-10), If oral and IV narcotics ordered, use oral first and only use IV if oral is ineffective or cannot take oral. Do Not give oral and IV within 1 hour of each other unless specifically ordered. ondansetron (ZOFRAN) injection 4 mg(Linked Group 3) 4 mg, IntraVENous, EVERY 6 HOURS PRN, Starting on Fri01/03/23 at 0216, Until Discontinued, Nausea, Vomiting, Administer if oral route cannot be used. ondansetron (ZOFRAN-ODT) disintegrating tablet 4 mg(Linked Group 3) 4 mg, Oral, EVERY 8 HOURS PRN, Starting on Fri01/03/23 at 0216, Until Discontinued, Nausea, Vomiting polyethylene glycol (GLYCOLAX) packet 17 g 17 g, Oral, DAILY PRN, Starting on Fri01/03/23 at 0216, Until Discontinued, Constipation, First line therapy for constipation sodium chloride flush 0.9 % injection 10 mL 10 mL, IntraVENous, NEEDED, Starting on Fri01/02/23 at 2257, Until Discontinued, Line Care sodium chloride flush 0.9 % injection 5-40 mL 5-40 mL, IntraVENous, PRN, Starting on Fri01/03/23 at 0216, Until Discontinued, Line Care, After every IV line use, For Line Patency: Peripheral IV = 5 mL; Midline or Central Line = 10 mL/lumen. If following IV push medication, administer flush at same rate as the IV push. Flush volume is determined by type of infusion therapy being given. For non-viscous solutions use: Peripheral IV = 5 mL Midline or Central Line = 10 mL/lumen For viscous solutions (i.e. blood components, parenteral nutrition, contrast media, or after obtaining blood sample) use: Peripheral IV = 10 mL Midline or Central Line = 20 mL/lumen Linked Groups Order Group 1: acetaminophen (TYLENOL) tablet 650 mgJump to med 650 mg, Oral, EVERY 6 HOURS PRN, Starting on Fri01/03/23 at 0216, Until Discontinued, Pain Mild (1-3), Fever, For temp greater than 100.4 F (38 C)
Maximum dose of acetaminophen is 4000 mg from all sources in 24 hours.
Or acetaminophen (TYLENOL) suppository 650 mgJump to med 650 mg, Rectal, EVERY 6 HOURS PRN, Starting on Fri01/03/23 at 0216, Until Discontinued, Pain Mild (1-3), Fever, For temp greater than 100.4 F (38 C)
Administer if oral route cannot be used.
Group 2: dextrose bolus 10% 125 mLJump to med 125 mL, IntraVENous, at 937.5 mL/hr, Administer over 8 Minutes, PRN, Other, Blood glucose 40 - 69 mg/dL and patient NOT ALERT or NPO, Starting on Fri01/03/23 at 0216
Start D5W at 100 mL/hour until ordering provider can be reached. Repeat blood glucose in 15 minutes. If blood glucose is 40 - 69 mg/dL, repeat treatment and recheck blood glucose in 15 minutes x 2. If using Glucostabilizer, dose as instructed per system.
Or dextrose bolus 10% 250 mLJump to med 250 mL, IntraVENous, at 937.5 mL/hr, Administer over 16 Minutes, PRN, Other, Blood glucose LESS than 40 mg/dL and patient NOT ALERT or NPO, Starting on Fri01/03/23 at 0216
Start D5W at 100 mL/hour until ordering provider can be reached. Repeat blood glucose in 15 minutes. If blood glucose is LESS than 40 mg/dL, repeat treatment and recheck blood glucose in 15 minutes x 2. If using Glucostabilizer, dose as instructed per system.
Group 3: ondansetron (ZOFRAN-ODT) disintegrating tablet 4 mgJump to med 4 mg, Oral, EVERY 8 HOURS PRN, Starting on Fri01/03/23 at 0216, Until Discontinued, Nausea, Vomiting Or ondansetron (ZOFRAN) injection 4 mgJump to med 4 mg, IntraVENous, EVERY 6 HOURS PRN, Starting on Fri01/03/23 at 0216, Until Discontinued, Nausea, Vomiting
Administer if oral route cannot be used.
FOR RECORDS PERTAINING TO PATIENTS WHO ARE OR HAVE BEEN ENROLLED IN A CHEMICAL DEPENDENCY/SUBSTANCEABUSE PROGRAM, SOME INFORMATION MAY BE OMITTED. This clinical summary was aggregated from multiple sources. Caution should be exercised in using it in the provision of clinical care. This summary normalizes information from multiple sources, and as a consequence, information in this document may materially change the coding, format and clinical context of patient data. In addition, data may be omitted in some cases. CLINICAL DECISIONS SHOULD BE BASED ON THE PRIMARY CLINICAL RECORDS. [employer] provides no warranty or guarantee of the accuracy or completeness of information in this document.
== END 2023-10-28 08:49 | disposition home or self-care (01) ==
LOC: WC 08:50
PROVIDERS: Visit Provider Podiatrist Foot & Ankle Surgery
DX: E11.40 Type 2 diabetes mellitus with diabetic neuropathy, unspecified (principal); L84 Corns and callosities
CPT/HCPCS: G0463

== ENCOUNTER 2024-01-22 10:07 | Outpatient (OUT) | payer MEDICARE, MEDICAID, SELFPAY ==
--- NOTE | 2024-01-22 10:09 | VEIN_ITS ---
Patient Name: MACKENZIE RANDALL MR#: [id number] : 1955 Exam Date: 01/22/2024 Ordering Doctor: DR. JO CHAUDHARI D.P.M. RADIOLOGY REPORT PROCEDURE: FACILITY EST COM[facility]HENS[facility]IN [facility] - OFFICE VISIT INITIAL COMPARISON: None. PROGRESS NOTES: [age] year old female who presents with a 20 year history of lower extremity achiness, throbbing, heaviness, swelling, with new onset 1 year ago of poor healing toe wound. The patient's left leg symptoms are worse than the right. There has been a progression of symptoms over time. This increases with prolonged leg dependency. The patient describes an improvement with rest, elevation, support stockings, and [id number] medications. The patient denies any signs and symptoms to suggest arterial ischemia. The patient describes a family history of varicose veins on maternal side. The patient has drinking and smoking history of occasional alcohol consumption and chronic tobacco use. Patient has a past medical history significant for coronary artery disease, diabetes mellitus type 2, hypertension, venous insufficiency, and multiple other chronic issues. The patient denies a history of deep venous thrombus or pulmonary embolus. See separate history and physical for medication list. No prior treatment for varicose or spider veins. Long-term use of compression stockings. After review of nurse notes, history and physical exam I discussed at length the pathophysiology of venous hypertension and possible treatments, therapies and strategies available. We discussed at length the importance of elevating the lower extremities above the level of the heart, increased physical activity and compression stocking use. Ultrasound venous reflux study performed today was discussed at length with the patient. The report demonstrates abnormally dilated and incompetent great saphenous vein bilaterally with incompetent branch saphenous varicosities.. PHYSICAL EXAM: The right leg demonstrates a few varicosities, multiple spider veins, no ulceration, mild edema, no skin discoloration. The left leg demonstrates a few varicosities, multiple spider veins, no ulceration, mild edema, no skin discoloration. Both thighs, legs and feet were symmetrically warm to the touch. Good posterior tibial and dorsalis pedis pulses were present bilaterally. VEIN/ Facility EST Comprehensive IMPRESSION: 1. Bilateral lower extremity venous insufficiency 2. Bilateral lower extremity varicose veins 3. Mild bilateral lower extremity subcutaneous edema 4. No flow significant arterial disease 5. CEAP: C3, EC, , [place] PLAN: 1. Continued use of compression stockings 2. Elevated legs and increased physical activity symptomatic relief 3. Endovenous laser ablation of left great saphenous vein, right great saphenous vein, bilateral lower extremity microfoam chemical ablation, and bilateral lower extremity sclerotherapy. Nurse notes, history and physical were reviewed and confirmed, see attached forms. The nurse was present throughout the physical exam and consultation Dictated by: Rob Lowery M.D. on 01/22/2024 at 11:56 Approved by: Rob Lowery M.D. on 01/22/2024 at 12:29
--- NOTE | 2024-01-22 10:10 | VEIN_ITS ---
Patient Name: MACKENZIE RANDALL MR#: [id number] : 1955 Exam Date: 01/22/2024 Ordering Doctor: DR. JO JamesPRojas RADIOLOGY REPORT PROCEDURE: VC EXT VENOUS REFLUX ANGELLA LMTD COMPARISON: None. INDICATIONS: Pain due to varicose veins of bilateral legs I83.813 TECHNIQUE: Duplex imaging of the lower extremity to assess the deep and superficial venous system for the presence of deep or superficial venous incompetence and to document the location and severity of disease. The study includes evaluation of the great saphenous vein (GSV), anterior accessory saphenous vein (AASV) and small saphenous vein (SSV). Patient scanned in reverse Trendelenburg and standing. FINDINGS: RIGHT LOWER EXTREMITY: Saphenofemoral Junction Reflux: Yes 8.7mm 1.8 sec GSV: Diam (mm) Reflux/ Time (sec) Proximal Thigh 8.9 Yes 1.1 Mid Thigh 4.9 Yes 1.5 Distal Thigh 4.9 Yes 1.4 Prox Calf 3.4 Yes 0.7 Mid Calf 3.1 Yes 0.9 Saphenopopliteal Junction Reflux: 3.2mm Yes 1.1 SSV: Proximal Calf 3.3 No Mid Calf 2.6 No AASV: Not present Proximal Thigh Mid Thigh Distal Thigh Thrombi: No acute or chronic thrombus visualized Compressibility: Normal Flow: Normal Preforator: No patent perforators visualized. Tech Note: Incompetent GSV. Patent varicose vein prox/med calf 3.1mm with 0.6s reflux. Patent varicose vein medial knee 3.7mm with 0.6s reflux. LEFT LOWER EXTREMITY: Saphenofemoral Junction Reflux: Yes 8.6 mm 2.4 sec GSV: Diam (mm) Reflux/Time (sec) Proximal Thigh 7.0 Yes 1.1 Mid Thigh 6.6 Yes 1.4 Distal Thigh 5.7 Yes 2.4 Prox Calf 5.1 Yes 1.6 Mid Calf 4.4 No Saphenopopliteal Junction Relux: 4.3 mm No SSV: Proximal Calf 3.0 No Mid Calf 2.4 Yes 0.9 AASV: Proximal Thigh 4.1 No Mid Thigh 2.3 No Distal Thigh Thrombi: No acute or chronic thrombus visualized Compressibility: Normal Flow: Normal Anode Builder: No patent perforators visualized. Tech Note: Incompetent GSV. Patent varicose vein dist/med thigh 3.6mm with 1.0s reflux. Patent varicose vein mid/med calf 2.6mm with 0.5s reflux. CONCLUSION: 1. Dilated and incompetent great saphenous vein bilaterally with a few associated dilated branch saphenous varicosities. Dictated by: Rob Lowery M.D. on 01/22/2024 at 11:54 Approved by: Rob Lowery M.D. on 01/22/2024 at 11:56
== END 2024-01-22 10:08 | disposition home or self-care (01) ==
PROVIDERS: PCP Podiatrist Foot & Ankle Surgery; Visit Provider Podiatrist Foot & Ankle Surgery
DX: R60.0 Localized edema (principal); I83.813 Varicose veins of bilateral lower extremities with pain
CPT/HCPCS: 93970; G0463

== ENCOUNTER 2024-02-26 07:44 | Outpatient (OUT) | payer MEDICARE, MEDICAID, SELFPAY ==
--- NOTE | 2024-02-26 07:47 | VEIN_ITS ---
The [address] [address] Patient Name: MACKENZIE RANDALL MRN: [id number] date: 1955 Sex: F Assigned Patient Location: Current Patient Location: Accession/Order Number: [id number] Exam Date: 02/26/2024 07:47 Report Date: 02/26/2024 12:03 At the request of: VIGNESH ADAMSON Procedure: VC Endovenous Ablation 1VeinLT EXAMINATION: VC Endovenous Ablation 1VeinLT HISTORY: I83.813 Pain due to varicose veins of bilateral legs The risks and benefits of the procedure had been previously discussed, and were rediscussed at length. Informed written consent was obtained. Librado Ramirez RN and Cindy Shelton RDMS, RVT assisted. Time out procedure was performed. The left lower extremity was prepared and draped in the usual sterile fashion to allow knee flexion in the sterile field. Duplex ultrasound probe was draped in a sterile cover, sterile transmission gel was used. Venous mapping was performed with the areas of dilation and large tributaries marked. The total length was 51 cm from the entry 3 cm above the ankle to 3 cm below the Saphenofemoral junction. The diameter of the left great saphenous vein ranged from 7.0 mm. A 30 gauge needle and 1% buffered lidocaine was used to anesthetize the entry site. A 4 mm incision was made with a scalpel and the saphenous vein was entered percutaneously under direct ultrasound guidance with a micropuncture set, a single stick was successful in gaining access. A micro-guide wire was inserted and the needle removed. A micro-set including a dilator was inserted over the microwire and the needle and dilator were removed. A guide wire was inserted through the micro-set and guided through the saphenous vein to the saphenofemoral junction. The dilator was removed and an introducer sheath was inserted over the wire until the end of the sheath entered the saphenofemoral junction. The dilator and wire were removed and the 600 micron fiber was introduced and placed and positioned so that it extended beyond the sheath and was 3 cm distal to the saphenofemoral or saphenopopliteal junction. Final position of the fiber was determined by ultrasound guidance and duplex imaging. Tumescent anesthetic was delivered by ultrasound guidance. 250 cc of fluid was delivered along the entire course of the saphenous vein. The solution consisted of 1000 cc of normal saline with 40 mL of 1% lidocaine and 20 mL of sodium bicarbonate. A final positioning check was made. The energy source was turned on by means of the foot pedal and the fiber and sheath were withdrawn. The total number of Joules delivered was 2657. The laser was active for 332 seconds under continuous pulse, average laser use of 8 J. Laser start time: 8:42 AM Laser stop time: 8:48 AM Date: 02/26/2024. A duplex ultrasound revealed compressibility and flow at the saphenofemoral junction immediately after the procedure. Hemostasis at the access site was achieved. The skin incision of the saphenous vein was closed with a 4 x 4. A compression stocking was applied. Postop instructions were given. A follow up appointment was recommended and scheduled. The patient tolerated the procedure well. Electronically authenticated by: CHRISTOPHER HI Date: 02/26/2024 12:03
[2024-02-26] MEDS: LIDOCAINE HCL 1% 100 MG/10 ML MDV INJ (08:09)
[2024-02-26] MEDS: 0.9 % SODIUM CHLORIDE 500 ML, LIDOCAINE HCL 20 ML, SODIUM BICARBONATE 10 MEQ INJ (08:09)
== END 2024-02-26 07:45 | disposition home or self-care (01) ==
LOC: VC 07:44
PROVIDERS: PCP Podiatrist Foot & Ankle Surgery; Visit Provider Radiology Diagnostic Radiology
DX: I83.813 Varicose veins of bilateral lower extremities with pain (principal)
CPT/HCPCS: 36478

== ENCOUNTER 2024-03-02 08:46 | Outpatient (OUT) | payer MEDICARE, MEDICAID, SELFPAY ==
--- NOTE | 2024-03-02 08:57 | VEIN_ITS ---
Patient Name: MACKENZIE RANDALL MR#: [id number] : 1955 Exam Date: 03/02/2024 Ordering Doctor: DR VIGNESH ADAMSON M.D. RADIOLOGY REPORT PROCEDURE: FACILITY EST LMTD VEIN CENTER - OFFICE VISIT FOLLOW UP COMPARISON: None. PROGRESS NOTES: The patient reports improvement in leg symptoms. There has been interval reduction in varicosities. The patient has followed our recommendations to walk 20-30 minutes once or twice per day since the procedure. Physical exam demonstrates decrease in varicosities of the leg. Persistent varicosities are identified along the legs bilaterally. Review of the ultrasound performed the same day demonstrates occlusive thrombus extending throughout the treated vein(s), see separate report, consistent with a successful ablation. No thrombus extending into or beyond the saphenofemoral junction. The patient expressed a desire to proceed with treatment of remaining incompetent varicosities. The patient was informed that treatment was a process and would require several procedures/sessions. VEIN/ Facility EST TD IMPRESSION: 1. Successful ablation of the left great saphenous vein(s). 2. Persistent varicose veins and lower extremity symptoms. PLAN: Endovenous laser ablation of right great saphenous vein. Nurse notes, history and physical were reviewed and confirmed, see attached forms. The nurse was present throughout the physical exam and consultation Dictated by: Rob Lowery M.D. on 03/02/2024 at 10:14 Approved by: Rob Lowery M.D. on 03/02/2024 at 10:14
--- NOTE | 2024-03-02 08:57 | VEIN_ITS ---
Patient Name: MACKENZIE RANDALL MR#: [id number] : 1955 Exam Date: 03/02/2024 Ordering Doctor: DR VIGNESH ADAMSON M.D. RADIOLOGY REPORT PROCEDURE: VC EXT VENOUS LT LIMITED COMPARISON: None. INDICATIONS: I80.02 Phlebitis of superficial veins of lt lower extremity TECHNIQUE: Lower extremity hernandez scale and Duplex Doppler evaluation of the deep venous system from the inguinal ligament through the calf veins. FINDINGS: REGION: Left lower extremity. THROMBI: Negative for DVT. Heat induced thrombus visualized 2.1cm from the SFJ. The heat induced thrombus extends from groin to distal calf. COMPRESSIBILITY: Partial compressibility of segments. Non-compressible segments corresponding to thrombus FLOW: Areas of no flow corresponding to thrombus OTHER: CONCLUSION: 1. Successful post ablation occlusion of left great saphenous vein. Dictated by: Rob Lowery M.D. on 03/02/2024 at 10:13 Approved by: Rob Lowery M.D. on 03/02/2024 at 10:14
== END 2024-03-02 08:47 | disposition home or self-care (01) ==
LOC: VC 08:46
PROVIDERS: PCP Podiatrist Foot & Ankle Surgery; Visit Provider Radiology Diagnostic Radiology
DX: I80.02 Phlebitis and thrombophlebitis of superficial vessels of left lower extremity (principal)
CPT/HCPCS: 93971; G0463

== ENCOUNTER 2024-03-16 08:23 | Outpatient (OUT) | payer MEDICARE, MEDICAID, SELFPAY ==
[2024-03-16] MEDS: 0.9 % SODIUM CHLORIDE 500 ML, LIDOCAINE HCL 20 ML, SODIUM BICARBONATE 10 MEQ INJ (08:27)
[2024-03-16] MEDS: LIDOCAINE HCL 1% 100 MG/10 ML MDV INJ (08:31)
--- NOTE | 2024-03-16 08:31 | VEIN_ITS ---
The [address] [address] Patient Name: MACKENZIE RANDALL MRN: [id number] date: 1955 Sex: F Assigned Patient Location: Current Patient Location: Accession/Order Number: [id number] Exam Date: 03/16/2024 08:35 Report Date: 03/16/2024 12:39 At the request of: VIGNESH ADAMSON Procedure: VC Endovenous Ablation 1VeinRT EXAMINATION: VC Endovenous Ablation 1VeinRT HISTORY: I83.813 Pain due to varicose veins of bilateral legs The risks and benefits of the procedure had been previously discussed, and were rediscussed at length. Informed written consent was obtained. Librado Ramirez RN and Cindy Shelton RDMS, RVT assisted. Time out procedure was performed. The right lower extremity was prepared and draped in the usual sterile fashion to allow knee flexion in the sterile field. Duplex ultrasound probe was draped in a sterile cover, sterile transmission gel was used. Venous mapping was performed with the areas of dilation and large tributaries marked. The total length was 53 cm from the entry 3 cm above the ankle to 3 cm below the Saphenofemoral junction. The diameter of the right great saphenous vein ranged from 8.9 mm. A 30 gauge needle and 1% buffered lidocaine was used to anesthetize the entry site. A 4 mm incision was made with a scalpel and the saphenous vein was entered percutaneously under direct ultrasound guidance with a micropuncture set, a single stick was successful in gaining access. A micro-guide wire was inserted and the needle removed. A micro-set including a dilator was inserted over the microwire and the needle and dilator were removed. A guide wire was inserted through the micro-set and guided through the saphenous vein to the saphenofemoral junction. The dilator was removed and an introducer sheath was inserted over the wire until the end of the sheath entered the saphenofemoral junction. The dilator and wire were removed and the 600 micron fiber was introduced and placed and positioned so that it extended beyond the sheath and was 3 cm distal to the saphenofemoral or saphenopopliteal junction. Final position of the fiber was determined by ultrasound guidance and duplex imaging. Tumescent anesthetic was delivered by ultrasound guidance. 250 cc of fluid was delivered along the entire course of the saphenous vein. The solution consisted of 1000 cc of normal saline with 40 mL of 1% lidocaine and 20 mL of sodium bicarbonate. A final positioning check was made. The energy source was turned on by means of the foot pedal and the fiber and sheath were withdrawn. The total number of Joules delivered was 2349. The laser was active for 294 seconds under continuous pulse, average laser use of 8 J. Laser start time: 9:19 AM Laser stop time: 9:24 AM Date: 03/16/2024. A duplex ultrasound revealed compressibility and flow at the saphenofemoral junction immediately after the procedure. Hemostasis at the access site was achieved. The skin incision of the saphenous vein was closed with a 4 x 4. A compression stocking was applied. Postop instructions were given. A follow up appointment was recommended and scheduled. The patient tolerated the procedure well. Electronically authenticated by: CHRISTOPHER HI Date: 03/16/2024 12:39
--- OUTSIDE RECORDS SUMMARY | 2024-03-16 08:51 | XMS_ITS | CCD ---
Author Organization [facility] Care Team Providers Care Clerk Of Scales Name Role Phone SOLOMON SCHMITT JR Unavailable Unavailable GALILEO HARRISON Unavailable Unavailable Minna Segura Primary Care Provider MINNA SEGURA Primary Care Unavailable Minna Smith APRN, CNP Primary Care Provider Minna Smith APRN, CNP Primary Care Provider DAGO GARDNER Admitting Unavailabl e DAGO GARDNER Primary Care Unavailabl e DAGO GARDNER Consulting Unavailabl e DAGO GARDNER Attending Unavailabl e HARIS ANGELO Attending Unavailable MINNA VOSS Primary Care Unavail able DASIA CARL Consulting Unavailable HARIS ANGELO Admitting Unavailable MARIEL, AKINFEMI S Consulting Unavailable Minna Rice Primary Care P rovider BLAIR YANEZ Attending Unavailable Pcp, Not In System Primary Care Provider Unavail able DEIRDRE EARL Attending Unavailable MINNA VOSS Referring Unavail able PCP, NOT IN SYSTEM Primary Care Unavailable CARTER WETZEL Attending Unavailable MINNA VOSS Referring Unavail able PCP, NOT IN SYSTEM Primary Care Unavailable MARTHA TELLEZ Attending Unavailable PCP, NOT IN SYSTEM Primary Care Unavailable Allergies Allergy Classification Reported Allergen(s) Allergy Type Date of Onset Reaction(s) Facility (13 sources) Cephalexin; Translations: [CEPHALEXIN] Drug Allergy 4 [place] (20 sources) insulin detemir; Translations: [INSULIN DETEMIR] Drug Allergy 4 [place] (3 sources) MITE EXTRACT Drug Allergy 4 [place] (3 sources) Mold Extract Drug Allergy 4 [place] (13 sources) moxifloxacin; Translations: [MOXIFLOXACIN] Drug Allergy 4 [place] (13 sources) predniSONE; Translations: [PREDNISONE] Drug Allergy 4 [place] (13 sources) traMADol; Translations: [TRAMADOL] Drug Allergy 6 Other (See Comments) [place] (10 sources) HMG-CoA reductase inhibitor; Translations: [[id number] A REDUCTASE INHIBITORS] Propensity to adverse reactions to drug 1 [employer] [facility] (2 sources) insulin detemir; Translations: [INSULIN DETEMIR U-100] Drug Allergy 2 [facility] Rep[facility] NEGATED: Highlighted row has been ruled out! (2 sources) Other Propensity to adverse reactions 1 Other (See Comments) [facility] Medications Current Medications Medication Drug Class(es) Dates Sig (Normalized) Sig (Original) Acetaminophen (2 sources) Start: 01-03-2023 acetaminophen (TYLENOL) tablet 650 mg Start: 11-12-2020 End: 11-12-2020 acetaminophen (TYLENOL) tabl et 1,000 mg Aerosol Tubing (2 sources) Start: 05-08-2017 Aerosol Tubing Indications: Pulmonary emphysema, unspecified emphysema type (HCC) To be used with Nebulizer every 4-6 hours as needed for wheezing. 1 each 05/08/2017 Active albuterol 0.833 mg/ml / ipratropium bromide 0.167 mg/ml inhalant solution (9 sources) Anticholinergic, beta2-Adrenergic Agonist Start: 04-02-2017 take 3 [...] by mouth once daily Multiple Vitamins-Minerals (THERAPEUTIC MULTIVITAMIN-PATTERN CLERK ALS) tablet Take 1 tablet by mouth [...] 0 Active carvedilol 12.5 mg oral tablet (12 sources) alpha-Adrenergic Mariusz, beta-Adrenergic Mariusz Start: 12-31-2021 take 1 tablet by mouth twice daily carvediloL (COREG) 12.5 mg tablet Indications: Essential (primary) hypertension TAKE 1 TABLET BY MOUTH TWICE DAILY 180 tablet 3 12/25/2022 Active Start: 05-10-2016 take 1 tablet by marjorie twice daily carvedilol (COREG) 12.5 MG tablet Indications: Hyperlipidemia, unspecified hyperlipidemia type Take 1 tablet by mouth 2 times daily 180 tablet 3 05/10/2016 Active clobetasol propionate 0.5 mg/ml topical solution (1 source) Corticosteroid Start: 05-28-2016 clobetasol (TEMOVATE) 0.05 % external solution clopidogrel 75 mg oral tablet (12 sources) P2Y12 Platelet Inhibitor Start: 04-16-2016 take 1 tablet by mouth in the morning clopidogreL (PLAVIX) 75 mg tablet Take 1 tablet (75 mg total) by mouth in the morning. 90 tablet 3 07/11/2022 Active clotrimazole 10 mg/ml topical cream (1 source) Azole Antifungal clotrimazole (LOTRIMIN) 1 % cream Apply topically 2 times daily as needed. Apply topically 2 times daily. 0 Active diatrizoate meglumine-sodium (GASTROGRAFIN) 66-10 % solution 30 mL (1 source) Start: 01-03-2023 diatrizoate meglumine-sodium (GASTROGRAFIN) 66-10 % solution 30 mL docusate sodium 100 mg oral capsule (9 sources) take 1 capsule by mouth in the morning docusate sodium (COLACE) 100 mg capsule Take 1 capsule (100 mg total) by mouth in the morning. 0 Active 0.5 ml dulaglutide 1.5 mg/ml auto-injector (1 source) GLP-1 Receptor Agonist Start: 02-21-2017 TRULICITY 0.75 MG/0.5ML SOPN empagliflozin 25 mg oral tablet (1 source) Sodium-Glucose Cotransporter 2 Inhibitor Start: 01-12-2024 take 1 tablet by mouth in the morning empagliflozin (JARDIANCE) 25 mg tablet tablet Take 1 tablet (25 mg total) by mouth in the morning. 90 tablet 3 01/12/2024 Active 3.5 ml evolocumab 120 mg/ml cartridge (12 sources) PCSK9 Inhibitor Start: 04-17-2023 End: 12-15-2023 evolocumab (REPATHA PUSHTRONEX) 420 mg/3.5 mL wearable injector Indications: Other hyperlipidemia Inject 3.5 mL under the skin every 30 (thirty) days. 10.5 mL 1 12/15/2023 Active Start: 05-19-2020 REPATHA PUSHTR ONEX SYSTEM 420 MG/3.5ML SOCT Inject 420 mg into the skin every 30 days 0 05/19/2020 Suspended Start: 05-19-2020 REPATHA PUSHTR ONEX SYSTEM 420 MG/3.5ML SOCT 3.5 ML MONTHLY SUBCUTANEOUS 90 DAYS 0 05/19/2020 Active ezetimibe 10 mg oral tablet (12 sources) Dietary Cholesterol Absorption Inhibitor Start: 05-10-2016 take 1 tablet by mouth once daily ezetimibe (ZETIA) 10 mg tablet TAKE 1 TABLET BY MOUTH EVERY DAY 90 tablet 3 10/21/2022 Active fenofibrate 134 mg oral capsule (13 sources) Peroxisome Proliferator Receptor alpha Agonist Start: 06-11-2019 take 1 capsule by mouth once daily before breakfast fenofibrate micronized (LOFIBRA) 134 mg capsule TAKE 1 CAPSULE (134 MG TOTAL) BY MOUTH EVERY MORNING BEFORE BREAKFAST. 90 capsule 3 06/11/2019 Active Start: 03-29-2016 take 1 capsule by mo [facility] once daily choline fenofibrate (TRILIPIX) 135 MG CPDR Indications: Hyperlipidemia, unspecified hyperlipidemia type Take 1 capsule by mouth daily 90 capsule 3 03/29/2016 Active take 1 tablet by marjorie once daily fenofibrate (TRICOR) 145 MG tablet Take 145 mg by mouth daily 0 Active fluocinonide 0.5 mg/ml topical cream (1 source) Corticosteroid Start: 06-14-2016 fluocinonide (LIDEX) 0.05 % cream furosemide 20 mg oral tablet (12 sources) Loop Diuretic Start: 05-09-2023 take 1 tablet by mouth once daily furosemide (LASIX) 20 mg tablet Indications: Essential hypertension TAKE 1 TABLET BY MOUTH EVERY DAY 90 tablet 3 05/09/2023 Active Start: 02-23-2016 take 20 mg by mouth once daily 20 mg, Oral, DAILY, First dose on Fri01/03/23 at 0900, Until Discontinued 0.2 ml glucagon 5 mg/ml auto-injector (9 sources) Antihypoglycemic Agent Start: 12-17-2023 glucago n 1 mg/0.2 mL auto-injector Indications: Type 2 diabetes mellitus with hyperglycemia, with long-term current use of insulin ([facility]) Inject 0.2 mL (1 mg total) under the skin as needed (hypoglycemia). 0.2 mL 2 12/17/2023 Active Start: 12-15-2023 End: 12-17-2023 glucagon (BAQSIMI) 3 mg/actu ation spray,non-aerosol Indications: Type 2 diabetes mellitus with hyperglycemia, with long-term current use of insulin ([facility]) Administer 3 mg into left nostril as needed (hypoglycemia). 6 each 3 12/15/2023 12/17/2023 Discontinued Start: 01-03-2023 take 1 mL intravenou sly every hour 1 mg, IntraMUSCular, PRN, Starting on Fri01/03/23 at 0216, Until Discontinued, Low blood sugar, Blood glucose less than 70 mg/dL and patient NOT ALERT or NPO and does not have IV access. After administration, attempt intravenous access and start D5W at 100 mL/hr. Repeat blood glucose in 15 minutes x2 and notify provider. Glucose (3 sources) Start: 01-03-2023 dextrose bolus [...] Active icosapent ethyl 1000 mg oral capsule (9 sources) Start: 06-13-2023 take 2 capsules by mouth at bedtime VASCEPA 1 gram capsule Take 2 capsules (2 g total) by mouth in the morning and 2 capsules (2 g total) before bedtime. 360 capsule 3 06/13/2023 Active Start: 07-17-2020 take 2 capsules by m outh twice daily at mealtime VASCEPA 1 g CAPS capsule TAKE 2 CAPSULES BY MOUTH TWICE A DAY WITH MEALS 0 07/17/2020 Active 3 ml insulin glargine 300 unt/ml pen injector (12 sources) Insulin Analog Start: 12-15-2023 insulin glargi ne U-300 conc (TOUJEO MAX U-300 SOLOSTAR) 300 unit/mL (3 mL) insulin pen Indications: Type 2 diabetes mellitus with hyperglycemia, with long-term current use of insulin ([facility]) Inject 50 Units under the skin in the morning. 60 mL 3 12/15/2023 Active End: 12-15-2023 insulin glargine U-300 conc (TOUJEO MAX U-300 SOLOSTAR) 300 unit/mL (3 mL) insulin pen Inject 60 Units under the skin in the morning. 0 12/15/2023 Discontinued Insulin Glargine , 2 Unit Dial, (TOUJEO MAX SOLOSTAR) 300 UNIT/ML SOPN Inject 90 Units into the skin daily 0 Suspended Insulin Glargine , 2 Unit Dial, (TOUJEO MAX SOLOSTAR) 300 UNIT/ML SOPN Kwikpen, 90u in am 0 Active 3 ml insulin lispro 100 unt/ml pen injector (11 sources) Insulin Analog Start: 12-15-2023 insulin lispro (HumaLOG) 100 unit/mL insulin pen Indications: Type 2 diabetes mellitus with hyperglycemia, with long-term current use of insulin ([facility]) Inject 35-40 Units under the skin in the morning and 35-40 Units at noon and 35-40 Units in the evening. Inject with meals. Plus scale with meals up to 150 units per day in divided doses.. 15 mL 12 12/15/2023 Active Start: 01-03-2023 0-4 Units, Sub CUTAneous, NIGHTLY, [...] SOPN up to 200units daily 0 Suspended lidocaine 0.05 mg/mg medicated patch (1 source) [...] Mild episode of recurrent major depressive disorder ([facility]) , Weakness generalized , Chronic pain of left knee , At high risk for injury related to fall , Essential hypertension , Obstructive sleep apnea of adult , Ambulates with cane , Diabetic polyneuropathy associated with diabetes mellitus due to underlying condition ([facility]) , Severe obesity (BMI 35.0-39.9) with comorbidity (HCC) , medical terminologist (current) use of insulin ([facility]) , Decreased pedal pulses by Does not apply route 1 each 0 07/04/2022 Suspended lisinopril 20 mg oral tablet (12 sources) Angiotensin Converting Enzyme Inhibitor Start: 02-26-2021 End: 01-12-2024 take 1 tablet by mouth in the morning lisinopriL (PRINIVIL,ZESTRIL) 20 mg tablet Take 1 tablet (20 mg total) by mouth in the morning. 90 tablet 3 01/12/2024 Active Start: 09-08-2020 take 1 tablet by marjorie th once daily lisinopril (PRINIVIL;ZESTRIL) 20 MG tablet Take 1 tablet by mouth daily 30 tablet 0 09/08/2020 Active loratadine 10 mg oral tablet (10 sources) Start: 05-02-2017 take 1 tablet by [...] Start: 01-03-2023 morphine (PF) injection 2 mg MOUNJARO 5 mg/0.5 mL pen injector (9 sources) Start: 12-15-2023 inject 5 mg by subcutaneous injection every week MOUNJARO 5 mg/0.5 mL pen injector Indications: Type 2 diabetes mellitus with hyperglycemia, with long-term current use of insulin ([facility]) Inject 5 mg under the skin once a week. 6 mL 3 12/15/2023 Active Start: 06-13-2023 End: 12-15-2023 inject 5 mg by subcutaneous injection every week MOUNJARO 5 mg/0.5 mL pen injector Indications: Type 2 diabetes mellitus with hyperglycemia, with long-term current use of insulin ([facility]) Inject 5 mg under the skin once a week. 6 mL 3 06/13/2023 12/15/2023 Discontinued (Reorder) Start: 06-13-2023 inject 5 mg by subcu taneous injection every week FARRAH 5 mg/0.5 mL pen injector Indications: Type 2 diabetes mellitus with hyperglycemia, with long-term current use of insulin ([facility]) Inject 5 mg under the skin once a week. 6 mL 3 06/13/2023 Active Multiple Vitamins-Minerals (THERAPEUTIC MULTIVITAMIN-MINERALS) tablet (1 source) take 1 tablet by mouth once daily Multiple Vitamins-Minerals (THERAPEUTIC MULTIVITAMIN-MINERALS) tablet Take 1 tablet by mouth daily. 0 Active multivit with minerals/lutein (MULTIVITAMIN 50 PLUS ORAL) (8 sources) multivit with minerals/lutein (MULTIVITAMIN 50 PLUS ORAL) Take by mouth daily. 0 Active nitroglycerin 0.4 mg sublingual tablet (10 sources) Nitrate Vasodilator Star t: 10-14 20 nitroglycerin (NITROSTAT) 0.[address] 1 tablet (0.4 mg total) under the tongue every 5 (five) minutes as needed for chest pain. 25 tablet 1 11/08/2019 Active Nutritional Supplements (ARTHRO-COMPLEX PO) (1 source) Nutritional Supp lements (ARTHRO-COMPLEX PO) Take by mouth 0 Active omega-3 acid ethyl esters (custodial) 1000 mg oral capsule (1 source) take 2 capsules by mouth twice daily omega-3 acid ethyl esters (LOVAZA) 1 G capsule Indications: HLD (hyperlipidemia) Take 2 g by mouth 2 times daily. 2 capsules twice daily 0 Active ondansetron (ZOFRAN-ODT) disintegrating tablet 4 mg (1 source) Star t: 12-12 23 ondansetron (ZOFRAN-ODT) disintegrating tablet 4 mg pantoprazole (PROTONIX) 40 mg in sodium chloride (PF) 0.9 % 10 mL injection (1 source) Star t: 12-12 23 40 mg, IntraVENous, DAILY, First dose on Fri01/03/23 at 0900 Reconstitute with 10 mL 0.9 % sodium chloride and administer over at least 2 minutes. polyethylene glycol [id number] mg powder for oral solution (9 sources) Osmotic Laxative Star t: 03-13 8 21 polyethylene glycol (GLYCOLAX) 17 gram/dose powder Take 17 g by mouth daily. 116 g 0 03/30/2021 Active regular insulin, human 500 unt/ml injectable solution (1 source) Insulin Star t: 110 9- 14 insulin regular human (HUMULIN R) 500 UNIT/ML injection Inject 23 Units into the skin 3 times daily (before meals). 1 vial 0 08/21/2014 Active rifAXIMin 550 mg oral tablet (1 source) Rifamycin Antibacterial take 1 tablet by mouth twice daily rifaximin (XIFAXAN) 550 MG tablet Take 550 mg by mouth 2 times daily 0 Active rosuvastatin calcium 10 mg oral tablet (9 sources) HMG-CoA Reductase Inhibitor Star t: 04-0 1- 24 take 1 tablet by mouth once daily rosuvastatin (CRESTOR) 10 mg tablet Indications: Presence of stent in LAD coronary artery , Essential hypertension , Chronic coronary artery disease , Hypertriglyceridemia , Coronary artery disease involving [place] coronary artery of [place] heart without angina pectoris , Mixed hyperlipidemia , Palpitations , Shortness of breath , Other chest pain , Claudication (CMS-HCC) Take 1 tablet (10 mg total) by mouth nightly. 90 tablet 3 01/12/2024 Active Start: 05-16-2023 End: 01-12-2024 take 1 tablet by mouth once daily rosuvastatin (CRESTOR) 5 mg tablet Indications: Hypertriglyceridemia , Chronic coronary artery disease , Presence of stent in LAD coronary artery , Essential hypertension , Coronary artery disease involving [place] coronary artery of [place] heart without angina pectoris , Mixed hyperlipidemia , Palpitations , Shortness of breath , Other chest pain , Claudication (CMS-HCC) Take 1 tablet (5 mg total) by mouth nightly. 90 tablet 3 05/16/2023 01/12/2024 Discontinued (Reorder) 0.25 mg, 0.5 mg dose 1.5 ml semaglutide 1.34 mg/ml pen injector (3 sources) Start: 06-11-2020 End: 01-06-2023 OZEMPIC, 0.25 OR 0.5 MG/DOSE, 2 MG/1.5ML SOPN Inject 0.5 mg into the skin once a week 0 06/11/2020 01/06/2023 Discontinued (Stop Taking at Discharge) tiZANidine 2 mg oral tablet (7 sources) Central alpha-2 Adrenergic Agonist Start: 11-13-2023 End: 02-11-2024 take 1 tablet by mouth once daily as needed tiZANidine (ZANAFLEX) 2 mg tablet Take 1 tablet (2 mg total) by mouth daily as needed. 0 11/13/2023 02/11/2024 Active Completed/Discontinued Medications Medication Drug Class(es) Dates Sig (Normalized) Sig (Original) [id number] 200 actuat albuterol 0.09 mg/actuat metered dose inhaler (3 sources) beta2-Adrenergic Agonist Start: 02-05-2021 take 2 puff(s) by inhalation every six hours as needed 2 puff, Inhalation, EVERY 6 HOURS PRN, Starting on 01/05/23 at 1036, Until Discontinued, Wheezing Initiate RT Bronchodilator Protocol: Yes - Inpatient Protocol aspirin 81 mg delayed release oral tablet (12 sources) Platelet Aggregation Inhibitor, Nonsteroidal Anti-inflammatory Drug Start: 11-19-2021 End: 02-17-2022 take 81 mg by mouth once daily 81 mg, Oral, DAILY, First dose on 01/05/23 at 1100, Until Discontinued Do not crush or break. aspirin 81 mg ch ewable tablet Chew 1 tablet (81 mg total) and swallow in the morning. 0 Active take 1 tablet by mouth once gage y aspirin 81 MG tablet Take 81 mg by mouth daily. 0 Active 24 hr buPROPion hydrochloride 300 mg extended release oral tablet (12 sources) Aminoketone Start: 12-26-2022 End: 01-25-2023 take [...] BY MOUTH EVERY DAY 2 03/18/2019 Active take 1 tablet by marjorie th every twenty-four hours in the morning buPROPion XL (WELLBUTRIN XL) 150 mg 24 hr tablet Take 1 tablet (150 mg total) by mouth in the morning. 0 Active canagliflozin 100 mg oral tablet (11 sources) Sodium-Glucose Cotransporter 2 Inhibitor Start: 03-27-2023 End: 01-12-2024 take 1 tablet by mouth once daily at mealtime INVOKANA 100 mg tablet Indications: Type 2 diabetes mellitus with hyperglycemia ([facility]) TAKE 1 TABLET BY MOUTH BEFORE THE FIRST MEAL OF THE DAY 90 90 tablet 3 03/27/2023 01/12/2024 Discontinued Start: 07-28-2020 take 1 tablet by marjorie th once daily before breakfast INVOKANA 100 MG TABS tablet Take 100 mg by mouth every morning (before breakfast) 0 07/28/2020 Suspended cyclobenzaprine hydrochloride 10 mg oral tablet (13 sources) Muscle Relaxant Start: 11-26-2022 take 10 [...] tablet 1 11/06/2020 11/12/2020 Discontinued (LIST CLEANUP) take 1 tablet by marjorie th three times daily as needed for muscle spasms cyclobenzaprine (FLEXERIL) 10 mg tablet Take 1 tablet (10 mg total) by mouth 3 (three) times a day as needed for muscle spasms. 0 Active desoximetasone 0.5 mg/ml topical cream (1 source) Corticosteroid desoximetasone ( TOPICORT) 0.05 % cream Apply topically 2 times daily Apply topically 2 times daily. 0 Suspended 1 ml fentaNYL 0.05 mg/ml injection (1 source) Opioid Agonist Start: 01-02-2023 End: 01-02-2023 fentaNYL (SUBLIMAZE) injection 50 mcg glimepiride 2 mg oral tablet (6 sources) Sulfonylurea Start: 03-21-2022 End: 12-15-2023 glimepiride (AMARYL) 2 mg tablet TAKE 1 TABLET 3 TIMES DAILY FOR 90 DAYS 270 tablet 3 12/25/2022 12/15/2023 Discontinued Start: 05-24-2020 glimepiride (A MARYL) 2 MG tablet TAKE 1 TABLET 3 TIMES DAILY 0 05/24/2020 Active End: 12-15-2023 take 0.5 tablet by mouth three times daily glimepiride (AMARYL) 4 mg tablet Take 0.5 tablets (2 mg total) by mouth 3 (three) times a day. 0 12/15/2023 Discontinued 250 ml glucose 50 mg/ml / sodium chloride 9 mg/ml injection (1 source) Start: 01-03-2023 End: 01-05-2023 dextrose 5 % and 0.9 % sodium chloride infusion Handicap Placard MISC (1 source) Start: 05-22-[address] MISC Indications: Chronic ischemic heart disease , Chronic knee pain, unspecified laterality , Coronary artery disease involving [place] coronary artery of [place] heart without angina pectoris , Other diabetic neurological complication associated with type 2 diabetes mellitus (HCC) by Does not apply route Sanya is disabled and is in need of renewal of disability plates. Duration 05/22/2022 through 05/21/2027 1 each 0 05/22/2022 Suspended 3 ml insulin lispro 50 unt/ml / insulin lispro protamine, human 50 unt/ml pen injector (3 sources) Insulin Analog End: 12-15-2023 insulin lispro protamin-lispro (HumaLOG Mix 50-50 KwikPen) 100 unit/mL (50-50) insulin pen Inject 45 Units under the skin 3 (three) times a day. 0 12/15/2023 Discontinued insulin lispro p rot & lispro (HUMALOG MIX 50/50 KWIKPEN) (50-50) 100 UNIT per ML SUPN injection pen Inject 60 Units into the skin 3 times daily 0 Active iopamidol (ISOVUE-370) 76 % injection 100 mL (1 source) Start: 01-02-2023 End: 01-02-2023 iopamidol (ISOVUE-370) 76 % injection 100 mL ketoconazole 20 mg/ml topical cream (1 source) Azole Antifungal Start: 09-10-2022 ketoconazole (NIZORAL) 2 % cream Indications: Rash of foot Apply topically daily. 30 g 1 09/10/2022 Suspended levothyroxine (12 sources) l-Thyroxine Start: 01-03-2023 take 137 ug by mouth once daily 137 mcg, Oral, DAILY, First dose on Fri01/03/23 at 0900, Until Discontinued Tube feeding (TF) interaction, obtain physician order to manage, recommend holding TF for 30 minutes before and after dose. Start: 01-15-2021 take 1 tablet by marjorie th once daily in the morning levothyroxine (SYNTHROID, LEVOTHROID) 137 MCG tablet TAKE 1 TABLET IN THE MORNING ON AN EMPTY STOMACH BY MOUTH EVERY DAY 90 tablet 3 12/25/2022 Active take 1 tablet by marjorie th once daily levothyroxine (SYNTHROID) 112 MCG tablet Indications: Hypothyroidism Take 112 mcg by mouth Daily. 0 Active linaclotide 0.145 mg oral capsule (11 sources) Guanylate Cyclase-C Agonist Start: 11-06-2020 take 1 capsule by mouth once daily before breakfast linaclotide (LINZESS) 145 MCG capsule Indications: Other constipation TAKE 1 CAPSULE BY MOUTH EVERY DAY IN THE MORNING BEFORE BREAKFAST 30 capsule 2 10/08/2022 Suspended meclizine hydrochloride 25 mg oral tablet (11 sources) Antiemetic Start: 01-08-2022 take 1 tablet by mouth twice daily as needed meclizine (ANTIVERT) 25 MG tablet TAKE 1 TABLET BY MOUTH TWICE A DAY NEEDED 60 tablet 2 01/08/2022 Suspended meclizine (ANTIV ERT) 12.5 mg tablet Take 1 tablet (12.5 mg total) by mouth as needed for dizziness. 0 Active meclizine (ANTIV ERT) 25 MG CHEW Take 25 mg by mouth 0 Active Nebulizers (COMPRESSOR/NEBULIZER) MISC (2 sources) Start: 11-22-2015 Nebulizers (COMPRESSOR/NEBULIZER) MISC Indications: SOB (shortness of breath) , Bronchitis with bronchospasm 1 each by Does not apply route 4 times daily for 14 days Use with medications as directed 1 each 0 11/22/2015 Suspended Start: 11-22-2015 Nebulizers (CO MPRESSOR/NEBULIZER) [facility] [place] Indications: SOB (shortness of breath) , Bronchitis with bronchospasm 1 each by Does not apply route 4 times daily for 14 days Use with medications as directed 1 each 0 11/22/2015 Active omeprazole 20 mg delayed release oral capsule (11 sources) Proton Pump Inhibitor Start: 12-06-2022 take 1 capsule by mouth once daily omeprazole (PRILOSEC) 20 MG delayed release capsule TAKE 1 CAPSULE BY MOUTH EVERY DAY 30 capsule 0 12/06/2022 Suspended Start: 07-09-2021 take 1 capsule by mo ut once daily omeprazole (PRILOSEC) 20 MG delayed release capsule TAKE 1 CAPSULE BY MOUTH EVERY DAY 90 capsule 3 07/09/2021 Active Start: 05-14-2017 take 1 capsule by mo uth once daily omeprazole (PRILOSEC) 20 MG delayed release capsule TAKE 1 CAPSULE BY MOUTH DAILY 90 capsule 3 05/14/2017 Active take 1 tablet by [facility] in the morning omeprazole (PriLOSEC OTC) 20 mg tablet,delayed release (DR/EC) Take 1 tablet (20 mg total) by mouth in the morning. 0 Active 2 ml ondansetron 2 mg/ml injection (1 source) Serotonin-3 Receptor Antagonist Start: 01-02-2023 End: 01-02-2023 ondansetron (ZOFRAN) injection 4 mg pregabalin 100 mg oral capsule (12 sources) Start: 01-05-2023 take 100 mg by mouth once daily 100 mg, Oral, DAILY, First dose on 01/05/23 at 1100, Until Discontinued Start: 05-30-2020 take 1 capsule by mo uth at bedtime pregabalin (LYRICA) 75 MG capsule TAKE 1 CAPSULE BY MOUTH AT BEDTIME 0 05/30/2020 Active take 1 capsule by mo uth in the morning pregabalin (LYRICA) 150 mg capsule Take 1 capsule (150 mg total) by mouth in the morning. 0 Active rOPINIRole 4 mg oral tablet (11 sources) Nonergot Dopamine Agonist Start: 12-23-2022 take [...] EVENING 90 tablet 0 12/17/2021 Active Start: 07-20-2018 take 4 tablets by mo [facility] once daily REQUIP 0.25 mg tablet Take 4 tablets (1 mg total) by mouth nightly. 0 07/20/2018 Active Start: 07-20-2018 take 1 tablet by marjorie th once daily REQUIP 0.25 mg tablet Take 1 tablet (0.25 mg total) by mouth nightly. 0 07/20/2018 Active Start: 01-21-2017 take 1 tablet by [...] Problem Classification Problem Date Documented Date Episodic/Chronic Cardiac dysrhythmias (2 sources) Palpitations; Translations: [Palpitations] Onset: 01-12-2024 01-12-2024 Episodic Cataract (2 sources) Age-related nuclear cataract, right eye; Translations: [Age-related nuclear cataract, right eye] Onset: 06-03-2017 Chronic Chronic obstructive pulmonary disease and bronchiectasis (7 sources) Pulmonary emphysema; Translations: [Chronic obstructive lung disease] Onset: 12-06-2015 02-24-2014 Chronic Coronary atherosclerosis and other heart disease (20 sources) Coronary arteriosclerosis; Translations: [Atherosclerotic heart disease of [place] coronary artery without angina pectoris] Onset: 01-31-2021 Resolved: 07-16-2023 02-24-2014 Chronic Coronary atherosclerosis and other heart disease (10 sources) Stent in anterior descending branch of left coronary artery; Translations: [Presence of coronary angioplasty implant and graft] Onset: 05-13-2022 07-16-2023 Episodic Diabetes mellitus with complications (20 sources) Type 2 diabetes mellitus; Translations: [Type 2 diabetes mellitus with other specified complication] Onset: 09-17-2017 01-31-2021 Chronic Diabetes mellitus without complication (14 sources) Diabetes mellitus; Translations: [Type 2 diabetes mellitus] Onset: 12-19-2014 08-16-2015 Chronic Disorders of lipid metabolism (20 sources) Hyperlipidemia; Translations: [Hypercholesterolemia] Onset: 02-24-2014 Resolved: 07-16-2023 02-24-2014 Chronic Esophageal disorders (11 sources) Gastroesophageal reflux disease; Translations: [Gastro-esophageal reflux disease without esophagitis] 02-24-2014 Chronic Essential hypertension (15 sources) Hypertensive disorder; Translations: [Essential hypertension] Onset: 07-16-2023 02-24-2014 Chronic External cause codes: Fall (1 source) Fall; Translations: [Fall, initial encounter] Fracture of lower limb (1 source) Closed fracture of calcaneus; Translations: [Closed traumatic nondisplaced fracture of left calcaneus, initial encounter] Episodic Menopausal disorders (2 sources) Menopausal and postmenopausal disorders; Translations: [Unspecified menopausal and perimenopausal disorder] Onset: 01-31-2021 01-31-2021 Chronic Mood disorders (11 sources) Depressive disorder; Translations: [Depression] 02-24-2014 Chronic Nonspecific chest pain (2 sources) Other chest pain; Translations: [Chest pain] Onset: 01-12-2024 01-12-2024 Episodic Osteoarthritis (3 sources) Osteoarthritis; Translations: [Unspecified osteoarthritis, unspecified site] 02-24-2014 Chronic Other aftercare (1 source) Other predatory animal exterminator (current) drug therapy; Translations: [Other predatory animal exterminator (current) drug therapy] Onset: 07-18-2023 Episodic Other connective tissue disease (1 source) Calcaneal spur of left foot; Translations: [Calcaneal spur of foot, left] Other endocrine disorders (2 sources) Hyperaldosteronism; Translations: [Hyperaldosteronism, unspecified] Onset: 01-31-2021 01-31-2021 Chronic Other inflammatory condition of skin (3 sources) Psoriasis; Translations: [Psoriasis, unspecified] Onset: 02-24-2014 02-24-2014 Chronic Other lower respiratory disease (1 source) Shortness of breath; Translations: [Shortness of breath] Onset: 01-12-2024 Episodic Other lower respiratory disease (1 source) Dyspnea; Translations: [Shortness of breath] 01-12-2024 Episodic Other nutritional; endocrine; and metabolic disorders (10 sources) Severe obesity; Translations: [Morbid (severe) obesity due to excess calories] Onset: 05-03-2021 10-31-2021 Chronic Other screening for suspected conditions (not mental disorders or infectious disease) (1 source) Patient encounter status; Translations: [Encounter for screening mammogram for malignant neoplasm of breast] Episodic Peripheral and visceral atherosclerosis (5 sources) Intermittent claudication; Translations: [Peripheral vascular disease, unspecified] Onset: 12-19-2014 12-19-2014 Chronic Residual codes; unclassified (3 sources) Sleep apnea; Translations: [Sleep apnea, unspecified] Onset: 05-18-2014 05-18-2014 Chronic Residual codes; unclassified (16 sources) Obstructive sleep apnea syndrome; Translations: [Obstructive sleep apnea (adult) (pediatric)] Onset: 05-13-2022 Resolved: 07-16-2023 07-16-2023 Chronic Residual codes; unclassified (1 source) Intolerance to drug; Translations: [Other specified health status] 12-15-2023 Episodic Residual codes; unclassified (1 source) Other specified health status; Translations: [Other specified health status] Onset: 12-15-2023 Episodic Screening and history of mental health and substance abuse codes (1 source) Tobacco use and exposure - finding; Translations: [Tobacco use] Onset: 02-24-2014 02-24-2014 Chronic Spondylosis; intervertebral disc disorders; other back problems (3 sources) Prolapsed lumbar intervertebral disc; Translations: [Other intervertebral disc displacement, lumbar region] 02-24-2014 Chronic Sprains and strains (1 source) Lumbar sprain; Translations: [Lumbar sprain, initial encounter] Episodic Thyroid disorders (6 sources) Hypothyroidism; Translations: [Hypothyroidism, unspecified] Onset: 12-15-2023 08-16-2015 Chronic Past or Other Problems Problem Classification Problem Date Documented Da te Episodic/Chronic Acute and unspecified renal failure (3 sources) Acute injury of kidney; Translations: [Acute kidney failure, unspecified] Onset: 01-03-2023 Episodic Intestinal obstruction without hernia (4 sources) Small bowel obstruction; Translations: [Unspecified intestinal obstruction, unspecified as to partial versus complete obstruction] Onset: 01-03-2023 Episodic Other aftercare (1 source) medical terminologist (current) use of insulin; Translations: [medical terminologist (current) use of insulin] Onset: 09-17-2017 Episodic Other connective tissue disease (3 sources) [...] lower leg] Onset: 06-26-2016 06-26-2016 Episodic Other nutritional; endocrine; and metabolic disorders (10 sources) Body mass index 40+ - severely obese; Translations: [Body mass index (BMI) 40.0-44.9, adult] Onset: 01-31-2021 Resolved: 05-03-2021 01-31-2021 Chronic Other skin disorders (2 sources) Alopecia; Translations: [Nonscarring hair loss, unspecified] Onset: 01-31-2021 01-31-2021 Episodic Other skin disorders (2 sources) Hirsutism; Translations: [Hirsutism] Onset: 01-31-2021 01-31-2021 Episodic Other upper respiratory disease (3 sources) Bronchospasm; Translations: [Acute bronchospasm] Onset: 04-02-2017 04-02-2017 Episodic Residual codes; unclassified (3 sources) Needs influenza immunization; Translations: [Encounter for immunization] Onset: 06-26-2016 06-26-2016 Episodic Residual codes; unclassified (10 sources) Tobacco user; Translations: [Tobacco use] Onset: 02-24-2014 01-31-2021 Episodic Unclassified (1 source) Patient encounter status; Translations: [Encounter for screening mammogram for malignant neoplasm of breast] Onset: 05-05-2017 Resolved: 07-08-2018 07-08-2018 Urinary tract infections (3 sources) Cystitis; Translations: [Cystitis, unspecified without hematuria] Onset: 05-10-2016 05-10-2016 Episodic Results Test Name Value Interpretation Reference Range Facility POCT Hemoglobin A1con 2023 HbA1c (Bld) [Mass fraction] 8.6 g/dL Abnormal 4 - 7 g/dL [facility] Interpretation and review of laboratory results Abnormal [facility] Basic Metabolic Profon 07-20 Anion gap [Moles/Vol] 9 mmol/L Normal 9-17 [facility] Comment on above: Performed By: #### C DP, BMP #### [facility] [address] [place] [address] Pluck Trimmer: Ajit Stevens DO Calcium [Mass/Vol] 9.8 mg/dL Normal 8.6-10.4 [facility] Comment on above: Performed By: #### C DP, BMP #### [facility] [place] [address] Pluck Trimmer: Ajit Stevens DO Chloride [Moles/Vol] 105 mmol/L Normal 98-107 [facility] Comment on above: Performed By: #### C DP, BMP #### [facility] [address] [place] [address] Pluck Trimmer: Ajit Stevens DO CO2 [Moles/Vol] 23 mmol/L Normal 20-31 [facility] Comment on above: Performed By: #### C DP, BMP #### [facility] [address] [place] [address] Pluck Trimmer: Ajit Stevens DO Creatinine [Mass/Vol] 0.6 mg/dL Normal 0.5-0.9 [facility] Comment on above: Performed By: #### C DP, BMP #### [facility] [address] [facility] [place] [address] Pluck Trimmer: Ajit Stevens DO GFR/1.73 sq M.predicted among non-blacks MDRD (S/P/Bld) [Vol rate/Area] mL/min/{1.73_m2} Normal >60 [facility] Comment on above: Result Comment: These [...] Performed By: #### C DP, BMP #### [facility] [address] [facility] [place] [address] Pluck Trimmer: Ajit Stevens DO Glucose [Mass/Vol] 198 mg/dL High 70-99 [facility] Comment on above: Performed By: #### C DP, BMP #### [facility] [place] [address] Pluck Trimmer: Ajit Stevens DO Potassium [Moles/Vol] 4.0 mmol/L Normal 3.7-5.3 [facility] Comment on above: Performed By: #### C DP, BMP #### [facility] [place] [address] Pluck Trimmer: Ajit Stevens DO Sodium [Moles/Vol] 137 mmol/L Normal 135-144 [facility] Comment on above: Performed By: #### C DP, BMP #### [facility] [place] [address] Pluck Trimmer: Ajit Stevens DO Urea nitrogen [Mass/Vol] 14 mg/dL Normal 8-23 [facility] Comment on above: Performed By: #### C JUAN A, BMP #### [facility] [place] [address] Pluck Trimmer: Ajit Stevens DO CBC with Diffon 07-20-2023 Abs. Basophil 0.10 k/uL Normal 0.0-0.2 [facility] Comment on above: Performed By: #### C JUAN A, BMP #### [facility] [address] [place] [address] Pluck Trimmer: Ajit Stevens DO Abs.Neutrophil (Seg) 4.80 k/uL Normal 1.3-9.1 [facility] Comment on above: Performed By: #### C JUAN A, BMP #### [facility] [address] [place] [address] Pluck Trimmer: Ajit Stevens DO Basophils/100 WBC (Bld) 1 % Normal 0-2 [facility] Comment on above: Performed By: #### C JUAN A, BMP #### [facility] [address] [place] [address] Pluck Trimmer: Ajit Stevens DO Eosinophils (Bld) [#/Vol] 0.30 10*3/uL Normal 0.0-0.4 [facility] Comment on above: Performed By: #### C JUAN A, BMP #### [facility] [address] [place] [address] Pluck Trimmer: Ajit Stevens DO Eosinophils/100 WBC (Bld) 3 % Normal 0-4 [facility] Comment on above: Performed By: #### C JUAN A, BMP #### [facility] [address] [place] [address] Pluck Trimmer: Ajit Stevens DO Erythrocyte distribution width (RBC) [Ratio] 14.2 % Normal 11.5-14.9 [facility] Comment on above: Performed By: #### C DP, BMP #### [facility] [address] [place] [address] Pluck Trimmer: Ajit Stevens DO Hematocrit (Bld) [Volume fraction] 38.3 % Normal 36-46 [facility] Comment on above: Performed By: #### C DP, BMP #### [facility] [address] [place] [address] Pluck Trimmer: Ajit Stevens DO Hemoglobin (Bld) [Mass/Vol] 12.8 g/dL Normal 12.0-16.0 [facility] Comment on above: Performed By: #### C JUAN A, BMP #### [facility] [address] [place], [place] [address] [place] [address] Pluck Trimmer: Ajit Stevens DO Lymphocytes (Bld) [#/Vol] 2.50 10*3/uL Normal 1.0-4.8 [facility] Comment on above: Performed By: #### C JUAN A, BMP #### [facility] [place] [address] Pluck Trimmer: Ajit Stevens DO Lymphocytes/100 WBC (Bld) 29 % Normal 24-44 [facility] Comment on above: Performed By: #### C DP, BMP #### [facility] [place] [address] Pluck Trimmer: Ajit Stevens DO MCH (RBC) [Entitic mass] 31.4 pg Normal 26-34 [facility] Comment on above: Performed By: #### C DP, BMP #### [facility] [place] [address] Pluck Trimmer: Ajit Stevens DO MCHC (RBC) [Mass/Vol] 33.3 g/dL Normal 31-37 [facility] Comment on above: Performed By: #### C JUAN A, BMP #### [facility] [address] [place] [address] Pluck Trimmer: Ajit Stevens DO MCV (RBC) [Entitic vol] 94.1 fL Normal 80-100 [facility] Comment on above: Performed By: #### C JUAN A, BMP #### [facility] [place] [address] Pluck Trimmer: Ajit Stevens DO Monocytes (Bld) [#/Vol] 0.70 10*3/uL Normal 0.1-1.3 [facility] Comment on above: Performed By: #### C JUAN A, BMP #### [facility] [address] [place], [place] [address] [place] [address] Pluck Trimmer: Ajit Stevens DO Monocytes/100 WBC (Bld) 9 % High 1-7 [facility] Comment on above: Performed By: #### C JUAN A, BMP #### [facility] [place] [address] Pluck Trimmer: Ajit Stevens DO Neutrophil (Seg) 58 % Normal 36-66 [facility] Comment on above: Performed By: #### C JUAN A, BMP #### [facility] [place] [address] Pluck Trimmer: Ajit Stevens DO Platelet mean volume (Bld) [Entitic vol] 8.7 fL Normal 6.0-12.0 [facility] Comment on above: Performed By: #### C DP, BMP #### [facility] [place] [address] Pluck Trimmer: Ajit Stevens DO Platelets (Bld) [#/Vol] 196 10*3/uL Normal 150-450 [facility] Comment on above: Performed By: #### C DP, BMP #### [facility] [address] [place] [address] Pluck Trimmer: Ajit Stevens DO RBC (Bld) [#/Vol] 4.07 10*6/uL Normal 4.0-5.2 [facility] Comment on above: Performed By: #### C DP, BMP #### [facility] [address] [place] [address] Pluck Trimmer: Ajit Stevens DO WBC (Bld) [#/Vol] 8.4 10*3/uL Normal 3.5-11.0 [facility] Comment on above: Performed By: #### C DP, BMP #### [facility] [facility] [place] [address] Pluck Trimmer: Ajit Stevens DO Basic Metab w/rfx MGon 07-19 Anion gap [Moles/Vol] 9 mmol/L Normal 9-17 [facility] Comment on above: Performed By: #### P HO, BMPX, BNP #### [facility] [address] [facility] [place] [address] Pluck Trimmer: Ajit Stevens DO Calcium [Mass/Vol] 9.7 mg/dL Normal 8.6-10.4 [facility] Comment on above: Performed By: #### P HO, BMPX, BNP #### [facility] [facility] [place] [address] Pluck Trimmer: Ajit Stevens DO Chloride [Moles/Vol] 102 mmol/L Normal 98-107 [facility] Comment on above: Performed By: #### P HO, BMPX, BNP #### [facility] [place] [address] Pluck Trimmer: Ajit Stevesn DO CO2 [Moles/Vol] 26 mmol/L Normal 20-31 [facility] Comment on above: Performed By: #### P HO, BMPX, BNP #### [facility] [address] [facility] [place] [address] Pluck Trimmer: Ajit Stevens DO Creatinine [Mass/Vol] 0.6 mg/dL Normal 0.5-0.9 [facility] Comment on above: Performed By: #### P HO, BMPX, BNP #### [facility] [address] [facility] [place] [address] Pluck Trimmer: Ajit Stevens DO GFR/1.73 sq M.predicted among non-blacks MDRD (S/P/Bld) [Vol rate/Area] mL/min/{1.73_m2} Normal >60 [facility] Comment on above: Result Comment: These [...] By: #### P HO, BMPX, BNP #### [facility] [address] [facility] [place] [address] Pluck Trimmer: Ajit Stevens DO Glucose [Mass/Vol] 308 mg/dL High 70-99 [facility] Comment on above: Performed By: #### P HO, BMPX, BNP #### [facility] [place] [address] Pluck Trimmer: Ajit Stevens DO Potassium [Moles/Vol] 4.4 mmol/L Normal 3.7-5.3 [facility] Comment on above: Performed By: #### P HO, BMPX, BNP #### [facility] [address] [place] [address]. [place] [address] Pluck Trimmer: Ajit Stevens DO Sodium [Moles/Vol] 137 mmol/L Normal 135-144 [facility] Comment on above: Performed By: #### P HO, BMPX, BNP #### [facility] [address] [place] [address] Pluck Trimmer: Ajit Stevens DO Urea nitrogen [Mass/Vol] 17 mg/dL Normal 8-23 [facility] Comment on above: Performed By: #### P HO, BMPX, BNP #### [facility] [address] [place] [address] Pluck Trimmer: Ajit Stevens DO CBC with Diffon 07-19-2023 Abs. Basophil 0.10 k/uL Normal 0.0-0.2 [facility] Comment on above: Performed By: #### P HO, BMPX, BNP #### [facility] [address] [place] [address] Pluck Trimmer: Ajit Stevens DO Abs.Neutrophil (Seg) 4.70 k/uL Normal 1.3-9.1 [facility] Comment on above: Performed By: #### P HO, BMPX, BNP #### [facility] [address] [place] [address] Pluck Trimmer: Ajit Stevens DO Basophils/100 WBC (Bld) 1 % Normal 0-2 [facility] Comment on above: Performed By: #### P HO, BMPX, BNP #### [facility] [address] [place] [address] Pluck Trimmer: Ajit Stevens DO Eosinophils (Bld) [#/Vol] 0.20 10*3/uL Normal 0.0-0.4 [facility] Comment on above: Performed By: #### P HO, BMPX, BNP #### [facility] [place] [address] Pluck Trimmer: Ajit Stevens DO Eosinophils/100 WBC (Bld) 2 % Normal 0-4 [facility] Comment on above: Performed By: #### P HO, BMPX, BNP #### [facility] [address] [place] [address] Pluck Trimmer: Ajit Stevens DO Erythrocyte distribution width (RBC) [Ratio] 14.5 % Normal 11.5-14.9 [facility] Comment on above: Performed By: #### P HO, BMPX, BNP #### [facility] [address] [place] [address] Pluck Trimmer: Ajit Stevens DO Hematocrit (Bld) [Volume fraction] 38.2 % Normal 36-46 [facility] Comment on above: Performed By: #### P HO, BMPX, BNP #### [facility] [address] [place] [address] Pluck Trimmer: Ajit Stevens DO Hemoglobin (Bld) [Mass/Vol] 12.4 g/dL Normal 12.0-16.0 [facility] Comment on above: Performed By: #### P HO, BMPX, BNP #### [facility] [address] [place] [address] Pluck Trimmer: Ajit Stevens DO Lymphocytes (Bld) [#/Vol] 2.20 10*3/uL Normal 1.0-4.8 [facility] Comment on above: Performed By: #### P HO, BMPX, BNP #### [facility] [address] [place] [address] Pluck Trimmer: Ajit Stevens DO Lymphocytes/100 WBC (Bld) 28 % Normal 24-44 [facility] Comment on above: Performed By: #### P HO, BMPX, BNP #### [facility] [address] [place] [address] Pluck Trimmer: Ajit Stevens DO MCH (RBC) [Entitic mass] 30.7 pg Normal 26-34 [facility] Comment on above: Performed By: #### P HO, BMPX, BNP #### [facility] [address] [place] [phone] Pluck Trimmer: Ajit Stevens DO MCHC (RBC) [Mass/Vol] 32.5 g/dL Normal 31-37 [facility] Comment on above: Performed By: #### P HO, BMPX, BNP #### [facility] [address] [place] [address] Pluck Trimmer: Ajit Stevens DO MCV (RBC) [Entitic vol] 94.5 fL Normal 80-100 [facility] Comment on above: Performed By: #### P HO, BMPX, BNP #### [facility] [address] [place] [address] Pluck Trimmer: Ajit Stevens DO Monocytes (Bld) [#/Vol] 0.60 10*3/uL Normal 0.1-1.3 [facility] Comment on above: Performed By: #### P HO, BMPX, BNP #### [facility] [address] [place] [address] Pluck Trimmer: Ajit Stevens DO Monocytes/100 WBC (Bld) 7 % Normal 1-7 [facility] Comment on above: Performed By: #### P HO, BMPX, BNP #### [facility] [address] [place] [address] Pluck Trimmer: Ajit Stevens DO Neutrophil (Seg) 62 % Normal 36-66 [facility] Comment on above: Performed By: #### P HO, BMPX, BNP #### [facility] [place] [address] Pluck Trimmer: Ajit Stevens DO Platelet mean volume (Bld) [Entitic vol] 8.4 fL Normal 6.0-12.0 [facility] Comment on above: Performed By: #### P HO, BMPX, BNP #### [facility] [address] [facility] [place] [address] Pluck Trimmer: Ajit Stevens DO Platelets (Bld) [#/Vol] 214 10*3/uL Normal 150-450 [facility] Comment on above: Performed By: #### P HO, BMPX, BNP #### [facility] [address] [place] [address]. [place] [address] Pluck Trimmer: Ajit Stevens DO RBC (Bld) [#/Vol] 4.04 10*6/uL Normal 4.0-5.2 [facility] Comment on above: Performed By: #### P HO, BMPX, BNP #### [facility] [place] [address] Pluck Trimmer: Ajit Stevens DO WBC (Bld) [#/Vol] 7.7 10*3/uL Normal 3.5-11.0 [facility] Comment on above: Performed By: #### P HO, BMPX, BNP #### [facility] [address] [place] [phone] Pluck Trimmer: Ajit Stevens DO Cult,Urineon 07-19-2023 Cult,Urine Specimen [...] Tobramycin <=1 SUSCEPTIBLE Trimethoprim/Sulfa <=20 SUSCEPTIBLE Susceptible [facility] Comment on above: Performed By: #### V BG #### [facility] [address] [facility] [place] [address] Pluck Trimmer: Ajit Stevens DO CT HEAD WO CONTRASTon [...] Flip Ferris MD 07/17/23 Final result Normal [facility] Hemoglobin A1Con 07-18-2023 Glucose [Mass/Vol] 186 mg/dL Normal [facility] Comment on above: Result Comment: The ADA and AACC recommend providing the estimated average glucose result to permit better patient understanding of their HBA1c result. Performed By: #### P HO, BMPX, BNP #### [facility] [address] [facility] [place] [address] Pluck Trimmer: Ajit Stevens DO HbA1c (Bld) [Mass fraction] 8.1 % High 4.0-6.0 [facility] Comment on above: Performed By: #### P HO, BMPX, BNP #### [facility] [place] [address] Pluck Trimmer: Ajit Stevens DO TSH w/reflex to FT4on 2022 Thyroid Stim. Horm. 5.23 uIU/mL High 0.30-5.00 [facility] Comment on above: Performed By: #### P HO, BMPX, BNP #### [facility] [address] [place] [address] Pluck Trimmer: Ajit Stevens DO Thyroxine, Freeon 07-18-2023 Thyroxine, Free 1.5 ng/dL Normal 0.9-1.7 [facility] Comment on above: Performed By: #### P HO, BMPX, BNP #### [facility] [address] [place] [address] Pluck Trimmer: Ajit Stevens DO Urinalysis, Routineon 2022 Bilirubin, SemiQt,Ur Negative Normal NEG [facility] Comment on above: Performed By: #### U MICAO, UAX #### [facility] [address] [place] [address] Pluck Trimmer: Ajit Stevens DO Blood, Urine Negative Normal NEG [facility] Comment on above: Performed By: #### U MICAO, UAX #### [facility] [address] [place] [address] Pluck Trimmer: Ajit Stevens DO Clarity (U) Cloudy Abnormal CLEAR [facility] Comment on above: Performed By: #### U MICAO, UAX #### [facility] [address] [place] [address] Pluck Trimmer: Ajit Stevens DO Color (U) Dark Yellow Abnormal YEL [facility] Comment on above: Performed By: #### U WILLY UAX #### [facility] [address] [place] [address] Pluck Trimmer: Ajit Stevens DO Glucose Ql (U) LARGE Abnormal NEG [facility] Comment on above: Performed By: #### U WILLY UAX #### [facility] [address] [place] [address] Pluck Trimmer: Ajit Stevens DO Ketones Ql (U) Negative Normal NEG [facility] Comment on above: Performed By: #### U WILLY UAX #### [facility] [address] [place] [address] Pluck Trimmer: Ajit Stevens DO Leukocyte esterase Test strip Ql (U) Negative Normal NEG [facility] Comment on above: Performed By: #### Elaina AGUILERA UAX #### [facility] [address] [place] [address] Pluck Trimmer: Ajit Stevens DO Nitrite,Ur Negative Normal NEG [facility] Comment on above: Performed By: #### Elaina AGUILERA UAX #### [facility] [address] [place] [address] Pluck Trimmer: Ajit Stevens DO PH,Ur 5.0 Normal 5.0-8.0 [facility] Comment on above: Performed By: #### U COREY AGUILERAX #### [facility] [address] [place] [address] Pluck Trimmer: Ajit Stevens DO Protein Ql (U) TRACE Abnormal NEG [facility] Comment on above: Performed By: #### U WILLY UAX #### [facility] [address] [place] [address] [place] [address] Pluck Trimmer: Ajit Stevens DO Spec. Sorento,Ur 1.026 Normal 1.000-1.030 [facility] Comment on above: Performed By: #### Elaina AGUILERA UAX #### [facility] [place] [address] Pluck Trimmer: Ajit Stevens DO Urobilinogen,Ur Normal Normal 0.0-1.0 [facility] Comment on above: Performed By: #### COREY BOUCHERX #### [facility] [address] [place] [address] Pluck Trimmer: Ajit Stevens DO Urinalysis,Microon 3 Bacteria MANY Abnormal NONE [facility] Comment on above: Performed By: #### TODD BOUCHER #### [facility] [address] [place] [address] Pluck Trimmer: Ajit Stevens DO Epithelial cells LM Ql (Urine sed) 0 TO 2 Normal [facility] Comment on above: Performed By: #### Elaina AGUILERA UAX #### [facility] [address] [place] [address]. [place] [address] Pluck Trimmer: Ajit Stevens DO Urine RBC's 0 TO 2 Normal R02 [facility] Comment on above: Performed By: #### Elaina AGUILERA UAX #### [facility] [facility] [place] [address] Pluck Trimmer: Ajit Stevens DO Urine WBC's 0 TO 2 Abnormal R05 [facility] Comment on above: Performed By: #### Elaina AGUILERA UAX #### [facility] [address] [place] [address] Pluck Trimmer: Ajit Stevens DO Venous Blood Gaseson 10-06-2 023 Carboxy Hgb 5.1 % High 0-5 [facility] Comment on above: Result Comment: Reference Range: Non-Smokers 0-2% Average Smoker 2-4% Heavy Smoker <10% Performed By: #### V BG #### [facility] [address] [place] [address] Pluck Trimmer: Ajit Stevens DO HCO3 (Bld) [Moles/Vol] 27.6 mmol/L Normal 24.0-30.0 [facility] Comment on above: Performed By: #### Eladia BG #### [facility] [address] [place] [address] Pluck Trimmer: Ajit Stevens DO Methemoglobin 0.4 % Normal 0.0-1.9 [facility] Comment on above: Performed By: #### Eladia BG #### [facility] [address] [place] [address] Pluck Trimmer: Ajit Stevens DO Oxygen saturation in Blood 87.2 % High 60.0-85.0 [facility] Comment on above: Performed By: #### Eladia BG #### [facility] [address] [place] [address] Pluck Trimmer: Ajit Stevens DO pCO2 46.4 mm Hg Normal 39.0-55.0 [facility] Comment on above: Performed By: #### V BG #### [facility] [address] [place] [address] Pluck Trimmer: Ajit Stevens DO pH (Bld) 7.383 [pH] Normal 7.320-7.420 [facility] Comment on above: Performed By: #### V BG #### [facility] [address] [place] [address] Pluck Trimmer: Fanelly, Ajit, DO pO2 57.8 mm Hg High 30.0-50.0 [facility] Comment on above: Performed By: #### V BG #### [facility] [address] [facility] [place] [address] Pluck Trimmer: Ajit Stevens DO Positive Base Excess 2.5 mmol/L High 0.0-2.0 [facility] Comment on above: Performed By: #### V BG #### [facility] [address] [facility] [place] [address] Pluck Trimmer: Ajit Stevens DO Text for Respiratory RESULTS GIVEN TO PHYSICIAN. Normal [facility] Comment on above: Performed By: #### V BG #### [facility] [address] [facility] [place] [address] Pluck Trimmer: Ajit Stevens DO XR CHEST PORTABLEon 07-18-20 [...] Kevin Andujar MD 07/17/23 Final result Normal [facility] XR HIP 2-3 VW W PELVIS [...] Cory Leong MD 07/17/23 Final result Normal [facility] CBC with Diffon 07-17-2023 Abs. Basophil 0.10 k/uL Normal 0.0-0.2 [facility] Comment on above: Performed By: #### P HO, BMPX, BNP #### [facility] [facility] [place] [address] Pluck Trimmer: Ajit Stevens DO Abs.Neutrophil (Seg) 6.00 k/uL Normal 1.3-9.1 [facility] Comment on above: Performed By: #### P HO, BMPX, BNP #### [facility] [address] [place] [address]. [place] [address] Pluck Trimmer: Ajit Stevens DO Basophils/100 WBC (Bld) 1 % Normal 0-2 [facility] Comment on above: Performed By: #### P HO, BMPX, BNP #### [facility] [address] [place] [address]. [place] [address] Pluck Trimmer: Ajit Stevens DO Eosinophils (Bld) [#/Vol] 0.20 10*3/uL Normal 0.0-0.4 [facility] Comment on above: Performed By: #### P HO, BMPX, BNP #### [facility] [address] [place] [address] Pluck Trimmer: Ajit Stevens DO Eosinophils/100 WBC (Bld) 2 % Normal 0-4 [facility] Comment on above: Performed By: #### P HO, BMPX, BNP #### [facility] [address] [place] [address]. [place] [address] Pluck Trimmer: Ajit Stevens DO Erythrocyte distribution width (RBC) [Ratio] 14.6 % Normal 11.5-14.9 [facility] Comment on above: Performed By: #### P HO, BMPX, BNP #### [facility] [address] [facility] [place] [address] Pluck Trimmer: Ajit Stevens DO Hematocrit (Bld) [Volume fraction] 37.2 % Normal 36-46 [facility] Comment on above: Performed By: #### P HO, BMPX, BNP #### [facility] [place] [address] Pluck Trimmer: Ajit Stevens DO Hemoglobin (Bld) [Mass/Vol] 12.4 g/dL Normal 12.0-16.0 [facility] Comment on above: Performed By: #### P HO, BMPX, BNP #### [facility] [address] [place] [address] Pluck Trimmer: Ajit Stevens DO Lymphocytes (Bld) [#/Vol] 2.70 10*3/uL Normal 1.0-4.8 [facility] Comment on above: Performed By: #### P HO, BMPX, BNP #### [facility] [address] [place] [address] Pluck Trimmer: Ajit Stevens DO Lymphocytes/100 WBC (Bld) 27 % Normal 24-44 [facility] Comment on above: Performed By: #### P HO, BMPX, BNP #### [facility] [place] [address] Pluck Trimmer: Ajit Stevens DO MCH (RBC) [Entitic mass] 31.5 pg Normal 26-34 [facility] Comment on above: Performed By: #### P HO, BMPX, BNP #### [facility] [address] [place] [address] Pluck Trimmer: Ajit Stevens DO MCHC (RBC) [Mass/Vol] 33.3 g/dL Normal 31-37 [facility] Comment on above: Performed By: #### P HO, BMPX, BNP #### [facility] [address] [place] [address] Pluck Trimmer: Ajit Stevens DO MCV (RBC) [Entitic vol] 94.5 fL Normal 80-100 [facility] Comment on above: Performed By: #### P HO, BMPX, BNP #### [facility] [address] [place] [address] Pluck Trimmer: Ajit Stevens DO Monocytes (Bld) [#/Vol] 0.90 10*3/uL Normal 0.1-1.3 [facility] Comment on above: Performed By: #### P HO, BMPX, BNP #### [facility] [address] [place] [address] Pluck Trimmer: Ajit Stevens DO Monocytes/100 WBC (Bld) 9 % High 1-7 [facility] Comment on above: Performed By: #### P HO, BMPX, BNP #### [facility] [address] [place] [address] Pluck Trimmer: Ajit Stevens DO Neutrophil (Seg) 61 % Normal 36-66 [facility] Comment on above: Performed By: #### P HO, BMPX, BNP #### [facility] [address] [place] [address] Pluck Trimmer: Ajit Stevens DO Platelet mean volume (Bld) [Entitic vol] 8.7 fL Normal 6.0-12.0 [facility] Comment on above: Performed By: #### P HO, BMPX, BNP #### [facility] [address] [place] [address] [place] [address] Pluck Trimmer: Ajit Stevens DO Platelets (Bld) [#/Vol] 200 10*3/uL Normal 150-450 [facility] Comment on above: Performed By: #### P HO, BMPX, BNP #### [facility] [address] [place] [address] Pluck Trimmer: Ajit Stevens DO RBC (Bld) [#/Vol] 3.94 10*6/uL Low 4.0-5.2 [facility] Comment on above: Performed By: #### P HO, BMPX, BNP #### [facility] [address] [place] [address]. [place] [address] Pluck Trimmer: Ajit Stevens DO WBC (Bld) [#/Vol] 9.9 10*3/uL Normal 3.5-11.0 [facility] Comment on above: Performed By: #### P HO, BMPX, BNP #### [facility] [place] [address] Pluck Trimmer: Ajit Stevens DO Comp Metabolic Pr/rfx MGon 1 0- Bilirubin [Mass/Vol] mg/dL Low 0.3-1.2 [facility] Comment on above: Performed By: #### P HO, BMPX, BNP #### [facility] [address] [place] [address] Pluck Trimmer: Ajit Stevens DO Albumin [Mass/Vol] 3.6 g/dL Normal 3.5-5.2 [facility] Comment on above: Performed By: #### P HO, BMPX, BNP #### [facility] [place] [address] Pluck Trimmer: Ajit Stevens DO Alkaline Phos 64 U/L Normal 35-104 [facility] Comment on above: Performed By: #### P HO, BMPX, BNP #### [facility] [address] [place] [address] Pluck Trimmer: Ajit Stevens DO ALT [Catalytic activity/Vol] 15 U/L Normal 5-33 [facility] Comment on above: Performed By: #### P HO, BMPX, BNP #### [facility] [address] [place] [address] Pluck Trimmer: Ajit Stevens DO Anion gap [Moles/Vol] 12 mmol/L Normal 9-17 [facility] Comment on above: Performed By: #### P HO, BMPX, BNP #### [facility] [address] [place] [address] Pluck Trimmer: Ajit Stevens DO AST [Catalytic activity/Vol] 11 U/L Normal <32 [facility] Comment on above: Performed By: #### P HO, BMPX, BNP #### [facility] [place] [address] Pluck Trimmer: Ajit Stevens DO Calcium [Mass/Vol] 9.5 mg/dL Normal 8.6-10.4 [facility] Comment on above: Performed By: #### P HO, BMPX, BNP #### [facility] [place] [address] Pluck Trimmer: Ajit Stevens DO Chloride [Moles/Vol] 105 mmol/L Normal 98-107 [facility] Comment on above: Performed By: #### P HO, BMPX, BNP #### [facility] [address] [place] [address] Pluck Trimmer: Ajit Stevens DO CO2 [Moles/Vol] 24 mmol/L Normal 20-31 [facility] Comment on above: Performed By: #### P HO, BMPX, BNP #### [facility] [address] [facility] [place] [address] Pluck Trimmer: Ajit Stevens DO Creatinine [Mass/Vol] 1.2 mg/dL High 0.5-0.9 [facility] Comment on above: Performed By: #### P HO, BMPX, BNP #### [facility] [address] [facility] [place] [address] Pluck Trimmer: Ajit Stevens DO GFR/1.73 sq M.predicted among non-blacks MDRD (S/P/Bld) [Vol rate/Area] 49 mL/min/{1.73_m2} Low >60 [facility] Comment on above: Result Comment: These [...] By: #### P HO, BMPX, BNP #### [facility] [address] [facility] [place] [address] Pluck Trimmer: Ajit Stevens DO Glucose [Mass/Vol] 113 mg/dL High 70-99 [facility] Comment on above: Performed By: #### P HO, BMPX, BNP #### [facility] [address] [facility] [place] [address] Pluck Trimmer: Ajit Stevens DO Potassium [Moles/Vol] 3.9 mmol/L Normal 3.7-5.3 [facility] Comment on above: Performed By: #### P HO, BMPX, BNP #### [facility] [address] [facility] [place] [address] Pluck Trimmer: Ajit Stevens DO Protein [Mass/Vol] 6.6 g/dL Normal 6.4-8.3 [facility] Comment on above: Performed By: #### P HO, BMPX, BNP #### [facility] [address] [place] [address] Pluck Trimmer: Ajit Stevens DO Sodium [Moles/Vol] 141 mmol/L Normal 135-144 [facility] Comment on above: Performed By: #### P HO, BMPX, BNP #### [facility] [address] [place] [address] Pluck Trimmer: Ajit Stevens DO Urea nitrogen [Mass/Vol] 34 mg/dL High 8-23 [facility] Comment on above: Performed By: #### P HO, BMPX, BNP #### [facility] [address] [place] [address] Pluck Trimmer: Ajit Stevens DO Lactic Acidon 07-17-2023 Lactate [Moles/Vol] 1.5 mmol/L Normal 0.5-2.2 [facility] Comment on above: Performed By: #### P HO, BMPX, BNP #### [facility] [place] [address] Pluck Trimmer: Ajit Stevens DO Prot. Electroph, Blon 2022 Pathologist Review: ELECTRONICALLY SIGNED. ALLEN BRICENO M.D. Normal [facility] Comment on above: Performed By: #### P HO, BMPX, BNP #### [facility] [place] [address] Pluck Trimmer: Ajit Stevens DO Prot. Elect-Interp NORMAL ELECTROPHORETIC PATTERN Normal [facility] Comment on above: Performed By: #### P HO, BMPX, BNP #### [facility] [address] [place] [address] Pluck Trimmer: Ajit Stevens DO PAUL Screen w/reflexon 2022 PAUL Screen Negative Normal NEG [facility] Comment on above: Performed By: #### P HO, BMPX, BNP #### [facility] [address] [place] [address] Pluck Trimmer: Ajit Stevens DO Anti-dsDNA 1.1 IU/mL Normal <10.0 [facility] Comment on above: Result Comment: Reference Range: <10.0 Negative 10.0-15.0 Equivocal >15.0 Positive Performed By: #### P HO, BMPX, BNP #### [facility] [address] [place] [address] Pluck Trimmer: Ajit Stevens DO SVETLANA Screen 0.3 U/mL Normal <0.7 [facility] Comment on above: Result Comment: Reference Range: <0.7 Negative 0.7-1.0 Equivocal >1.0 Positive SVETLANA Screen includes U1RNP,RNP70,Sm,Ro(SS-A),La(SS-B),CENP,Scl-70,Gem-1 Performed By: #### P HO, BMPX, BNP #### [facility] [address] [place] [address] Pluck Trimmer: Ajit Stevens DO CBC with Auto Differentialon 01-06-2023 Absolute Eos # 0.[address] [facility] Absolute Lymph # 3.[address] [facility] Absolute [place] # 0.[address] [facility] Basophils (Bld) [#/Vol] 0.10 10*3/uL [facility] Basophils/100 WBC (Bld) 1 % 0 - 2 % [facility] Eosinophils/100 WBC (Bld) 3 % 0 - 4 % [facility] Hematocrit (Bld) [Volume fraction] 41.8 % 36 - 46 % [facility] Hemoglobin (Bld) [Mass/Vol] 14.1 g/dL 12.0 - 16.0 g/dL [facility] Interpretation and review of laboratory results Abnormal [facility] Lymphocytes/100 WBC (Bld) 37 % 24 - 44 % [facility] MCH (RBC) [Entitic mass] 30.8 pg 26 - 34 pg [facility] MCHC (RBC) [Mass/Vol] 33.7 g/dL 31 - 37 g/dL [facility] MCV (RBC) [Entitic vol] 91.5 fL 80 - 100 fL [facility] Monocytes/100 WBC (Bld) 9 % High 1 - 7 % [facility] Platelet distribution width (Bld) [Ratio] 14.2 % 11.5 - 14.9 % [facility] Platelet mean volume (Bld) [Entitic vol] 8.2 fL 6.0 - 12.0 fL [facility] Platelets (Bld) [#/Vol] 260 10*3/uL [facility] RBC (Bld) [#/Vol] 4.56 10*6/uL 4.0 - 5.2 m/uL [facility] Segmented neutrophils/100 WBC (Bld) 50 % 36 - 66 % [facility] Segs Absolute 4.40 [facility] WBC (Bld) [#/Vol] 8.7 10*3/uL [facility] CBC with Diffon 01-06-2023 Abs. Basophil 0.10 k/uL Normal 0.0-0.2 [facility] Comment on above: Performed By: #### V BG #### [facility] [address] [place] [address] Pluck Trimmer: Ajit Stevens DO Abs.Neutrophil (Seg) 4.40 k/uL Normal 1.3-9.1 [facility] Comment on above: Performed By: #### V BG #### [facility] [address] [place] [address] Pluck Trimmer: Ajit Stevens DO Basophils/100 WBC (Bld) 1 % Normal 0-2 [facility] Comment on above: Performed By: #### V BG #### [facility] [address] [place] [address] Pluck Trimmer: Ajit Stevens DO Eosinophils (Bld) [#/Vol] 0.20 10*3/uL Normal 0.0-0.4 [facility] Comment on above: Performed By: #### V BG #### [facility] [address] [place] [address] Pluck Trimmer: Ajit Stevens DO Eosinophils/100 WBC (Bld) 3 % Normal 0-4 [facility] Comment on above: Performed By: #### V BG #### [facility] [address] [place] [address] Pluck Trimmer: Ajit Stevens DO Erythrocyte distribution width (RBC) [Ratio] 14.2 % Normal 11.5-14.9 [facility] Comment on above: Performed By: #### V BG #### [facility] [address] [place] [address] Pluck Trimmer: Ajit Stevens DO Hematocrit (Bld) [Volume fraction] 41.8 % Normal 36-46 [facility] Comment on above: Performed By: #### Eladia BG #### [facility] [address] [place] [address] Pluck Trimmer: Ajit Stevens DO Hemoglobin (Bld) [Mass/Vol] 14.1 g/dL Normal 12.0-16.0 [facility] Comment on above: Performed By: #### V BG #### [facility] [address] [place] [address] Pluck Trimmer: Ajit Stevens DO Lymphocytes (Bld) [#/Vol] 3.20 10*3/uL Normal 1.0-4.8 [facility] Comment on above: Performed By: #### V BG #### [facility] [place] [address] Pluck Trimmer: Ajit Stevens DO Lymphocytes/100 WBC (Bld) 37 % Normal 24-44 [facility] Comment on above: Performed By: #### V BG #### [facility] [address] [place] [address] Pluck Trimmer: Ajit Stevens DO MCH (RBC) [Entitic mass] 30.8 pg Normal 26-34 [facility] Comment on above: Performed By: #### V BG #### [facility] [address] [place] [address] Pluck Trimmer: Ajit Stevens DO MCHC (RBC) [Mass/Vol] 33.7 g/dL Normal 31-37 [facility] Comment on above: Performed By: #### V BG #### [facility] [address] [place] [address] Pluck Trimmer: Ajit Stevens DO MCV (RBC) [Entitic vol] 91.5 fL Normal 80-100 [facility] Comment on above: Performed By: #### Eladia BG #### [facility] [address] [place] [address] Pluck Trimmer: Ajit Stevens DO Monocytes (Bld) [#/Vol] 0.80 10*3/uL Normal 0.1-1.3 [facility] Comment on above: Performed By: #### Eladia BG #### [facility] [address] [place] [address] Pluck Trimmer: Ajit Stevens DO Monocytes/100 WBC (Bld) 9 % High 1-7 [facility] Comment on above: Performed By: #### Eladia BG #### [facility] [address] [place] [address] Pluck Trimmer: Ajit Stevens DO Neutrophil (Seg) 50 % Normal 36-66 [facility] Comment on above: Performed By: #### V BG #### [facility] [place] [address] Pluck Trimmer: Ajit Stevens DO Platelet mean volume (Bld) [Entitic vol] 8.2 fL Normal 6.0-12.0 [facility] Comment on above: Performed By: #### Eladia BG #### [facility] [address] [place] [phone] Pluck Trimmer: Ajit Stevens DO Platelets (Bld) [#/Vol] 260 10*3/uL Normal 150-450 [facility] Comment on above: Performed By: #### Eladia BG #### [facility] [address] [place] [address] 9[address]51 Pluck Trimmer: Ajit Stevens DO RBC (Bld) [#/Vol] 4.56 10*6/uL Normal 4.0-5.2 [facility] Comment on above: Performed By: #### Eladia BG #### [facility] [address] [place] [address] 54756 Pluck Trimmer: Ajit Stevens DO WBC (Bld) [#/Vol] 8.7 10*3/uL Normal 3.5-11.0 [facility] Comment on above: Performed By: #### Eladia BG #### [facility] [address] [place] [address] 65591 Pluck Trimmer: Ajit Stevens DO POC Glucose Fingerstickon Glucose [Mass/Vol] 319 mg/dL High 65 - 105 mg/dL [facility] Interpretation and review of laboratory results Abnormal [facility] Glucose [Mass/Vol] 210 mg/dL High 65 - 105 mg/dL [facility] Interpretation and review of laboratory results Abnormal [facility] ProtAddy Noel 2022 Albumin [Mass/Vol] 3.5 g/dL Normal 3.2-5.2 [facility] Comment on above: Performed By: #### P HO, BMPX, BNP #### [facility] [address] [place] [address] Pluck Trimmer: Ajit Stevens DO Albumin, % 59 % Normal 45-65 [facility] Comment on above: Performed By: #### P HO, BMPX, BNP #### [facility] [address] [place] [address] Pluck Trimmer: Ajit Stevens DO Zdoov-7-fkxwcwdtp 0.2 g/dL Normal 0.1-0.4 [facility] Comment on above: Performed By: #### P HO, BMPX, BNP #### [facility] [address] [place] [address] Pluck Trimmer: Ajit Stevens DO Snplg-6-idagpifra,% 3 % Normal 3-6 [facility] Comment on above: Performed By: #### P HO, BMPX, BNP #### [facility] [place] [address] Pluck Trimmer: Ajit Stevens DO Zucte-9-weqwnwedz 0.8 g/dL Normal 0.5-0.9 [facility] Comment on above: Performed By: #### P HO, BMPX, BNP #### [facility] [address] [place] [address] Pluck Trimmer: Ajit Stevens DO Tbmue-1-xruidmvkd,% 13 % Normal 6-13 [facility] Comment on above: Performed By: #### P HO, BMPX, BNP #### [facility] [address] [facility] [place] [address] Pluck Trimmer: Ajit Stevens DO Beta-globulins 0.9 g/dL Normal 0.5-1.1 [facility] Comment on above: Performed By: #### P HO, BMPX, BNP #### [facility] [address] [place] [address] Pluck Trimmer: Ajit Stevens DO Beta-globulins,% 14 % Normal 11-19 [facility] Comment on above: Performed By: #### P HO, BMPX, BNP #### [facility] [place] [address] Pluck Trimmer: Ajit Stevens DO Gamma-globulins 0.7 g/dL Normal 0.5-1.5 [facility] Comment on above: Performed By: #### P HO, BMPX, BNP #### [facility] [address] [place] [address]7947 Pluck Trimmer: Ajit Stevens DO Gamma-globulins,% 11 % Normal 9-20 [facility] Comment on above: Performed By: #### P HO, BMPX, BNP #### [facility] [address] [place] [address] 8[address] Pluck Trimmer: Ajit Stevens DO Total Prot. Sum 6.1 g/dL Low 6.3-8.2 [facility] Comment on above: Performed By: #### P HO, BMPX, BNP #### [facility] [address] [place] [address]. [place] [address] Pluck Trimmer: Ajit Stevens DO Total Prot. Sum,% 100 % Normal 98-102 [facility] Comment on above: Performed By: #### P HO, BMPX, BNP #### [facility] [address] [place] [address] Pluck Trimmer: Ajit Stevens DO Basic Metab w/rfx MGon 01-05 Anion gap [Moles/Vol] 12 mmol/L Normal 9-17 [facility] Comment on above: Performed By: #### C DP, BMPX #### [facility] [address] [place] [address] Pluck Trimmer: Ajit Stevens DO Calcium [Mass/Vol] 9.0 mg/dL Normal 8.6-10.4 [facility] Comment on above: Performed By: #### C DP, BMPX #### [facility] [address] [place] [address] 28[address] Pluck Trimmer: Ajit Stevens DO Chloride [Moles/Vol] 104 mmol/L Normal 98-107 [facility] Comment on above: Performed By: #### C DP, BMPX #### [facility] [address] [place] [address] Pluck Trimmer: Ajit Stevens DO CO2 [Moles/Vol] 20 mmol/L Normal 20-31 [facility] Comment on above: Performed By: #### C DP, BMPX #### [facility] [address] [place] [address] 81325 Pluck Trimmer: Ajit Stevens DO Creatinine [Mass/Vol] 0.58 mg/dL Normal 0.50-0.90 [facility] Comment on above: Performed By: #### C DP, BMPX #### [facility] [address] [place] [address] 9[address]40 Pluck Trimmer: Ajit Stevens DO GFR/1.73 sq M.predicted among non-blacks MDRD (S/P/Bld) [Vol rate/Area] mL/min/{1.73_m2} Normal >60 [facility] Comment on above: Result Comment: These [...] Performed By: #### C DP, BMPX #### [facility] [address] [facility] [place] [address] Pluck Trimmer: Ajit Stevens DO Glucose [Mass/Vol] 191 mg/dL High 70-99 [facility] Comment on above: Performed By: #### C JUAN A, BMPX #### [facility] [address] [place] [address]. [place] [address] Pluck Trimmer: Ajit Stevens DO Potassium [Moles/Vol] 3.9 mmol/L Normal 3.7-5.3 [facility] Comment on above: Performed By: #### C JUAN A, BMPX #### [facility] [address] [place] [address]. [place] [address] Pluck Trimmer: Ajit Stevens DO Sodium [Moles/Vol] 136 mmol/L Normal 135-144 [facility] Comment on above: Performed By: #### C JUAN A, BMPX #### [facility] [address] [place] [address]. [place] [address] Pluck Trimmer: Aijt Stevens DO Urea nitrogen [Mass/Vol] 9 mg/dL Normal 8-23 [facility] Comment on above: Performed By: #### C JUAN A, BMPX #### [facility] [address] [place] [address] 89[address] Pluck Trimmer: Ajit Stevens DO Basic Metabolic Panel w/ Ref tena to MGon 01-05-2023 Anion gap [Moles/Vol] 12 mmol/L 9 - 17 mmol/L [facility] Calcium [Mass/Vol] 9.0 mg/dL 8.6 - 10. 4 mg/dL [facility] Chloride [Moles/Vol] 104 mmol/L 98 - 10 7 mmol/L [facility] CO2 [Moles/Vol] 20 mmol/L 20 - 31 mmol/L [facility] Creatinine [Mass/Vol] 0.58 mg/dL 0.50 - 0.90 mg/dL [facility] GFR/1.73 sq M.predicted MDRD (S/P/Bld) [Vol rate/Area] - [facility] Comment on above: These results are not [...] 191 mg/dL High 70 - 99 mg/dL [facility] Interpretation and review of laboratory results Abnormal [facility] Potassium [Moles/Vol] 3.9 mmol/L 3.7 - 5.3 mmol/L [facility] Sodium [Moles/Vol] 136 mmol/L 135 - 144 mmol/L [facility] Urea nitrogen [Mass/Vol] 9 mg/dL 8 - 23 mg/dL [facility] CBC with Auto Differentialon 01-05-2023 Absolute Eos # 0.[address] [facility] Absolute Lymph # 2.[facility] Absolute [place] # 0.[address] [facility] Basophils (Bld) [#/Vol] 0.10 10*3/uL [facility] Basophils/100 WBC (Bld) 1 % 0 - 2 % [facility] Eosinophils/100 WBC (Bld) 3 % 0 - 4 % [facility] Hematocrit (Bld) [Volume fraction] 38.8 % 36 - 46 % [facility] Hemoglobin (Bld) [Mass/Vol] 12.9 g/dL 12.0 - 16.0 g/dL [facility] Interpretation and review of laboratory results Abnormal [facility] Lymphocytes/100 WBC (Bld) 32 % 24 - 44 % [facility] MCH (RBC) [Entitic mass] 31.3 pg 26 - 34 pg [facility] MCHC (RBC) [Mass/Vol] 33.3 g/dL 31 - 37 g/dL [facility] MCV (RBC) [Entitic vol] 94.2 fL 80 - 100 fL [facility] Monocytes/100 WBC (Bld) 10 % High 1 - 7 % [facility] Platelet distribution width (Bld) [Ratio] 14.6 % 11.5 - 14.9 % [facility] Platelet mean volume (Bld) [Entitic vol] 7.9 fL 6.0 - 12.0 fL [facility] Platelets (Bld) [#/Vol] 217 10*3/uL [facility] RBC (Bld) [#/Vol] 4.12 10*6/uL 4.0 - 5.2 m/uL [facility] Segmented neutrophils/100 WBC (Bld) 54 % 36 - 66 % [facility] Segs Absolute 4.70 [facility] WBC (Bld) [#/Vol] 8.7 10*3/uL [facility] CBC with Diffon 01-05-2023 Abs. Basophil 0.10 k/uL Normal 0.0-0.2 [facility] Comment on above: Performed By: #### C DP, BMPX #### [facility] [address] [place] [address] Pluck Trimmer: Ajit Stevens DO Abs.Neutrophil (Seg) 4.70 k/uL Normal 1.3-9.1 [facility] Comment on above: Performed By: #### C DP, BMPX #### [facility] [address] [place], [place] [id number] Pluck Trimmer: Fanelly, Ajit, DO Basophils/100 WBC (Bld) 1 % Normal 0-2 [facility] Comment on above: Performed By: #### C DP, BMPX #### [facility] [place] [address] Pluck Trimmer: Ajit Stevens DO Eosinophils (Bld) [#/Vol] 0.30 10*3/uL Normal 0.0-0.4 [facility] Comment on above: Performed By: #### C DP, BMPX #### [facility] [place] [address] Pluck Trimmer: Ajit Stevens DO Eosinophils/100 WBC (Bld) 3 % Normal 0-4 [facility] Comment on above: Performed By: #### C DP, BMPX #### [facility] [address] [place] [address] [phone] Pluck Trimmer: Ajit Stevens DO Erythrocyte distribution width (RBC) [Ratio] 14.6 % Normal 11.5-14.9 [facility] Comment on above: Performed By: #### C JUAN A, BMPX #### [facility] [address] [place] [address] 86034 Pluck Trimmer: Ajit Stevens DO Hematocrit (Bld) [Volume fraction] 38.8 % Normal 36-46 [facility] Comment on above: Performed By: #### C DP, BMPX #### [facility] [address] [place] [address] 22763 Pluck Trimmer: Ajit Stevens DO Hemoglobin (Bld) [Mass/Vol] 12.9 g/dL Normal 12.0-16.0 [facility] Comment on above: Performed By: #### C DP, BMPX #### [facility] [address] [place] [address] 80157 Pluck Trimmer: Fanelly, Ajit, DO Lymphocytes (Bld) [#/Vol] 2.70 10*3/uL Normal 1.0-4.8 [facility] Comment on above: Performed By: #### C DP, BMPX #### [facility] [place] [address] Pluck Trimmer: Ajit Stevens DO Lymphocytes/100 WBC (Bld) 32 % Normal 24-44 [facility] Comment on above: Performed By: #### C DP, BMPX #### [facility] [place] [address] Pluck Trimmer: Ajit Stevens DO MCH (RBC) [Entitic mass] 31.3 pg Normal 26-34 [facility] Comment on above: Performed By: #### C JUAN A, BMPX #### [facility] [address] [place] [address] 20074 Pluck Trimmer: Ajit Stevens DO MCHC (RBC) [Mass/Vol] 33.3 g/dL Normal 31-37 [facility] Comment on above: Performed By: #### C JUAN A, BMPX #### [facility] [address] [place] [address] 75548 Pluck Trimmer: Ajit Stevens DO MCV (RBC) [Entitic vol] 94.2 fL Normal 80-100 [facility] Comment on above: Performed By: #### C JUAN A, BMPX #### [facility] [address] [place] [address] 14766 Pluck Trimmer: Ajit Stevens DO Monocytes (Bld) [#/Vol] 0.90 10*3/uL Normal 0.1-1.3 [facility] Comment on above: Performed By: #### C DP, BMPX #### [facility] [address] [place] [address] 85651 Pluck Trimmer: Ajit Stevens DO Monocytes/100 WBC (Bld) 10 % High 1-7 [facility] Comment on above: Performed By: #### C JUAN A, BMPX #### [facility] [address] [place] [address] Pluck Trimmer: Ajit Stevens DO Neutrophil (Seg) 54 % Normal 36-66 [facility] Comment on above: Performed By: #### C DP, BMPX #### [facility] [address] [place] [address] Pluck Trimmer: Ajit Stevens DO Platelet mean volume (Bld) [Entitic vol] 7.9 fL Normal 6.0-12.0 [facility] Comment on above: Performed By: #### C JUAN A, BMPX #### [facility] [address] [place] [address] 75583 Pluck Trimmer: Ajit Stevens DO Platelets (Bld) [#/Vol] 217 10*3/uL Normal 150-450 [facility] Comment on above: Performed By: #### C JUAN A, BMPX #### [facility] [address] [place] [address] 65153 Pluck Trimmer: Ajit Stevens DO RBC (Bld) [#/Vol] 4.12 10*6/uL Normal 4.0-5.2 [facility] Comment on above: Performed By: #### C JUAN A, BMPX #### [facility] [place] [address] Pluck Trimmer: Ajit Stevens DO WBC (Bld) [#/Vol] 8.7 10*3/uL Normal 3.5-11.0 [facility] Comment on above: Performed By: #### C JUAN A, BMPX #### [facility] [address] [place] [address] 50818 Pluck Trimmer: Fanelly, Ajit, DO POC Glucose Fingerstickon Glucose [Mass/Vol] 260 mg/dL High 65 - 105 mg/dL [facility] Interpretation and review of laboratory results Abnormal [facility] Glucose [Mass/Vol] 182 mg/dL High 65 - 105 mg/dL [facility] Interpretation and review of laboratory results Abnormal [facility] Glucose [Mass/Vol] 238 mg/dL High 65 - 105 mg/dL [facility] Interpretation and review of laboratory results Abnormal [facility] Glucose [Mass/Vol] 185 mg/dL High 65 - 105 mg/dL [facility] Interpretation and review of laboratory results Abnormal [facility] Basic Metab w/rfx MGon 01-04 GFR/1.73 sq M.predicted among non-blacks MDRD (S/P/Bld) [Vol rate/Area] mL/min/{1.73_m2} Normal >60 [facility] Comment on above: Result Comment: These [...] renal tubular secretion. Performed By: #### P YARON HOWE, BNP #### [facility] [address] [facility]. [place], [place] [id number] Pluck Trimmer: Ajit Stevens DO Anion gap [Moles/Vol] 10 mmol/L Normal 9-17 [facility] Comment on above: Performed By: #### YARON SAWANT, BNP #### [facility] [address] [facility]. [place], [place] [phone] Pluck Trimmer: Ajit Stevens DO Calcium [Mass/Vol] 9.1 mg/dL Normal 8.6-10.4 [facility] Comment on above: Performed By: #### P HO, BMPX, BNP #### [facility] [place] [address] Pluck Trimmer: Ajit Stevens DO Chloride [Moles/Vol] 105 mmol/L Normal 98-107 [facility] Comment on above: Performed By: #### P HO, BMPX, BNP #### [facility] [address] [place] [address] 08864 Pluck Trimmer: Ajit Stevens DO CO2 [Moles/Vol] 24 mmol/L Normal 20-31 [facility] Comment on above: Performed By: #### P HO, BMPX, BNP #### [facility] [address] [place] [address] 74434 Pluck Trimmer: Ajit Stevens DO Creatinine [Mass/Vol] 0.77 mg/dL Normal 0.50-0.90 [facility] Comment on above: Performed By: #### P HO, BMPX, BNP #### [facility] [address] [place] [address] 07580 Pluck Trimmer: Ajit Stevens DO Glucose [Mass/Vol] 170 mg/dL High 70-99 [facility] Comment on above: Performed By: #### P HO, BMPX, BNP #### [facility] [address] [place] [address] 15933 Pluck Trimmer: Ajit Stevens DO Potassium [Moles/Vol] 4.2 mmol/L Normal 3.7-5.3 [facility] Comment on above: Performed By: #### P HO, BMPX, BNP #### [facility] [address] [place] [address] 21618 Pluck Trimmer: Ajit Stevens DO Sodium [Moles/Vol] 139 mmol/L Normal 135-144 [facility] Comment on above: Performed By: #### P HO, BMPX, BNP #### [facility] [address] [facility] [place] [address] Pluck Trimmer: Ajit Stevens DO Urea nitrogen [Mass/Vol] 20 mg/dL Normal 8-23 [facility] Comment on above: Performed By: #### P HO, BMPX, BNP #### [facility] [address] [facility]. [place], [place] [phone] Pluck Trimmer: Ajit Stevens DO Basic Metabolic Panel w/ Ref tena to MGon 01-04-2023 GFR/1.73 sq M.predicted MDRD (S/P/Bld) [Vol rate/Area] - [facility] Comment on above: These results are not [...] Interpretation and review of laboratory results Abnormal [facility] CBC with Auto Differentialon 01-04-2023 [facility] # 0.[facility] Lymph # 2.[facility] Absolute [place] # 0.80 [facility] Basophils (Bld) [#/Vol] 0.10 10*3/uL [facility] Basophils/100 WBC (Bld) 1 % 0 - 2 % [facility] Eosinophils/100 WBC (Bld) 3 % 0 - 4 % [facility] Hematocrit (Bld) [Volume fraction] 38.7 % 36 - 46 % [facility] Hemoglobin (Bld) [Mass/Vol] 13.2 g/dL 12.0 - 16.0 g/dL [facility] Interpretation and review of laboratory results Abnormal [facility] Lymphocytes/100 WBC (Bld) 33 % 24 - 44 % [facility] MCH (RBC) [Entitic mass] 31.3 pg 26 - 34 pg [facility] MCHC (RBC) [Mass/Vol] 34.1 g/dL 31 - 37 g/dL [facility] MCV (RBC) [Entitic vol] 91.7 fL 80 - 100 fL [facility] Monocytes/100 WBC (Bld) 9 % High 1 - 7 % [facility] Platelet distribution width (Bld) [Ratio] 14.6 % 11.5 - 14.9 % [facility] Platelet mean volume (Bld) [Entitic vol] 8.1 fL 6.0 - 12.0 fL [facility] Platelets (Bld) [#/Vol] 231 10*3/uL [facility] RBC (Bld) [#/Vol] 4.21 10*6/uL 4.0 - 5.2 m/uL [facility] Segmented neutrophils/100 WBC (Bld) 54 % 36 - 66 % [facility] Segs Absolute 4.80 [facility] WBC (Bld) [#/Vol] 8.8 10*3/uL [facility] CBC with Diffon 01-04-2023 Abs. Basophil 0.10 k/uL Normal 0.0-0.2 [facility] Comment on above: Performed By: #### P HO, BMPX, BNP #### [facility] [address] [place] [address] Pluck Trimmer: Ajit Stevens DO Abs.Neutrophil (Seg) 4.80 k/uL Normal 1.3-9.1 [facility] Comment on above: Performed By: #### P HO, BMPX, BNP #### [facility] [address] [place] [address] Pluck Trimmer: Ajit Stevens DO Basophils/100 WBC (Bld) 1 % Normal 0-2 [facility] Comment on above: Performed By: #### P HO, BMPX, BNP #### [facility] [address] [place] [address] Pluck Trimmer: Ajit Stevens DO Eosinophils (Bld) [#/Vol] 0.20 10*3/uL Normal 0.0-0.4 [facility] Comment on above: Performed By: #### P HO, BMPX, BNP #### [facility] [address] [place] [phone] Pluck Trimmer: Ajit Stevens DO Eosinophils/100 WBC (Bld) 3 % Normal 0-4 [facility] Comment on above: Performed By: #### P HO, BMPX, BNP #### [facility] [address] [place] [address]109 Pluck Trimmer: Ajit Stevens DO Erythrocyte distribution width (RBC) [Ratio] 14.6 % Normal 11.5-14.9 [facility] Comment on above: Performed By: #### P HO, BMPX, BNP #### [facility] [address] [place] [phone] Pluck Trimmer: Ajit Stevens DO Hematocrit (Bld) [Volume fraction] 38.7 % Normal 36-46 [facility] Comment on above: Performed By: #### P HO, BMPX, BNP #### [facility] [address] [place] [address] 11812 Pluck Trimmer: Ajit Stevens DO Hemoglobin (Bld) [Mass/Vol] 13.2 g/dL Normal 12.0-16.0 [facility] Comment on above: Performed By: #### P HO, BMPX, BNP #### [facility] [address] [place] [address] 30984 Pluck Trimmer: Ajit Stevens DO Lymphocytes (Bld) [#/Vol] 2.90 10*3/uL Normal 1.0-4.8 [facility] Comment on above: Performed By: #### P HO, BMPX, BNP #### [facility] [address] [place] [address] Pluck Trimmer: Ajit Stevens DO Lymphocytes/100 WBC (Bld) 33 % Normal 24-44 [facility] Comment on above: Performed By: #### P HO, BMPX, BNP #### [facility] [place] [address] Pluck Trimmer: Ajit Stevens DO MCH (RBC) [Entitic mass] 31.3 pg Normal 26-34 [facility] Comment on above: Performed By: #### P HO, BMPX, BNP #### [facility] [address] [place] [phone] Pluck Trimmer: Ajit Stevens DO MCHC (RBC) [Mass/Vol] 34.1 g/dL Normal 31-37 [facility] Comment on above: Performed By: #### P HO, BMPX, BNP #### [facility] [address] [place] [address] 82395 Pluck Trimmer: Ajit Stevens DO MCV (RBC) [Entitic vol] 91.7 fL Normal 80-100 [facility] Comment on above: Performed By: #### P HO, BMPX, BNP #### [facility] [address] [place] [address] [phone] Pluck Trimmer: Ajit Stevens DO Monocytes (Bld) [#/Vol] 0.80 10*3/uL Normal 0.1-1.3 [facility] Comment on above: Performed By: #### P HO, BMPX, BNP #### [facility] [address] [place] [address] 26688 Pluck Trimmer: Ajit Stevens DO Monocytes/100 WBC (Bld) 9 % High 1-7 [facility] Comment on above: Performed By: #### P HO, BMPX, BNP #### [facility] [address] [facility] [place] [address] Pluck Trimmer: Ajit Stevens DO Neutrophil (Seg) 54 % Normal 36-66 [facility] Comment on above: Performed By: #### P HO, BMPX, BNP #### [facility] [place] [address] Pluck Trimmer: Ajit Stevens DO Platelet mean volume (Bld) [Entitic vol] 8.1 fL Normal 6.0-12.0 [facility] Comment on above: Performed By: #### P HO, BMPX, BNP #### [facility] [place] [address] Pluck Trimmer: Ajit Stevens DO Platelets (Bld) [#/Vol] 231 10*3/uL Normal 150-450 [facility] Comment on above: Performed By: #### P HO, BMPX, BNP #### [facility] [place] [address] Pluck Trimmer: Ajit Stevens DO RBC (Bld) [#/Vol] 4.21 10*6/uL Normal 4.0-5.2 [facility] Comment on above: Performed By: #### P HO, BMPX, BNP #### [facility] [place] [address] Pluck Trimmer: Ajit Stevens DO WBC (Bld) [#/Vol] 8.8 10*3/uL Normal 3.5-11.0 [facility] Comment on above: Performed By: #### P HO, BMPX, BNP #### [facility] [place] [address] Pluck Trimmer: Ajit Stevens DO CT ABDOMEN PELVIS WO [...] Ledy Betancourt MD 01/03/23 Final result Normal [facility] EKG 12 LeadOrdered By: Jerman Obando on 01-04-2023 Atrial Rate 79 BPM [employer] Phone: P [place] 36 degrees [employer] Phone: P-R Interval 136 ms [employer] Phone: Q-T Interval 386 ms [employer] Work Phone: QRS Duration 94 ms [employer] Work Phone: QTc Calculation (Bazett) 442 ms [employer] Work Phone: R [place] 36 degrees [employer] Work Phone: T [place] 35 degrees [employer] Work Phone: Ventricular Rate 79 BPM [employer] Work Phone: [employer] Work Phone: EKG 12 Leadon 01-04-2023 Normal sinus rhythm Normal ECG When compared with ECG of 25-NOV-2015 01:31, No significant change was found [facility] Jerman Arceo MD - 01/04/2023 Normal sinus rhythm Normal ECG When compared with ECG of 25-NOV-2015 01:31, No significant change was found [employer] Work Phone: POC Glucose Fingerstickon Glucose [Mass/Vol] 188 mg/dL High 65 - 105 mg/dL [facility] Glocal Interpretation and review of laboratory results Abnormal [facility] Glucose [Mass/Vol] 192 mg/dL High 65 - 105 mg/dL [facility] Glocal Interpretation and review of laboratory results Abnormal [facility] Glucose [Mass/Vol] 173 mg/dL High 65 - 105 mg/dL [facility] Glocal Interpretation and review of laboratory results Abnormal [facility] Glocal PTH, [place] 01-04-2023 Calcium [Moles/Vol] 1.31 mmol/L Normal 1.13-1.33 [facility] Comment on above: Performed By: #### P HO, BMPX, BNP #### [facility] [address] [place] [address] Pluck Trimmer: Ajit Stevens DO PTH, Intact 12.2 pg/mL Low 14.0-72.0 [facility] Comment on above: Result Comment: SAMP LES FROM PATIENTS ROUTINELY RECEIVING HIGH DOSE BIOTIN THERAPY MAY SHOW FALSELY DEPRESSED RESULTS. ADDITIONAL INFORMATION MAY BE REQUIRED FOR DIAGNOSIS. Performed By: #### P HO, BMPX, BNP #### [facility] [address] [facility] [place] [address] Pluck Trimmer: Ajit Stevens DO PTH, Intact with Ionized Owen ciumon 01-04-2023 Calcium.ionized (Bld) [Moles/Vol] 1.31 mmol/L 1.13 - 1.33 mmol/L [facility] Interpretation and review of laboratory results Abnormal [facility] Parathyrin.intact [Mass/Vol] 12.2 pg/mL Low 14.0 - 72.0 pg/mL [facility] Comment on above: SAMPLES FROM PATIENT S ROUTINELY RECEIVING HIGH DOSE BIOTIN THERAPY MAY SHOW FALSELY DEPRESSED RESULTS. ADDITIONAL INFORMATION MAY BE REQUIRED FOR DIAGNOSIS. [facility] Prot. Electroph, Blon 2022 Protein [Mass/Vol] 6.0 g/dL Low 6.4-8.3 [facility] Comment on above: Performed By: #### P HO, BMPX, BNP #### [facility] [address] [facility] [place], [place] [id number] Pluck Trimmer: Ajit Stevens DO US RETROPERITONEAL COMPLETEo n [...] Clif Shane MD 01/04/23 Final result Normal [facility] Unremarkable appearing kidneys [facility] RIS CONSOLIDATED EXAMINATION: RETROPERITONEAL ULTRASOUND OF THE KIDNEYS 01/04/2023 COMPARISON: None HISTORY: ORDERING SYSTEM PROVIDED HISTORY: renal failure TECHNOLOGIST PROVIDED HISTORY: renal failure FINDINGS: Kidneys: The right kidney measures 12.3 cm in length and the left kidney measures 12.4 cm in length. Kidneys demonstrate normal cortical echogenicity. No evidence of hydronephrosis or intrarenal stones. [facility] RIS CONSOLIDATED Clif Shane MD - 01/04/2023 EXAMINATION: RETROPERITONEAL ULTRASOUND OF THE KIDNEYS 01/04/2023 COMPARISON: None HISTORY: ORDERING SYSTEM PROVIDED HISTORY: renal failure TECHNOLOGIST PROVIDED HISTORY: renal failure FINDINGS: Kidneys: The right kidney measures 12.3 cm in length and the left kidney measures 12.4 cm in length. Kidneys demonstrate normal cortical echogenicity. No evidence of hydronephrosis or intrarenal stones. IMPRESSION: Unremarkable appearing kidneys [employer] Phone: Radiology Study observation (narrative) [employer] Phone: US RETROPERITONEAL COMPLETEO rdered By: Clif Shane on 01-04-2023 [employer] Phone: XR ABDOMEN (KUB) (SINGLE AP VIEW)on [...] Juan Schmitz MD 01/03/23 Final result Normal [facility] Basic Metab w/rfx MGon 01-03 Anion gap [Moles/Vol] 15 mmol/L Normal 9-17 [facility] Comment on above: Performed By: #### P HO, BMPX, BNP #### [facility] [address] [facility] [place] [address] Pluck Trimmer: Ajit Stevens DO Calcium [Mass/Vol] 11.0 mg/dL High 8.6-10.4 [facility] Comment on above: Performed By: #### P HO, BMPX, BNP #### [facility] [address] [facility] [place] [address] Pluck Trimmer: Ajit Stevens DO Chloride [Moles/Vol] 97 mmol/L Low 98-107 [facility] Comment on above: Performed By: #### P HO, BMPX, BNP #### [facility] [place] [address] Pluck Trimmer: Ajit Stevens DO CO2 [Moles/Vol] 26 mmol/L Normal 20-31 [facility] Comment on above: Performed By: #### P HO, BMPX, BNP #### [facility] [address] [facility] [place] [address] Pluck Trimmer: Ajit Stevens DO Creatinine [Mass/Vol] 1.92 mg/dL High 0.50-0.90 [facility] Comment on above: Performed By: #### P HO, BMPX, BNP #### [facility] [address] [facility] [place] [address] Pluck Trimmer: Ajit Stevens DO GFR/1.73 sq M.predicted among non-blacks MDRD (S/P/Bld) [Vol rate/Area] 28 mL/min/{1.73_m2} Low >60 [facility] Comment on above: Result Comment: These [...] By: #### P HO, BMPX, BNP #### [facility] [address] [facility] [place] [address] Pluck Trimmer: Ajit Stevens DO Glucose [Mass/Vol] 216 mg/dL High 70-99 [facility] Comment on above: Performed By: #### P HO, BMPX, BNP #### [facility] [address] [place] [address]. [place] [address] Pluck Trimmer: Ajit Stevens DO Potassium [Moles/Vol] 4.8 mmol/L Normal 3.7-5.3 [facility] Comment on above: Performed By: #### P HO, BMPX, BNP #### [facility] [address] [facility] [place] [address] Pluck Trimmer: Ajit Stevens DO Sodium [Moles/Vol] 138 mmol/L Normal 135-144 [facility] Comment on above: Performed By: #### P HO, BMPX, BNP #### [facility] [address] [place] [address]. [place] [address] Pluck Trimmer: Ajit Stevens DO Urea nitrogen [Mass/Vol] 34 mg/dL High 8-23 [facility] Comment on above: Performed By: #### P HO, BMPX, BNP #### [facility] [address] [place] [address]. [place] [address] Pluck Trimmer: Ajit Stevens DO Basic Metabolic Panel w/ Ref tena to MGon 01-03-2023 Anion gap [Moles/Vol] 15 mmol/L 9 - 17 mmol/L [facility] Calcium [Mass/Vol] 11.0 mg/dL High 8.6 - 10. 4 mg/dL [facility] Chloride [Moles/Vol] 97 mmol/L Low 98 - 10 7 mmol/L [facility] CO2 [Moles/Vol] 26 mmol/L 20 - 31 mmol/L [facility] Creatinine [Mass/Vol] 1.92 mg/dL High 0.50 - 0.90 mg/dL [facility] GFR/1.73 sq M.predicted MDRD (S/P/Bld) [Vol rate/Area] 28 mL/min/{1.73_m2} Low - PINF [facility] Comment on above: These results are not [...] 216 mg/dL High 70 - 99 mg/dL [facility] Interpretation and review of laboratory results Abnormal [facility] Potassium [Moles/Vol] 4.8 mmol/L 3.7 - 5.3 mmol/L [facility] Sodium [Moles/Vol] 138 mmol/L 135 - 144 mmol/L [facility] Urea nitrogen [Mass/Vol] 34 mg/dL High 8 - 23 mg/dL [facility] Basic Metabolic Profon 01-03 Anion gap [Moles/Vol] 15 mmol/L Normal -17 [facility] Comment on above: Performed By: #### P HO, BMPX, BNP #### [facility] [address] [facility] [place], [place] [id number] Pluck Trimmer: Ajit Stevens DO Calcium [Mass/Vol] 11.6 mg/dL High 8.6-10.4 [facility] Comment on above: Performed By: #### P HO, BMPX, BNP #### [facility] [address] [facility] [place] [address] Pluck Trimmer: Ajit Stevens, DO Chloride [Moles/Vol] 98 mmol/L Normal 98-107 [facility] Comment on above: Performed By: #### P HO, BMPX, BNP #### [facility] [address] [facility] [place] [address] Pluck Trimmer: Ajit Stevens DO CO2 [Moles/Vol] 24 mmol/L Normal 20-31 [facility] Comment on above: Performed By: #### P HO, BMPX, BNP #### [facility] [address] [facility] [place] [address] Pluck Trimmer: Ajit Stevens DO Creatinine [Mass/Vol] 1.42 mg/dL High 0.50-0.90 [facility] Comment on above: Performed By: #### P HO, BMPX, BNP #### [facility] [address] [facility] [place] [address] Pluck Trimmer: Ajit Stevens DO GFR/1.73 sq M.predicted among non-blacks MDRD (S/P/Bld) [Vol rate/Area] 40 mL/min/{1.73_m2} Low >60 [facility] Comment on above: Result Comment: These [...] By: #### P HO, BMPX, BNP #### [facility] [address] [facility] [place] [address] Pluck Trimmer: Ajit Stevens DO Glucose [Mass/Vol] 186 mg/dL High 70-99 [facility] Comment on above: Performed By: #### P HO, BMPX, BNP #### [facility] [address] [facility] [place] [address] Pluck Trimmer: Ajit Stevens DO Potassium [Moles/Vol] 4.9 mmol/L Normal 3.7-5.3 [facility] Comment on above: Performed By: #### P HO, BMPX, BNP #### [facility] [address] [facility] [place] [address] Pluck Trimmer: Ajit Stevens DO Sodium [Moles/Vol] 137 mmol/L Normal 135-144 [facility] Comment on above: Performed By: #### P HO, BMPX, BNP #### [facility] [address] [facility] [place] [address] Pluck Trimmer: Ajit Stevens DO Urea nitrogen [Mass/Vol] 27 mg/dL High 8-23 [facility] Comment on above: Performed By: #### P HO, BMPX, BNP #### [facility] [address] [facility] [place] [address] Pluck Trimmer: Ajit Stevens DO Brain Natri. Peptideon 01-03 Natriuretic peptide B (Bld) [Mass/Vol] 293 pg/mL Normal <300 [facility] Comment on above: Result Comment: An age-independent cutoff point of 300 pg/ml has a 98% negative predictive value excluding acute heart failure. Performed By: #### P HO, BMPX, BNP #### [facility] [address] [facility] [place] [address] Pluck Trimmer: Ajit Stevens DO Brain Natriuretic Peptideon 01-03-2023 Natriuretic peptide B (Bld) [Mass/Vol] 293 pg/mL NINF - 300 pg/mL [facility] Comment on above: An age-independent cutoff point of 300 pg/ml has a 98% negative predictive value excluding acute heart failure. CBC with Diffon 01-03-2023 Abs. Basophil 0.20 k/uL Normal 0.0-0.2 [facility] Comment on above: Performed By: #### P HO, BMPX, BNP #### [facility] [place] [address] Pluck Trimmer: Ajit Stevens DO Abs.Neutrophil (Seg) 9.90 k/uL High 1.3-9.1 [facility] Comment on above: Performed By: #### P HO, BMPX, BNP #### [facility] [address] [place] [address] Pluck Trimmer: Ajit Stevens DO Basophils/100 WBC (Bld) 1 % Normal 0-2 [facility] Comment on above: Performed By: #### P HO, BMPX, BNP #### [facility] [address] [place] [address] Pluck Trimmer: Ajit Stevens DO Eosinophils (Bld) [#/Vol] 0.30 10*3/uL Normal 0.0-0.4 [facility] Comment on above: Performed By: #### P HO, BMPX, BNP #### [facility] [address] [place] [address] Pluck Trimmer: Ajit Stevens DO Eosinophils/100 WBC (Bld) 2 % Normal 0-4 [facility] Comment on above: Performed By: #### P HO, BMPX, BNP #### [facility] [address] [place] [address] Pluck Trimmer: Ajit Stevens DO Erythrocyte distribution width (RBC) [Ratio] 15.0 % High 11.5-14.9 [facility] Comment on above: Performed By: #### P HO, BMPX, BNP #### [facility] [address] [place] [address] Pluck Trimmer: Fanelly, Ajit, DO Hematocrit (Bld) [Volume fraction] 46.0 % Normal 36-46 [facility] Comment on above: Performed By: #### P HO, BMPX, BNP #### [facility] [place] [address] Pluck Trimmer: Ajit Stevens DO Hemoglobin (Bld) [Mass/Vol] 15.6 g/dL Normal 12.0-16.0 [facility] Comment on above: Performed By: #### P HO, BMPX, BNP #### [facility] [place] [address] Pluck Trimmer: Ajit Stevens DO Lymphocytes (Bld) [#/Vol] 2.70 10*3/uL Normal 1.0-4.8 [facility] Comment on above: Performed By: #### P HO, BMPX, BNP #### [facility] [address] [place] [address] Pluck Trimmer: Ajit Stevens DO Lymphocytes/100 WBC (Bld) 19 % Low 24-44 [facility] Comment on above: Performed By: #### P HO, BMPX, BNP #### [facility] [address] [place] [address] Pluck Trimmer: Ajit Stevens DO MCH (RBC) [Entitic mass] 31.4 pg Normal 26-34 [facility] Comment on above: Performed By: #### P HO, BMPX, BNP #### [facility] [address] [place] [address] Pluck Trimmer: Ajit Stevens DO MCHC (RBC) [Mass/Vol] 34.0 g/dL Normal 31-37 [facility] Comment on above: Performed By: #### P HO, BMPX, BNP #### [facility] [address] [place] [address] Pluck Trimmer: Ajit Stevens DO MCV (RBC) [Entitic vol] 92.3 fL Normal 80-100 [facility] Comment on above: Performed By: #### P HO, BMPX, BNP #### [facility] [place] [address] Pluck Trimmer: Ajit Stevens DO Monocytes (Bld) [#/Vol] 1.30 10*3/uL Normal 0.1-1.3 [facility] Comment on above: Performed By: #### P HO, BMPX, BNP #### [facility] [address] [place] [address] Pluck Trimmer: Ajit Stevens DO Monocytes/100 WBC (Bld) 9 % High 1-7 [facility] Comment on above: Performed By: #### P HO, BMPX, BNP #### [facility] [address] [place] [address] Pluck Trimmer: Ajit Stevens DO Neutrophil (Seg) 69 % High 36-66 [facility] Comment on above: Performed By: #### P HO, BMPX, BNP #### [facility] [address] [place] [address] Pluck Trimmer: Ajit Stevens DO Platelet mean volume (Bld) [Entitic vol] 8.6 fL Normal 6.0-12.0 [facility] Comment on above: Performed By: #### P HO, BMPX, BNP #### [facility] [address] [place] [address] Pluck Trimmer: Ajit Stevens DO Platelets (Bld) [#/Vol] 334 10*3/uL Normal 150-450 [facility] Comment on above: Performed By: #### P HO, BMPX, BNP #### [facility] [address] [place] [address] Pluck Trimmer: Ajit Stevens DO RBC (Bld) [#/Vol] 4.99 10*6/uL Normal 4.0-5.2 [facility] Comment on above: Performed By: #### P HO, BMPX, BNP #### [facility] [address] [place] [address] Pluck Trimmer: Ajit Stevens DO WBC (Bld) [#/Vol] 14.3 10*3/uL High 3.5-11.0 [facility] Comment on above: Performed By: #### P HO, BMPX, BNP #### [facility] [address] [place] [address] Pluck Trimmer: Ajit Stevens DO CT ABDOMEN PELVIS W [...] Milad Mireles MD 01/03/23 Final result Normal [facility] CT ABDOMEN PELVIS WO CONTRAS T [...] 4. Well-positioned nasogastric tube in the stomach. [facility] RIS CONSOLIDATED EXAMINATION: CT OF THE ABDOMEN [...] free air. Bones/Soft Tissues: No acute abnormality. PN RIS Ledy Michael MD - 01/03/2023 EXAMINATION: CT OF THE [...] 4. Well-positioned nasogastric tube in the stomach. [employer] Phone: Radiology Study observation (narrative) [employer] Phone: CT ABDOMEN PELVIS WO CONTRAS T Additional Contrast? OralOrdered By: Ledy Betancourt on 01-03-2023 [employer] Phone: CT CHEST PULMONARY EMBOLISM W CONTRASTon [...] Milad Mireles MD 01/03/23 Final result Normal [facility] Electrolytes urine randomon 01-03-2023 Chloride, Ur 20 mmol/L [facility] Comment on above: No normal range esta blished. Potassium, Ur 43.4 mmol/L [facility] Comment on above: No normal range esta blished. Sodium (U) [Moles/Vol] 25 mmol/L [facility] Comment on above: No normal range esta blished. [facility] Electrolytes,[place] Uron 01-03 Chloride [Moles/Vol] 20 mmol/L Normal [facility] Comment on above: Result Comment: No n ormal range established. Performed By: #### COREY BOUCHERX #### [facility] [address] [facility] [place] [address] Pluck Trimmer: Ajit Stevens DO Potassium [Moles/Vol] 43.4 mmol/L Normal [facility] Comment on above: Result Comment: No n ormal range established. Performed By: #### COREY BOUCHERX #### [facility] [address] [facility] [place] [address] Pluck Trimmer: Ajit Stevens DO Sodium (U) [Moles/Vol] 25 mmol/L Normal [facility] Comment on above: Result Comment: No n ormal range established. Performed By: #### TODD BOUCHER #### [facility] [address] [facility] [place] [address] Pluck Trimmer: Ajit Stevens DO Lactic Acidon 01-03-2023 Lactate [Moles/Vol] 1.9 mmol/L Normal 0.5-2.2 [facility] Comment on above: Performed By: #### V BG #### [facility] [address] [place] [address] Pluck Trimmer: Ajit Stevens DO Lipaseon 01-03-2023 Lipase [Catalytic activity/Vol] 74 U/L High 13-60 [facility] Comment on above: Performed By: #### P HO, BMPX, BNP #### [facility] [address] [place] [address] Pluck Trimmer: Ajit Stevens DO Liver Profileon 01-03-2023 Albumin [Mass/Vol] 4.5 g/dL Normal 3.5-5.2 [facility] Comment on above: Performed By: #### P HO, BMPX, BNP #### [facility] [address] [facility] [place] [address] Pluck Trimmer: Ajit Stevens DO Alkaline Phos 66 U/L Normal 35-104 [facility] Comment on above: Performed By: #### P HO, BMPX, BNP #### [facility] [place] [address] Pluck Trimmer: Ajit Stevens DO ALT [Catalytic activity/Vol] 29 U/L Normal 5-33 [facility] Comment on above: Performed By: #### P HO, BMPX, BNP #### [facility] [place] [address] Pluck Trimmer: Ajit Stevens DO AST [Catalytic activity/Vol] 25 U/L Normal <32 [facility] Comment on above: Performed By: #### P HO, BMPX, BNP #### [facility] [place] [address] Pluck Trimmer: Ajit Stevens DO Bilirubin [Mass/Vol] 0.3 mg/dL Normal 0.3-1.2 [facility] Comment on above: Performed By: #### P HO, BMPX, BNP #### [facility] [address] [place] [address] Pluck Trimmer: Ajit Stevens DO Bilirubin, Indirect 0.2 mg/dL Normal 0.0-1.0 [facility] Comment on above: Performed By: #### P HO, BMPX, BNP #### [facility] [place] [address] Pluck Trimmer: Ajit Stevens DO Bilirubin.indirect [Mass/Vol] 0.1 mg/dL Normal <0.3 [facility] Comment on above: Performed By: #### P HO, BMPX, BNP #### [facility] [address] [facility] [place] [address] Pluck Trimmer: Ajit Stevens DO Protein [Mass/Vol] 8.1 g/dL Normal 6.4-8.3 [facility] Comment on above: Performed By: #### P HO, BMPX, BNP #### [facility] [address] [facility] [place] [address] Pluck Trimmer: Ajit Stevens DO Magnesiumon 01-03-2023 Magnesium [Mass/Vol] 2.3 mg/dL Normal 1.6-2.6 [facility] Comment on above: Performed By: #### German HOWE, BMPX, BNP #### [facility] [address] [facility] [place] [address] Pluck Trimmer: Ajit Stevens DO Microscopic Urinalysison Bacteria, UA MANY Abnormal None [facility] Casts UA 3 to 5 /LPF [facility] Epithelial Cells UA 3 to 5 /HPF [facility] Interpretation and review of laboratory results Abnormal [facility] RBC clumps Auto (Urine sed) [#/Area] 0 TO 2 /HPF [facility] WBC, UA 3 to 5 /HPF [facility] No Panel Informationon 01-03 Fluid-filled mildly [...] Tissues: No acute bony abnormality is seen. [facility] RIS Milad Ribeiro MD - 01/03/2023 EXAMINATION: CT OF THE [...] abnormality is seen. Hepatomegaly and hepatic steatosis. [facility] Work Phone: [facility] Work Phone: [facility] POC Glucose Fingerstickon Glucose [Mass/Vol] 142 mg/dL High 65 - 105 mg/dL [facility] Interpretation and review of laboratory results Abnormal [facility] Glucose [Mass/Vol] 207 mg/dL High 65 - 105 mg/dL [facility] Interpretation and review of laboratory results Abnormal [facility] Glucose [Mass/Vol] 188 mg/dL High 65 - 105 mg/dL [facility] Interpretation and review of laboratory results Abnormal [facility] Glucose [Mass/Vol] 204 mg/dL High 65 - 105 mg/dL [facility] Interpretation and review of laboratory results Abnormal [facility] PTon 01-03-2023 INR Coag (PPP) [Relative time] 0.9 {INR} Normal [facility] Comment on above: Result Comment: Therapeutic Range: Moderate Anticoagulant Intensity: INR = 2.0-3.0 High Anticoagulant Intensity: INR = 2.5-3.5 Performed By: #### P HO, BMPX, BNP #### [facility] [address] [place] [address] Pluck Trimmer: Ajit Stevens DO PT Coag (PPP) [Time] 12.9 s Normal 11.8-14.6 [facility] Comment on above: Performed By: #### P HO, BMPX, BNP #### [facility] [address] [place] [address] Pluck Trimmer: Ajit Stevens DO Phosphoruson 01-03-2023 Phosphate [Mass/Vol] 4.3 mg/dL 2.6 - 4 .5 mg/dL [facility] Phosphorus, Inorg.on 023 Phosphorus, Inorg. 4.3 mg/dL Normal 2.6-4.5 [facility] Comment on above: Performed By: #### P HO, BMPX, BNP #### [facility] [address] [place] [address] Pluck Trimmer: Ajit Stevens DO Protein / creatinine ratio, urineon 01-03-2023 Creatinine, Ur 133.1 mg/dL 28.0 - 217.0 mg/dL [facility] Interpretation and review of laboratory results Abnormal [facility] Protein (U) [Mass/Vol] 29 mg/dL [facility] Comment on above: No normal range esta blished. Urine Total Protein Creatinine Ratio 0.22 High 0.00 - 0.20 [facility] Protein,Tot,[place] Uron 2022 Creatinine [Mass/Vol] 133.1 mg/dL Normal 28.0-217.0 [facility] Comment on above: Performed By: #### U MICAJory UAX #### [facility] [place] [address] Pluck Trimmer: Ajit Stevens DO Tot Prot. Conc. 29 mg/dL Normal [facility] Comment on above: Result Comment: No n ormal range established. Performed By: #### U MICAO UAX #### [facility] [address] [facility] [place] [address] Pluck Trimmer: Ajit Stevens DO TP/Cre Ratio 0.22 High 0.00-0.20 [facility] Comment on above: Performed By: #### U JAMIO, UAX #### [facility] [address] [facility] [place] [address] Pluck Trimmer: Ajit Stevens DO Troponinon 01-03-2023 Troponin, High Sens 18 ng/L High 0-14 [facility] Comment on above: Result Comment: High Sensitivity Troponin values cannot be compared with other Troponin methodologies. Performed By: #### U WILLY, UAX #### [facility] [address] [facility] [place] [address] Pluck Trimmer: Ajit Stevens DO Troponin, High Sens 17 ng/L High 0-14 [facility] Comment on above: Result Comment: High Sensitivity Troponin values cannot be compared with other Troponin methodologies. Performed By: #### P HO, BMPX, BNP #### [facility] [address] [facility] [place] [address] Pluck Trimmer: Ajit Stevens DO Troponin Now and Q 1 Houron 01-03-2023 Interpretation and review of laboratory results Abnormal [facility] Troponin I.cardiac DL <= 0.01 ng/mL [Mass/Vol] 18 ng/L High 0 - 14 ng/L [facility] Comment on above: High Sensitivity Tro ponin values cannot be compared with other Troponin methodologies. [facility] UA w/Reflex Cultureon 2022 Bilirubin, SemiQt,Ur Negative Normal NEG [facility] Comment on above: Performed By: #### U JAMIO, UAX #### [facility] [address] [facility] [place] [address] Pluck Trimmer: Ajit Stevens DO Blood, Urine Negative Normal NEG [facility] Comment on above: Performed By: #### U JAMIO, UAX #### [facility] [address] [place] [address] Pluck Trimmer: Ajit Stevens DO Clarity (U) Cloudy Abnormal CLEAR [facility] Comment on above: Performed By: #### U JAMIO, UAX #### [facility] [address] [facility] [facility] [place] [address] Pluck Trimmer: Ajit Stevens DO Color (U) Yellow Normal YEL [facility] Comment on above: Performed By: #### U WILLY, UAX #### [facility] [address] [facility] [place] [address] Pluck Trimmer: Ajit Stevens DO Glucose Ql (U) LARGE Abnormal NEG [facility] Comment on above: Performed By: #### U WILLY, UAX #### [facility] [address] [facility] [place] [address] Pluck Trimmer: Ajit Stevens DO Ketones Ql (U) TRACE Abnormal NEG [facility] Comment on above: Performed By: #### U MICAO, UAX #### [facility] [address] [facility] [place] [address] Pluck Trimmer: Ajit Steevns DO Leukocyte esterase Test strip Ql (U) Negative Normal NEG [facility] Comment on above: Performed By: #### U WILLY, UAX #### [facility] [address] [facility] [place] [address] Pluck Trimmer: Ajit Stevens DO Nitrite,Ur Negative Normal NEG [facility] Comment on above: Performed By: #### U WILLY, UAX #### [facility] [address] [facility] [place] [address] Pluck Trimmer: Ajit Stevens DO PH,Ur 5.0 Normal 5.0-8.0 [facility] Comment on above: Performed By: #### COREY BOUCHERX #### [facility] [address] [place] [address] Pluck Trimmer: Ajit Stevens DO Protein Ql (U) 1+ Abnormal NEG [facility] Comment on above: Performed By: #### COREY BOUCHERX #### [facility] [address] [place] [address] Pluck Trimmer: Ajit Stevens DO Spec. Soren[place],Ur 1.029 Normal 1.000-1.030 [facility] Comment on above: Performed By: #### COREY BOUCHERX #### [facility] [address] [place] [address] Pluck Trimmer: Ajit Stevens DO Urobilinogen,Ur Normal Normal NORM [facility] Comment on above: Performed By: #### TODD BOUCHER #### [facility] [address] [place] [address] Pluck Trimmer: Ajit Stevens DO Urinalysis,Microon 3 Bacteria MANY Abnormal NONE [facility] Comment on above: Performed By: #### COREY BOUCHERX #### [facility] [address] [place] [address] Pluck Trimmer: Ajit Setvens DO Casts 3 to 5 Normal [facility] Comment on above: Performed By: #### COREY BOUCHERX #### [facility] [address] [place] [address] Pluck Trimmer: Ajit Stevens DO Epithelial cells LM Ql (Urine sed) 3 to 5 Normal [facility] Comment on above: Performed By: #### COREY BOUCHERX #### [facility] [address] [place] [address] Pluck Trimmer: Ajit Stevens DO Urine RBC's 0 TO 2 Normal [facility] Comment on above: Performed By: #### U MICAO, UAX #### [facility] [address] [place] [address] Pluck Trimmer: Ajit Stevens DO Urine WBC's 3 to 5 Normal [facility] Comment on above: Performed By: #### U MICAO, UAX #### [facility] [address] [place] [address] Pluck Trimmer: Ajit Stevens DO XR ABDOMEN (KUB) (SINGLE AP VIEW)on 01-03-2023 Ileus with contrast material now in the large bowel. [facility] EXAMINATION: ONE SUPINE XRAY VIEW(S) OF [...] air or pneumatosis. No gross bony abnormality. [facility] Juan Schmitz MD - 01/03/2023 EXAMINATION: [...] contrast material now in the large bowel. [employer] Phone: Radiology Study observation (narrative) [employer] Phone: XR ABDOMEN (KUB) (SINGLE AP VIEW)Ordered By: Juan Schmitz on 01-03-2023 [employer] Phone: XR ABDOMEN FOR NG/OG/NE TUBE PLACEMENTon [...] Ottoniel Avendano MD 01/03/23 Final result Normal [facility] The OG/NG tube has been placed in good position. [facility] EXAMINATION: ONE SUPINE XRAY VIEW(S) OF [...] in good position in the mid stomach. [facility] Ottoniel Avendano MD - 01/03/2023 EXAMINATION: [...] tube has been placed in good position. [employer] Phone: Radiology Study observation (narrative) [employer] Phone: XR ABDOMEN FOR NG/OG/NE TUBE PLACEMENTOrdered By: Ottoniel Avendano on 01-03-2023 [employer] Phone: XR CHEST PORTABLEon 01-04-20 XR CHEST [...] Milad Mireles MD 01/03/23 Final result Normal [facility] No acute cardiopulmonary abnormality is identified. [facility] EXAMINATION: ONE XRAY VIEW OF THE [...] seen. No focal lung consolidation is identified. [facility] Milad Mireles MD - 01/03/2023 EXAMINATION: [...] IMPRESSION: No acute cardiopulmonary abnormality is identified. [employer] Work Phone: XR CHEST PORTABLEOrdered By: Milad Mireles on 01-03-2023 [employer] Work Phone: BMPon 01-02-2023 Anion gap [Moles/Vol] 15 mmol/L 9 - 17 mmol/L [employer] Calcium [Mass/Vol] 11.6 mg/dL High 8.6 - 10. 4 mg/dL [employer] Chloride [Moles/Vol] 98 mmol/L 98 - 10 7 mmol/L [employer] CO2 [Moles/Vol] 24 mmol/L 20 - 31 mmol/L [employer] Creatinine [Mass/Vol] 1.42 mg/dL High 0.50 - 0.90 mg/dL [employer] GFR/1.73 sq M.predicted MDRD (S/P/Bld) [Vol rate/Area] 40 mL/min/{1.73_m2} Low - PINF [employer] Comment on above: These results are not [...] 186 mg/dL High 70 - 99 mg/dL [employer] Potassium [Moles/Vol] 4.9 mmol/L 3.7 - 5.3 mmol/L [employer] Sodium [Moles/Vol] 137 mmol/L 135 - 144 mmol/L [employer] Urea nitrogen [Mass/Vol] 27 mg/dL High 8 - 23 mg/dL [facility] CBC with Auto Differentialon 01-02-2023 Absolute Eos # 0.30 [facility] Absolute Lymph # 2.70 [facility] Absolute [place] # 1.30 [facility] Basophils (Bld) [#/Vol] 0.20 10*3/uL [facility] Basophils/100 WBC (Bld) 1 % 0 - 2 % [facility] Eosinophils/100 WBC (Bld) 2 % 0 - 4 % [facility] Hematocrit (Bld) [Volume fraction] 46.0 % 36 - 46 % [facility] Hemoglobin (Bld) [Mass/Vol] 15.6 g/dL 12.0 - 16.0 g/dL [facility] Interpretation and review of laboratory results Abnormal [facility] Lymphocytes/100 WBC (Bld) 19 % Low 24 - 44 % [facility] MCH (RBC) [Entitic mass] 31.4 pg 26 - 34 pg [facility] MCHC (RBC) [Mass/Vol] 34.0 g/dL 31 - 37 g/dL [facility] MCV (RBC) [Entitic vol] 92.3 fL 80 - 100 fL [facility] Monocytes/100 WBC (Bld) 9 % High 1 - 7 % [facility] Platelet distribution width (Bld) [Ratio] 15.0 % High 11.5 - 14.9 % [facility] Platelet mean volume (Bld) [Entitic vol] 8.6 fL 6.0 - 12.0 fL [facility] Platelets (Bld) [#/Vol] 334 10*3/uL [facility] RBC (Bld) [#/Vol] 4.99 10*6/uL 4.0 - 5.2 m/uL [facility] Segmented neutrophils/100 WBC (Bld) 69 % High 36 - 66 % [facility] Segs Absolute 9.90 High [facility] WBC (Bld) [#/Vol] 14.3 10*3/uL High [facility] ABDOMEN PELVIS W IV CONTR AST Additional Contrast? Noneon 01-02-2023 Radiology Study observation (narrative) [employer] Work Phone: CT CHEST PULMONARY EMBOLISM W CONTRASTon 01-02-2023 Radiology Study observation (narrative) [employer] Work Phone: EKG 12 Leadon 01-02-2023 Raymond Lopes MD 01/03/2023 1:49 AM EKG 12 Lead Date/Time: 01/02/2023 9:35 PM Performed by: Raymond Lopes MD Authorized by: Raymond Lopes MD ECG reviewed by ED Physician in the absence of a uc architect: yes Interpretation: Interpretation: normal Rate: ECG rate: 79 ECG rate assessment: normal Rhythm: Rhythm: sinus rhythm Ectopy: Ectopy: none QRS: QRS axis: Normal QRS intervals: Normal QRS conduction: normal ST segments: ST segments: Normal T waves: T waves: normal Q waves: Abnormal Q-waves: not present [employer] Work Phone: [employer] Work Phone: Hepatic Function Panelon Albumin [Mass/Vol] 4.5 g/dL 3.5 - 5.2 g/dL [facility] ALP [Catalytic activity/Vol] 66 U/L 35 - 104 U/L [facility] ALT [Catalytic activity/Vol] 29 U/L 5 - 33 U/L [facility] AST [Catalytic activity/Vol] 25 U/L NINF - 32 U/L [facility] Bilirubin [Mass/Vol] 0.3 mg/dL 0.3 - 1 .2 mg/dL [facility] Bilirubin.direct [Mass/Vol] 0.1 mg/dL [facility] mg/[facility] Bilirubin.indirect [Mass/Vol] 0.2 mg/dL 0.0 - 1.0 mg/dL [facility] Protein [Mass/Vol] 8.1 g/dL 6.4 - 8.3 g/dL [facility] Lactic Acidon 01-02-2023 Lactate (P elena) [Moles/Vol] 1.9 mmol/L 0.5 - 2.2 mmol/L [facility] Lipaseon 01-02-2023 Lipase [Catalytic activity/Vol] 74 U/L High 13 - 60 U/L [facility] Magnesiumon 01-02-2023 Magnesium [Mass/Vol] 2.3 mg/dL 1.6 - 2 .6 mg/dL [facility] No Panel Informationon 01-02 Interpretation and review of laboratory results Abnormal [facility] Protime-INRon 01-02-2023 INR Coag (PPP) [Relative time] 0.9 {INR} [facility] Comment on above: Therapeutic Range: Moderate Anticoagulant Intensity: INR = 2.0-3.0 High Anticoagulant Intensity: INR = 2.5-3.5 PT Coag (PPP) [Time] 12.9 s [facility] Troponin Now and Q 1 Houron 01-02-2023 Interpretation and review of laboratory results Abnormal [facility] Troponin I.cardiac DL <= 0.01 ng/mL [Mass/Vol] 17 ng/L High 0 - 14 ng/L [facility] Comment on above: High Sensitivity Tro ponin values cannot be compared with other Troponin methodologies. [facility] Urinalysis with Reflex to Cu ltureon 01-02-2023 Bilirubin Urine Negative NEGATIVE [facility] Color, UA Yellow Yellow [facility] Glucose Auto test strip (U) [Mass/Vol] LARGE Abnormal NEGATIVE [facility] Interpretation and review of laboratory results Abnormal [facility] Ketones (U) [Mass/Vol] TRACE Abnormal NEGATIVE [facility] Leukocyte esterase Auto test strip Ql (U) Negative NEGATIVE [facility] Nitrite Auto test strip Ql (U) Negative NEGATIVE [facility] Protein (U) [Mass/Vol] 5.0 mg/dL 5.0 - 8.0 [facility] Protein (U) [Mass/Vol] 1+ Abnormal NEGATIVE [facility] Specific Sorento, UA 1.029 1.000 - 1.030 B ON [employer] Turbidity UA Cloudy Abnormal Clear MEENAKSHI [employer] Urine Hgb Negative NEGATIVE [facility] Urobilinogen, Urine Normal Normal MEENAKSHI S [facility] Turn MEENAKSHI [facility] XR CHEST PORTABLEon 01-03-20 Radiology Study observation (narrative) [facility] [employer] Work Phone: [facility] DIGITAL SCREEN BILA TERALon 01-30-2022 Unremarkable study o f the breasts. No evidence of significant interval change. BIRADS: BIRADS - CATEGORY 1 Negative, no evidence of malignancy. Normal interval follow-up is recommended in 12 months. OVERALL ASSESSMENT - NEGATIVE A letter of notification will be sent to the patient regarding the results. [employer] recommends annual mammograms for women 40 years and older. [facility] EXAMINATION: SCREENING DIGITAL BILATERAL MAMMOGRAM WITH [...] a few scattered smaller similar structures, unchanged. [facility] Radiology Study observation (narrative) [employer] Phone: [facility] DIGITAL SCREEN BILA TERALOrdered By: Mary Alice Patel on 01-30-2022 [employer] Phone: Otheron 11-12-2020 Gregg, [facility] Incoming Radiant Results From [employer] - 11/12/2020 4:33 PM EST EXAMINATION: 2 [...] or effusion. Vascular calcification in the pelvis. [place], [place] Calcaneus: Nondisplaced fracture through a plantar [...] or effusion. Vascular calcification in the pelvis. [place], [place] EXAMINATION: 2 XRAY VIEWS OF THE [...] effusion is noted. Atherosclerotic calcifications are noted. [facility] [place], [place] XR CHEST (SINGLE VIEW FRONTA L)on 11-12-2020 Gregg, [facility] Incoming Radiant Results From [facility] - 11/12/2020 4:30 PM EST EXAMINATION: ONE [...] are normal. IMPRESSION: No acute cardiopulmonary disease [place] EXAMINATION: ONE XRA Y VIEW OF THE [...] bony abnormalities. The hilar structures are normal. [place] No acute cardiopulmonary disease [place] FT3on 08-27-2018 FT3 3.32 pg/mL Normal 2.45-5.93 [facility] Comment on above: Performed By: #### 1 005, 4500, 4510, 4520 ####[facility] Unless Otherwise [id number] [address] [address]Jaxky: [phone]/ KKKS #4724/CLIA # [id number] FT4on 08-27-2018 T4 free mass conc 1.36 ng/dL Normal 0.78-2.44 [facility] Comment on above: Performed By: #### 1 005, 4500, 4510, 4520 ####[facility] Unless Otherwise [id number] [address] [address]Cvtfq: [phone]/ JORA #4724/CLIA # [id number] Lipidson 08-27-2018 Cholesterol in HDL mass conc 38.0 mg/dL Low 40.0-60.[address] [facility] Comment on above: Performed By: #### 1 005, 4500, 4510, 4520 ####[facility] Unless Otherwise [id number] [address] [address]Hqewp: [phone]/ KXPN #4724/CLIA # [id number] Cholesterol in LDL mass conc 74.8 mg/dL Normal 0.0-100.0 [facility] Comment on above: Performed By: #### 1 005, 4500, 4510, 4520 ####[facility] Unless Otherwise [id number] [address]Qerez: [phone]/ GJOY #4724/CLIA # [id number] Cholesterol in VLDL mass conc 66.2 mg/dL Normal [facility] Comment on above: Performed By: #### 1 005, 4500, 4510, 4520 ####[facility] Unless Otherwise [id number] [address] [address]Pyrdr: [phone]/ EKPE #4724/CLIA # [id number] Cholesterol mass conc 179.0 mg/dL Normal 0.0-199.0 [facility] Comment on above: Performed By: #### 1 005, 4500, 4510, 4520 ####[facility] Unless Otherwise [id number] [address] [address]Vqeny: [phone]/ GQDM #4724/CLIA # [id number] Cholesterol.total/Ch olesterol in HDL mass ratio 4.7 {ratio} Normal [facility] Comment on above: Performed By: #### 1 005, 4500, 4510, 4520 ####[facility] Unless Otherwise [id number] [address] [address]Qndby: [phone]/ STQQ #4724/CLIA # [id number] Triglyceride mass conc 331.0 mg/dL High 0.0-150.0 [facility] Comment on above: Performed By: #### 1 005, 4500, 4510, 4520 ####[facility] Unless Otherwise [id number] [address]Ddddd: [phone]/ FNQI #4724/CLIA # [id number] TSHon 08-27-2018 Thyrotropin Qn 3.53 uIU/ml Normal 0.47-4.68 [facility] Comment on above: Performed By: #### 1 005, 4500, 4510, 4520 ####[facility] Unless Otherwise [id number] [address]Aryzg: [phone]/ WQIA #4724/CLIA # [id number] Vital Signs Date Time Vital Sign Value Performing Clinician Faci lity 01-12-2024 09:48-0400 Body height 152.4 cm Deirdre Earl MD Work Phone: [facility] 01-12-2024 09:48-0400 Body mass index (BMI) [Ratio] 38.4 kg/m2 Deirdre Earl MD Work Phone: [facility] 01-12-2024 09:48-0400 Body weight 89.18 kg Deirdre Earl MD Work Phone: [facility] 01-12-2024 09:48-0400 Diastolic blood pressure 72 mm[Hg] Deirdre Earl MD Work Phone: [facility] 01-12-2024 09:48-0400 Heart rate 68 /min Deirdre Earl MD [facility]: [facility] 01-12-2024 09:48-0400 SaO2% (BldA) [Mass fraction] 96 % Deirdre Earl MD Work Phone: [facility] 01-12-2024 09:48-0400 Systolic blood pressure 150 mm[Hg] Deirdre Earl MD Work Phone: [facility] 12-15-2023 10:44-0500 Body mass index (BMI) [Ratio] 37.93 kg/m2 Carter Wetzel MD Work Phone: [facility] 12-15-2023 10:44-0500 Body weight 88.09 kg Carter Wetzel MD Work Phone: [facility] [employer] 12-15-2023 10:44-0500 Diastolic blood pressure 66 mm[Hg] Carter Wetzel MD Work Phone: [facility] 12-15-2023 10:44-0500 Heart rate 68 /min Carter Wetzel MD Work Phone: [facility] [employer] 12-15-2023 10:44-0500 Systolic blood pressure 151 mm[Hg] Carter Wetzel MD Work Phone: [facility] [employer] 01-06-2023 08:12-0400 Heart rate 67 /min Raymond Lopes MD Work Phone: [employer] 01-06-2023 08:12-0400 Respiratory rate 16 /min Raymond Lopes MD Work Phone: [facility] [employer] 01-06-2023 08:12-0400 SaO2% (BldA) [Mass fraction] 96 % Raymond Lopes MD Work Phone: [employer] 01-06-2023 06:19-0400 Body temperature 97.9 [degF] Raymond Lopes MD Work Phone: [employer] 01-06-2023 06:19-0400 Diastolic blood pressure 48 mm[Hg] Raymond Lopes MD Work Phone: [employer] 01-06-2023 06:19-0400 Systolic blood pressure 153 mm[Hg] Raymond Lopes MD Work Phone: [employer] 01-03-2023 02:15-0400 Body mass index (BMI) [Ratio] 35.31 kg/m2 Raymond Lopes MD Work Phone: [facility] [employer] 01-03-2023 02:15-0400 Body weight 82 kg Raymond Lopes MD Work Phone: [facility] 01-02-2023 20:43-0400 Body height 152.4 cm Raymond Lopes MD Work Phone: [facility] 11-12-2020 14:29-0500 BMI (Body Mass Index) 37.79 kg/m2 Ottoniel [employer] [facility] [place] 11-12-2020 14:29-0500 Body Temperature 97.9 [degF] Ottoniel [employer] [facility] springsJ[facility] [employer] [facility], [place] 11-12-2020 14:29-0500 Body weight 90.72 kg Ottoniel [facility] springsJ[facility] [employer] [facility] , [place] 11-12-2020 14:29-0500 BP Diastolic 42 mm[Hg] Ottoniel [employer] [facility] hol[facility] springsJeds [employer] [facility] , [place] 11-12-2020 14:29-0500 BP Systolic 172 mm[Hg] Ottoniel [facility] , [place] 11-12-2020 14:29-0500 Height 154.9 cm Ottoniel [facility] [place] 11-12-2020 14:29-0500 Pulse (Heart Rate) 76 /min Ottoniel [facility] [place] 11-12-2020 14:29-0500 Respiratory Rate 14 /min Ottoniel [employer] [facility] springsBFK[facility] [place] Encounters Encounter Date Encounter Type Care Provider Facility Start: 02-18-2024 End: 02-18-2024 ambulatory MARTHA Mcgovern ROSALINDA [facility] Start: 01-12-2024 End: 01-12-2024 ambulatory DEIRDRE EARL [facility] Start: 01-12-2024 End: 01-12-2024 Office outpatient visit 25 minutes Deirdre Earl MD Work Phone: [facility] Comment on above: Presence of stent in LAD coronary artery (Primary Dx); Essential hypertension; Chronic coronary artery disease; Hypertriglyceridemia; Coronary artery disease involving turtle mountain coronary artery of turtle mountain heart without angina pectoris; Mixed hyperlipidemia; Palpitations; Shortness of breath; Other chest pain; Claudication ([facility]) Start: 01-09-2024 Telephone encounter [facility]eria Samuel C[facility] Start: 12-24-2023 Telephone encounter Carter wynn MD Work Phone: [facility] Start: 12-23-2023 ambulatory Carter donald MD Work Phone: [facility] Comment on above: Type 2 diabetes angel itus with hyperglycemia, with long-term current use of insulin ([facility]) (Primary Dx) Start: 12-16-2023 Refill Carter donald MD Work Phone: [facility] Comment on above: Type 2 diabetes angel itus with hyperglycemia, with long-term current use of insulin ([facility]) (Primary Dx) Start: 12-15-2023 Telephone encounter Brea sarabia [facility] Start: 12-15-2023 End: 12-15-2023 ambulatory [facility] Start: 12-15-2023 End: 12-15-2023 Office outpatient visit 25 minutes Carter Wetzel MD Work Phone: [facility] Comment on above: Type 2 diabetes angel itus with hyperglycemia, with long-term current use of insulin ([facility]) (Primary Dx); Other hyperlipidemia; Acquired hypothyroidism; Primary hypertension; Diabetic polyneuropathy associated with diabetes mellitus due to underlying condition ([facility]); Drug intolerance avoid sulfonylureas given history of hypoglycemia and admission to the hospital Start: 12-11-2023 End: 12-11-2023 ambulatory BLAIR YANEZ Not Available Start: 12-01-2023 Refill Martha Tellez APRN-PARMJIT Work Phone: [facility] Comment on above: Type 2 diabetes angel itus with diabetic peripheral angiopathy without gangrene ([facility]) Start: 07-17-2023 End: 07-20-2023 Evaluation and management of inpatient DAGO GARDNER [facility] Start: 01-02-2023 End: 01-06-2023 Evaluation and management of inpatient HARIS ANGELO [facility] Start: 01-02-2023 End: 01-06-2023 Evaluation and management of inpatient Raymond Lopes MD Work Phone: [facility] Med Surg Comment on above: SBO (small bowel obs truction) (HCC) (Primary Dx) Start: 05-13-[address] Tellez CLERK TELEVISION PRODUCTION-LUNCHROOM SUPERVISOR Work Phone: [employer] Work Phone: Start: 01-30-2022 End: 02-01-2022 Subsequent hospital visit by physician [facility] [address] Mammography Comment on above: Screening mammogram for breast cancer Start: 12-14-2020 End: 12-14-2020 Patient encounter procedure MINNA SEGURA [facility] Start: 11-12-2020 End: 11-12-2020 Emergency department patient visit Ottoniel Shelton Work Phone: [facility] ED Comment on above: Fall, initial encoun ter (Primary Dx); Calcaneal spur of foot, left; Closed traumatic nondisplaced fracture of left calcaneus, initial encounter; Lumbar sprain, initial encounter Start: 09-18-[address]ellez CLERK TELEVISION PRODUCTION-LUNCHROOM SUPERVISOR Work Phone: [employer] Work Phone: Start: 06-03-2017 End: 06-04-2017 Ambulatory SOLOMON SCHMITT [facility] Start: 05-05-2017 End: 03-02-2021 Patient encounter status [address] Work Phone: Procedures Date Procedure Procedure Detail Performing Clinician Start: 01-12-2024 Follow-up visit Follow-up DEIRDRE EARL Start: 12-15-2023 Hemoglobin glycosylated a1c Carter Wetzel MD Work Phone: Start: 07-03-2023 Microalbumin [Mass/v olume] in Urine by Test strip Martha Tellez CLERK TELEVISION PRODUCTION-LUNCHROOM SUPERVISOR Work Phone: Start: 01-06-2023 Glucose blood reagent strip Haris Angelo MD Work Phone: Start: 01-06-2023 End: 01-06-2023 Blood count complete auto&auto difrntl wbc Vickie Barahoan CLERK TELEVISION PRODUCTION - [employer] Work Phone: Start: 01-05-2023 Glucose blood reagent strip Haris Angelo MD Work Phone: Start: 01-05-2023 Glucose blood reagent strip Haris Angelo MD Work Phone: Start: 01-05-2023 Glucose blood reagent strip Haris Angelo MD Work Phone: Start: 01-05-2023 BASIC METABOLIC PANE L W/ REFLEX TO MG FOR LOW K Vickie Barahona CLERK TELEVISION PRODUCTION - [employer] Work Phone: Start: 01-05-2023 End: 01-05-2023 Blood count complete auto&auto difrntl wbc Vickie Barahona CLERK TELEVISION PRODUCTION - [employer] Work Phone: Start: 01-04-2023 Glucose blood reagent strip Haris Angelo MD Work Phone: Start: 01-04-2023 Glucose blood reagent strip Haris Angelo MD Work Phone: Start: 01-04-2023 Us retroperitoneal r eal time w/image complete Tacho Au MD Work Phone: Start: 01-04-2023 BASIC METABOLIC PANE L W/ REFLEX TO MG FOR LOW K Vickie Barahona CLERK TELEVISION PRODUCTION - [employer] Work Phone: Start: 01-04-2023 Cell count misc body fluids w/differential count Tacho Au MD Work Phone: Start: 01-04-2023 End: 01-04-2023 Protein electrophoretic fractj&quantj serum Tacho Au MD Work Phone: Start: 01-03-2023 Radiologic exam abdo men 1 view Dasia Felix Imsarika DO Work Phone: Start: 01-03-2023 Cul fngi mold/yeast prsmptv id skn hair/nail Tacho Au MD Work Phone: Start: 01-03-2023 Protein total xcpt refractometry urine Tacho Au MD Work Phone: Start: 01-03-2023 Ct abdomen & pelvis w/o contrast material Dasia Felix Imsarika DO Work Phone: Start: 01-03-2023 Glucose blood reagent strip Haris Angelo MD Work Phone: Start: 01-03-2023 Glucose blood reagent strip Haris Angelo MD Work Phone: Start: 01-03-2023 Glucose blood reagent strip Haris Angelo MD Work Phone: Start: 01-03-2023 BASIC METABOLIC PANE L W/ REFLEX TO MG FOR LOW K Vickiegwne Barahona CLERK TELEVISION PRODUCTION - [employer] Work Phone: Start: 01-03-2023 Natriuretic peptide Lisa ttgwen Barahona CLERK TELEVISION PRODUCTION - [employer] Work Phone: Start: 01-03-2023 Glucose blood reagent [...] bi 2-view breast inc cad Minna Voss CLERK TELEVISION PRODUCTION - LUNCHROOM SUPERVISOR Work Phone: Start: 05-03-2021 [address] [...] 05-03-2031 Screening for malignant neoplasm of colon [facility] Start: 05-03-2026 Screening for malignant neoplasm of colon Colonoscopy [facility] Start: 01-11-2025 Adult BMI Screening Adult BMI Screening [facility] Start: 01-11-2025 Tobacco Screening Tobacco Screening [facility] Start: 12-14-2024 Adult BMI Screening Adult BMI Screening [facility] Start: 12-14-2024 Diabetic foot examination Diabetic Foot Exam [facility] Start: 12-14-2024 Tobacco Screening Tobacco Screening [facility] Start: 07-26-2024 End: 07-26-2024 Patient encounter procedure 07/26/2024 9:15 AM EDT Office Visit [facility] [address] [facility] [address] [place] [id number] Deisy Flower MD [address] [place] [address] [facility] Start: 07-16-2024 Adult BMI Screening Adult BMI Screening [facility] Start: 07-16-2024 Tobacco Screening Tobacco Screening [facility] Start: 06-13-2024 Diabetic foot examination Diabetic Foot Exam [facility] Start: 06-13-2024 Influenza vaccination Influenza Vaccine [facility] Start: 04-14-2024 Urine screening for protein Urine Microalbumin [facility] Start: 02-23-2024 End: 02-23-2024 Patient encounter procedure 02/23/2024 11:15 AM EDT Office Visit [facility] [address] [facility] [address] [place] [address] Martha Tellez, CLERK TELEVISION PRODUCTION-LUNCHROOM SUPERVISOR [address] [facility] [address] [place] [address] [facility] Start: 01-31-2024 Screening for malignant neoplasm of breast Breast cancer screen [facility] Start: 01-23-2024 End: 01-23-2024 Patient encounter procedure 01/23/2024 9:30 AM EDT Appointment [facility] [address] [place] [phone] Deirdre Earl MD [address] [place], [place] [id number] [facility] Start: 01-12-2024 End: 01-11-2025 US.doppler Extremity arteries - bilateral for physiologic artery study Vas art doppler lwr bilat mult lev/PVR Vascular Ultrasound Routine Claudication ([facility]) Expected: 01/12/2024, Expires: 01/11/2025 [facility] Work Phone: Comment on above: Expected: 01/12/2024, Expires: Start: 01-12-2024 End: 01-12-2024 Patient encounter procedure 01/12/2024 10:00 AM EDT Office Visit [facility] [address] [place] [address] Deirdre Earl MD [address] [place] [address] [facility] Start: 01-06-2024 GFR test (Diabetes, CKD 3-4, OR last GFR 15-59) GFR test (Diabetes, CKD 3-4, OR last GFR 15-59) [facility] Start: 01-04-2024 Urine screening for protein Diabetic Alb to Cr ratio (uACR) test [facility] Start: 12-26-2023 Hemoglobin A1c measurement A1C test (Diabetic or Prediabetic) [facility] Start: 12-15-2023 End: 12-15-2023 Patient encounter procedure 12/15/2023 10:45 AM EST Office Visit [facility] [address] [place] [address] Carter Wetzel MD [address] [place] [address] [facility] Start: 07-17-2023 Glaucoma screening Diabetic retinal exam [facility] [employer] [facility] Comment on above: Postponed from 09/21/2015 (Patient Refus ed) Start: 07-13-2023 Screening for malignant neoplasm of colon Colon cancer screen colonoscopy [place] Start: 07-04-2023 Depression Monitoring Depression [facility] Start: 07-02-2023 Lipid panel Lipids [facility] Start: 07-01-2023 Pneumococcal 65+ years Vaccine (2 - PCV) Pneumococcal 65+ years Vaccine (2 - PCV) [facility] Start: 06-13-2023 COVID-19 Vaccine ( season) COVID-19 Vaccine ( season) [facility] Start: 06-13-2023 Influenza vaccination Influenza Vaccine [facility] Start: 02-19-2023 Diabetic foot examination Diabetic foot exam [facility] Start: 01-03-2023 Depression Monitoring Depression Monitoring [facility] Start: 12-31-2022 Hemoglobin A1c measurement A1C test (Diabetic or Prediabetic) [facility] Start: 11-01-2022 Annual Wellness Visit (AWV) Annual Wellness Visit (AWV) [facility] Start: 10-31-2022 DTaP/Tdap/Td vaccine (1 - Tdap) DTaP/Tdap/Td vaccine (1 - Tdap) [facility] Comment on above: Postponed from 1972 (Insurance / F inancial) Start: 10-31-2022 Urine screening for protein Diabetic microalbuminuria test [facility] Start: 10-03-2022 Creatinine measurement Creatinine [facility] Start: 10-03-2022 Potassium [Moles/volume] in Serum or Plasma Potassium [facility] Start: 03-30-2022 Lipid panel Lipids [facility] Start: 03-30-2022 Screening for malignant neoplasm of colon FIT/FOBT: Average risk [facility] Start: 03-17-2022 Pneumococcal 65+ years Vaccine (1 of 1 - PPSV23) Pneumococcal 65+ years Vaccine (1 of 1 - PPSV23) [facility] [place] Start: 02-27-2022 End: 02-27-2022 Patient encounter procedure 02/27/2022 Office Visit Primary Care Minna Voss, CLERK TELEVISION PRODUCTION - LUNCHROOM SUPERVISOR [address] [place] [address] [facility] Start: 01-11-2022 Diabetic foot examination Diabetic foot exam [facility] Start: 08-05-2021 COVID-19 Vaccine (3 - Booster for Moderna series) COVID-19 Vaccine (3 - Booster for Moderna series) [facility] Start: 05-04-2021 Screening for malignant neoplasm of breast Breast cancer screen [place], [place] Start: 04-30-2021 COVID-19 Vaccine (3 - Booster for Moderna series) COVID-19 Vaccine (3 - Booster for Moderna series) [facility]EENAKSHI [facility] Start: 12-11-2020 End: 12-11-2020 Office Visit 12/11/2020 Office Visit Primary Care Minna Segura, CLERK TELEVISION PRODUCTION - LUNCHROOM SUPERVISOR [address] [place] [address] [phone] [facility] Start: 05-27-2020 Diabetic foot examination Diabetic foot exam [place] Start: 01-12-2020 Creatinine measurement Creatinine monitoring [place], [place] Start: 01-12-2020 Potassium monitoring Potassium monitoring [place] Start: 04-04-2019 Annual Wellness Visit (AWV) Annual Wellness Visit (AWV) [place] Start: 08-13-2018 Diabetic retinal exam Diabetic retinal exam [facility] Start: 2018 Fall Risk Screening Fall Risk Screening [facility] Start: 05-07-2018 Lipid panel Lipid screen [place] Start: 03-17-2018 Diabetic microalbuminuria test Diabetic microalbuminuria test [place] Start: 03-17-2018 Pneumococcal 65+ years Vaccine (2 - PCV) Pneumococcal 65+ years Vaccine (2 - PCV) [facility] Start: 06-26-2017 HbA1c (Bld) [Mass fraction] A1C test (Diabetic or Prediabetic) [place] Start: 09-18-2016 Thyroid stimulating hormone measurement TSH [facility] Start: 09-18-2016 TSH Qn TSH testing [place] Start: 09-21-2015 Diabetic retinal exam Diabetic retinal exam [place], [place] Start: 2003 Shingles Vaccine (1 of 2) Shingles Vaccine (1 of 2) [place] Start: 1998 Screening for malignant neoplasm of colon [facility] Start: 1972 DTaP,Tdap and Td Vaccines (1 - Tdap) DTaP,Tdap and Td Vaccines (1 - Tdap) [facility] Start: 1972 DTaP/Tdap/Td vaccine (1 - Tdap) DTaP/Tdap/Td vaccine (1 - Tdap) [employer] Start: 1971 Adult BMI Follow Up Plan [facility] Plan [facility] Start: 1965 Depression Screening Depression Screening [facility] Start: 1955 Glaucoma screening Diabetic Ophthalmology Exam [facility] Start: 1955 Hepatitis C screening Hepatitis C screen [place] Start: 1955 Medicare Annual Wellness Visit Medicare Annual Wellness Visit [facility] Start: 1955 Tobacco Counseling Tobacco Counseling [facility] Adult NIV/Positive Airway Pressure Adult NIV/Positive Airway Pressure Respiratory Care Routine HS until discontinued starting 01/03/2023 [employer] Phone: Comment on above: HS until discontinued starting End: 01-04-2023 PAUL Screen with Reflex PAUL Screen with Reflex Lab Routine Tomorrow AM for 1 Occurrences starting 01/04/2023 until 01/04/2023 [employer] Phone: Comment on above: Tomorrow AM for 1 Occurrences starting 0 01/04/2023 until 01/04/2023 PAUL Screen with Reflex PAUL Scree n with Reflex Lab Routine 01/04/2023 6:31 AM EDT [employer] Phone: Electrophoresis Prot ein, Serum Electrophoresis Protein, Serum Lab Routine 01/04/2023 6:31 AM EDT [employer] Phone: Glucose [Mass/volume ] in Serum or Plasma [employer] Phone: Comment on above: As Needed until discontinued starting 4X Daily (AC & HS) u ntil discontinued starting 01/03/2023 Oxygen therapy [[facility]] Initiate Oxygen Therapy Protocol Respiratory Care Routine As Needed until discontinued starting 01/03/2023 [employer] Work Phone: Comment on above: As Needed until discontinued starting Immunizations Immunization Date Immunization Notes Care Provider Deb cook 09-16-2023 influenza virus vacc ine, unspecified formulation Deirdre Earl MD Work Phone: [facility] 07-01-2022 Influenza, FLUAD, (a ge 65 y+), Adjuvanted, 0.5mL Raymond Lopes MD Work Phone: [facility] [employer] 07-01-2022 pneumococcal polysaccharide vaccine, 23 valent Rayomnd Lopes MD Work Phone: [facility] Work Phone: 07-01-2022 influenza virus vacc ine, unspecified formulation Martha [facility] Work Phone: [facility] [employer] 06-27-2021 Influenza, Quadv, adjuvanted, 65 yrs +, IM, PF (Fluad) [place] [address] [employer] Work Phone: 04-12-2021 zoster vaccine recombinant [place] [address] [employer] Phone: 03-05-2021 COVID-19, Moderna, Primary or Immunocompromised, PF, 100mcg/0.5mL [place] [address] [employer] Phone: 02-05-2021 COVID-19, Moderna, Primary or Immunocompromised, PF, 100mcg/0.5mL [place] [address] [employer] Phone: 12-22-2020 zoster vaccine recombinant [place] [address] [employer] Phone: 08-31-2020 Influenza, Quadv, adjuvanted, 65 yrs +, IM, PF (Fluad) [facility] [employer] Phone: 08-14-2020 Influenza, High-dose , Quadv, 65 yrs +, IM (Fluzone) [place] [address] [employer] Phone: 07-29-2019 influenza, high dose seasonal, preservative-free St [address] [facility] Phone: 07-06-2019 seasonal influenza, intradermal, preservative free [address] [facility] Phone: 06-15-2019 seasonal influenza, intradermal, preservative free [facility] Phone: 06-13-2019 seasonal influenza, intradermal, preservative free [facility] [employer] Phone: 07-20-2018 influenza, high dose seasonal, preservative-free [facility] [employer] Phone: 03-17-2017 pneumococcal polysaccharide vaccine, 23 valent [employer] 06-26-2016 influenza, injectabl e, quadrivalent, preservative free Ottoniel [facility] [facility] 06-04-2016 seasonal influenza, intradermal, preservative free [place] [address] [employer] Phone: 07-12-2015 Influenza Vaccine, unspecified formulation Ottoniel [employer]- [place] , [place] 09-12-2010 pneumococcal polysaccharide vaccine, 23 valent [facility] Phone: 05-15-2006 pneumococcal polysaccharide vaccine, 23 valent [place] [address] [employer] Phone: Payers Date Payer Category Payer Medicare [id number] 2023 Medicare [id number] 2020 Medicare [id number]. [id number] 2018 Medicaid [id number] 1. [id number] 2014 Medicare [id number] 1955 Unknown [id number] [id number] 1955 Unknown [id number] [id number] 1955 Unknown [id number] [id number] 1953 Unknown [id number] 1953 Unknown [id number] [id number] 1953 Unknown [id number] [id number] [id number] 1953 Unknown [id number] [id number] Social History Date Type Detail Facility Start: 11-12-2020 End: 01-12-2024 Tobacco smoking status NHIS Current every day smoker [place] End: 01-11-2023 History of tobacco use Cigarette Smoker [place] Start: 11-12-2020 End: 01-12-2024 Tobacco use and exposure Never used [place] Start: 11-12-2020 End: 01-03-2023 Alcohol intake Current non-drinker of alcohol (finding) [place] Start: 09-11-2020 End: 01-02-2023 Tobacco Comment about 5 per day [place] Start: 1955 Sex Assigned At Not on file [place] Start: 12-24-2021 End: 01-03-2023 Exposure to SARS-CoV-2 (event) Not sure [place] Start: 09-11-2020 End: 11-15-2020 Cigarettes smoked current (pack per day) - Reported 0.25 [facility] Start: 12-12-2021 History SDOH Financial 5 [employer] Phone: Start: 11-15-2020 End: 12-12-2021 History SDOH Food Worry 1 [employer] Phone: History of tobacco use Tobacco U se Types Packs/Day Years Used Date Smoking Tobacco: Every Day Cigarettes 0.3 40 E-Cigarettes Smokeless Tobacco: Never MEENAKSHI [facility] [employer] Phone: Start: 05-16-2023 Tobacco smoking stat us OHIS [facility] End: 01-11-2023 History of tobacco use Current smoker [facility] Start: 07-16-2023 End: 01-12-2024 Alcohol intake Ex-drinker (finding) [facility] Start: 11-15-2020 End: 07-16-2023 Tobacco use panel [facility] Childcare Unknown [facility] [employer] Medical Equipment Procedure Code Equipment Code Equipment Origin al Text Equipment Identifier Dates B-D INS SYRINGE 0.5CC/30GX1/2 30G X 1/2 0.5 ML MISC [id number] Start: 08-08-2016 BD INSULIN SYRIN GE ULTRAFINE 31G X 5/16 0.3 ML MISC [id number] Start: 02-21-2017 THEST THREE TIME S DAILY TEST THREE TIMES DAILY [id number] Start: 06-03-2017 USE DIRECTED TWICE A DAY [id number] Start: 05-30-2022 TEST THREE TIMES A DAY & NEEDED FOR SYMPTOMS OF IRREGULAR BLOOD GLUCOSE. ONE TOUCH VIVIO [id number] Start: 07-29-2022 USE TO TEST 6 TI MES DAILY [id number] Start: 02-10-2023 Use to inject insulin 4 times daily [id number] Start: 12-01-2023 USE DIRECTED TWICE A DAY 30 [id number] Start: 08-07-2023 End: 12-01-2023 Clinical Notes 01-06-2023 to 01-12-2024 Deirdre Earl MD - 01/12/2024 10:00 AM EDTPatient InstructionsTelephone Encounter - Valeria Samuel, [facility] - 01/09/2024 1:25 PM EDTTelephone Encounter - Valeria Samuel, [facility] - 01/09/2024 1:25 PM EDT Note Date & Type Note Facility 01-12-2024 History of Presen t illness Narrative Sanya Randall Date of visit: 01/12/2024 Date of : 1955 Age: 68 y.o. Patient Active Problem List Diagnosis Diabetes mellitus ([facility]) GERD (gastroesophageal reflux disease) Hyperlipidemia Essential hypertension Depression Diabetic neuropathy ([facility]) PK treated with BiPAP Preoperative evaluation to rule out surgical contraindication Severe obesity (BMI 35.0-39.9) with comorbidity ([facility]) Tobacco abuse Presence of stent in LAD coronary artery Chronic coronary artery disease Encounter for pre-operative cardiovascular clearance Allergies Allergen Reactions Keflex [Cephalexin] Yeast infection Levemir Flexpen [Insulin Detemir U-100] Other reaction(s): Unknown Levemir [Insulin Detemir] Itching Moxifloxacin Itching Other reaction(s): Unknown Prednisone Itching Hmsequk-Kdt-Dgx Reductase Inhibitors Ultram [Tramadol] Other (See Comments) Passes out after taking Current Outpatient Medications Medication Sig Dispense Refill aspirin 81 mg chewable tablet Chew 1 tablet (81 mg total) and swallow in the morning. carvediloL (COREG) 12.5 mg tablet TAKE 1 TABLET BY MOUTH TWICE DAILY 180 tablet 3 clopidogreL (PLAVIX) 75 mg tablet Take 1 tablet (75 mg total) by mouth in the morning. 90 tablet 3 cyclobenzaprine (FLEXERIL) 10 mg tablet Take 1 tablet (10 mg total) by mouth 3 (three) times a day as needed for muscle spasms. docusate sodium (COLACE) 100 mg capsule Take 1 capsule (100 mg total) by mouth in the morning. evolocumab (REPATHA PUSHTRONEX) 420 mg/3.5 mL wearable injector Inject 3.5 mL under the skin every 30 (thirty) days. 10.5 mL 1 ezetimibe (ZETIA) 10 mg tablet TAKE 1 TABLET BY MOUTH EVERY DAY 90 tablet 3 furosemide (LASIX) 20 mg tablet TAKE 1 TABLET BY MOUTH EVERY DAY 90 tablet 3 glucagon 1 mg/0.2 mL auto-injector Inject 0.2 mL (1 mg total) under the skin as needed (hypoglycemia). 0.2 mL 2 insulin glargine U-300 conc (TOUJEO MAX U-300 SOLOSTAR) 300 unit/mL (3 mL) insulin pen Inject 50 Units under the skin in the morning. (Patient taking differently: Inject 50 Units under the skin 3 (three) times a day.) 60 mL 3 insulin lispro (HumaLOG) 100 unit/mL insulin pen Inject 35-40 Units under the skin in the morning and 35-40 Units at noon and 35-40 Units in the evening. Inject with meals. Plus scale with meals up to 150 units per day in divided doses.. 15 mL 12 INVOKANA 100 mg tablet TAKE 1 TABLET BY MOUTH BEFORE THE FIRST MEAL OF THE DAY 90 90 tablet 3 ipratropium-albuterol (DUO-NEB) 0.5 mg-3 mg(2.5 mg base)/3 mL nebulizer Inhale 3 mL by nebulization every 4 (four) hours as needed for wheezing. levothyroxine (SYNTHROID, LEVOTHROID) 137 MCG tablet TAKE 1 TABLET IN THE MORNING ON AN EMPTY STOMACH BY MOUTH EVERY DAY 90 tablet 3 linaCLOtide (LINZESS) 145 mcg capsule Take 1 capsule (145 mcg total) by mouth every morning before breakfast. meclizine (ANTIVERT) 12.5 mg tablet Take 1 tablet (12.5 mg total) by mouth as needed for dizziness. MOUNJARO 5 mg/0.5 mL pen injector Inject 5 mg under the skin once a week. 6 mL 3 nitroglycerin (NITROSTAT) 0.[address] 1 tablet (0.4 mg total) under the tongue every 5 (five) minutes as needed for chest pain. 25 tablet 1 omeprazole (PriLOSEC OTC) 20 mg tablet,delayed release (DR/EC) Take 1 tablet (20 mg total) by mouth in the morning. ONETOUCH VERIO TEST STRIPS strip USE TO TEST 6 TIMES DAILY 100 strip 5 pen needle, diabetic (BD ULTRA-FINE ORIG PEN NEEDLE) 29 gauge x 1/2 needle Use to inject insulin 4 times daily 400 each 3 polyethylene glycol (GLYCOLAX) 17 gram/dose powder Take 17 g by mouth daily. 116 g 0 REQUIP 0.25 mg tablet Take 4 tablets (1 mg total) by mouth nightly. rosuvastatin (CRESTOR) 5 mg tablet Take 1 tablet (5 mg total) by mouth nightly. 90 tablet 3 tiZANidine (ZANAFLEX) 2 mg tablet Take 1 tablet (2 mg total) by mouth daily as needed. VASCEPA 1 gram capsule Take 2 capsules (2 g total) by mouth in the morning and 2 capsules (2 g total) before bedtime. 360 capsule 3 buPROPion XL (WELLBUTRIN XL) 150 mg 24 hr tablet Take 1 tablet (150 mg total) by mouth in the morning. (Patient not taking: Reported on 12/15/2023) fenofibrate micronized (LOFIBRA) 134 mg capsule TAKE 1 CAPSULE (134 MG TOTAL) BY MOUTH EVERY MORNING BEFORE BREAKFAST. (Patient not taking: Reported on 12/15/2023) 90 capsule 3 lisinopriL (PRINIVIL,ZESTRIL) 20 mg tablet Take 1 tablet (20 mg total) by mouth daily. (Patient not taking: Reported on 01/12/2024) 30 tablet 0 loratadine (CLARITIN) 10 mg tablet Take 1 tablet (10 mg total) by mouth in the morning. (Patient not taking: Reported on 12/15/2023) multivit with minerals/lutein (MULTIVITAMIN 50 PLUS ORAL) Take by mouth daily. (Patient not taking: Reported on 01/12/2024) pregabalin (LYRICA) 150 mg capsule Take 1 capsule (150 mg total) by mouth in the morning. (Patient not taking: Reported on 01/12/2024) No current facility-administered medications for this visit. Chief Complaint Patient presents with Follow-up 6 mo f/u-l/s MBE History of Present Illness 68yo swelling x 4 months, feet and ankles Was having left toe problems prior to this, cellulitis Full cardiac w/u 2022 Negative holter for arrhythmic issues Echo : Left Ventricle: There is mild concentric increased wall thickness/hypertrophy. Systolic function is normal with an ejection fraction of 60-65%. No obvious regional wall motion abnormalities. Aortic Valve: The aortic valve is trileaflet. The non-coronary cusp appears mildly thickened. Mitral Valve: The leaflets are mildly thickened. There is moderate posterior annular calcification. There is trace regurgitation. There is no evidence of mitral valve stenosis. Mean gradient 5.0 mmHg. Left Atrium: Left atrium volume index is mildly increased. The left atrial volume index is 35.0 mL/m2. Tricuspid Valve: Tricuspid valve appears to be normal. There is mild regurgitation. There is no evidence of tricuspid valve stenosis. Nuclear stress low risk Past Medical History: Diagnosis Date Angina pectoris ([facility]) Arthritis Asthma CAD (coronary artery disease) Chronic back pain Depression Diabetes mellitus ([facility]) Diabetes mellitus type 2, controlled ([facility]) Diabetic neuropathy ([facility]) GERD (gastroesophageal reflux disease) H/O heart artery stent Hyperlipidemia Hypertension Hypothyroidism Knee pain Obesity PK (obstructive sleep apnea) CPAP Shortness of breath Skin cancer No data recorded No data recorded No data recorded Past Surgical History: Procedure Laterality Date ABDOMINAL SURGERY fibroid tumor removal ARTHROSCOPY KNEE Right 11/18/2018 Performed by Ottoniel Pimentel DO at [facility] EXPRESS BREAST BIOPSY Right 2007 BENIGN CARDIAC CATHETERIZATION x4 stents CHOLECYSTECTOMY COLONOSCOPY N/A 05/03/2021 Performed by Clif Wilcox DO at [facility] COLONOSCOPY N/A 07/30/2018 Performed by Indra Mckinney MD at [facility] CORONARY STENT PLACEMENT EGD N/A 07/30/2018 Performed by Indra Mckinney MD at [facility] NECK SURGERY TUBAL LIGATION Family History Problem Relation Age of Onset Heart disease Father Diabetes Father Stroke Father Edema Father Heart disease Brother Edema Brother Hyperlipidemia Son No Known Problems Mother Cancer Maternal Aunt Brain cancer Maternal Aunt Cancer Maternal Uncle Colon cancer Maternal Uncle Diabetes Sister Breast cancer Neg Hx Social History Socioeconomic History Marital status: Spouse name: Not on file Number of children: Not on file Years of education: Not on file Highest education level: Not on file Occupational History Not on file Tobacco Use Smoking status: Every Day Packs/day: 0.50 Years: 52.00 Additional pack years: 0.00 Total pack years: 26.00 Types: Cigarettes Smokeless tobacco: Never Vaping Use Vaping Use: Former Substances: Nicotine Substance and Sexual Activity Alcohol use: Not Currently Drug use: Yes Types: Marijuana Comment: NIGHTLY Sexual activity: Defer Other Topics Concern Caffeine Use Yes Social History Narrative Not on file Social Determinants of Health Financial Resource Strain: Not on file Food Insecurity: No Food Insecurity (01/12/2024) Hunger Screening Food Insecurity - Worry: Never True Food Insecurity - Inability: Never True Transportation Needs: Not on file Physical Activity: Not on file Stress: Not on file Social Connections: Not on file Interpersonal Safety: Not on file Housing Instability: Not on file Review of Systems Review of Systems Constitutional: Positive for malaise/fatigue. HENT: Negative. Eyes: Negative. Cardiovascular: Negative. Respiratory: Negative. Endocrine: Negative. Hematologic/Lymphatic: Negative. Skin: Negative. Musculoskeletal: Positive for joint swelling and muscle weakness. Gastrointestinal: Negative. Genitourinary: Negative. Neurological: Negative. Psychiatric/Behavioral: Negative. Allergic/Immunologic: Positive for environmental allergies. Vascular: Negative. CARDIOVASCULAR: Please review HPI. Physical Examination General appearance: Alert, oriented and cooperative. In no acute distress. Skin: Warm and dry to touch. Head: Normocephalic, without obvious abnormality, atraumatic. Ears, Nose, Mouth, Throat: Throat clear without erythema or exudate. Dentition intact. Eyes: Conjunctivae unremarkable, EOM intact. Neck: No JVD, No carotid bruit. Neck supple, trachea midline. Respiratory: Clear to auscultation bilaterally, no use of accessory muscles. Cardiovascular: RRR with normal S1 and S2 with no murmurs. Gastrointestinal: Soft, non-tender. Bowel sounds normal. Musculoskeletal: No peripheral edema. Neurologic: Oriented to time, person and place, affect appropriate. No focal/major motor defects noted. Psychiatric: Appropriate mood, memory and judgement. VITAL SIGNS: BP 150/72 (BP Site: Left Arm, BP Postition: Sitting) Pulse 68 Ht 152.4 cm (5') Wt 89.2 kg (196 lb 9.6 oz) LMP (LMP Unknown) SpO2 96% BMI 38.40 kg/m No orders of the defined types were placed in this encounter. There are no discontinued medications. IMPRESSIONS/PLAN There are no diagnoses linked to this encounter. Impression LE edema this is noncardiogenic. She has claudication and neuropathic pain HTN uncontrolled, 2022 lisinopril was dropped d/t hypotension. Her BP has been 150s last two checks DM2 LE cellulitis, also fam hx amputation CAD Active tobacco CAD with remote PCI mLAD 2010, jailed diag without angina. LDL not at goal, unclear why low dose statin, must have had issue with tolerance Noncardiogenic edema, 1+, suspect neuropathy, she is having testing for this in [place] Will get ABIs Restart lisinopril Suspect she has PVD She is on invokana, will switch to jardiance, will alert endocrine Direct LDL 2022 131 Zetia Repatha Crestor 5mg, increase to 10mg TODAYS ORDERS No orders of the defined types were placed in this encounter. FOLLOW UP No follow-ups on file. PCP: PCP Not In System Referring Physician: Minna Voss, [employer] [id number] [place] [address] documented in this encounter [facility] 01-12-2024 Instructions Ela Vidales CMA - 01/12/2024 10:00 AM EDT Are You Ready To Kick The Habit? Free Tobacco Cessation Resources [facility] Services [facility] provide all employees with free tobacco cessation services that include: Counseling to understand nicotine addiction Education about medications that can help you successfully quit Assistance with developing a plan to quit Call to set up an individual appointment or find out when group classes will be held: [facility]: [phone] [facility]: [phone] [facility]: [phone] [facility]: [phone] Quit Smoking Action Plan and Resources [facility] offers an eight-week, online smoking cessation plan to all [facility] employees, regardless of whether [place] is your medical insurance provider. Go to [email or web address] and click the Health Risk Assessment and Resources link to get started. In the [employer] menu, click Action Plans instead of Health Risk Assessment to access the Quit Smoking Action Plan. Additional smoking cessation resources are also available to all [facility] employees on the [employer]ob[employer] web page at [email or web address].Breaker/quit smoking. [place] Tobacco Cessation Program If [place] is your medical insurance provider, there are more free resources available to you, including: No copays or deductibles on local tobacco cessation counseling services to help you quit Prescription assistance for tobacco cessation medications to help you quit For details about the tobacco cessation program available to [place] members, go to www.Breaker (Search: Tobacco Cessation Program). [place] Tobacco Quit Line 3-158-LXVO-NOW ( ) is a toll-free, telephonic service that helps [place] residents quit smoking and using tobacco. It is staffed by experts who tailor a quit plan for you and provide you with advice. [place] Tobacco Quit Line 3-603-LOJD-NOW ( ) is a toll-free, telephonic service that helps [place] residents quit smoking and using tobacco. It is staffed by experts who tailor a quit plan for you and provide you with advice. Two weeks of nicotine replacement therapy may be provided at no charge, if needed. Additional Resources These national organizations also offer free information and resources to help you quit tobacco: [place] [employer]--www.cancer.org/healthy/ stayawayfromtobacco [place] [employer]--www.heart.org (Search: Quit Smoking) Centers for Disease Control and Prevention--www.cdc.gov/tobacco [place] [employer]--www.lungusa.org documented in this encounter [facility] 01-09-2024 Miscellaneous Notes Called patient to remind them to bring their most current copy of their medication list with them to their appt. Patient verbalizes understanding. documented in this encounter [facility] 01-09-2024 Telephone encounter Note Called patient to remind them to bring their most current copy of their medication list with them to their appt. Patient verbalizes understanding. [facility] 12-24-2023 Miscellaneous Notes ----- Message from Carter Wetzel MD sent at 12/23/2023 10:59 PM EDT ----- sensor download reviewed and interpreted on file in media. Postprandial hyperglycemia noted. Increase mealtime insulin by 5 units at each meal. Loi, Also kindly inform patient about sensor download billing protocol for the office Patient informed and verbalized understanding documented in this encounter [facility] 12-24-2023 Telephone encounter Note ----- Message from Carter Wetzel MD sent at 12/23/2023 10:59 PM EDT ----- sensor download reviewed and interpreted on file in media. Postprandial hyperglycemia noted. Increase mealtime insulin by 5 units at each meal. Loi, Also kindly inform patient about sensor download billing protocol for the office [facility] 12-24-2023 Telephone encounter Note Patient informed and verbalized understanding [facility] 12-23-2023 History of Presen t illness Narrative Images from the original note were not included. sensor download reviewed and interpreted on file in media. Postprandial hyperglycemia noted. Increase mealtime insulin by 5 units at each meal. Loi, Also kindly inform patient about sensor download billing protocol for the office. documented in this encounter [facility] 12-16-2023 Miscellaneous Notes OK to sign and send. Insurance rejects baqsimi Change to Glucagon injection Ok to sign and send documented in this encounter [facility] 12-16-2023 Telephone encounter Note OK to sign and send. Insurance rejects baqsimi [facility] 12-16-2023 Telephone encounter Note Change to Glucagon injection [facility] 12-16-2023 Telephone encounter Note Ok to sign and send [facility] 12-15-2023 Miscellaneous Notes ----- Message from Carter Wetzel MD sent at 12/15/2023 11:38 AM EST ----- G 7 sensors Rx. Dexcom G7 order initiated. [facility] Tele[facility] encounter Note ----- Message from Carter Wetzel MD sent at 12/15/2023 11:38 AM EST ----- [facility]2023 Telephone encounter Note Dexcom G7 [facility]. [facility] 12-15-2023 History of Presen t illness Narrative +REASON FOR VISIT: Sanya Randall returns today for follow-up of her diabetes. DIABETES HISTORY: Type of Diabetes: Type 2 Diabetes Mellitus Duration of Diabetes: since 1982 INTERVAL HISTORY: Lab Results Component Value Date POGQGQX2W 8.6 (A) 12/15/2023 [id number] 8.7 (A) 06/13/2023 STQCEML1M 7.1 (A) 12/25/2022 [id number] 8.1 (A) 10/17/2022 Blood sugar was less than 55 (BG 43) needing hospitalization and third-alliance party assistance so she will qualify for sensor. 07/2023 Late 2022 she had hypoglycemia needing hospitalization during the visit multiple medications were stopped including Repatha and she never started Mounjaro. Now her A1c is high. DIABETES COMPLICATIONS/SURVEILLANCE: Retinopathy: yes Last eye exam: A month ago, reports no diabetic retinopathy Nephropathy: no Peripheral neuropathy: yes History of amputations: no Autonomic neuropathy: no Macrovascular disease: CAD: yes PVD: no Stroke: no Hypertension: yes Dyslipidemia: yes Tobacco use: no ASA prophylaxis: yes Sleep apnea: yes Immunizations current : yes Current Diabetic medications: Toujeo 60 units daily in am, Humalog 45-50 units with meals, Invokana 100 mg daily Prior Diabetic medications: Diet: trying to reduce carbs and sweets Blood glucose summary: Smbg x4 per day 64-335 Past Medical History: Diagnosis Date Angina pectoris ([facility]) Arthritis Asthma CAD (coronary artery disease) Chronic back pain Depression Diabetes mellitus ([facility]) Diabetes mellitus type 2, controlled ([facility]) Diabetic neuropathy ([facility]) GERD (gastroesophageal reflux disease) H/O heart artery stent Hyperlipidemia Hypertension Hypothyroidism Knee pain Obesity PK (obstructive sleep apnea) CPAP Shortness of breath Skin cancer Past Surgical History: Procedure Laterality Date ABDOMINAL SURGERY fibroid tumor removal ARTHROSCOPY KNEE Right 11/18/2018 Performed by Ottoniel Pimentel DO at [facility]) EXPRESS BREAST BIOPSY Right 2007 BENIGN CARDIAC CATHETERIZATION x4 stents CHOLECYSTECTOMY COLONOSCOPY N/A 05/03/2021 Performed by Clif Wilcox DO at [facility]) EXPRESS COLONOSCOPY N/A 07/30/2018 Performed by Indra Mckinney MD at [facility] CORONARY STENT PLACEMENT EGD N/A 07/30/2018 Performed by Indra Mckinney MD at [facility] NECK SURGERY TUBAL LIGATION Current Outpatient Medications: aspirin 81 mg chewable tablet, Chew 1 tablet (81 mg total) and swallow in the morning., Disp: , Rfl: carvediloL (COREG) 12.5 mg tablet, TAKE 1 TABLET BY MOUTH TWICE DAILY, Disp: 180 tablet, Rfl: 3 clopidogreL (PLAVIX) 75 mg tablet, Take 1 tablet (75 mg total) by mouth in the morning., Disp: 90 tablet, Rfl: 3 cyclobenzaprine (FLEXERIL) 10 mg tablet, Take 1 tablet (10 mg total) by mouth 3 (three) times a day as needed for muscle spasms., Disp: , Rfl: docusate sodium (COLACE) 100 mg capsule, Take 1 capsule (100 mg total) by mouth in the morning., Disp: , Rfl: ezetimibe (ZETIA) 10 mg tablet, TAKE 1 TABLET BY MOUTH EVERY DAY, Disp: 90 tablet, Rfl: 3 furosemide (LASIX) 20 mg tablet, TAKE 1 TABLET BY MOUTH EVERY DAY, Disp: 90 tablet, Rfl: 3 INVOKANA 100 mg tablet, TAKE 1 TABLET BY MOUTH BEFORE THE FIRST MEAL OF THE DAY 90, Disp: 90 tablet, Rfl: 3 ipratropium-albuterol (DUO-NEB) 0.5 mg-3 mg(2.5 mg base)/3 mL nebulizer, Inhale 3 mL by nebulization every 4 (four) hours as needed for wheezing., Disp: , Rfl: levothyroxine (SYNTHROID, LEVOTHROID) 137 MCG tablet, TAKE 1 TABLET IN THE MORNING ON AN EMPTY STOMACH BY MOUTH EVERY DAY, Disp: 90 tablet, Rfl: 3 linaCLOtide (LINZESS) 145 mcg capsule, Take 1 capsule (145 mcg total) by mouth every morning before breakfast., Disp: , Rfl: lisinopriL (PRINIVIL,ZESTRIL) 20 mg tablet, Take 1 tablet (20 mg total) by mouth daily., Disp: 30 tablet, Rfl: 0 meclizine (ANTIVERT) 12.5 mg tablet, Take 1 tablet (12.5 mg total) by mouth as needed for dizziness., Disp: , Rfl: multivit with minerals/lutein (MULTIVITAMIN 50 PLUS ORAL), Take by mouth daily., Disp: , Rfl: nitroglycerin (NITROSTAT) 0.4 MG SL tablet, Place 1 tablet (0.4 mg total) under the tongue every 5 (five) minutes as needed for chest pain., Disp: 25 tablet, Rfl: 1 omeprazole (PriLOSEC OTC) 20 mg tablet,delayed release (DR/EC), Take 1 tablet (20 mg total) by mouth in the morning., Disp: , Rfl: ONETOUCH VERIO TEST STRIPS strip, USE TO TEST 6 TIMES DAILY, Disp: 100 strip, Rfl: 5 pen needle, diabetic (BD ULTRA-FINE ORIG PEN NEEDLE) 29 gauge x 1/2 needle, Use to inject insulin 4 times daily, Disp: 400 each, Rfl: 3 polyethylene glycol (GLYCOLAX) 17 gram/dose powder, Take 17 g by mouth daily., Disp: 116 g, Rfl: 0 REQUIP 0.25 mg tablet, Take 1 tablet (0.25 mg total) by mouth nightly., Disp: , Rfl: rosuvastatin (CRESTOR) 5 mg tablet, Take 1 tablet (5 mg total) by mouth nightly., Disp: 90 tablet, Rfl: 3 tiZANidine (ZANAFLEX) 2 mg tablet, Take 1 tablet (2 mg total) by mouth daily as needed., Disp: , Rfl: VASCEPA 1 gram capsule, Take 2 capsules (2 g total) by mouth in the morning and 2 capsules (2 g total) before bedtime., Disp: 360 capsule, Rfl: 3 buPROPion XL (WELLBUTRIN XL) 150 mg 24 hr tablet, Take 1 tablet (150 mg total) by mouth in the morning. (Patient not taking: Reported on 12/15/2023), Disp: , Rfl: evolocumab (REPATHA PUSHTRONEX) 420 mg/3.5 mL wearable injector, Inject 3.5 mL under the skin every 30 (thirty) days., Disp: 10.5 mL, Rfl: 1 fenofibrate micronized (LOFIBRA) 134 mg capsule, TAKE 1 CAPSULE (134 MG TOTAL) BY MOUTH EVERY MORNING BEFORE BREAKFAST. (Patient not taking: Reported on 12/15/2023), Disp: 90 capsule, Rfl: 3 glucagon (BAQSIMI) 3 mg/actuation spray,non-aerosol, Administer 3 mg into left nostril as needed (hypoglycemia)., Disp: 6 each, Rfl: 3 insulin glargine U-300 conc (TOUJEO MAX U-300 SOLOSTAR) 300 unit/mL (3 mL) insulin pen, Inject 50 Units under the skin in the morning., Disp: 60 mL, Rfl: 3 insulin lispro (HumaLOG) 100 unit/mL insulin pen, Inject 35-40 Units under the skin in the morning and 35-40 Units at noon and 35-40 Units in the evening. Inject with meals. Plus scale with meals up to 150 units per day in divided doses.., Disp: 15 mL, Rfl: 12 loratadine (CLARITIN) 10 mg tablet, Take 1 tablet (10 mg total) by mouth in the morning. (Patient not taking: Reported on 12/15/2023), Disp: , Rfl: MOUNJARO 5 mg/0.5 mL pen injector, Inject 5 mg under the skin once a week., Disp: 6 mL, Rfl: 3 pregabalin (LYRICA) 150 mg capsule, Take 1 capsule (150 mg total) by mouth in the morning. (Patient not taking: Reported on 12/15/2023), Disp: , Rfl: Allergies, social history and family history were reviewed and updated in [facility]. REVIEW OF SYSTEMS: 12 systems were reviewed and were negative except for what has been mentioned above PHYSICAL EXAM: Wt Readings from Last 3 Encounters: 12/15/23 88.1 kg (194 lb 3.2 oz) 07/16/23 81.6 kg (180 lb) 06/13/23 86.6 kg (191 lb) Body mass index is 37.93 kg/m . Vitals: 12/15/23 1044 BP: 151/66 Pulse: 68 Weight: 88.1 kg (194 lb 3.2 oz) General appearance: Well appearing female in no apparent distress. HEENT: EOMI, oropharynx clear, mucous membranes moist. Neck: No carotid bruits, thyroid not palpable. No palpable cervical lymph nodes. Heart: RRR, no murmurs, rubs or gallops. Lungs: Clear to auscultation. Extremities: Distal pulses 2+. No lower extremity edema. No foot deformities. Skin: No skin lesions. No nail lesions. No lipohypertrophy at insulin injection sites. Neuro: A & O x 3. Sensation is intact bilaterally to 10 gram monofilament testing. Psych: Mood and affect are appropriate. Diabetic foot exam: Visual exam was abnormal toe deformities, mild tinea pedis . Left: Pulses Dorsalis Pedis: diminished Vibratory sensation diminished Filament test present Right: Pulses Dorsalis Pedis: diminished Vibratory sensation absent Filament test present LABS: CBC: Lab Results Component Value Date WBC 10.0 07/02/2022 RBCCOUNT 4.21 07/02/2022 HGB 13.0 07/02/2022 HCT 38.5 07/02/2022 MCV 92 07/02/2022 MCH 31.0 07/02/2022 MCHC 33.9 07/02/2022 RDW 15.0 07/02/2022 PLT 253 07/02/2022 MPV 9.2 07/02/2022 CMP: Lab Results Component Value Date SODIUM 139 04/14/2023 K 4.4 04/14/2023 CL 104 04/14/2023 CO2 25 04/14/2023 ANIONGAP 10 04/14/2023 BUN 19 04/14/2023 CREATININE 0.87 04/14/2023 GLU 110 (H) 04/14/2023 CALCIUM 10.0 04/14/2023 TOTALPROTEI 7.2 04/14/2023 ALBUMIN 3.8 04/14/2023 ALKPHOS 56 04/14/2023 AST 19 04/14/2023 ALT 23 04/14/2023 GFR 59 (L) 03/30/2021 GFR >60 03/30/2021 LIPID: Lab Results Component Value Date Cholesterol 255 (H) 04/14/2023 Cholesterol:HDL Ratio 7.1 (H) 04/14/2023 HDL 26 06/10/2015 HDL Cholesterol 36 (L) 04/14/2023 HDL interpretation 06/10/2015 RISK FAVORABLE AVERAGE INCREASED MEN >55 MG/DL 35-55 MG/DL < 35 MG/DL FEMALE >65 MG/DL 45-65 MG/DL < 45 MG/DL Triglycerides 569 (H) 04/14/2023 Triglycerides 319 (H) 06/10/2015 LDL 69 06/10/2015 LDL (calc) RESULT NOT REPORTED DUE TO HIGH TRIGLYCERIDE 04/14/2023 LDL interp 06/10/2015 RECOMMENDED: <130 MG/DL MODERATE RISK: 130-159 MG/DL HIGH RISK: >160 MG/DL Urine Microalbumin: Lab Results Component Value Date MICROALBUR 6.9 (H) 04/14/2023 URINECREAT 36.40 04/14/2023 ALBCREATRA 189.6 (H) 04/14/2023 TSH/T4: Lab Results Component Value Date TSH 0.37 (L) 04/14/2023 TSH 3.89 11/16/2019 T4 0.97 11/16/2019 T4 0.97 07/08/2017 ASSESSMENT: Sanya Randall has Poorly controlled Type 2 Diabetes Mellitus complicated by peripheral neuropathy. 1. Type 2 diabetes mellitus with hyperglycemia, with long-term current use of insulin ([facility]) - POCT Hemoglobin A1c - FARRAH 5 mg/0.5 mL pen injector; Inject 5 mg under the skin once a week. Dispense: 6 mL; Refill: 3 - glucagon (BAQSIMI) 3 mg/actuation spray,non-aerosol; Administer 3 mg into left nostril as needed (hypoglycemia). Dispense: 6 each; Refill: 3 - insulin lispro (HumaLOG) 100 unit/mL insulin pen; Inject 35-40 Units under the skin in the morning and 35-40 Units at noon and 35-40 Units in the evening. Inject with meals. Plus scale with meals up to 150 units per day in divided doses.. Dispense: 15 mL; Refill: 12 - insulin glargine U-300 conc (TOUJEO MAX U-300 SOLOSTAR) 300 unit/mL (3 mL) insulin pen; Inject 50 Units under the skin in the morning. Dispense: 60 mL; Refill: 3 2. Other hyperlipidemia - evolocumab (REPATHA PUSHTRONEX) 420 mg/3.5 mL wearable injector; Inject 3.5 mL under the skin every 30 (thirty) days. Dispense: 10.5 mL; Refill: 1 3. Acquired hypothyroidism 4. Primary hypertension 5. Diabetic polyneuropathy associated with diabetes mellitus due to underlying condition ([facility]) 6. Drug intolerance avoid sulfonylureas given history of hypoglycemia and admission to the hospital Cut back Humalog to 40 units with each meal. Use correction scale as below. 35-40 + Correction Scale: MEALS: Blood Glucose Insulin < 150 No extra units of insulin 151-200 Give extra 1 unit 201-250 Give extra 2 units 251-300 Give extra 3 units 301-350 Give extra 4 units 351-400 Give extra 5 units >400 Give extra 6 units BEDTIME: Blood Glucose Insulin <200 None 201-250 Give 1 unit 251-300 Give 2 units 301-350 Give 3 units 351-400 Give 4 units >400 Give 5 units Cut back Toujeo by 10 units. I started Dexcom G7 sensor today. Come back Friday or friday to download sensor, ask for vishnu , come after 3pm A1c elevation is associated with significant risk for the development and progression of retinal, neurological and renal complications that can lead to vision loss, amputation, and renal failure. The need for good glucose control to prevent complications is discussed. Ongoing diabetes education is recommended. If possible a minimum of 150 minutes of physical activity per week is encouraged. On going progressive weight loss is advised. The signs symptoms and treatment of hypoglycemia are understood by the patient. The individual should not drive if symptoms of hypoglycemia are precieved and if possible the blood glucose should be check before driving or participating in dangerous activity. A diabetes ID is recommended. Yearly dilated eye examination and yearly urine Microalbumin to cr ratio are advised. The blood pressure should be maintained under 140/80. The LDL less than 100 mg/dl for primary prevention atherosclerosis and < 70 mg/dL as secondary prevention. Daily examination of the feet for signs of injury and inspection of the shoes for foreign body or shoe deformity that could lead to foot injury. Lab test reviewed/ interpreted/ordered as needed. Diet modification advised. Multiple chronic conditions as listed zochi-hlisqdyrw-almcijpsr diagnosis, management and prognosis. Answered patient's questions to satisfaction. Return to clinic: 3 months This note was created with the assistance of a speech-recognition program. Although the intention is to generate a document that actually reflects the content of the visit, no guarantees can be provided that every mistake has been identified and corrected by editing. Patient was encouraged to review the note and send a message in case there are any corrections/updates that need to be done to the note. Carter Wetzel MD, MPH, [facility] [address] [place] [id number] Dept: [phone] FAX: [phone] documented in this encounter [facility] 12-15-2023 Instructions Carter Wetzel MD - 12/15/2023 10:45 AM EST I started Dexco G7 sensor today. Come back Friday or friday to download sensor, ask for vishnu , come after 3pm documented in this encounter [facility] 12-01-2023 Miscellaneous Notes OK to sign and send documented in this encounter [facility] 12-01-2023 Telephone encounter Note OK to sign and send [facility] 01-06-2023 History of Presen t illness Narrative Images from the original note [...] from the original note were not included. [facility] Internal [facility] Fred Correa MD; Arthur Mclaughlin MD; Maurisio Ames MD; MD Yumi Javed MD; Shira Billingsley MD [facility] Internal Medicine IN-PATIENT SERVICE [facility] Progress Note Date: 01/05/2023 Patient name: Sanya Randall Date of admission: 01/02/2023 8:42 PM Account: [id number] Date of : 1955 PCP: NUZHAT Carver [...] of SBO (small bowel obstruction) ([facility]). Difficult medical history of HTN, HLD, CAD, [...] Date LAURA (acute kidney injury) ([facility]) 01/03/2023 BMI 40.0-44.9, adult ([facility]) 01/31/2021 CAD (coronary artery disease) Claudication in peripheral vascular disease ([facility]) 12/19/2014 Depression Emphysema of lung ([facility]) GERD (gastroesophageal reflux disease) Hypercholesterolemia Hypertension [...] medications as directed 11/22/15 07/04/22 Yusef Monroe, CLERK TELEVISION PRODUCTION - LUNCHROOM SUPERVISOR Allergies: Avelox [moxifloxacin], Dust mite extract, Keflex [cephalexin], Levemir [insulin detemir], Molds & smuts, Other, Prednisone, and Ultram [tramadol] Social History: Tobacco: reports that she has been smoking cigarettes and e-cigarettes. She has a 10.00 pack-year smoking history. She has never used smokeless tobacco. Alcohol: reports no history of alcohol use. Drug Use: reports current drug use. Drug: Marijuana ([place]). Family History: Family History Problem Relation Age [...] C), Max:98.1 F (36.7 C) Recent Labs 01/04/23 0640 01/04/23 1625 01/04/23200101/05/23 0639 POCGLU 173* [...] # 2.70 1.0 - 4.8 k/uL Absolute [place] # 0.90 0.1 - 1.3 k/uL Absolute [...] POA * (Principal) SBO (small bowel obstruction) (HCC) 01/03/2023 Yes Hypothyroidism 01/03/2023 Yes Overview Addendum 10/31/2021 8:10 AM by Gabi Bazzi CMA Care managed by Dr. Wetzel (endocrine) Emphysema of lung (HCC) 01/03/2023 Yes Diabetes mellitus with peripheral artery disease (HCC) 01/03/2023 Yes Overview Signed 08/16/2015 9:28 AM by Shae Lopez MA Care managed by Dr. Wetzel (endocrine). LAURA (acute kidney injury) (HCC) 01/03/2023 Yes Plan: Patient status inpatient in [...] AM Copy sent to Dr. Minna Voss, CLERK TELEVISION PRODUCTION - LUNCHROOM SUPERVISOR Please note that this chart was generated using voice recognition [employer]on dictation software. Although every effort was made to ensure the accuracy of this automated grants manager, some errors in grants manager may have occurred. Images from the original [...] 191* Luiza Talley MD 01/05/2023, 8:22 AM Weaver [address]minster page Dr. Lu to get a order to d/c fluids for pt. Order received and placed. Bowel sounds active. Large loose brown stool. Denies any N&V. Weaver Axminster responded to consult for advance directives. See ACP note of this date. No documents executed so pt's 3 children are all primary agents. Weaver Axminster left booklet with pt. Pt is hoping her clinical informatics strategist will be able to visit; she's a member at [facility] in [place]. Pt also shared medical update and welcomed prayer. 01/04/23 1251 Encounter Summary Encounter Overview/Reason Advance Care Planning Service Provided For: Patient Referral/Consult From: Patient Support System Children;Family members;Yazidism/alberto community Last Encounter 01/04/23 Complexity of Encounter Moderate Begin Time 1100 End Time 1120 Total Time Calculated 20 min Spiritual/Emotional needs Type Spiritual Support Advance Care Planning Type ACP conversation Assessment/Intervention/Outcome Assessment Calm Intervention Active listening;Discussed illness injury and it s impact;Explored/Affirmed feelings, thoughts, concerns;Explored Coping Skills/Resources;Prayer (assurance of)/[place];Sustaining Presence/Ministry of presence Outcome Coping;Engaged in conversation;Expressed [...] from the original note were not included. [facility] Fred Correa MD; Arthur Mclaughlin MD; Maurisio Ames MD; MD Yumi Javed MD; Shira Billingsley MD [facility] Internal Medicine IN-PATIENT SERVICE [facility] Progress Note Date: 01/04/2023 Patient name: Sanya Randall Date of admission: 01/02/2023 8:42 PM Account: [id number] Date of : 1955 PCP: NUZHAT Carver [...] Date LAURA (acute kidney injury) ([facility]) 01/03/2023 BMI 40.0-44.9, adult ([facility]) 01/31/2021 CAD (coronary artery disease) Claudication in peripheral vascular disease ([facility]) 12/19/2014 Depression Emphysema of lung ([facility]) GERD (gastroesophageal reflux disease) Hypercholesterolemia Hypertension [...] with medications as directed 11/22/15 07/04/22 Yusef Monroe APRN - LUNCHROOM SUPERVISOR Allergies: Avelox [moxifloxacin], Dust mite extract, Keflex [cephalexin], Levemir [insulin detemir], Molds & smuts, Other, Prednisone, and Ultram [tramadol] Social History: Tobacco: reports that she has been smoking cigarettes and e-cigarettes. She has a 10.00 pack-year smoking history. She has never used smokeless tobacco. Alcohol: reports no history of alcohol use. Drug Use: reports current drug use. Drug: Marijuana ([place]). Family History: Family History Problem Relation Age [...] # 2.90 1.0 - 4.8 k/uL Absolute [place] # 0.80 0.1 - 1.3 k/uL Absolute [...] POA * (Principal) SBO (small bowel obstruction) (HCC) 01/03/2023 Yes Hypothyroidism 01/03/2023 Yes Overview Addendum 10/31/2021 8:10 AM by Gabi Bazzi CMA Care managed by Dr. Wetzel (endocrine) Emphysema of lung (HCC) 01/03/2023 Yes Diabetes mellitus with peripheral artery disease (HCC) 01/03/2023 Yes Overview Signed 08/16/2015 9:28 AM by Shae Lopez MA Care managed by Dr. Wetzel (endocrine). LAURA (acute kidney injury) ([facility]) 01/03/2023 Yes Plan: Patient status inpatient [...] AM Copy sent to Dr. Minna Voss, CLERK TELEVISION PRODUCTION - LUNCHROOM SUPERVISOR Please note that this chart was generated using voice recognition [employer]on dictation software. Although every effort was made to ensure the accuracy of this automated grants manager, some errors in grants manager may have occurred. Weaver Axminster inform Dr. Carl that the pt. results [...] refused V60 has NG tube. RA 96% Weaver Axminster perfect served message Dr. Carl to let her know that the results for the CT w/ contrast were in. Dr. Carl placed an ordered a KUB for tonight and to keep the NG tube clamped unless nausea occurs. No nausea at this time, will continue to monitor. Weaver Axminster received consult to see patient; patient stated she did not want to speak with a hospital child care giver but with her own clinical informatics strategist, Magdaleno Cortez, Chema Costa; medical writer called Process Designer Diego while in patient's room and facilitated communication in this regard; medical writer also called patient's sister and daughter, per patient's request due to patient having a hard time talking and because patient did not have her cell phone; listening presence and support; welcomed prayer; 01/03/23 5600 Encounter Summary Encounter Overview/Reason Spiritual/Emotional Needs Service Provided For: Patient Referral/Consult From: Patient;Rounding Support System Family members;Children;Yazidism/fa ith community Last Encounter 01/03/23 Complexity of Encounter Moderate Spiritual/Emotional needs Type Spiritual Support Assessment/Intervention/Outcome Assessment Anxious;Coping;Impaired resilience;Powerlessness;Tearful Intervention Active listening;Discussed belief system/gnosticism practices/alberto;Explored/Affirme d feelings, thoughts, concerns;Prayer (assurance of)/[place];Sustaining Presence/Ministry of presence Outcome Engaged in conversation;Expressed feelings, needs, and concerns;Expressed Gratitude;Receptive;Coping;Comfo rt Plan and Referrals Plan/Referrals Contacted support as requested per patient/family request Plan (Pastor Diego Mariano of [place], [place]) Comprehensive Nutrition Assessment Type and Reason [...] loss Fluid Accumulation: No significant fluid accumulation Contact Acid Plant Operator Helper Strength: Not Performed Nutrition Assessment: Pt admitted [...] NPO Anthropometric Measures: Height: 5' (152.4 cm) [place] Body Weight (IBW): 100 lbs (45 kg) [...] Used for Energy Requirements: Current Energy (kcal/day): Page x 1-1.2= 1156-5548 kcal Weight Used for Protein Requirements: Current [...] to determine Kena Rudd RD, RASHAD Contact: [phone] Torres to notify him of new consult Pt. arrived to floor and placed in room 2046. Pt. Is alert x 4. Admission question and assessment completed. Call lights and bedside table in reach. Pt. resting comfortable. Images from the original note were not included. [facility] Internal [facility] Fred Correa MD; Arthur Mclaughlin MD; Maurisio Ames MD; MD Yumi Javed MD; Shira Billingsley MD [facility] Internal Medicine IN-PATIENT SERVICE [facility] Date: 01/03/2023 Patientname: Sanya Randall Date of admission: 01/02/2023 8:42 PM Account: [id number] Date of : 1955 PCP: Minna Voss APRN - PARMJIT Room: Code Status: Full Code Chief Complaint: [...] Diagnosis Date BMI 40.0-44.9, adult ([facility]) 01/31/2021 CAD (coronary artery disease) Claudication in peripheral vascular disease ([facility]) 12/19/2014 Depression Emphysema of lung ([facility]) GERD (gastroesophageal reflux disease) Hypercholesterolemia Hypertension [...] medications as directed 11/22/15 07/04/22 Yusef Monroe, NUZHAT - LUNCHROOM SUPERVISOR Allergies: Avelox [moxifloxacin], Dust mite extract, Keflex [cephalexin], Levemir [insulin detemir], Molds & smuts, Other, Prednisone, and Ultram [tramadol] Social History: Tobacco: reports that she has been smoking cigarettes and e-cigarettes. She has a 10.00 pack-year smoking history. She has never used smokeless tobacco. Alcohol: reports no history of alcohol use. Drug Use: reports current drug use. Drug: Marijuana ([place]). Family History: Family History Problem Relation Age [...] # 2.70 1.0 - 4.8 k/uL Absolute [place] # 1.30 0.1 - 1.3 k/uL Absolute [...] NEGATIVE Ketones, Urine TRACE (A) NEGATIVE Specific [place], UA 1.029 1.000 - 1.030 Urine Hgb [...] this chart was generated using voice recognition [employer] dictation software. Although every effort was made to ensure the accuracy of this automated grants manager, some errors in grants [place] [id number]. documented in this encounter [facility] Work Phone: 01-06-2023 Hospital course Narrative Images from the original note were not included. IN-PATIENT SERVICE [facility] Internal Medicine Discharge Summary Patient ID: Sanya Randall : 1955 ACCOUNT: [id number] Patient's PCP: Minna Voss, CLERK TELEVISION PRODUCTION - LUNCHROOM SUPERVISOR Admit Date: 01/02/2023 Discharge Date: 01/06/2023 Length of Stay: 3 Code Status: Full Code Admitting Physician: Haris Angelo MD Discharge Physician: Markel Callejas MD Active Discharge Diagnoses: Primary Problem SBO (small bowel obstruction) (HCC) Hospital Problems Active Hospital Problems Diagnosis Date Noted SBO (small bowel obstruction) (HCC) [K56.609] 01/03/2023 LAURA (acute kidney injury) (HCC) resolved [N17.9] 01/03/2023 Diabetes mellitus with peripheral artery disease (HCC) [E11.51] 12/19/2014 Emphysema of lung (HCC) [J43.9] Hypothyroidism [E03.9] Admission Condition: poor Discharged Condition: fair Hospital Stay: Hospital Course: Sanya Randall is a 67 y.o. female who was admitted for the management of SBO (small bowel obstruction) (HCC) , presented to ER with Abdominal Pain, [...] GI side effects, will follow-up with her community fundraiser as outpatient Patient voiced understanding General Appearance: [...] BY MOUTH EVERY DAY IN THE EVENING Zhaouheath Max SoloStar 300 UNIT/ML Sopn Generic drug: Insulin [...] this patient's care. [facility] Hospital Discharg e instructions Markel Callejas MD - 01/06/2023 10:06 AM EDT Continuity of Care Form Patient Name: Sanya Randall : 1955 Admit date: 01/02/2023 Discharge date: Code Status Order: Full Code Advance Directives: Admitting Physician: Haris Angelo MD PCP: NUZHAT Carver CNP Discharging Nurse: Discharging Hospital Unit/Room#: 2047/2047-01 Discharging Unit Phone Number: Emergency Contact: Extended Emergency Contact Information Primary Emergency Contact: Meredith Harper [facility] Mobile Relation: Child Secondary Emergency Contact: Makenna Rangel Address: [address] [place] [address] Mobile Relation: Brother/Sister Car Wash Attendant Automatic needed? No Past Surgical History: Past Surgical [...] disease) K21.9 Depression F32.A Emphysema of lung ([facility]) J43.9 Mixed hyperlipidemia E78.2 Psoriasis L40.9 Tobacco user Z72.0 Sleep apnea G47.30 Claudication in peripheral vascular disease ([facility]) I73.9 Diabetes mellitus with peripheral artery disease ([facility]) E11.51 Chronic obstructive pulmonary disease ([facility]) J44.9 Chronic pain of both ears H92.03, G89.29 Cystitis N30.90 Need for prophylactic vaccination and inoculation against influenza Z23 Chronic knee pain M25.569, G89.29 Trigger finger, acquired M65.30 Cough due to bronchospasm J98.01 Alopecia L65.9 BMI 40.0-44.9, adult ([facility]) Z68.41 Chronic ischemic heart disease I25.9 Diabetic neuropathy ([facility]) E11.40 Diabetic retinopathy associated with type 2 diabetes mellitus ([facility]) E11.319 Hirsutism L68.0 Hyperaldosteronism ([facility]) E26.9 Menopausal and postmenopausal disorder N95.9 Severe obesity (BMI 35.0-39.9) with comorbidity ([facility]) E66.01 SBO (small bowel obstruction) ([facility]) K56.609 LAURA (acute kidney injury) ([facility]) resolved N17.9 Isolation/Infection: Isolation No Isolation [...] Status: {IP PT MENTAL STATUS:} IV Access: {[facility] [place]:227001450} Nursing Mobility/ADLs: Walking {[facility] DME ADLs:578922573} Transfer {[facility] DME ADLs:137233635} Bathing {[facility] DME ADLs:712562831} Dressing {CHP DME ADLs:711883894} Toileting {[facility] DME ADLs:904727390} Feeding {[facility]P DME ADLs:119941534} Food Manager {[facility] DME ADLs:385600882} Med Delivery { [facility] MED Delivery:510915523} Wound Care Documentation and Therapy: Elimination: Continence: Bowel: {YES / NO:} Bladder: {YES / NO:} Urinary Catheter: {Urinary Catheter:858548652} Colostomy/Ileostomy/Ileal Conduit: {YES / NO:} Date of Last BM: No intake or output data in the 24 hours ending 01/06/23 1005 No intake/output data recorded. Safety Concerns: { [facility] Safety Concerns:814436427} Impairments/Disabilities: { [facility] Impairments/Disabilities:8443867 73} Nutrition Therapy: Current Nutrition Therapy: { [facility] Diet List:236001454} Routes of Feeding: {[facility] DME Other Feedings:303475653} Liquids: {Front Desk Assistant liquid thickness:07502} Daily Fluid Restriction: {[facility] DME Yes amt example:765902852} Last Modified Barium Swallow with Video (Video Swallowing Test): {Done Not Done Date:616181968} Treatments at the Time of Hospital Discharge: Respiratory Treatments: Oxygen Therapy: {Therapy; copd oxygen:63966} Ventilator: {[facility] Vent List:437380152} Rehab Therapies: {THERAPEUTIC INTERVENTION:2175054760} Weight Bearing Status/Restrictions: {[facility] Weight Bearin} Other Medical Equipment (for information only, NOT a DME order): {EQUIPMENT:672419021} Other Treatments: Patient's personal belongings (please select all that are sent with patient): {[facility] DME Belongings:569685298} RN SIGNATURE: {Esignature:628225992} CASE MANAGEMENT/SOCIAL WORK SECTION Inpatient Status Date: Readmission Risk Assessment Score: Readmission Risk Risk of Unplanned Readmission: 12 Discharging to Facility/ Agency Name: Address: Phone: Fax: Dialysis Facility (if applicable) Name: Address: Dialysis Schedule: Phone: Fax: Logging Superintendent/Merchandise Flow Team Leader signature: {Esignature:040346948} PHYSICIAN SECTION Prognosis: {Prognosis:7921742419} Condition at Discharge: { Patient Condition:546894627} Rehab Potential (if transferring to Rehab): {Prognosis:0735850825} Recommended Labs or Other Treatments After Discharge: Physician Certification: I certify the above information and transfer of Sanya Randall is necessary for the continuing treatment of the diagnosis listed and that she requires {Admit to Appropriate Level of Care:37693} for {GREATER/LESS:245777298} 30 days. Update Admission H&P: {[facility] DME Changes in HandP:293830544} PHYSICIAN SIGNATURE: documented in this encounter [employer] Phone: Evaluation note Diagnosis Screening mammogram for breast cancer documented in this encounter [employer] Phone: evaluation note* Diagnosis SBO (small bowel obstruction) (HCC)- Primary Unspecified intestinal obstruction SBO (small bowel obstruction) (HCC) Unspecified intestinal obstruction Diabetes mellitus with peripheral artery disease ([facility]) Type II or unspecified type diabetes mellitus with peripheral circulatory disorders, not stated as uncontrolled Emphysema of lung (HCC) Other emphysema Hypothyroidism Unspecified hypothyroidism LAURA (acute kidney injury) ([facility]) resolved Acute kidney failure, unspecified documented in this encounter [employer] Phone: evaluation note* Diagnosis Type 2 diabetes mellitus with diabetic peripheral angiopathy without gangrene ([facility]) documented in this encounter [employer] System[facility] note* Diagnosis Type 2 diabetes mellitus with hyperglycemia, with long-term current use of insulin ([facility])- Primary Other hyperlipidemia Acquired hypothyroidism Unspecified hypothyroidism Primary hypertension Unspecified essential hypertension Diabetic polyneuropathy associated with diabetes mellitus due to underlying condition ([facility]) Drug intolerance avoid sulfonylureas given history of hypoglycemia and admission to the hospital Other drug allergy documented in this encounter [facility]* Diagnosis Type 2 diabetes mellitus with hyperglycemia, with long-term current use of insulin ([facility])- Primary [facility]* Diagnosis Type 2 diabetes mellitus with hyperglycemia, with long-term current use of insulin ([facility])- Primary documented in this encounter [facility] Diagnosis Presence of stent in LAD coronary artery- Primary Essential hypertension Unspecified essential hypertension Chronic coronary artery disease Coronary atherosclerosis of unspecified type of vessel, [place] or graft Hypertriglyceridemia Pure hyperglyceridemia Coronary artery disease involving [place] coronary artery of [place] heart without angina pectoris Mixed hyperlipidemia Palpitations Shortness of breath Other chest pain Claudication (CMS-HCC) Unspecified peripheral vascular disease documented in this encounter [facility] filedocumented in this encounter [facility] filedocumented in this encounter [facility] on filedocumented in this encounter [facility]ructionsNot on filedocumented in this encounter [facility] Summary Purpose Family History No Family History Records FoundNo Family History Records FoundNo Family History Records FoundNo Family History Records FoundNo Family History Records FoundNo Family History Records FoundNo Family History Records Found Advance Directives No Advanced Directives Records FoundDocuments on File Type Date Recorded Patient Physician Allergist Immunologist Expl anation ACP-Advance Directive ACP-Power of Energy Management Specialist Documents on File Type Date Recorded Patient Physician Allergist Immunologist Expl anation ACP-Advance Directive ACP-Power of Energy Management Specialist Latest Code Status on File Code Status Date Activated Date Inactivated Comments Full Code 01/03/2023 2:16 AM Healthcare Agents on File Name Relationship Healthcare Agent Relationship Communication Meredithdeborah Harper Child Primary Decision Maker Lewis Harper Child Primary Decision Maker Jorge Alberto Ackerman Child Primary Decision Maker Discharge Instructions * Instructions* Tab Mullins, - 11/12/2020 You were seen and evaluated [...] treatment. Recommend follow-up with PCP and your biomass boiler operator as soon as possible. Please call tomorrow to schedule follow-up ointment. * Attachments The following attachments cannot be sent through Care Everywhere. * Foot Fracture ([place]) * Back: Strain ([place]) * Back Pain: Relief: General Info ([place]) documented in this encounter Assessments Diagnosis Fall, initial encounter- Primary Calcaneal spur of foot, left Closed traumatic nondisplaced fracture of left calcaneus, initial encounter Lumbar sprain, initial encounter Reason for Referral Specialty Diagnoses / Procedures Referred By Contac t Referred To Contact Diagnoses Type 2 diabetes mellitus with hyperglycemia, with long-term current use of insulin ([facility]) Carter Wetzel MD [address] [facility] [address] [place] [address] Referral ID Status Reason Start Date Expiration Date V isits Requested Visits Authorized [id number] Pending Review 1 1 Specialty Diagnoses / Procedures Referred By Contac t Referred To Contact Diagnoses Other hyperlipidemia Carter Wetzel MD [address] [place] [address] Referral ID Status Reason Start Date Expiration Date V isits Requested Visits Authorized [id number] Pending Review 1 1 Specialty Diagnoses / Procedures Referred By Contac t Referred To Contact Diagnoses Claudication ([facility]) Procedures Vas art doppler lwr bilat mult lev/PVR Deirdre Earl MD [address] [place] [address] Referral ID Status Reason Start Date Expiration Date V isits Requested Visits Authorized [id number] Pending Review 01/12/2024 01/11/2025 1 1 Additional Source Comments INFORMATION SOURCE (unrecogn ized section and content) DATE CREATED AUTHOR 04/08/2018 Loren Swift [facility] DATE CREATED AUTHOR AUTHOR'S ORGANIZ ATION 09/21/2018 [facility] DATE CREATED AUTHOR AUTHOR'S ORGANIZ ATION 12/15/2020 [facility] DATE CREATED AUTHOR AUTHOR'S ORGANIZ ATION 07/21/2023 [facility] DATE CREATED AUTHOR AUTHOR'S ORGANIZ ATION 12/13/2023 [facility] DATE CREATED AUTHOR AUTHOR'S ORGANIZ ATION 01/12/2024 [facility] DATE CREATED AUTHOR AUTHOR'S ORGANIZ ATION 02/19/2024 [facility] Reason for Visit (unrecogniz ed section and content) Reason Comments Fall 2 step ladder-no LOC - Rt hip,lt knee,shoulder Specialty Diagnoses / Procedures Referred By Contac t Referred To Contact Radiology Diagnoses Screening mammogram for breast cancer Procedures VANE NORMA DIGITAL SCREEN BILATERAL VANE DIGITAL SCREEN W OR WO CAD BILATERAL Colton-Minna Mays, CLERK TELEVISION PRODUCTION - LUNCHROOM SUPERVISOR [address] [place] [address] Referral ID Status Reason Start Date Expiration Date Visits Re quested Visits Authorized [id number] Closed 10/31/2021 10/31/2022 1 1 Reason Comments Abdominal Pain Chest Pain Nausea Specialty Diagnoses / Procedures Referred By Contac t Referred To Contact Diagnoses SBO (small bowel obstruction) ([facility]) Haris Angelo MD [address] [place] [address] [facility] [address] [place] [address] Referral ID Status Reason Start Date Expiration Date Visits Re quested Visits Authorized [id number] 1 1 Reason Onset Date Comments Med Refill 12/01/2023 Reason Comments Diabetes Reason Onset Date Comments Med Refill 12/16/2023 Reason Comments Follow-up 6 mo f/u-l/s MBE Ordered Prescriptions (unrec ognized section and content) [...] Care Teams (unrecognized sec tion and content) Clerk Of Scales Relationship Specialty Start Date End Date Minna Voss, CLERK TELEVISION PRODUCTION - LUNCHROOM SUPERVISOR [address] [place] [address] PCP - General Family Medicine 08/28/20 Clerk Of Scales Relationship Specialty Start Date End Date Minna Voss, CLERK TELEVISION PRODUCTION - LUNCHROOM SUPERVISOR [address] [place] [address] PCP - General Family Medicine 08/28/20 Clerk Of Scales Relationship Specialty Start Date End Date Minna Voss, CLERK TELEVISION PRODUCTION-LUNCHROOM SUPERVISOR [address] [place] [address] PCP - General Family Medicine 04/04/23 Clerk Of Scales Relationship Specialty Start Date End Date Pcp, [place] [address] PCP - General Family Medicine 12/15/23 Clerk Of Scales Relationship Specialty Start Date End Date Pcp, [place] [address] PCP - General Family Medicine 12/15/23 Clerk Of Scales Relationship Specialty Start Date End Date Pcp, [place] [address] PCP - General Family Medicine 12/15/23 Clerk Of Scales Relationship Specialty Start Date End Date Pcp, [place] [address] PCP - General Family Medicine 12/15/23 Clerk Of Scales Relationship Specialty Start Date End Date Pcp, [place] [address] PCP - General Family Medicine 12/15/23 Scheduled Active and Recently Administ ered Medications [...] Until Discontinued, Do not crush or break. 2136 (Given - Provider: Savanah Cortes RN) 2158 (Given - Provider: Savanah Cortes RN) 2099 (Due) carvedilol (COREG) tablet 12.5 mg 12.5 mg, Oral, 2 TIMES DAILY WITH MEALS, First dose on 01/05/23 at 1700, Until Discontinued, Administer with food to minimize the risk of orthostatic hypotension 1705 (Given - Provider: Roshni Fisher RN) 08 (Given - Provider: Deanna Parra, RN)1699 (Due) clopidogrel (PLAVIX) tablet 75 mg 75 mg, Oral, DAILY, First dose on 01/05/23 at 1100, Until Discontinued 1120 (Given - Provider: Roshni Fisher RN) 818 (Given - Provider: Deanna Parra, JUSTO) cyclobenzaprine (FLEXERIL) tablet 10 mg 10 mg, Oral, NIGHTLY, First dose on 01/05/23 at 2100, Until Discontinued 2158 (Given - [...] not met - Comment: pt. bs 260) 2100 (Due) insulin lispro (HUMALOG) injection vial 0-8 [...] (Given - Provider: Savanah Cortes RN) 2100 (Due - Provider: Royce Curry [facility]) sodium chloride flush 0.9 % [...] Sharda Lewis)2136 (Not Given - Provider: Savanah Cortes RN - Reason: IV Fluid Infusing) 0738 (Given - Provider: Roshni Fisher RN)205 (Given - Provider: Savanah Cortes RN) 0820 (Given - Provider: Deanna Parra RN)2100 (Due) Continuous Medication Order 01/04/2023 01/05/2023 01/06/2023 dextrose 5 % and 0.9 % sodium chloride infusion (CANCELED) IntraVENous, at 100 mL/hr, CONTINUOUS, Starting on Fri01/03/23 at 0945 0029 (New Bag - Provider: Savanah Cortes RN)1110 (New Bag - Provider: Sharda Lewis)2140 (New Bag - Provider: Savanah Cortes RN) PRN Medication Order 01/04/2023 01/05/2023 01/06/2023 [...] mL 10 mL, IntraVENous, NEEDED, Starting on Corrine 01/02/23 at 2257, Until Discontinued, Line Care sodium [...] BE BASED ON THE PRIMARY CLINICAL RECORDS. [employer] provides no warranty or guarantee of the accuracy or completeness of information in this document.
== END 2024-03-16 08:24 | disposition home or self-care (01) ==
PROVIDERS: PCP Radiology Diagnostic Radiology; Visit Provider Radiology Diagnostic Radiology
DX: I83.813 Varicose veins of bilateral lower extremities with pain (principal)
CPT/HCPCS: 36478

== ENCOUNTER 2024-03-25 08:04 | Outpatient (OUT) | payer MEDICARE, MEDICAID, SELFPAY ==
--- NOTE | 2024-03-25 08:05 | VEIN_ITS ---
Patient Name: MACKENZIE RANDALL MR#: [id number] : 1955 Exam Date: 03/25/2024 Ordering Doctor: DR TACHO COOK M.D. RADIOLOGY REPORT PROCEDURE: [facility] - OFFICE VISIT FOLLOW UP [facility] PROGRESS NOTES: The patient reports no significant problems following intravenous laser ablation of the right great saphenous vein. The patient does have difficulty walking saying that it feels like there palpable is a on her feet, she has been treated for the past year by podiatry, Dr. Lopes without improvement. Physical exam demonstrates a 4 x 3 mm area of erythema and warmth along the distal mid right lower leg likely an area of thrombophlebitis. The incision is healed. No significant bruising. The natural course of thrombophlebitis was discussed with the patient and I recommended that she take ibuprofen, 400 milligrams twice per day for the next 5-7 days. Review of the ultrasound performed the same day demonstrates occlusive thrombus extending throughout the treated right great saphenous vein with heat induced thrombus 2.6 cm from the saphenofemoral junction. No deep vein thrombus. The patient expressed a desire to proceed with treatment of incompetent varicose veins with micro foam chemical ablation. [facility] IM[facility]: 1. Successful ablation of the right great saphenous vein 2. Persistent bilateral incompetent varicose veins. PLAN: Micro foam chemical ablation left leg incompetent varicose veins Nurse notes, history and physical were reviewed and confirmed, see attached forms. The nurse was present throughout the physical exam and consultation Dictated by: Tacho Cook MD on 03/25/2024 at 08:29 Approved by: Tacho Cook MD on 03/25/2024 at 09:05
--- NOTE | 2024-03-25 08:05 | VEIN_ITS ---
Patient Name: MACKENZIE RANDALL MR#: [id number] : 1955 Exam Date: 03/25/2024 Ordering Doctor: DR TACHO COOK M.D. RADIOLOGY REPORT PROCEDURE: VC EXT VENOUS RT LMTD COMPARISON: None. INDICATIONS: I80.01 Phlebitis of superficial veins of rt lower extremity TECHNIQUE: Lower extremity hernandez scale and Duplex Doppler evaluation of the deep venous system from the inguinal ligament through the calf veins. FINDINGS: REGION: Right lower extremity. THROMBI: Negative for DVT. Heat induced thrombus visualized 2.6cm from the SFJ. The heat induced thrombus extends from groin to distal calf. COMPRESSIBILITY: Non-compressible segments corresponding to thrombus FLOW: Areas of no flow corresponding to thrombus CONCLUSION: Post ablation occlusion of the treated right great saphenous vein with heat induced thrombus 2.6 cm from the saphenofemoral junction Dictated by: Tacho Cook MD on 03/25/2024 at 08:21 Approved by: Tacho Cook MD on 03/25/2024 at 08:21
--- OUTSIDE RECORDS SUMMARY | 2024-03-25 08:08 | XMS_ITS | CCD ---
Author Organization [facility] Care Team Providers Care Cloth Weigher Name Role Phone SOLOMON SCHMITT JR Unavailable Unavailable GALILEO HARRISON Unavailable Unavailable Minna Segura Primary Care Provider [phone] MINNA SEGURA Primary Care Unavailable Minna Smith [...] sources) Cephalexin; Translations: [CEPHALEXIN] Drug Allergy 4 [place], [place] (20 sources) insulin detemir; Translations: [INSULIN DETEMIR] Drug Allergy 4 [place], [place] (3 sources) MITE EXTRACT Drug Allergy 4 [place] (3 sources) Mold Extract Drug Allergy 4 [place] (13 sources) moxifloxacin; Translations: [MOXIFLOXACIN] Drug Allergy 4 [place] (13 sources) predniSONE; Translations: [PREDNISONE] Drug Allergy 4 [place] (13 sources) traMADol; Translations: [TRAMADOL] Drug Allergy 6 Other (See Comments) [place], [place] (10 sources) HMG-CoA reductase inhibitor; Translations: [HXTJSEZ-LYA-ZN A REDUCTASE INHIBITORS] Propensity to adverse reactions to drug 1 [employer] (2 sources) insulin detemir; Translations: [INSULIN DETEMIR U-100] Drug Allergy 2 [employer] Repository NEGATED: Highlighted row has been ruled out! (2 sources) Other Propensity to adverse reactions 1 Other (See Comments) [place] Medications Current Medications Medication Drug Class(es) Dates [...] by mouth once daily Multiple Vitamins-Minerals (THERAPEUTIC MULTIVITAMIN-TABLE TENDER SLUDGE ALS) tablet Take 1 tablet by mouth [...] hyperglycemia, with long-term current use of insulin ([facility] [place] [facility]) Inject 0.2 mL (1 mg total) under the skin as needed (hypoglycemia). 0.2 mL 2 12/17/2023 Active Start: 12-15-2023 End: 12-17-2023 glucagon (BAQSIMI) 3 mg/actu ation spray,non-aerosol Indications: Type 2 diabetes mellitus with hyperglycemia, with long-term current use of insulin ([facility] [place]) Administer 3 mg into [...] hyperglycemia, with long-term current use of insulin ([facility]) Inject 50 Units under the skin [...] hyperglycemia, with long-term current use of insulin ([facility] [place]) Inject 35-40 Units under [...] Mild episode of recurrent major depressive disorder ([facility]) , Weakness generalized , Chronic pain of left knee , At high risk for injury related to fall , Essential hypertension , Obstructive sleep apnea of adult , Ambulates with cane , Diabetic polyneuropathy associated with diabetes mellitus due to underlying condition ([facility]) , Severe obesity (BMI 35.0-39.9) with comorbidity (HCC) , intermodal dispatcher (current) use of insulin ([facility]) , Decreased pedal pulses by Does [...] hyperglycemia, with long-term current use of insulin ([facility] [place]) Inject 5 mg under the skin once a week. 6 mL 3 12/15/2023 Active Start: 06-13-2023 End: 12-15-2023 inject 5 mg by subcutaneous injection every week MOUNJARO 5 mg/0.5 mL pen injector Indications: Type 2 diabetes mellitus with hyperglycemia, with long-term current use of insulin ([facility]) Inject 5 mg under the skin once a week. 6 mL 3 06/13/2023 12/15/2023 Discontinued (Reorder) Start: 06-13-2023 inject 5 mg by subcu taneous injection every week FARRAH 5 mg/0.5 mL pen injector Indications: Type 2 diabetes mellitus with hyperglycemia, with long-term current use of insulin ([facility]) Inject 5 mg under the skin [...] mouth 0 Active omega-3 acid ethyl esters (care home) 1000 mg oral capsule (1 source) [...] at least 2 minutes. polyethylene glycol 3350 [id number] mg powder for oral solution (9 sources) [...] , Hypertriglyceridemia , Coronary artery disease involving gakona coronary artery of gakona heart without angina pectoris , Mixed hyperlipidemia [...] Essential hypertension , Coronary artery disease involving gakona coronary artery of gakona heart without angina pectoris , Mixed hyperlipidemia [...] Drug Class(es) Dates Sig (Normalized) Sig (Original) [id number] 200 actuat albuterol 0.09 mg/actuat metered dose [...] Indications: Type 2 diabetes mellitus with hyperglycemia ([facility]) TAKE 1 TABLET BY MOUTH BEFORE THE [...] unspecified laterality , Coronary artery disease involving gakona coronary artery of gakona heart without angina pectoris , Other diabetic [...] 11/22/2015 Suspended Start: 11-22-2015 Nebulizers (CO MPRESSOR/NEBULIZER) [facility] Indications: SOB (shortness of breath) , Bronchitis [...] 3 05/14/2017 Active take 1 tablet by [facility] in the morning omeprazole (PriLOSEC OTC) [...] Coronary arteriosclerosis; Translations: [Atherosclerotic heart disease of gakona coronary artery without angina pectoris] Onset: 01-31-2021 [...] 02-24-2014 Chronic Other aftercare (1 source) Other fpc (current) drug therapy; Translations: [Other technician terminal and repeater (current) drug therapy] Onset: 07-18-2023 Episodic Other [...] Onset: 01-03-2023 Episodic Other aftercare (1 source) longterm (current) use of insulin; Translations: [intermodal dispatcher (current) use of insulin] Onset: 09-17-2017 Episodic [...] 8.6 g/dL Abnormal 4 - 7 g/dL [facility] Interpretation and review of laboratory results [facility] Basic Metabolic Profon 07-20 Anion gap [Moles/Vol] 9 mmol/L Normal 9-[address] [facility] Comment on above: Performed By: #### C DP, BMP #### [facility] [address] [place] [address] Global Transportation Manager: Ajit Stevens DO Calcium [Mass/Vol] 9.8 mg/dL Normal 8.6-10.[address] [facility] Comment on above: Performed By: #### C DP, BMP #### [facility] [place] [address] Global Transportation Manager: Ajit Stevens DO Chloride [Moles/Vol] 105 mmol/L Normal 98-107 [facility] Comment on above: Performed By: #### C DP, BMP #### [facility] [address] [place] [address] Global Transportation Manager: Ajit Stevens DO CO2 [Moles/Vol] 23 mmol/L Normal 20-[address] [facility] Comment on above: Performed By: #### C DP, BMP #### [facility] [address] [place] [address] Global Transportation Manager: Ajit Stevens DO Creatinine [Mass/Vol] 0.6 mg/dL Normal 0.5-0.[address] [facility] Comment on above: Performed By: #### C DP, BMP #### [facility] [address] [facility] [place] [address] Global Transportation Manager: Ajit Stevens DO GFR/1.73 sq M.predicted among non-blacks MDRD (S/P/Bld) [Vol rate/Area] mL/min/{1.73_m2} Normal >[address] [facility] Comment on above: Result Comment: These [...] Performed By: #### C DP, BMP #### [facility] [address] [facility] [place] [address] Global Transportation Manager: Ajit Stevens DO Glucose [Mass/Vol] 198 mg/dL High 70-[address] [facility] Comment on above: Performed By: #### C DP, BMP #### [facility] [place] [address] Global Transportation Manager: Ajit Stevens DO Potassium [Moles/Vol] 4.0 mmol/L Normal 3.7-5.[address] [facility] Comment on above: Performed By: #### C DP, BMP #### [facility] [place] [address] Global Transportation Manager: Ajit Stevens DO Sodium [Moles/Vol] 137 mmol/L Normal 135-[address] [facility] Comment on above: Performed By: #### C DP, BMP #### [facility] [address] Global Transportation Manager: Ajit Stevens DO Urea nitrogen [Mass/Vol] 14 mg/dL Normal 8-[address] [facility] Comment on above: Performed By: #### C JUAN A, BMP #### [facility] [place] [address] Global Transportation Manager: Ajit Stevens DO CBC with Diffon 07-20-2023 Abs. Basophil 0.10 k/uL Normal 0.0-0.[address] [facility] Comment on above: Performed By: #### C JUAN A, BMP #### [facility] [address] [place] [address] Global Transportation Manager: Ajit Stevens DO Abs.Neutrophil (Seg) 4.80 k/uL Normal 1.3-9.1 [facility] Comment on above: Performed By: #### C JUAN A, BMP #### [facility] [address] [place] [address] Global Transportation Manager: Ajit Stevens DO Basophils/100 WBC (Bld) 1 % Normal 0-[address] [facility] Comment on above: Performed By: #### C JUAN A, BMP #### [facility] [address] [place] [address] Global Transportation Manager: Ajit Stevens DO Eosinophils (Bld) [#/Vol] 0.30 10*3/uL Normal 0.0-0.[address] [facility] Comment on above: Performed By: #### C JUAN A, BMP #### [facility] [address] [place] [address] Global Transportation Manager: Ajit Stevens DO Eosinophils/100 WBC (Bld) 3 % Normal 0-[address] [facility] Comment on above: Performed By: #### C JUAN A, BMP #### [facility] [address] [place] [address] Global Transportation Manager: Ajit Stevens DO Erythrocyte distribution width (RBC) [Ratio] 14.2 % Normal 11.5-14.[address] [facility] Comment on above: Performed By: #### C DP, BMP #### [facility] [address] [place] [address] Global Transportation Manager: Ajit Stevens DO Hematocrit (Bld) [Volume fraction] 38.3 % Normal 36-[address] [facility] Comment on above: Performed By: #### C DP, BMP #### [facility] [address] [place] [address] Global Transportation Manager: Ajit Stevens DO Hemoglobin (Bld) [Mass/Vol] 12.8 g/dL Normal 12.0-16.[address] [facility] Comment on above: Performed By: #### C JUAN A, BMP #### [facility] [address] [place], [place] [address] [place] [address] Global Transportation Manager: Ajit Stevens DO Lymphocytes (Bld) [#/Vol] 2.50 10*3/uL Normal 1.0-4.[address] [facility] Comment on above: Performed By: #### C JUAN A, BMP #### [facility] [place] [address] Global Transportation Manager: Ajit Stevens DO Lymphocytes/100 WBC (Bld) 29 % Normal 24-[address] [facility] Comment on above: Performed By: #### C DP, BMP #### [facility] [place] [address] Global Transportation Manager: Ajit Stevens DO MCH (RBC) [Entitic mass] 31.4 pg Normal 26-[address] [facility] Comment on above: Performed By: #### C DP, BMP #### [facility] [place] [address] Global Transportation Manager: Ajit Stevens DO MCHC (RBC) [Mass/Vol] 33.3 g/dL Normal 31-[address] [facility] Comment on above: Performed By: #### C JUAN A, BMP #### [facility] [address] [place] [address] Global Transportation Manager: Ajit Stevens DO MCV (RBC) [Entitic vol] 94.1 fL Normal 80-[address] [facility] Comment on above: Performed By: #### C JUAN A, BMP #### [facility] [place] [address] Global Transportation Manager: Ajit Stevens DO Monocytes (Bld) [#/Vol] 0.70 10*3/uL Normal 0.1-1.[address] [facility] Comment on above: Performed By: #### C JUAN A, BMP #### [facility] [address] [place], [place] [address] [place] [address] Global Transportation Manager: Ajit Stevens DO Monocytes/100 WBC (Bld) 9 % High 1-[address] [facility] Comment on above: Performed By: #### C JUAN A, BMP #### [facility] [place] [address] Global Transportation Manager: Ajit Stevens DO Neutrophil (Seg) 58 % Normal 36-66 [facility] Comment on above: Performed By: #### C JUAN A, BMP #### [facility] [place] [address] Global Transportation Manager: Ajit Stevens DO Platelet mean volume (Bld) [Entitic vol] 8.7 fL Normal 6.0-12.[address] [facility] Comment on above: Performed By: #### C DP, BMP #### [facility] [place] [address] Global Transportation Manager: Ajit Stevens DO Platelets (Bld) [#/Vol] 196 10*3/uL Normal 150-[address] [facility] Comment on above: Performed By: #### C DP, BMP #### [facility] [address] [place] [address] Global Transportation Manager: Ajit Stevens DO RBC (Bld) [#/Vol] 4.07 10*6/uL Normal 4.0-5.[address] [facility] Comment on above: Performed By: #### C DP, BMP #### [facility] [address] [place] [address] Global Transportation Manager: Ajit Steevns DO WBC (Bld) [#/Vol] 8.4 10*3/uL Normal 3.5-11.[address] [facility] Comment on above: Performed By: #### C DP, BMP #### [facility] [address] [facility] [place] [address] Global Transportation Manager: Ajit Stevens DO Basic Metab w/rfx MGon 07-19 Anion gap [Moles/Vol] 9 mmol/L Normal 9-[address] [facility] Comment on above: Performed By: #### P HO, BMPX, BNP #### [facility] [address] [facility] [place] [address] Global Transportation Manager: Ajit Stevens DO Calcium [Mass/Vol] 9.7 mg/dL Normal 8.6-10.[address] [facility] Comment on above: Performed By: #### P HO, BMPX, BNP #### [facility] [place] [address] Global Transportation Manager: Ajit Stevens DO Chloride [Moles/Vol] 102 mmol/L Normal 98-107 [facility] Comment on above: Performed By: #### P HO, BMPX, BNP #### [facility] [place] [address] Global Transportation Manager: Ajit Stevens DO CO2 [Moles/Vol] 26 mmol/L Normal 20-[address] [facility] Comment on above: Performed By: #### P HO, BMPX, BNP #### [facility] [address] [facility] [place] [address] Global Transportation Manager: Ajit Stevens DO Creatinine [Mass/Vol] 0.6 mg/dL Normal 0.5-0.[address] [facility] Comment on above: Performed By: #### P HO, BMPX, BNP #### [facility] [address] [facility] [place] [address] Global Transportation Manager: Ajit Stevens DO GFR/1.73 sq M.predicted among non-blacks MDRD (S/P/Bld) [Vol rate/Area] mL/min/{1.73_m2} Normal >[address] [facility] Comment on above: Result Comment: These [...] By: #### P HO, BMPX, BNP #### [facility] [address] [facility] [place] [address] Global Transportation Manager: Ajit Stevens DO Glucose [Mass/Vol] 308 mg/dL High 70-[address] [facility] Comment on above: Performed By: #### P HO, BMPX, BNP #### [facility] [place] [address] Global Transportation Manager: Ajit Stevens DO Potassium [Moles/Vol] 4.4 mmol/L Normal 3.7-5.[address] [facility] Comment on above: Performed By: #### P HO, BMPX, BNP #### [facility] [address] [place] [address]. [place] [address] Global Transportation Manager: Ajit Stevens DO Sodium [Moles/Vol] 137 mmol/L Normal 135-[address] [facility] Comment on above: Performed By: #### P HO, BMPX, BNP #### [facility] [address] [place] [address] Global Transportation Manager: Ajit Stevens DO Urea nitrogen [Mass/Vol] 17 mg/dL Normal 8-[address] [facility] Comment on above: Performed By: #### P HO, BMPX, BNP #### [facility] [address] [place] [address] Global Transportation Manager: Ajit Stevens DO CBC with Diffon 07-19-2023 Abs. Basophil 0.10 k/uL Normal 0.0-0.[address] [facility] Comment on above: Performed By: #### P HO, BMPX, BNP #### [facility] [address] [place] [address] Global Transportation Manager: Ajit Stevens DO Abs.Neutrophil (Seg) 4.70 k/uL Normal 1.3-9.1 [facility] Comment on above: Performed By: #### P HO, BMPX, BNP #### [facility] [address] [place] [address] Global Transportation Manager: Ajit Stevens DO Basophils/100 WBC (Bld) 1 % Normal 0-[address] [facility] Comment on above: Performed By: #### P HO, BMPX, BNP #### [facility] [address] [place] [address] Global Transportation Manager: Ajit Stevens DO Eosinophils (Bld) [#/Vol] 0.20 10*3/uL Normal 0.0-0.[address] [facility] Comment on above: Performed By: #### P HO, BMPX, BNP #### [facility] [place] [address] Global Transportation Manager: Ajit Stevens DO Eosinophils/100 WBC (Bld) 2 % Normal 0-[address] [facility] Comment on above: Performed By: #### P HO, BMPX, BNP #### [facility] [address] [place] [address] Global Transportation Manager: Ajit Stevens DO Erythrocyte distribution width (RBC) [Ratio] 14.5 % Normal 11.5-14.[address] [facility] Comment on above: Performed By: #### P HO, BMPX, BNP #### [facility] [address] [place] [address] Global Transportation Manager: Ajit Stevens DO Hematocrit (Bld) [Volume fraction] 38.2 % Normal 36-[address] [facility] Comment on above: Performed By: #### P HO, BMPX, BNP #### [facility] [address] [place] [address] Global Transportation Manager: Ajit Stevens DO Hemoglobin (Bld) [Mass/Vol] 12.4 g/dL Normal 12.0-16.[address] [facility] Comment on above: Performed By: #### P HO, BMPX, BNP #### [facility] [address] [place] [address] Global Transportation Manager: Ajit Stevens DO Lymphocytes (Bld) [#/Vol] 2.20 10*3/uL Normal 1.0-4.[address] [facility] Comment on above: Performed By: #### P HO, BMPX, BNP #### [facility] [address] [place] [address] Global Transportation Manager: Ajit Stevens DO Lymphocytes/100 WBC (Bld) 28 % Normal 24-[address] [facility] Comment on above: Performed By: #### P HO, BMPX, BNP #### [facility] [address] [place] [address] Global Transportation Manager: Ajit Stevens DO MCH (RBC) [Entitic mass] 30.7 pg Normal 26-[address] [facility] Comment on above: Performed By: #### P HO, BMPX, BNP #### [facility] [address] [place] [address] Global Transportation Manager: Ajit Stevens DO MCHC (RBC) [Mass/Vol] 32.5 g/dL Normal 31-[address] [facility] Comment on above: Performed By: #### P HO, BMPX, BNP #### [facility] [address] [place] [address] Global Transportation Manager: Ajit Stevens DO MCV (RBC) [Entitic vol] 94.5 fL Normal 80-[address] [facility] Comment on above: Performed By: #### P HO, BMPX, BNP #### [facility] [address] [place] [address] Global Transportation Manager: Ajit Stevens DO Monocytes (Bld) [#/Vol] 0.60 10*3/uL Normal 0.1-1.[address] [facility] Comment on above: Performed By: #### P HO, BMPX, BNP #### [facility] [address] [place] [address] Global Transportation Manager: Ajit Stevens DO Monocytes/100 WBC (Bld) 7 % Normal 1-[address] [facility] Comment on above: Performed By: #### P HO, BMPX, BNP #### [facility] [address] [place] [address] Global Transportation Manager: Ajit Stevens DO Neutrophil (Seg) 62 % Normal 36-66 [facility] Comment on above: Performed By: #### P HO, BMPX, BNP #### [facility] [place] [address] Global Transportation Manager: Ajit Stevens DO Platelet mean volume (Bld) [Entitic vol] 8.4 fL Normal 6.0-12.[address] [facility] Comment on above: Performed By: #### P HO, BMPX, BNP #### [facility] [address] [facility] [place] [address] Global Transportation Manager: Ajit Stevens DO Platelets (Bld) [#/Vol] 214 10*3/uL Normal 150-[address] [facility] Comment on above: Performed By: #### P HO, BMPX, BNP #### [facility] [address] [place] [address]. [place] [address] Global Transportation Manager: Ajit Stevens DO RBC (Bld) [#/Vol] 4.04 10*6/uL Normal 4.0-5.[address] [facility] Comment on above: Performed By: #### P HO, BMPX, BNP #### [facility] [address] Global Transportation Manager: Ajit Stevens DO WBC (Bld) [#/Vol] 7.7 10*3/uL Normal 3.5-11.[address] [facility] Comment on above: Performed By: #### P HO, BMPX, BNP #### [facility] [address] [place] [address] Global Transportation Manager: Ajit Stevens DO Cult,Urineon 07-19-2023 Cult,Urine Specimen [...] Tobramycin <=1 SUSCEPTIBLE Trimethoprim/Sulfa <=[address] [facility] Comment on above: Performed By: #### V BG #### [facility] [address] [facility] [address] Global Transportation Manager: Ajit Stevens DO CT HEAD WO CONTRASTon [...] Flip Ferris MD 07/17/[address] Normal [facility] Hemoglobin A1Con 07-18-2023 Glucose [Mass/Vol] 186 mg/dL Normal [facility] Comment on above: Result Comment: The ADA and AACC recommend providing the estimated average glucose result to permit better patient understanding of their HBA1c result. Performed By: #### P HO, BMPX, BNP #### [facility] [address] [facility] [address] Global Transportation Manager: Ajit Stevens DO HbA1c (Bld) [Mass fraction] 8.1 % High 4.0-6.[address] [facility] Comment on above: Performed By: #### P HO, BMPX, BNP #### [facility] [place] [address] Global Transportation Manager: Ajit Stevens DO TSH w/reflex to FT4on 2022 Thyroid Stim. Horm. 5.23 uIU/mL High 0.30-5.00 [facility] Comment on above: Performed By: #### P HO, BMPX, BNP #### [facility] [address] [place] [address] Global Transportation Manager: Ajit Stevens DO Thyroxine, Freeon 07-18-2023 Thyroxine, Free 1.5 ng/dL Normal 0.9-1.[address] [facility] Comment on above: Performed By: #### P HO, BMPX, BNP #### [facility] [address] [place] [address] Global Transportation Manager: Ajit Stevens DO Urinalysis, Routineon 2022 Bilirubin, SemiQt,Ur Negative Normal NEG [facility] Comment on above: Performed By: #### U MICAO, UAX #### [facility] [address] [place] [address] Global Transportation Manager: Ajit Stevens DO Blood, Urine Negative Normal NEG [facility] Comment on above: Performed By: #### U MICAO, UAX #### [facility] [address] [place] [address] Global Transportation Manager: Ajit Stevens DO Clarity (U) Cloudy Abnormal CLEAR [facility] Comment on above: Performed By: #### U MICAO, UAX #### [facility] [address] [place] [phone] Global Transportation Manager: Ajit Stevens DO Color (U) Dark Yellow Abnormal YEL [facility] Comment on above: Performed By: #### U WILLY UAX #### [facility] [address] [place] [phone] Global Transportation Manager: Ajit Stevens DO Glucose Ql (U) LARGE Abnormal NEG [facility] Comment on above: Performed By: #### U WILLY UAX #### [facility] [address] [place] [address] Global Transportation Manager: Ajit Stevens DO Ketones Ql (U) Negative Normal NEG [facility] Comment on above: Performed By: #### U WILLY UAX #### [facility] [address] [place] [id number] Global Transportation Manager: Ajit Stevens DO Leukocyte esterase Test strip Ql (U) Negative Normal NEG [facility] Comment on above: Performed By: #### Elaina AGUILERA UAX #### [facility] [address] [place] [address] Global Transportation Manager: Ajit Stevens DO Nitrite,Ur Negative Normal NEG [facility] Comment on above: Performed By: #### Elaina AGUILERA UAX #### [facility] [address] [place] [id number] Global Transportation Manager: Ajit Stevens DO PH,Ur 5.0 Normal 5.0-8.[address] [facility] Comment on above: Performed By: #### U COREY AGUILERAX #### [facility] [address] [place] [address] Global Transportation Manager: Ajit Stevens DO Protein Ql (U) TRACE Abnormal NEG [facility] Comment on above: Performed By: #### U WILLY UAX #### [facility] [address] [place] [address] [place] [address] Global Transportation Manager: Ajit Stevens DO Spec. [place],Ur 1.026 Normal 1.000-1.030 [facility] Comment on above: Performed By: #### Elaina AGUILERA UAX #### [facility] [place] [address] Global Transportation Manager: Ajit Stevens DO Urobilinogen,Ur Normal Normal 0.0-1.[address] [facility] Comment on above: Performed By: #### COREY BOUCHERX #### [facility] [address] [place] [address] Global Transportation Manager: Ajit Stevens DO Urinalysis,Microon 3 Bacteria MANY Abnormal NONE [facility] Comment on above: Performed By: #### TODD BOUCHER #### [facility] [address] [place] [address] Global Transportation Manager: Ajit Stevens DO Epithelial cells LM Ql (Urine sed) 0 TO [address] [facility] Comment on above: Performed By: #### Elaina AGUILERA UAX #### [facility] [address] [place] [address]. [place] [address] Global Transportation Manager: Ajit Stevens DO Urine RBC's 0 TO [address] [facility] Comment on above: Performed By: #### Elaina AGUILERA UAX #### [facility] [place] [address] Global Transportation Manager: Ajit Stevens DO Urine WBC's 0 TO [address] [facility] Comment on above: Performed By: #### Elaina AGUILERA UAX #### [facility] [address] [place] [address] Global [employer] Manager: Ajit Stevens DO Venous Blood Gaseson 10-06-2 023 Carboxy Hgb 5.1 % High 0-[address] [facility] Comment on above: Result Comment: Reference Range: Non-Smokers 0-2% Average Smoker 2-4% Heavy Smoker <10% Performed By: #### V BG #### [facility] [address] [place] [address] Global Transportation Manager: Ajit Stevens DO HCO3 (Bld) [Moles/Vol] 27.6 mmol/L Normal 24.0-30.[address] [facility] Comment on above: Performed By: #### Eladia BG #### [facility] [address] [place] [address] Global [employer] Manager: Ajit Stevens DO Methemoglobin 0.4 % Normal 0.0-1.[address] [facility] Comment on above: Performed By: #### Eladia BG #### [facility] [address] [place] [address] Global Transportation Manager: Ajit Stevens DO Oxygen saturation in Blood 87.2 % High 60.0-85.[address] [facility] Comment on above: Performed By: #### Eladia BG #### [facility] [address] [place] [address] 109[address] Global Transportation Manager: Ajit Stevens DO pCO2 46.4 mm Hg Normal 39.0-55.[address] [facility] Comment on above: Performed By: #### V BG #### [facility] [address] [place] [address] Global Transportation Manager: Ajit Stevens DO pH (Bld) 7.383 [pH] Normal 7.320-7.[address] [facility] Comment on above: Performed By: #### V BG #### [facility] [address] [place] [address] Global Transportation Manager: Fanelly, Ajit, DO pO2 57.8 mm Hg High 30.0-50.[address] [facility] Comment on above: Performed By: #### V BG #### [facility] [address] [facility] [place] [address] Global Transportation Manager: Ajit Stevens DO Positive Base Excess 2.5 mmol/L High 0.0-2.0 [facility] Comment on above: Performed By: #### V BG #### [facility] [address] [facility] [place] [address] Global Transportation Manager: Ajit Stevens DO Text for Respiratory RESULTS GIVEN TO PHYSICIAN. Normal [facility] Comment on above: Performed By: #### V BG #### [facility] [address] [facility] [address] Global Transportation Manager: Ajit Stevens DO XR CHEST PORTABLEon 07-18-20 [...] Kevin Andujar MD 07/17/23 Final result Normal [facility] XR HIP 2-3 VW W PELVIS [...] Cory Leong MD 07/17/[address] Final result Normal [facility] CBC with Diffon 07-17-2023 Abs. Basophil 0.10 k/uL Normal 0.0-0.[address] [facility] Comment on above: Performed By: #### P HO, BMPX, BNP #### [facility] [address] Global Transportation Manager: Ajit Stevens DO Abs.Neutrophil (Seg) 6.00 k/uL Normal 1.3-9.1 [facility] Comment on above: Performed By: #### P HO, BMPX, BNP #### [facility] [address] [place] [address]. [place] [address] Global Transportation Manager: Ajit Stevens DO Basophils/100 WBC (Bld) 1 % Normal 0-[address] [facility] Comment on above: Performed By: #### P HO, BMPX, BNP #### [facility] [address] [place] [address]. [place] [address] Global Transportation Manager: Ajit Stevens DO Eosinophils (Bld) [#/Vol] 0.20 10*3/uL Normal 0.0-0.[address] [facility] Comment on above: Performed By: #### P HO, BMPX, BNP #### [facility] [address] [place] [address] Global Transportation Manager: Ajit Stevens DO Eosinophils/100 WBC (Bld) 2 % Normal 0-[address] [facility] Comment on above: Performed By: #### P HO, BMPX, BNP #### [facility] [address] [place] [address]. [place] [address] Global Transportation Manager: Ajit Stevens DO Erythrocyte distribution width (RBC) [Ratio] 14.6 % Normal 11.5-14.[address] [facility] Comment on above: Performed By: #### P HO, BMPX, BNP #### [facility] [address] [facility] [place] [address] Global Transportation Manager: Ajit Stevens DO Hematocrit (Bld) [Volume fraction] 37.2 % Normal 36-[address] [facility] Comment on above: Performed By: #### P HO, BMPX, BNP #### [facility] [place] [address] Global Transportation Manager: Ajit Stevens DO Hemoglobin (Bld) [Mass/Vol] 12.4 g/dL Normal 12.0-16.[address] [facility] Comment on above: Performed By: #### P HO, BMPX, BNP #### [facility] [address] [place] [address] Global Transportation Manager: Ajit Stevens DO Lymphocytes (Bld) [#/Vol] 2.70 10*3/uL Normal 1.0-4.[address] [facility] Comment on above: Performed By: #### P HO, BMPX, BNP #### [facility] [address] [place] [address] Global [employer] Manager: Ajit Stevens DO Lymphocytes/100 WBC (Bld) 27 % Normal 24-[address] [facility] Comment on above: Performed By: #### P HO, BMPX, BNP #### [facility] [place] [address] Global Transportation Manager: Ajit Stevens DO MCH (RBC) [Entitic mass] 31.5 pg Normal 26-[address] [facility] Comment on above: Performed By: #### P HO, BMPX, BNP #### [facility] [address] [place] [address] Global Transportation Manager: Ajit Stevens DO MCHC (RBC) [Mass/Vol] 33.3 g/dL Normal 31-[address] [facility] Comment on above: Performed By: #### P HO, BMPX, BNP #### [facility] [address] [place] [address] Global Transportation Manager: Ajit Stevens DO MCV (RBC) [Entitic vol] 94.5 fL Normal 80-[address] [facility] Comment on above: Performed By: #### P HO, BMPX, BNP #### [facility] [address] [place] [address] Global Transportation Manager: Ajit Stevens DO Monocytes (Bld) [#/Vol] 0.90 10*3/uL Normal 0.1-1.[address] [facility] Comment on above: Performed By: #### P HO, BMPX, BNP #### [facility] [address] [place] [address] Global Transportation Manager: Ajit Stevens DO Monocytes/100 WBC (Bld) 9 % High 1-[address] [facility] Comment on above: Performed By: #### P HO, BMPX, BNP #### [facility] [address] [place] [address] Global Transportation Manager: Ajit Stevens DO Neutrophil (Seg) 61 % Normal 36-66 [facility] Comment on above: Performed By: #### P HO, BMPX, BNP #### [facility] [address] [place] [address] Global Transportation Manager: Ajit Stevens DO Platelet mean volume (Bld) [Entitic vol] 8.7 fL Normal 6.0-12.[address] [facility] Comment on above: Performed By: #### P HO, BMPX, BNP #### [facility] [address] [place] [address] [place] [address] Global Transportation Manager: Ajit Stevens DO Platelets (Bld) [#/Vol] 200 10*3/uL Normal 150-[address] [facility] Comment on above: Performed By: #### P HO, BMPX, BNP #### [facility] [address] [place] [address] Global Transportation Manager: Ajit Stevens DO RBC (Bld) [#/Vol] 3.94 10*6/uL Low 4.0-5.[address] [facility] Comment on above: Performed By: #### P HO, BMPX, BNP #### [facility] [address] [place] [address]. [place] [address] Global Transportation Manager: Ajit Stevens DO WBC (Bld) [#/Vol] 9.9 10*3/uL Normal 3.5-11.[address] [facility] Comment on above: Performed By: #### P HO, BMPX, BNP #### [facility] [place] [address] Global Transportation Manager: Ajit Stevens DO Comp Metabolic Pr/rfx MGon 1 0- Bilirubin [Mass/Vol] mg/dL Low 0.3-1.2 [facility] Comment on above: Performed By: #### P HO, BMPX, BNP #### [facility] [address] [place] [address] Global Transportation Manager: Ajit Stevens DO Albumin [Mass/Vol] 3.6 g/dL Normal 3.5-5.[address] [facility] Comment on above: Performed By: #### P HO, BMPX, BNP #### [facility] [place] [address] Global Transportation Manager: Ajit Stevens DO Alkaline Phos 64 U/L Normal 35-[address] [facility] Comment on above: Performed By: #### P HO, BMPX, BNP #### [facility] [address] [place] [address] Global Transportation Manager: Ajit Stevens DO ALT [Catalytic activity/Vol] 15 U/L Normal 5-[address] [facility] Comment on above: Performed By: #### P HO, BMPX, BNP #### [facility] [address] [place] [address] Global Transportation Manager: Ajit Stevens DO Anion gap [Moles/Vol] 12 mmol/L Normal 9-[address] [facility] Comment on above: Performed By: #### P HO, BMPX, BNP #### [facility] [address] [place] [address] Global Transportation Manager: Ajit Stevens DO AST [Catalytic activity/Vol] 11 U/L Normal <[address] [facility] Comment on above: Performed By: #### P HO, BMPX, BNP #### [facility] [place] [address] Global Transportation Manager: Ajit Stevens DO Calcium [Mass/Vol] 9.5 mg/dL Normal 8.6-10.[address] [facility] Comment on above: Performed By: #### P HO, BMPX, BNP #### [facility] [place] [address] Global Transportation Manager: Ajit Stevens DO Chloride [Moles/Vol] 105 mmol/L Normal 98-107 [facility] Comment on above: Performed By: #### P HO, BMPX, BNP #### [facility] [address] [place] [address] Global Transportation Manager: Ajit Stevens DO CO2 [Moles/Vol] 24 mmol/L Normal 20-[address] [facility] Comment on above: Performed By: #### P HO, BMPX, BNP #### [facility] [address] [facility] [place] [address] Global Transportation Manager: Ajit Stevens DO Creatinine [Mass/Vol] 1.2 mg/dL High 0.5-0.[address] [facility] Comment on above: Performed By: #### P HO, BMPX, BNP #### [facility] [address] [facility] [place] [address] Global Transportation Manager: Ajit Stevens DO GFR/1.73 sq M.predicted among non-blacks MDRD (S/P/Bld) [Vol rate/Area] 49 mL/min/{1.73_m2} Low >[address] [facility] Comment on above: Result Comment: These [...] By: #### P HO, BMPX, BNP #### [facility] [address] [facility] [place] [address] Global Transportation Manager: Ajit Stevens DO Glucose [Mass/Vol] 113 mg/dL High 70-[address] [facility] Comment on above: Performed By: #### P HO, BMPX, BNP #### [facility] [address] [facility] [place] [address] Global Transportation Manager: Ajit Stevens DO Potassium [Moles/Vol] 3.9 mmol/L Normal 3.7-5.[address] [facility] Comment on above: Performed By: #### P HO, BMPX, BNP #### [facility] [address] [facility] [place] [address] Global Transportation Manager: Ajit Stevens DO Protein [Mass/Vol] 6.6 g/dL Normal 6.4-8.[address] [facility] Comment on above: Performed By: #### P HO, BMPX, BNP #### [facility] [address] [place] [address] Global Transportation Manager: Ajit Stevens DO Sodium [Moles/Vol] 141 mmol/L Normal 135-[address] [facility] Comment on above: Performed By: #### P HO, BMPX, BNP #### [facility] [address] [place] [address] Global Transportation Manager: Ajit Stevens DO Urea nitrogen [Mass/Vol] 34 mg/dL High 8-[address] [facility] Comment on above: Performed By: #### P HO, BMPX, BNP #### [facility] [address] [place] [address] Global Transportation Manager: Ajit Stevens DO Lactic Acidon 07-17-2023 Lactate [Moles/Vol] 1.5 mmol/L Normal 0.5-2.[address] [facility] Comment on above: Performed By: #### P HO, BMPX, BNP #### [facility] [place] [address] Global Transportation Manager: Ajit Stevens DO Prot. Electroph, Blon 2022 Pathologist Review: ELECTRONICALLY SIGNED. ALLEN BRICENO M.D. Normal [facility] Comment on above: Performed By: #### P HO, BMPX, BNP #### [facility] [place] [address] Global Transportation Manager: Ajit Stevens DO Prot. Elect-Interp NORMAL ELECTROPHORETIC PATTERN Normal [facility] Comment on above: Performed By: #### P HO, BMPX, BNP #### [facility] [address] [place] [address] Global Transportation Manager: Ajit Stevens DO PAUL Screen w/reflexon 2022 PAUL Screen Negative Normal NEG [facility] Comment on above: Performed By: #### P HO, BMPX, BNP #### [facility] [address] [place] [address] Global Transportation Manager: Ajit Stevens DO Anti-dsDNA 1.1 IU/mL Normal <10.[address] [facility] Comment on above: Result Comment: Reference Range: <10.0 Negative 10.0-15.0 Equivocal >15.0 Positive Performed By: #### P HO, BMPX, BNP #### [facility] [address] [place] [address] Global Transportation Manager: Ajit Stevens DO SVETLANA Screen 0.3 U/mL Normal <0.[address] [facility] Comment on above: Result Comment: Reference Range: <0.7 Negative 0.7-1.0 Equivocal >1.0 Positive SVETLANA Screen includes U1RNP,RNP70,Sm,Ro(SS-A),La(SS-B),CENP,Scl-70,Gem-1 Performed By: #### P HO, BMPX, BNP #### [facility] [address] [place] [address] Global Transportation Manager: Ajit Stevens DO CBC with Auto Differentialon 01-06-2023 Absolute Eos # 0.20 [facility] Absolute Lymph # 3.20 [facility] Absolute [place] # 0.80 [facility] Basophils (Bld) [#/Vol] 0.10 10*3/uL [facility] Basophils/100 WBC (Bld) 1 % 0 - 2 % [facility] Eosinophils/100 WBC (Bld) 3 % 0 - 4 % [facility] Hematocrit (Bld) [Volume fraction] 41.8 % 36 - 46 % [facility] Hemoglobin (Bld) [Mass/Vol] 14.1 g/dL 12.0 - 16.0 g/dL [facility] Interpretation and review of laboratory results Abnormal [facility] Lymphocytes/100 WBC (Bld) 37 % 24 - 44 % [facility] MCH (RBC) [Entitic mass] 30.8 pg 26 - 34 pg [facility] MCHC (RBC) [Mass/Vol] 33.7 g/dL 31 - 37 g/dL [facility] MCV (RBC) [Entitic vol] 91.5 fL 80 - 100 fL [facility] Monocytes/100 WBC (Bld) 9 % High 1 - 7 % [facility] Platelet distribution width (Bld) [Ratio] 14.2 % 11.5 - 14.9 % [facility] Platelet mean volume (Bld) [Entitic vol] 8.2 fL 6.0 - 12.0 fL [facility] Platelets (Bld) [#/Vol] 260 10*3/uL [facility] RBC (Bld) [#/Vol] 4.56 10*6/uL 4.0 - 5.2 m/uL [facility] Segmented neutrophils/100 WBC (Bld) 50 % 36 - 66 % [facility] Segs Absolute 4.40 [facility] WBC (Bld) [#/Vol] 8.7 10*3/uL [facility] CBC with Diffon 01-06-2023 Abs. Basophil 0.10 k/uL Normal 0.0-0.[address] [facility] Comment on above: Performed By: #### V BG #### [facility] [address] [place] [address] Global Transportation Manager: Ajit Stevens DO Abs.Neutrophil (Seg) 4.40 k/uL Normal 1.3-9.1 [facility] Comment on above: Performed By: #### V BG #### [facility] [address] [place] [address] Global Transportation Manager: Ajit Stevens DO Basophils/100 WBC (Bld) 1 % Normal 0-[address] [facility] Comment on above: Performed By: #### V BG #### [facility] [address] [place] [address] Global Transportation Manager: Ajit Stevens DO Eosinophils (Bld) [#/Vol] 0.20 10*3/uL Normal 0.0-0.[address] [facility] Comment on above: Performed By: #### V BG #### [facility] [address] [place] [address] Global Transportation Manager: Ajit Stevens DO Eosinophils/100 WBC (Bld) 3 % Normal 0-[address] [facility] Comment on above: Performed By: #### V BG #### [facility] [address] [place] [address] Global Transportation Manager: Ajit Stevens DO Erythrocyte distribution width (RBC) [Ratio] 14.2 % Normal 11.5-14.[address] [facility] Comment on above: Performed By: #### V BG #### [facility] [address] [place] [address] Global [employer] Manager: Ajit Stevens DO Hematocrit (Bld) [Volume fraction] 41.8 % Normal 36-[address] [facility] Comment on above: Performed By: #### Eladia BG #### [facility] [address] [place] [address]55 Global Transportation Manager: Ajit Stevens DO Hemoglobin (Bld) [Mass/Vol] 14.1 g/dL Normal 12.0-16.[address] [facility] Comment on above: Performed By: #### V BG #### [facility] [address] [place] [address] Global Transportation Manager: Ajit Stevens DO Lymphocytes (Bld) [#/Vol] 3.20 10*3/uL Normal 1.0-4.[address] [facility] Comment on above: Performed By: #### V BG #### [facility] [place] [address] Global Transportation Manager: Ajit Stevens DO Lymphocytes/100 WBC (Bld) 37 % Normal 24-[address] [facility] Comment on above: Performed By: #### V BG #### [facility] [address] [place] [address] Global Transportation Manager: Ajit Stevens DO MCH (RBC) [Entitic mass] 30.8 pg Normal 26-[address] [facility] Comment on above: Performed By: #### V BG #### [facility] [address] [place] [address] Global Transportation Manager: Ajit Stevens DO MCHC (RBC) [Mass/Vol] 33.7 g/dL Normal 31-[address] [facility] Comment on above: Performed By: #### V BG #### [facility] [address] [place] [address] Global Transportation Manager: Ajit Stevens DO MCV (RBC) [Entitic vol] 91.5 fL Normal 80-[address] [facility] Comment on above: Performed By: #### Eladia BG #### [facility] [address] [place] [address] Global Transportation Manager: Ajit Stevens DO Monocytes (Bld) [#/Vol] 0.80 10*3/uL Normal 0.1-1.[address] [facility] Comment on above: Performed By: #### Eladia BG #### [facility] [address] [place] [address] Global Transportation Manager: Ajit Stevens DO Monocytes/100 WBC (Bld) 9 % High 1-[address] [facility] Comment on above: Performed By: #### Eladia BG #### [facility] [address] [place] [address] Global Transportation Manager: Ajit Stevens DO Neutrophil (Seg) 50 % Normal 36-66 [facility] Comment on above: Performed By: #### V BG #### [facility] [place] [address] Global Transportation Manager: Ajit Stevens DO Platelet mean volume (Bld) [Entitic vol] 8.2 fL Normal 6.0-12.[address] [facility] Comment on above: Performed By: #### Eladia BG #### [facility] [address] [place] [address] Global Transportation Manager: Ajit Stevens DO Platelets (Bld) [#/Vol] 260 10*3/uL Normal 150-[address] [facility] Comment on above: Performed By: #### Eladia BG #### [facility] [address] [place] [address] Global Transportation Manager: Ajit Stevens DO RBC (Bld) [#/Vol] 4.56 10*6/uL Normal 4.0-5.[address] [facility] Comment on above: Performed By: #### Eladia BG #### [facility] [address] [place] [address] Global Transportation Manager: Ajit Stevens DO WBC (Bld) [#/Vol] 8.7 10*3/uL Normal 3.5-11.[address] [facility] Comment on above: Performed By: #### Eladia BG #### [facility] [address] [place] [address] Global Transportation Manager: Ajit Stevens DO POC Glucose Fingerstickon Glucose [Mass/Vol] 319 mg/dL High 65 - 105 mg/dL [facility] Interpretation and review of laboratory results Abnormal [facility] Glucose [Mass/Vol] 210 mg/dL High 65 - 105 mg/dL [facility] Interpretation and review of laboratory results Abnormal [facility] ProtAddy Noel 2022 Albumin [Mass/Vol] 3.5 g/dL Normal 3.2-5.[address] [facility] Comment on above: Performed By: #### P HO, BMPX, BNP #### [facility] [address] [place] [address] Global Transportation Manager: Ajit Stevens DO Albumin, % 59 % Normal 45-[address] [facility] Comment on above: Performed By: #### P HO, BMPX, BNP #### [facility] [address] [place] [address] Global Transportation Manager: Ajit Stevens DO Zngbm-7-frqcbdwvx 0.2 g/dL Normal 0.1-0.4 [facility] Comment on above: Performed By: #### P HO, BMPX, BNP #### [facility] [address] [place] [address] Global Transportation Manager: Ajit Stevens DO Gtift-9-ltbgllaie,% 3 % Normal 3-[address] [facility] Comment on above: Performed By: #### P HO, BMPX, BNP #### [facility] [place] [address] Global Transportation Manager: Ajit Stevens DO Njtuw-6-mazacaiah 0.8 g/dL Normal 0.5-0.9 [facility] Comment on above: Performed By: #### P HO, BMPX, BNP #### [facility] [address] [place] [address] Global Transportation Manager: Ajit Stevens DO Fqcvm-1-ktivprtgo,% 13 % Normal 6-[address] [facility] Comment on above: Performed By: #### P HO, BMPX, BNP #### [facility] [address] [facility] [place] [address] Global Transportation Manager: Ajit Stevens DO Beta-globulins 0.9 g/dL Normal 0.5-1.[address] [facility] Comment on above: Performed By: #### P HO, BMPX, BNP #### [facility] [address] [place] [address] Global Transportation Manager: Ajit Stevens DO Beta-globulins,% 14 % Normal 11-19 [facility] Comment on above: Performed By: #### P HO, BMPX, BNP #### [facility] [place] [address] Global Transportation Manager: Ajit Stevens DO Gamma-globulins 0.7 g/dL Normal 0.5-1.[address] [facility] Comment on above: Performed By: #### P HO, BMPX, BNP #### [facility] [address] [place] [address] Global Transportation Manager: Ajit Stevens DO Gamma-globulins,% 11 % Normal 9-20 [facility] Comment on above: Performed By: #### P HO, BMPX, BNP #### [facility] [address] [place] [address] Global Transportation Manager: Ajit Stevens DO Total Prot. Sum 6.1 g/dL Low 6.3-8.[address] [facility] Comment on above: Performed By: #### P HO, BMPX, BNP #### [facility] [address] [place] [address]. [place] [address] Global Transportation Manager: Ajit Stevens DO Total Prot. Sum,% 100 % Normal 98-102 [facility] Comment on above: Performed By: #### P HO, BMPX, BNP #### [facility] [address] [place] [address] Global Transportation Manager: Ajit Stevens DO Basic Metab w/rfx MGon 01-05 Anion gap [Moles/Vol] 12 mmol/L Normal 9-[address] [facility] Comment on above: Performed By: #### C DP, BMPX #### [facility] [address] [place] [address] Global Transportation Manager: Ajit Stevens DO Calcium [Mass/Vol] 9.0 mg/dL Normal 8.6-10.[address] [facility] Comment on above: Performed By: #### C DP, BMPX #### [facility] [address] [place] [address] [employer] Manager: Ajit Stevens DO Chloride [Moles/Vol] 104 mmol/L Normal 98-107 [facility] Comment on above: Performed By: #### C DP, BMPX #### [facility] [address] [place] [address] [employer] Manager: Ajit Stevens DO CO2 [Moles/Vol] 20 mmol/L Normal 20-[address] [facility] Comment on above: Performed By: #### C DP, BMPX #### [facility] [address] [place] [address] 17964 [employer] Transportation Manager: Ajit Stevens DO Creatinine [Mass/Vol] 0.58 mg/dL Normal 0.50-0.[address] [facility] Comment on above: Performed By: #### C DP, BMPX #### [facility] [address] [place] [address] Global Transportation Manager: Ajit Stevens DO GFR/1.73 sq M.predicted among non-blacks MDRD (S/P/Bld) [Vol rate/Area] mL/min/{1.73_m2} Normal >[address] [facility] Comment on above: Result Comment: These [...] Performed By: #### C DP, BMPX #### [facility] [address] [facility] [place] [address] Global Transportation Manager: Ajit Stevens DO Glucose [Mass/Vol] 191 mg/dL High 70-[address] [facility] Comment on above: Performed By: #### C JUAN A, BMPX #### [facility] [address] [place] [address]. [place] [address] Global Transportation Manager: Ajit Stevens DO Potassium [Moles/Vol] 3.9 mmol/L Normal 3.7-5.[address] [facility] Comment on above: Performed By: #### C JUAN A, BMPX #### [facility] [address] [place] [address]. [place] [address] Global Transportation Manager: Ajit Stevens DO Sodium [Moles/Vol] 136 mmol/L Normal 135-[address] [facility] Comment on above: Performed By: #### C JUAN A, BMPX #### [facility] [address] [place] [address]. [place] [address] Global Transportation Manager: Ajit Stevens DO Urea nitrogen [Mass/Vol] 9 mg/dL Normal 8-[address] [facility] Comment on above: Performed By: #### C JUAN A, BMPX #### [facility] [address] [place] [phone] [employer] Manager: Ajit Stevens DO Basic Metabolic Panel w/ Ref tena to MGon 01-05-2023 Anion gap [Moles/Vol] 12 mmol/L 9 - 17 mmol/L [facility] Calcium [Mass/Vol] 9.0 mg/dL 8.6 - 10. 4 mg/dL [facility] Chloride [Moles/Vol] 104 mmol/L 98 - 10 7 mmol/L [facility] CO2 [Moles/Vol] 20 mmol/L 20 - 31 mmol/L [facility] Creatinine [Mass/Vol] 0.58 mg/dL 0.50 - 0.90 mg/dL [facility] GFR/1.73 sq M.predicted MDRD (S/P/Bld) [Vol rate/Area] - PINF [facility] Comment on above: These results are not [...] 191 mg/dL High 70 - 99 mg/dL [facility] Interpretation and review of laboratory results Abnormal [facility] Potassium [Moles/Vol] 3.9 mmol/L 3.7 - 5.3 mmol/L [facility] Sodium [Moles/Vol] 136 mmol/L 135 - 144 mmol/L [facility] Urea nitrogen [Mass/Vol] 9 mg/dL 8 - 23 mg/dL [facility] CBC with Auto Differentialon 01-05-2023 Absolute Eos # 0.30 [facility] Absolute Lymph # 2.70 [facility] Absolute [place] # 0.90 [facility] Basophils (Bld) [#/Vol] 0.10 10*3/uL [facility] Basophils/100 WBC (Bld) 1 % 0 - 2 % [facility] Eosinophils/100 WBC (Bld) 3 % 0 - 4 % [facility] Hematocrit (Bld) [Volume fraction] 38.8 % 36 - 46 % [facility] Hemoglobin (Bld) [Mass/Vol] 12.9 g/dL 12.0 - 16.0 g/dL [facility] Interpretation and review of laboratory results Abnormal [facility] Lymphocytes/100 WBC (Bld) 32 % 24 - 44 % [facility] MCH (RBC) [Entitic mass] 31.3 pg 26 - 34 pg [facility] MCHC (RBC) [Mass/Vol] 33.3 g/dL 31 - 37 g/dL [facility] MCV (RBC) [Entitic vol] 94.2 fL 80 - 100 fL [facility] Monocytes/100 WBC (Bld) 10 % High 1 - 7 % [facility] Platelet distribution width (Bld) [Ratio] 14.6 % 11.5 - 14.9 % [facility] Platelet mean volume (Bld) [Entitic vol] 7.9 fL 6.0 - 12.0 fL [facility] Platelets (Bld) [#/Vol] 217 10*3/uL [facility] RBC (Bld) [#/Vol] 4.12 10*6/uL 4.0 - 5.2 m/uL [facility] Segmented neutrophils/100 WBC (Bld) 54 % 36 - 66 % [facility] Segs Absolute 4.70 [facility] WBC (Bld) [#/Vol] 8.7 10*3/uL [facility] CBC with Diffon 01-05-2023 Abs. Basophil 0.10 k/uL Normal 0.0-0.[address] [facility] Comment on above: Performed By: #### C DP, BMPX #### [facility] [address] [place] [address] Global Transportation Manager: Ajit Stevens DO Abs.Neutrophil (Seg) 4.70 k/uL Normal 1.3-9.1 [facility] Comment on above: Performed By: #### C DP, BMPX #### [facility] [address] [place], [place] [id number] Global Transportation Manager: Fanelly, Ajit, DO Basophils/100 WBC (Bld) 1 % Normal 0-[address] [facility] Comment on above: Performed By: #### C DP, BMPX #### [facility] [place] [address] Global Transportation Manager: Ajit Stevens DO Eosinophils (Bld) [#/Vol] 0.30 10*3/uL Normal 0.0-0.[address] [facility] Comment on above: Performed By: #### C DP, BMPX #### [facility] [place] [address] Global Transportation Manager: Ajit Stevens DO Eosinophils/100 WBC (Bld) 3 % Normal 0-[address] [facility] Comment on above: Performed By: #### C DP, BMPX #### [facility] [address] [place] [address] [employer] Manager: Ajit Stevens DO Erythrocyte distribution width (RBC) [Ratio] 14.6 % Normal 11.5-14.[address] [facility] Comment on above: Performed By: #### C JUAN A, BMPX #### [facility] [address] [place] [address] Global [employer] Manager: Ajit Stevens DO Hematocrit (Bld) [Volume fraction] 38.8 % Normal 36-[address] [facility] Comment on above: Performed By: #### C DP, BMPX #### [facility] [address] [place] [address] Global Transportation Manager: Ajit Stevens DO Hemoglobin (Bld) [Mass/Vol] 12.9 g/dL Normal 12.0-16.[address] [facility] Comment on above: Performed By: #### C DP, BMPX #### [facility] [address] [place] [address] 11847 Global Transportation Manager: Fanelly, Ajit, DO Lymphocytes (Bld) [#/Vol] 2.70 10*3/uL Normal 1.0-4.[address] [facility] Comment on above: Performed By: #### C DP, BMPX #### [facility] [place] [address] Global Transportation Manager: Ajit Stevens DO Lymphocytes/100 WBC (Bld) 32 % Normal 24-[address] [facility] Comment on above: Performed By: #### C DP, BMPX #### [facility] [place] [address] Global Transportation Manager: Ajit Stevens DO MCH (RBC) [Entitic mass] 31.3 pg Normal 26-[address] [facility] Comment on above: Performed By: #### C JUAN A, BMPX #### [facility] [address] [place] [address] [employer] Transportation Manager: Ajit Stevens DO MCHC (RBC) [Mass/Vol] 33.3 g/dL Normal 31-[address] [facility] Comment on above: Performed By: #### C JUAN A, BMPX #### [facility] [address] [place] [address] Global Transportation Manager: Ajit Stevens DO MCV (RBC) [Entitic vol] 94.2 fL Normal 80-[address] [facility] Comment on above: Performed By: #### C JUAN A, BMPX #### [facility] [address] [place] [address]41 Global Transportation Manager: Ajit Stevens DO Monocytes (Bld) [#/Vol] 0.90 10*3/uL Normal 0.1-1.[address] [facility] Comment on above: Performed By: #### C DP, BMPX #### [facility] [address] [place] [address] 9[address]64 [employer] Transportation Manager: Ajit Stevens DO Monocytes/100 WBC (Bld) 10 % High 1-[address] [facility] Comment on above: Performed By: #### C JUAN A, BMPX #### [facility] [address] [place] [address] Global Transportation Manager: Ajit Stevens DO Neutrophil (Seg) 54 % Normal 36-66 [facility] Comment on above: Performed By: #### C DP, BMPX #### [facility] [address] [place] [address] Global Transportation Manager: Ajit Stevens DO Platelet mean volume (Bld) [Entitic vol] 7.9 fL Normal 6.0-12.[address] [facility] Comment on above: Performed By: #### C JUAN A, BMPX #### [facility] [address] [place] [address] Global Transportation Manager: Ajit Stevens DO Platelets (Bld) [#/Vol] 217 10*3/uL Normal 150-[address] [facility] Comment on above: Performed By: #### C JUAN A, BMPX #### [facility] [address] [place] [address] 01671 Global Transportation Manager: Ajit Stevens DO RBC (Bld) [#/Vol] 4.12 10*6/uL Normal 4.0-5.[address] [facility] Comment on above: Performed By: #### C JUAN A, BMPX #### [facility] [place] [address] Global Transportation Manager: Ajit Stevens DO WBC (Bld) [#/Vol] 8.7 10*3/uL Normal 3.5-11.[address] [facility] Comment on above: Performed By: #### C JUAN A, BMPX #### [facility] [address] [place] [address]33 Global Transportation Manager: Fanelly, Ajit, DO POC Glucose Fingerstickon Glucose [Mass/Vol] 260 mg/dL High 65 - 105 mg/dL [facility] Interpretation and review of laboratory results Abnormal [facility] Glucose [Mass/Vol] 182 mg/dL High 65 - 105 mg/dL [facility] Interpretation and review of laboratory results Abnormal [facility] Glucose [Mass/Vol] 238 mg/dL High 65 - 105 mg/dL [facility] Interpretation and review of laboratory results Abnormal [facility] Glucose [Mass/Vol] 185 mg/dL High 65 - 105 mg/dL [facility] Interpretation and review of laboratory results Abnormal [facility] Basic Metab w/rfx MGon 01-04 GFR/1.73 sq M.predicted among non-blacks MDRD (S/P/Bld) [Vol rate/Area] mL/min/{1.73_m2} Normal >[address] [facility] Comment on above: Result Comment: These [...] By: #### P YARON HOWE, BNP #### [facility] [address] [facility]. [place], [place] [id number] Global Transportation Manager: Ajit Stevens DO Anion gap [Moles/Vol] 10 mmol/L Normal 9-17 [facility] Comment on above: Performed By: #### YARON SAWANT, BNP #### [facility] [address] [facility]. [place], [place] [id number] Global Transportation Manager: Ajit Stevens DO Calcium [Mass/Vol] 9.1 mg/dL Normal 8.6-10.4 [facility] Comment on above: Performed By: #### P HO, BMPX, BNP #### [facility] [place] [address] Global Transportation Manager: Ajit Stevens DO Chloride [Moles/Vol] 105 mmol/L Normal 98-107 [facility] Comment on above: Performed By: #### P HO, BMPX, BNP #### [facility] [address] [place] [address]30 Global Transportation Manager: Ajit Stevens DO CO2 [Moles/Vol] 24 mmol/L Normal 20-31 [facility] Comment on above: Performed By: #### P HO, BMPX, BNP #### [facility] [address] [place] [address] Global Transportation Manager: Ajit Stevens DO Creatinine [Mass/Vol] 0.77 mg/dL Normal 0.50-0.90 [facility] Comment on above: Performed By: #### P HO, BMPX, BNP #### [facility] [address] [place] [address] 79[address] Global Transportation Manager: Ajit Stevens DO Glucose [Mass/Vol] 170 mg/dL High 70-99 [facility] Comment on above: Performed By: #### P HO, BMPX, BNP #### [facility] [address] [place] [address] Global Transportation Manager: Ajit Stevens DO Potassium [Moles/Vol] 4.2 mmol/L Normal 3.7-5.3 [facility] Comment on above: Performed By: #### P HO, BMPX, BNP #### [facility] [address] [place] [address]406 Global Transportation Manager: Ajit Stevens DO Sodium [Moles/Vol] 139 mmol/L Normal 135-144 [facility] Comment on above: Performed By: #### P HO, BMPX, BNP #### [facility] [address] [facility] [place] [address] Global Transportation Manager: Ajit Stevens DO Urea nitrogen [Mass/Vol] 20 mg/dL Normal 8-23 [facility] Comment on above: Performed By: #### P HO, BMPX, BNP #### [facility] [address] [facility] [place], [place] [id number] Global Transportation Manager: Ajit Stevens DO Basic Metabolic Panel w/ Ref tena to MGon 01-04-2023 GFR/1.73 sq M.predicted MDRD (S/P/Bld) [Vol rate/Area] - PINF [facility] Comment on above: These results are not [...] Interpretation and review of laboratory results Abnormal [facility] CBC with Auto Differentialon 01-04-2023 Absolute Eos # 0.20 [facility] Absolute Lymph # 2.90 [facility] Absolute [place] # 0.80 [facility] RS [facility] Basophils (Bld) [#/Vol] 0.10 10*3/uL [facility] Basophils/100 WBC (Bld) 1 % 0 - 2 % [facility] Eosinophils/100 WBC (Bld) 3 % 0 - 4 % [facility] Hematocrit (Bld) [Volume fraction] 38.7 % 36 - 46 % [facility] Hemoglobin (Bld) [Mass/Vol] 13.2 g/dL 12.0 - 16.0 g/dL [facility] Interpretation and review of laboratory results Abnormal [facility] Lymphocytes/100 WBC (Bld) 33 % 24 - 44 % [facility] MCH (RBC) [Entitic mass] 31.3 pg 26 - 34 pg [facility] MCHC (RBC) [Mass/Vol] 34.1 g/dL 31 - 37 g/dL [facility] MCV (RBC) [Entitic vol] 91.7 fL 80 - 100 fL [facility] Monocytes/100 WBC (Bld) 9 % High 1 - 7 % [facility] Platelet distribution width (Bld) [Ratio] 14.6 % 11.5 - 14.9 % [facility] Platelet mean volume (Bld) [Entitic vol] 8.1 fL 6.0 - 12.0 fL [facility] Platelets (Bld) [#/Vol] 231 10*3/uL [facility] RBC (Bld) [#/Vol] 4.21 10*6/uL 4.0 - 5.2 m/uL [facility] Segmented neutrophils/100 WBC (Bld) 54 % 36 - 66 % [facility] Segs Absolute 4.80 [facility] WBC (Bld) [#/Vol] 8.8 10*3/uL [facility] CBC with Diffon 01-04-2023 Abs. Basophil 0.10 k/uL Normal 0.0-0.[address] [facility] Comment on above: Performed By: #### P HO, BMPX, BNP #### [facility] [address] [place] [address] Global Transportation Manager: Ajit Stevens DO Abs.Neutrophil (Seg) 4.80 k/uL Normal 1.3-9.1 [facility] Comment on above: Performed By: #### P HO, BMPX, BNP #### [facility] [address] [place] [address] Global Transportation Manager: Ajit Stevens DO Basophils/100 WBC (Bld) 1 % Normal 0-[address] [facility] Comment on above: Performed By: #### P HO, BMPX, BNP #### [facility] [address] [place] [address] Global Transportation Manager: Ajit Stevens DO Eosinophils (Bld) [#/Vol] 0.20 10*3/uL Normal 0.0-0.[address] [facility] Comment on above: Performed By: #### P HO, BMPX, BNP #### [facility] [address] [place] [address]68 Global [employer] Manager: Ajit Stevens DO Eosinophils/100 WBC (Bld) 3 % Normal 0-[address] [facility] Comment on above: Performed By: #### P HO, BMPX, BNP #### [facility] [address] [place] [address] Global Transportation Manager: Ajit Stevens DO Erythrocyte distribution width (RBC) [Ratio] 14.6 % Normal 11.5-14.[address] [facility] Comment on above: Performed By: #### P HO, BMPX, BNP #### [facility] [address] [place] [address] [phone] [employer] Manager: Ajit Stevens DO Hematocrit (Bld) [Volume fraction] 38.7 % Normal 36-[address] [facility] Comment on above: Performed By: #### P HO, BMPX, BNP #### [facility] [address] [place] [address]96 Global Transportation Manager: Ajit Stevens DO Hemoglobin (Bld) [Mass/Vol] 13.2 g/dL Normal 12.0-16.[address] [facility] Comment on above: Performed By: #### P HO, BMPX, BNP #### [facility] [address] [place] [address] Global Transportation Manager: Ajit Stevens DO Lymphocytes (Bld) [#/Vol] 2.90 10*3/uL Normal 1.0-4.[address] [facility] Comment on above: Performed By: #### P HO, BMPX, BNP #### [facility] [address] [place] [address] Global Transportation Manager: Ajit Stevens DO Lymphocytes/100 WBC (Bld) 33 % Normal 24-[address] [facility] Comment on above: Performed By: #### P HO, BMPX, BNP #### [facility] [place] [address] Global Transportation Manager: Ajit Stevens DO MCH (RBC) [Entitic mass] 31.3 pg Normal 26-[address] [facility] Comment on above: Performed By: #### P HO, BMPX, BNP #### [facility] [address] [place] [address]642 Global Transportation Manager: Ajit Stevens DO MCHC (RBC) [Mass/Vol] 34.1 g/dL Normal 31-[address] [facility] Comment on above: Performed By: #### P HO, BMPX, BNP #### [facility] [address] [place] [address] 82483 Global Transportation Manager: Ajit Stevens DO MCV (RBC) [Entitic vol] 91.7 fL Normal 80-[address] [facility] Comment on above: Performed By: #### P HO, BMPX, BNP #### [facility] [address] [place] [address] Global Transportation Manager: Ajit Stevens DO Monocytes (Bld) [#/Vol] 0.80 10*3/uL Normal 0.1-1.[address] [facility] Comment on above: Performed By: #### P HO, BMPX, BNP #### [facility] [address] [place] [address] Global Transportation Manager: Ajit Stevens DO Monocytes/100 WBC (Bld) 9 % High 1-[address] [facility] Comment on above: Performed By: #### P HO, BMPX, BNP #### [facility] [address] [facility] [place] [address] Global Transportation Manager: Ajit Stevens DO Neutrophil (Seg) 54 % Normal 36-66 [facility] Comment on above: Performed By: #### P HO, BMPX, BNP #### [facility] [place] [address] Global Transportation Manager: Ajit Stevens DO Platelet mean volume (Bld) [Entitic vol] 8.1 fL Normal 6.0-12.[address] [facility] Comment on above: Performed By: #### P HO, BMPX, BNP #### [facility] [place] [address] Global Transportation Manager: Ajit Stevens DO Platelets (Bld) [#/Vol] 231 10*3/uL Normal 150-[address] [facility] Comment on above: Performed By: #### P HO, BMPX, BNP #### [facility] [place] [address] Global Transportation Manager: Ajit Stevens DO RBC (Bld) [#/Vol] 4.21 10*6/uL Normal 4.0-5.[address] [facility] Comment on above: Performed By: #### P HO, BMPX, BNP #### [facility] [place] [address] Global Transportation Manager: Ajit Stevens DO WBC (Bld) [#/Vol] 8.8 10*3/uL Normal 3.5-11.[address] [facility] Comment on above: Performed By: #### P HO, BMPX, BNP #### [facility] [place] [address] Global Transportation Manager: Ajit Stevens DO CT ABDOMEN PELVIS WO [...] Ledy Betancourt MD 01/03/[address] [facility] EKG 12 LeadOrdered By: Jerman Obando on 01-04-2023 Atrial Rate 79 BPM [employer] Phone: P Holden 36 degrees [employer] Phone: P-R Interval 136 ms [employer] Phone: Q-T Interval 386 ms [employer] Work Phone: QRS Duration 94 ms [employer] Work Phone: QTc Calculation (Bazett) 442 ms [employer] Work Phone: R Holden 36 degrees [employer] Work Phone: T Holden 35 degrees [employer] Work Phone: Ventricular Rate 79 BPM [employer] Work Phone: [employer] Work Phone: EKG 12 Leadon 01-04-2023 Normal sinus rhythm Normal ECG When compared with ECG of 25-NOV-2015 01:31, No significant change was found [facility] Jerman Arceo MD - 01/04/2023 Normal sinus rhythm Normal ECG When compared with ECG of 25-NOV-2015 01:31, No significant change was found [employer] Work Phone: POC Glucose Fingerstickon Glucose [Mass/Vol] 188 mg/dL High 65 - 105 mg/dL [facility] [employer] Interpretation and review of laboratory results Abnormal [facility] Glucose [Mass/Vol] 192 mg/dL High 65 - 105 mg/dL [facility] [employer] Interpretation and review of laboratory results Abnormal [facility] Glucose [Mass/Vol] 173 mg/dL High 65 - 105 mg/dL [facility] [employer] Interpretation and review of laboratory results Abnormal [facility] [employer] PTH, [place] 01-04-2023 Calcium [Moles/Vol] 1.31 mmol/L Normal 1.13-1.33 [facility] Comment on above: Performed By: #### P HO, BMPX, BNP #### [facility] [address] [place] [address] Global Transportation Manager: Ajit Stevens DO PTH, Intact 12.2 pg/mL Low 14.0-72.[address] [facility] Comment on above: Result Comment: SAMP LES FROM PATIENTS ROUTINELY RECEIVING HIGH DOSE BIOTIN THERAPY MAY SHOW FALSELY DEPRESSED RESULTS. ADDITIONAL INFORMATION MAY BE REQUIRED FOR DIAGNOSIS. Performed By: #### P HO, BMPX, BNP #### [facility] [address] [facility] [place] [address] Global Transportation Manager: jAit Stevens DO PTH, Intact with Ionized Owen ciumon 01-04-2023 Calcium.ionized (Bld) [Moles/Vol] 1.31 mmol/L 1.13 - 1.33 mmol/L [facility] Interpretation and review of laboratory results Abnormal [facility] Parathyrin.intact [Mass/Vol] 12.2 pg/mL Low 14.0 - 72.0 pg/mL [facility] Comment on above: SAMPLES FROM PATIENT S ROUTINELY RECEIVING HIGH DOSE BIOTIN THERAPY MAY SHOW FALSELY DEPRESSED RESULTS. ADDITIONAL INFORMATION MAY BE REQUIRED FOR DIAGNOSIS. [facility] Prot. Electroph, Blon 2022 Protein [Mass/Vol] 6.0 g/dL Low 6.4-8.[address] [facility] Comment on above: Performed By: #### P HO, BMPX, BNP #### [facility] [address] [facility] [place], [place] [id number] Global [employer] Manager: Ajit Stevens DO US RETROPERITONEAL COMPLETEo n [...] Clif Shane MD 01/04/[address] [facility] Unremarkable appearing kidneys [facility] RIS CONSOLIDATED [...] or intrarenal stones. IMPRESSION: Unremarkable appearing kidneys [employer] Phone: Radiology Study observation (narrative) [employer] Phone: US RETROPERITONEAL COMPLETEO rdered By: Clif Shane on 01-04-2023 [employer] Phone: XR ABDOMEN (KUB) (SINGLE AP VIEW)on [...] Juan Schmitz MD 01/03/[address] [facility] Basic Metab w/rfx MGon 01-03 Anion gap [Moles/Vol] 15 mmol/L Normal 9-[address] [facility] Comment on above: Performed By: #### P HO, BMPX, BNP #### [facility] [address] [facility] [place] [address] [employer] Manager: Ajit Stevens DO Calcium [Mass/Vol] 11.0 mg/dL High 8.6-10.[address] [facility] Comment on above: Performed By: #### P HO, BMPX, BNP #### [facility] [address] [facility] [place] [address] [employer] Manager: Ajit Stevens DO Chloride [Moles/Vol] 97 mmol/L Low 98-107 [facility] Comment on above: Performed By: #### P HO, BMPX, BNP #### [facility] [facility] [place] [address] Global Transportation Manager: Ajit Stevens DO CO2 [Moles/Vol] 26 mmol/L Normal 20-[address] [facility] Comment on above: Performed By: #### P HO, BMPX, BNP #### [facility] [address] [facility] [place] [address] [employer] Manager: Ajit Stevens DO Creatinine [Mass/Vol] 1.92 mg/dL High 0.50-0.[address] [facility] Comment on above: Performed By: #### P HO, BMPX, BNP #### [facility] [address] [facility] [place] [address] [employer] Manager: Ajit Stevens DO GFR/1.73 sq M.predicted among non-blacks MDRD (S/P/Bld) [Vol rate/Area] 28 mL/min/{1.73_m2} Low >[address] [facility] Comment on above: Result Comment: These [...] By: #### P HO, BMPX, BNP #### [facility] [address] [facility] [address] [employer] Manager: Ajit Stevens DO Glucose [Mass/Vol] 216 mg/dL High 70-[address] [facility] Comment on above: Performed By: #### P HO, BMPX, BNP #### [facility] [address] [place] [address]. [place] [address] [employer] Manager: Ajit Stevens DO Potassium [Moles/Vol] 4.8 mmol/L Normal 3.7-5.[address] [facility] Comment on above: Performed By: #### P HO, BMPX, BNP #### [facility] [address] [facility] [place] [address] [employer] Manager: Ajit Stevens DO Sodium [Moles/Vol] 138 mmol/L Normal 135-[address] [facility] Comment on above: Performed By: #### P HO, BMPX, BNP #### [facility] [address] [place] [address]. [place] [address] [employer] Manager: Ajit Stevens DO Urea nitrogen [Mass/Vol] 34 mg/dL High 8-[address] [facility] Comment on above: Performed By: #### P HO, BMPX, BNP #### [facility] [address] [place] [address]. [place] [address] [employer] Manager: Ajit Stevens DO Basic Metabolic Panel w/ Ref tena to MGon 01-03-2023 Anion gap [Moles/Vol] 15 mmol/L 9 - 17 mmol/L [facility] Calcium [Mass/Vol] 11.0 mg/dL High 8.6 - 10. 4 mg/dL [facility] Chloride [Moles/Vol] 97 mmol/L Low 98 - 10 7 mmol/L [facility] CO2 [Moles/Vol] 26 mmol/L 20 - 31 mmol/L [facility] Creatinine [Mass/Vol] 1.92 mg/dL High 0.50 - 0.90 mg/dL [facility] GFR/1.73 sq M.predicted MDRD (S/P/Bld) [Vol rate/Area] 28 mL/min/{1.73_m2} Low - PINF [facility] Comment on above: These results are not [...] 216 mg/dL High 70 - 99 mg/dL [facility] Interpretation and review of laboratory results Abnormal [facility] Potassium [Moles/Vol] 4.8 mmol/L 3.7 - 5.3 mmol/L [facility] Sodium [Moles/Vol] 138 mmol/L 135 - 144 mmol/L [facility] Urea nitrogen [Mass/Vol] 34 mg/dL High 8 - 23 mg/dL [facility] Basic Metabolic Profon 01-03 Anion gap [Moles/Vol] 15 mmol/L Normal -[address] [facility] Comment on above: Performed By: #### P HO, BMPX, BNP #### [facility] [address] [facility] [place], [place] [id number] [employer] Manager: Ajit Stevens DO Calcium [Mass/Vol] 11.6 mg/dL High 8.6-10.[address] [facility] Comment on above: Performed By: #### P HO, BMPX, BNP #### [facility] [address] [facility] [place] [address] [employer] Manager: Ajit Stevens, DO Chloride [Moles/Vol] 98 mmol/L Normal 98-107 [facility] Comment on above: Performed By: #### P HO, BMPX, BNP #### [facility] [address] [facility] [place] [address] Global Transportation Manager: Ajit Stevens DO CO2 [Moles/Vol] 24 mmol/L Normal 20-[address] [facility] Comment on above: Performed By: #### P HO, BMPX, BNP #### [facility] [address] [facility] [place] [address] [employer] Transportation Manager: Ajit Stevens DO Creatinine [Mass/Vol] 1.42 mg/dL High 0.50-0.[address] [facility] Comment on above: Performed By: #### P HO, BMPX, BNP #### [facility] [address] [facility] [place] [address] [employer] Manager: Ajit Stevens DO GFR/1.73 sq M.predicted among non-blacks MDRD (S/P/Bld) [Vol rate/Area] 40 mL/min/{1.73_m2} Low >[address] [facility] Comment on above: Result Comment: These [...] By: #### P HO, BMPX, BNP #### [facility] [address] [facility] [place] [address] [employer] Manager: Ajit Stevens DO Glucose [Mass/Vol] 186 mg/dL High 70-[address] [facility] Comment on above: Performed By: #### P HO, BMPX, BNP #### [facility] [address] [facility] [place] [address] [employer] Manager: Ajit Stevens DO Potassium [Moles/Vol] 4.9 mmol/L Normal 3.7-5.[address] [facility] Comment on above: Performed By: #### P HO, BMPX, BNP #### [facility] [address] [facility] [place] [address] [employer] Manager: Ajit Stevens DO Sodium [Moles/Vol] 137 mmol/L Normal 135-[address] [facility] Comment on above: Performed By: #### P HO, BMPX, BNP #### [facility] [address] [facility] [place] [address] [employer] Manager: Ajit Stevens DO Urea nitrogen [Mass/Vol] 27 mg/dL High 8-[address] [facility] Comment on above: Performed By: #### P HO, BMPX, BNP #### [facility] [address] [facility] [place] [address] [employer] Manager: Ajit Stevens DO Brain Natri. Peptideon 01-03 Natriuretic peptide B (Bld) [Mass/Vol] 293 pg/mL Normal <[address] [facility] Comment on above: Result Comment: An age-independent cutoff point of 300 pg/ml has a 98% negative predictive value excluding acute heart failure. Performed By: #### P HO, BMPX, BNP #### [facility] [address] [facility] [address] [employer] Manager: Ajit Stevens DO Brain Natriuretic Peptideon 01-03-2023 Natriuretic peptide B (Bld) [Mass/Vol] 293 pg/mL NINF - 300 pg/mL [facility] Comment on above: An age-independent cutoff point of 300 pg/ml has a 98% negative predictive value excluding acute heart failure. CBC with Diffon 01-03-2023 Abs. Basophil 0.20 k/uL Normal 0.0-0.[address] [facility] Comment on above: Performed By: #### P HO, BMPX, BNP #### [facility] [place] [address] Global Transportation Manager: Ajit Stevens DO Abs.Neutrophil (Seg) 9.90 k/uL High 1.3-9.1 [facility] Comment on above: Performed By: #### P HO, BMPX, BNP #### [facility] [address] [place] [id number] [employer] Manager: Ajit Stevens DO Basophils/100 WBC (Bld) 1 % Normal 0-[address] [facility] Comment on above: Performed By: #### P HO, BMPX, BNP #### [facility] [address] [place] [address] [employer] Manager: Ajit Stevens DO Eosinophils (Bld) [#/Vol] 0.30 10*3/uL Normal 0.0-0.[address] [facility] Comment on above: Performed By: #### P HO, BMPX, BNP #### [facility] [address] [place] [address] [employer] Manager: Ajit Stevens DO Eosinophils/100 WBC (Bld) 2 % Normal 0-[address] [facility] Comment on above: Performed By: #### P HO, BMPX, BNP #### [facility] [address] [place] [address] [employer] Manager: Ajit Stevens DO Erythrocyte distribution width (RBC) [Ratio] 15.0 % High 11.5-14.[address] [facility] Comment on above: Performed By: #### P HO, BMPX, BNP #### [facility] [address] [place] [address] [employer] Manager: Fanelly, Ajit, DO Hematocrit (Bld) [Volume fraction] 46.0 % Normal 36-[address] [facility] Comment on above: Performed By: #### P HO, BMPX, BNP #### [facility] [place] [address] [employer] Transportation Manager: Ajit Stevens DO Hemoglobin (Bld) [Mass/Vol] 15.6 g/dL Normal 12.0-16.[address] [facility] Comment on above: Performed By: #### P HO, BMPX, BNP #### [facility] [place] [address] [employer] Manager: Ajit Stevens DO Lymphocytes (Bld) [#/Vol] 2.70 10*3/uL Normal 1.0-4.[address] [facility] Comment on above: Performed By: #### P HO, BMPX, BNP #### [facility] [address] [place] [address] [employer] Manager: Ajit Stevens DO Lymphocytes/100 WBC (Bld) 19 % Low 24-[address] [facility] Comment on above: Performed By: #### P HO, BMPX, BNP #### [facility] [address] [place] [address] [employer] Manager: Ajit Stevens DO MCH (RBC) [Entitic mass] 31.4 pg Normal 26-[address] [facility] Comment on above: Performed By: #### P HO, BMPX, BNP #### [facility] [address] [place] [address] [employer] Manager: Ajit Stevens DO MCHC (RBC) [Mass/Vol] 34.0 g/dL Normal 31-[address] [facility] Comment on above: Performed By: #### P HO, BMPX, BNP #### [facility] [address] [place] [address] [employer] Manager: Ajit Stevens DO MCV (RBC) [Entitic vol] 92.3 fL Normal 80-[address] [facility] Comment on above: Performed By: #### P HO, BMPX, BNP #### [facility] [place] [address] [employer] Manager: Ajit Stevens DO Monocytes (Bld) [#/Vol] 1.30 10*3/uL Normal 0.1-1.[address] [facility] Comment on above: Performed By: #### P HO, BMPX, BNP #### [facility] [address] [place] [address] [employer] Manager: Ajit Stevens DO Monocytes/100 WBC (Bld) 9 % High 1-[address] [facility] Comment on above: Performed By: #### P HO, BMPX, BNP #### [facility] [address] [place] [address] [employer] Manager: Ajit Stevens DO Neutrophil (Seg) 69 % High 36-66 [facility] Comment on above: Performed By: #### P HO, BMPX, BNP #### [facility] [address] [place] [phone] [employer] Manager: Ajit Stevens DO Platelet mean volume (Bld) [Entitic vol] 8.6 fL Normal 6.0-12.[address] [facility] Comment on above: Performed By: #### P HO, BMPX, BNP #### [facility] [address] [place] [address] [employer] Manager: Ajit Stevens DO Platelets (Bld) [#/Vol] 334 10*3/uL Normal 150-[address] [facility] Comment on above: Performed By: #### P HO, BMPX, BNP #### [facility] [address] [place] [address] [employer] Manager: Ajit Stevens DO RBC (Bld) [#/Vol] 4.99 10*6/uL Normal 4.0-5.[address] [facility] Comment on above: Performed By: #### P HO, BMPX, BNP #### [facility] [address] [place] [address] [employer] Manager: Ajit Stevens DO WBC (Bld) [#/Vol] 14.3 10*3/uL High 3.5-11.[address] [facility] Comment on above: Performed By: #### P HO, BMPX, BNP #### [facility] [address] [place] [address] Global Transportation Manager: Ajit Stevens DO CT ABDOMEN PELVIS W [...] Milad Mireles MD 01/03/[address] [facility] CT ABDOMEN PELVIS WO CONTRAS T [...] 4. Well-positioned nasogastric tube in the stomach. [facility] RIS CONSOLIDATED EXAMINATION: CT OF THE [...] 4. Well-positioned nasogastric tube in the stomach. [employer] Phone: Radiology Study observation (narrative) [employer] Phone: CT ABDOMEN PELVIS WO CONTRAS T Additional Contrast? OralOrdered By: Ledy Betancourt on 01-03-2023 [employer] Phone: CT CHEST PULMONARY EMBOLISM W CONTRASTon [...] Milad Mireles MD 01/03/[address] [facility] Electrolytes urine randomon 01-03-2023 Chloride, Ur 20 mmol/L [facility] Comment on above: No normal range esta blished. Potassium, Ur 43.4 mmol/L [facility] Comment on above: No normal range esta blished. Sodium (U) [Moles/Vol] 25 mmol/L [facility] Comment on above: No normal range esta blished. [facility] Electrolytes,[place] Uron 01-03 Chloride [Moles/Vol] 20 mmol/L Normal [facility] Comment on above: Result Comment: No n ormal range established. Performed By: #### COREY BOUCHERX #### [facility] [address] [facility] [place] [address] [employer] Manager: Ajit Stevens DO Potassium [Moles/Vol] 43.4 mmol/L Normal [facility] Comment on above: Result Comment: No n ormal range established. Performed By: #### COREY BOUCHERX #### [facility] [address] [facility] [place] [address] [employer] Manager: Ajit Stevens DO Sodium (U) [Moles/Vol] 25 mmol/L Normal [facility] Comment on above: Result Comment: No n ormal range established. Performed By: #### TODD BOUCHER #### [facility] [address] [facility] [place] [address] [employer] Manager: Ajit Stevens DO Lactic Acidon 01-03-2023 Lactate [Moles/Vol] 1.9 mmol/L Normal 0.5-2.[address] [facility] Comment on above: Performed By: #### V BG #### [facility] [address] [place] [address] [employer] Manager: Ajit Stevens DO Lipaseon 01-03-2023 Lipase [Catalytic activity/Vol] 74 U/L High 13-[address] [facility] Comment on above: Performed By: #### P HO, BMPX, BNP #### [facility] [address] [place] [address] [employer] Manager: Ajit Stevens DO Liver Profileon 01-03-2023 Albumin [Mass/Vol] 4.5 g/dL Normal 3.5-5.[address] [facility] Comment on above: Performed By: #### P HO, BMPX, BNP #### [facility] [address] [facility] [place] [address] [employer] Manager: Ajit Stevens DO Alkaline Phos 66 U/L Normal 35-[address] [facility] Comment on above: Performed By: #### P HO, BMPX, BNP #### [facility] [place] [address] [employer] Manager: Ajit Stevens DO ALT [Catalytic activity/Vol] 29 U/L Normal 5-[address] [facility] Comment on above: Performed By: #### P HO, BMPX, BNP #### [facility] [place] [address] [employer] Manager: Ajit Stevens DO AST [Catalytic activity/Vol] 25 U/L Normal <[address] [facility] Comment on above: Performed By: #### P HO, BMPX, BNP #### [facility] [place] [address] [employer] Manager: Ajit Stevens DO Bilirubin [Mass/Vol] 0.3 mg/dL Normal 0.3-1.2 [facility] Comment on above: Performed By: #### P HO, BMPX, BNP #### [facility] [address] [place] [address] [employer] Manager: Ajit Stevens DO Bilirubin, Indirect 0.2 mg/dL Normal 0.0-1.[address] [facility] Comment on above: Performed By: #### P HO, BMPX, BNP #### [facility] [place] [address] [employer] Manager: Ajit Stevens DO Bilirubin.indirect [Mass/Vol] 0.1 mg/dL Normal <0.[address] [facility] Comment on above: Performed By: #### P HO, BMPX, BNP #### [facility] [address] [facility] [place] [address] Global [employer] Manager: Ajit Stevens DO Protein [Mass/Vol] 8.1 g/dL Normal 6.4-8.[address] [facility] Comment on above: Performed By: #### P HO, BMPX, BNP #### [facility] [address] [facility] [place] [address] [employer] Manager: Ajit Stevens DO Magnesiumon 01-03-2023 Magnesium [Mass/Vol] 2.3 mg/dL Normal 1.6-2.6 [facility] Comment on above: Performed By: #### German HOWE, BMPX, BNP #### [facility] [address] [facility] [place] [address] [employer] Manager: Ajit Stevens DO Microscopic Urinalysison Bacteria, UA MANY Abnormal None [facility] Casts UA 3 to 5 /LPF [facility] Epithelial Cells UA 3 to 5 /HPF [facility] Interpretation and review of laboratory results Abnormal [facility] RBC clumps Auto (Urine sed) [#/Area] 0 TO 2 /HPF [facility] WBC, UA 3 to 5 /HPF [facility] No Panel Informationon 01-03 Fluid-filled mildly [...] Tissues: No acute bony abnormality is seen. [facility] RIS Milad Ribeiro MD - 01/03/2023 [...] abnormality is seen. Hepatomegaly and hepatic steatosis. [facility] Work Phone: [facility] Work Phone: [facility] POC Glucose Fingerstickon Glucose [Mass/Vol] 142 mg/dL High 65 - 105 mg/dL [facility] Interpretation and review of laboratory results Abnormal [facility] Glucose [Mass/Vol] 207 mg/dL High 65 - 105 mg/dL [facility] Interpretation and review of laboratory results Abnormal [facility] Glucose [Mass/Vol] 188 mg/dL High 65 - 105 mg/dL [facility] Interpretation and review of laboratory results Abnormal [facility] Glucose [Mass/Vol] 204 mg/dL High 65 - 105 mg/dL [facility] Interpretation and review of laboratory results Abnormal [facility] PTon 01-03-2023 INR Coag (PPP) [Relative time] 0.9 {INR} Normal [facility] Comment on above: Result Comment: Therapeutic Range: Moderate Anticoagulant Intensity: INR = 2.0-3.0 High Anticoagulant Intensity: INR = 2.5-3.5 Performed By: #### P HO, BMPX, BNP #### [facility] [address] [place] [address] [employer] Manager: Ajit Stevens DO PT Coag (PPP) [Time] 12.9 s Normal 11.8-14.6 [facility] Comment on above: Performed By: #### P HO, BMPX, BNP #### [facility] [address] [place] [address] [employer] Manager: Ajit Stevens DO Phosphoruson 01-03-2023 Phosphate [Mass/Vol] 4.3 mg/dL 2.6 - 4 .5 mg/dL [facility] Phosphorus, Inorg.on 023 Phosphorus, Inorg. 4.3 mg/dL Normal 2.6-4.[address] [facility] Comment on above: Performed By: #### P HO, BMPX, BNP #### [facility] [address] [place] [address] [employer] Manager: Ajit Stevens DO Protein / creatinine ratio, urineon 01-03-2023 Creatinine, Ur 133.1 mg/dL 28.0 - 217.0 mg/dL [facility] Interpretation and review of laboratory results Abnormal [facility] Protein (U) [Mass/Vol] 29 mg/dL [facility] Comment on above: No normal range esta blished. Urine Total Protein Creatinine Ratio 0.22 High 0.00 - 0.20 [facility] Protein,Tot,[place] Uron 2022 Creatinine [Mass/Vol] 133.1 mg/dL Normal 28.0-217.[address] [facility] Comment on above: Performed By: #### U MICAJory UAX #### [facility] [place] [address] [employer] Manager: Ajit Stevens DO Tot Prot. Conc. 29 mg/dL Normal [facility] Comment on above: Result Comment: No n ormal range established. Performed By: #### U MICAO UAX #### [facility] [address] [facility] [place] [address] [employer] Manager: Ajit Stevens DO TP/Cre Ratio 0.22 High 0.00-0.[address] [facility] Comment on above: Performed By: #### U JAMIO, UAX #### [facility] [address] [facility] [place] [address] [employer] Manager: Ajit Stevens DO Troponinon 01-03-2023 Troponin, High Sens 18 ng/L High 0-[address] [facility] Comment on above: Result Comment: High Sensitivity Troponin values cannot be compared with other Troponin methodologies. Performed By: #### U WILLY, UAX #### [facility] [address] [facility] [place] [address] [employer] Manager: Ajit Stevens DO Troponin, High Sens 17 ng/L High 0-[address] [facility] Comment on above: Result Comment: High Sensitivity Troponin values cannot be compared with other Troponin methodologies. Performed By: #### P HO, BMPX, BNP #### [facility] [address] [facility] [place] [address] [employer] Manager: Ajit Stevens DO Troponin Now and Q 1 Houron 01-03-2023 Interpretation and review of laboratory results Abnormal [facility] Troponin I.cardiac DL <= 0.01 ng/mL [Mass/Vol] 18 ng/L High 0 - 14 ng/L [facility] Comment on above: High Sensitivity Tro ponin values cannot be compared with other Troponin methodologies. [facility] UA w/Reflex Cultureon 2022 Bilirubin, SemiQt,Ur Negative Normal NEG [facility] Comment on above: Performed By: #### U JAMIO, UAX #### [facility] [address] [facility] [place] [address] [employer] Manager: Ajti Stevens DO Blood, Urine Negative Normal NEG [facility] Comment on above: Performed By: #### U JAMIO, UAX #### [facility] [address] [place] [address] [employer] Manager: Ajit Stevens DO Clarity (U) Cloudy Abnormal CLEAR [facility] Comment on above: Performed By: #### U JAMIO, UAX #### [facility] [address] [facility] [place] [address] [employer] Manager: Ajit Stevens DO Color (U) Yellow Normal YEL [facility] Comment on above: Performed By: #### U WILLY, UAX #### [facility] [address] [facility] [place] [address] [employer] Manager: Ajit Stevens DO Glucose Ql (U) LARGE Abnormal NEG [facility] Comment on above: Performed By: #### U WILLY, UAX #### [facility] [address] [facility] [place] [address] [employer] Manager: Ajit Stevens DO Ketones Ql (U) TRACE Abnormal NEG [facility] Comment on above: Performed By: #### U MICAO, UAX #### [facility] [address] [facility] [place] [address] [employer] Manager: Ajit Stevens DO Leukocyte esterase Test strip Ql (U) Negative Normal NEG [facility] Comment on above: Performed By: #### U WILLY, UAX #### [facility] [address] [facility] [place] [address] [employer] Manager: Ajit Stevens DO Nitrite,Ur Negative Normal NEG [facility] Comment on above: Performed By: #### U WILLY, UAX #### [facility] [address] [facility] [place] [address] [employer] Manager: Ajit Stevens DO PH,Ur 5.0 Normal 5.0-8.[address] [facility] Comment on above: Performed By: #### COREY BOUCHERX #### [facility] [address] [place] [address] [employer] Manager: Ajit Stevens DO Protein Ql (U) 1+ Abnormal NEG [facility] Comment on above: Performed By: #### COREY BOUCHERX #### [facility] [address] [place] [address] [employer] Manager: Ajit Stevens DO Spec. [place],Ur 1.029 Normal 1.000-1.030 [facility] Comment on above: Performed By: #### CORYE BOUCHERX #### [facility] [address] [place] [address] [employer] Manager: Ajit Stevens DO Urobilinogen,Ur Normal Normal NORM [facility] Comment on above: Performed By: #### TODD BOUCHER #### [facility] [address] [place] [address] Global Transportation Manager: Ajit Stevens DO Urinalysis,Microon 3 Bacteria MANY Abnormal NONE [facility] Comment on above: Performed By: #### COREY BOUCHERX #### [facility] [address] [place] [id number] Global Transportation Manager: Ajit Stevens DO Casts 3 to [address] [facility] Comment on above: Performed By: #### COREY BOUCHERX #### [facility] [address] [place] [address] Global Transportation Manager: Ajit Stevens DO Epithelial cells LM Ql (Urine sed) 3 to [address] [facility] Comment on above: Performed By: #### COREY BOUCHERX #### [facility] [address] [place] [address] Global Transportation Manager: Ajit Stevens DO Urine RBC's 0 TO [address] [facility] Comment on above: Performed By: #### U MICAO, UAX #### [facility] [address] [place] [address] Global Transportation Manager: Ajit Stevens DO Urine WBC's 3 to [address] [facility] Comment on above: Performed By: #### U MICAO, UAX #### [facility] [address] [place] [address] Global Transportation Manager: Ajit Stevens DO XR ABDOMEN (KUB) (SINGLE AP VIEW)on 01-03-2023 Ileus with contrast material now in the large bowel. [facility] EXAMINATION: ONE SUPINE XRAY VIEW(S) OF [...] air or pneumatosis. No gross bony abnormality. [facility] Juan Schmitz MD - 01/03/2023 EXAMINATION: [...] contrast material now in the large bowel. [employer] Phone: Radiology Study observation (narrative) [employer] Phone: XR ABDOMEN (KUB) (SINGLE AP VIEW)Ordered By: Juan Schmitz on 01-03-2023 [employer] Phone: XR ABDOMEN FOR NG/OG/NE TUBE PLACEMENTon [...] Ottoniel Avendano MD 01/03/[address] [facility] The OG/NG tube has been placed in good position. [facility] EXAMINATION: ONE SUPINE XRAY VIEW(S) OF [...] in good position in the mid stomach. [facility] Ottoniel Avendano MD - 01/03/2023 EXAMINATION: [...] tube has been placed in good position. [employer] Phone: Radiology Study observation (narrative) [employer] Phone: XR ABDOMEN FOR NG/OG/NE TUBE PLACEMENTOrdered By: Ottoniel Avendano on 01-03-2023 [employer] Phone: XR CHEST PORTABLEon 01-04-20 XR CHEST [...] Milad Mireles MD 01/03/[address] [facility] No acute cardiopulmonary abnormality is identified. [facility] EXAMINATION: ONE XRAY VIEW OF THE [...] seen. No focal lung consolidation is identified. [facility] Milad Mireles MD - 01/03/2023 EXAMINATION: [...] IMPRESSION: No acute cardiopulmonary abnormality is identified. [employer] Work Phone: XR CHEST PORTABLEOrdered By: Milad Mireles on 01-03-2023 [employer] Work Phone: BMPon 01-02-2023 Anion gap [Moles/Vol] 15 mmol/L 9 - 17 mmol/L [employer] Calcium [Mass/Vol] 11.6 mg/dL High 8.6 - 10. 4 mg/dL [employer] Chloride [Moles/Vol] 98 mmol/L 98 - 10 7 mmol/L [employer] CO2 [Moles/Vol] 24 mmol/L 20 - 31 mmol/L [employer] Creatinine [Mass/Vol] 1.42 mg/dL High 0.50 - 0.90 mg/dL [employer] GFR/1.73 sq M.predicted MDRD (S/P/Bld) [Vol rate/Area] 40 mL/min/{1.73_m2} Low - PINF [employer] Comment on above: These results are not [...] 186 mg/dL High 70 - 99 mg/dL [employer] Potassium [Moles/Vol] 4.9 mmol/L 3.7 - 5.3 mmol/L [employer] Sodium [Moles/Vol] 137 mmol/L 135 - 144 mmol/L [employer] Urea nitrogen [Mass/Vol] 27 mg/dL High 8 - 23 mg/dL [facility] CBC with Auto Differentialon 01-02-2023 Absolute Eos # 0.30 [facility] Absolute Lymph # 2.70 [facility] Absolute [place] # 1.30 [facility] Basophils (Bld) [#/Vol] 0.20 10*3/uL [facility] Basophils/100 WBC (Bld) 1 % 0 - 2 % [facility] Eosinophils/100 WBC (Bld) 2 % 0 - 4 % [facility] Hematocrit (Bld) [Volume fraction] 46.0 % 36 - 46 % [facility] Hemoglobin (Bld) [Mass/Vol] 15.6 g/dL 12.0 - 16.0 g/dL [facility] Interpretation and review of laboratory results Abnormal [facility] Lymphocytes/100 WBC (Bld) 19 % Low 24 - 44 % [facility] MCH (RBC) [Entitic mass] 31.4 pg 26 - 34 pg [facility] MCHC (RBC) [Mass/Vol] 34.0 g/dL 31 - 37 g/dL [facility] MCV (RBC) [Entitic vol] 92.3 fL 80 - 100 fL [facility] Monocytes/100 WBC (Bld) 9 % High 1 - 7 % [facility] Platelet distribution width (Bld) [Ratio] 15.0 % High 11.5 - 14.9 % [facility] Platelet mean volume (Bld) [Entitic vol] 8.6 fL 6.0 - 12.0 fL [facility] Platelets (Bld) [#/Vol] 334 10*3/uL [facility] RBC (Bld) [#/Vol] 4.99 10*6/uL 4.0 - 5.2 m/uL [facility] Segmented neutrophils/100 WBC (Bld) 69 % High 36 - 66 % [facility] Segs Absolute 9.90 High [facility] WBC (Bld) [#/Vol] 14.3 10*3/uL High [facility] ABDOMEN PELVIS W IV CONTR AST Additional Contrast? Noneon 01-02-2023 Radiology Study observation (narrative) [employer] Work Phone: CT CHEST PULMONARY EMBOLISM W CONTRASTon 01-02-2023 Radiology Study observation (narrative) [employer] Work Phone: EKG 12 Leadon 01-02-2023 Raymond Lopes MD 01/03/2023 1:49 AM EKG 12 Lead Date/Time: 01/02/2023 9:35 PM Performed by: Raymond Lopes MD Authorized by: Raymond Lopes MD ECG reviewed by ED Physician in the absence of a spool hauler: yes Interpretation: Interpretation: normal Rate: ECG rate: 79 ECG rate assessment: normal Rhythm: Rhythm: sinus rhythm Ectopy: Ectopy: none QRS: QRS axis: Normal QRS intervals: Normal QRS conduction: normal ST segments: ST segments: Normal T waves: T waves: normal Q waves: Abnormal Q-waves: not present [employer] Work Phone: [employer] Work Phone: Hepatic Function Panelon Albumin [Mass/Vol] 4.5 g/dL 3.5 - 5.2 g/dL [facility] ALP [Catalytic activity/Vol] 66 U/L 35 - 104 U/L [facility] ALT [Catalytic activity/Vol] 29 U/L 5 - 33 U/L [facility] AST [Catalytic activity/Vol] 25 U/L NINF - 32 U/L [facility] Bilirubin [Mass/Vol] 0.3 mg/dL 0.3 - 1 .2 mg/dL [facility] Bilirubin.direct [Mass/Vol] 0.1 mg/dL [facility] mg/dL [facility] Bilirubin.indirect [Mass/Vol] 0.2 mg/dL 0.0 - 1.0 mg/dL [facility] Protein [Mass/Vol] 8.1 g/dL 6.4 - 8.3 g/dL [facility] Lactic Acidon 01-02-2023 Lactate (P elena) [Moles/Vol] 1.9 mmol/L 0.5 - 2.2 mmol/L [facility] Lipaseon 01-02-2023 Lipase [Catalytic activity/Vol] 74 U/L High 13 - 60 U/L [facility] Magnesiumon 01-02-2023 Magnesium [Mass/Vol] 2.3 mg/dL 1.6 - 2 .6 mg/dL [facility] No Panel Informationon 01-02 Interpretation and review of laboratory results Abnormal [facility] Protime-INRon 01-02-2023 INR Coag (PPP) [Relative time] 0.9 {INR} [facility] Comment on above: Therapeutic Range: Moderate Anticoagulant Intensity: INR = 2.0-3.0 High Anticoagulant Intensity: INR = 2.5-3.5 PT Coag (PPP) [Time] 12.9 s [facility] Troponin Now and Q 1 Houron 01-02-2023 Interpretation and review of laboratory results Abnormal [facility] Troponin I.cardiac DL <= 0.01 ng/mL [Mass/Vol] 17 ng/L High 0 - 14 ng/L [facility] Comment on above: High Sensitivity Tro ponin values cannot be compared with other Troponin methodologies. [facility] Urinalysis with Reflex to Cu ltureon 01-02-2023 Bilirubin Urine Negative NEGATIVE [facility] Color, UA Yellow Yellow [facility] Glucose Auto test strip (U) [Mass/Vol] LARGE Abnormal NEGATIVE [facility] Interpretation and review of laboratory results Abnormal [facility] Ketones (U) [Mass/Vol] TRACE Abnormal NEGATIVE [facility] Leukocyte esterase Auto test strip Ql (U) Negative NEGATIVE [facility] Nitrite Auto test strip Ql (U) Negative NEGATIVE [facility] Protein (U) [Mass/Vol] 5.0 mg/dL 5.0 - 8.0 [facility] Protein (U) [Mass/Vol] 1+ Abnormal NEGATIVE [facility] Specific [place], UA 1.029 1.000 - 1.030 B ON [employer] Turbidity UA Cloudy Abnormal Clear MEENAK[facility]I [employer] Urine Hgb Negative NEGATIVE [facility] Urobilinogen, Urine Normal Normal [facility] Chlorogen [facility] XR CHEST PORTABLEon 01-03-20 Radiology Study observation (narrative) [facility] [employer] Work Phone: [facility] DIGITAL SCREEN BILA TERALon 01-30-2022 Unremarkable study o f the breasts. No evidence of significant interval change. BIRADS: BIRADS - CATEGORY 1 Negative, no evidence of malignancy. Normal interval follow-up is recommended in 12 months. OVERALL ASSESSMENT - NEGATIVE A letter of notification will be sent to the patient regarding the results. [employer] recommends annual mammograms for women 40 [address] [facility] EXAMINATION: SCREENING DIGITAL BILATERAL MAMMOGRAM WITH [...] a few scattered smaller similar structures, unchanged. [facility] Radiology Study observation (narrative) [employer] Phone: [facility] DIGITAL SCREEN BILA TERALOrdered By: Mary Alice Patel on 01-30-2022 [employer] Phone: Otheron 11-12-2020 [place], [facility] [[email or web address] Incoming Radiant Results From GAMEVIL/Shyp - 11/12/2020 4:33 PM EST EXAMINATION: 2 [...] or effusion. Vascular calcification in the pelvis. [place], [place] Calcaneus: Nondisplaced fracture through a plantar [...] or effusion. Vascular calcification in the pelvis. [place], [place] EXAMINATION: 2 XRAY VIEWS OF THE [...] effusion is noted. Atherosclerotic calcifications are noted. [place]- [place], [place] XR CHEST (SINGLE VIEW FRONTA L)on 11-12-2020 Gregg, [facility] Incoming Radiant Results From GAMEVIL/Shyp - 11/12/2020 4:30 PM EST EXAMINATION: ONE [...] are normal. IMPRESSION: No acute cardiopulmonary disease [place], [place] EXAMINATION: ONE XRA Y VIEW OF [...] bony abnormalities. The hilar structures are normal. [place], [place] No acute cardiopulmonary disease [place], [place] FT3on 08-27-2018 FT3 3.32 pg/mL Normal 2.45-5.93 [facility] Comment on above: Performed By: #### 1 005, 4500, 4510, 4520 ####[facility] Unless Otherwise [id number] [address]Okfun: [phone]/ QXNS #4724/CLIA # [id number] FT4on 08-27-2018 T4 free mass conc 1.36 ng/dL Normal 0.78-2.44 [facility] Comment on above: Performed By: #### 1 005, 4500, 4510, 4520 ####[facility] Unless Otherwise [id number] [address]Jctto: [phone]/ TDOO #4724/CLIA # [id number] Lipidson 08-27-2018 Cholesterol in HDL mass conc 38.0 mg/dL Low 40.0-60.0 [facility] Comment on above: Performed By: #### 1 005, 4500, 4510, 4520 ####[facility] Unless Otherwise [id number] [address]Qrlaq: [phone]/ RTOT #4724/CLIA # [id number] Cholesterol in LDL mass conc 74.8 mg/dL Normal 0.0-100.0 [facility] Comment on above: Performed By: #### 1 005, 4500, 4510, 4520 ####[facility] Unless Otherwise [id number] [address]Qruqj: [phone]/ SZCW #4724/CLIA # [id number] Cholesterol in VLDL mass conc 66.2 mg/dL Normal [facility] Comment on above: Performed By: #### 1 005, 4500, 4510, 4520 ####[facility] Unless Otherwise [id number] [address] [address]Etjpo: [phone]/ KEVR #4724/CLIA # [id number] Cholesterol mass conc 179.0 mg/dL Normal 0.0-199.0 [facility] Comment on above: Performed By: #### 1 005, 4500, 4510, 4520 ####[facility] Unless Otherwise [id number] [address]Yoinb: [phone]/ PZHR #4724/CLIA # [id number] Cholesterol.total/Ch olesterol in HDL mass ratio 4.7 {ratio} Normal [facility] Comment on above: Performed By: #### 1 005, 4500, 4510, 4520 ####[facility] Unless Otherwise [id number] [address]Xlsoa: [phone]/ LYDX #4724/CLIA # [id number] Triglyceride mass conc 331.0 mg/dL High 0.0-150.0 [facility] Comment on above: Performed By: #### 1 005, 4500, 4510, 4520 ####[facility] Unless Otherwise [id number] [address]Bfria: [phone]/ GISH #4724/CLIA # [id number] TSHon 08-27-2018 Thyrotropin Qn 3.53 uIU/ml Normal 0.47-4.68 [facility] Comment on above: Performed By: #### 1 005, 4500, 4510, 4520 ####[facility] Unless Otherwise [id number] [address] [address]Gdrgh: [phone]/ LVIB #4724/CLIA # [id number] Vital Signs Date Time Vital Sign Value Performing Clinician Faci lity 01-12-2024 09:48-0400 Body height 152.4 cm Deirdre Earl MD Work Phone: [facility] 01-12-2024 09:48-0400 Body mass index (BMI) [Ratio] 38.4 kg/m2 Deirdre Earl MD Work Phone: [facility] 01-12-2024 09:48-0400 Body weight 89.18 kg Deirdre Earl MD Work Phone: [facility] 01-12-2024 09:48-0400 Diastolic blood pressure 72 mm[Hg] Deirdre Earl MD Work Phone: [facility] 01-12-2024 09:48-0400 Heart rate 68 /min Deirdre Earl MD Work Phone: [facility] 01-12-2024 09:48-0400 SaO2% (BldA) [Mass fraction] 96 % Deirdre Earl MD Work Phone: [facility] 01-12-2024 09:48-0400 Systolic blood pressure 150 mm[Hg] Deirdre Earl MD Work Phone: [facility] 12-15-2023 10:44-0500 Body mass index (BMI) [Ratio] 37.93 kg/m2 Carter Wetzel MD Work Phone: [facility] 12-15-2023 10:44-0500 Body weight 88.09 kg Carter Wetzel MD Work Phone: [facility] [email or web address] 12-15-2023 10:44-0500 Diastolic blood pressure 66 mm[Hg] Carter Wetzel MD Work Phone: [facility] 12-15-2023 10:44-0500 Heart rate 68 /min Carter Wetzel MD Work Phone: [facility] [email or web address] 12-15-2023 10:44-0500 Systolic blood pressure 151 mm[Hg] Carter Wetzel MD Work Phone: [facility] [email or web address] 01-06-2023 08:12-0400 Heart rate 67 /min Raymond Lopes MD Work Phone: [employer] 01-06-2023 08:12-0400 Respiratory rate 16 /min Raymond Lopes MD Work Phone: [facility] [employer] 01-06-2023 08:12-0400 SaO2% (BldA) [Mass fraction] 96 % Raymond Lopes MD Work Phone: [employer] 01-06-2023 06:19-0400 Body temperature 97.9 [degF] Raymond Lopes MD Work Phone: [employer] 01-06-2023 06:19-0400 Diastolic blood pressure 48 mm[Hg] Raymond Lopes MD Work Phone: [employer] 01-06-2023 06:19-0400 Systolic blood pressure 153 mm[Hg] Raymond Lopes MD Work Phone: [employer] 01-03-2023 02:15-0400 Body mass index (BMI) [Ratio] 35.31 kg/m2 Raymond Lopes MD Work Phone: [facility] [employer] 01-03-2023 02:15-0400 Body weight 82 kg Raymond Lopes MD Work Phone: [facility] 01-02-2023 20:43-0400 Body height 152.4 cm Raymond Lopes MD Work Phone: [facility] 11-12-2020 14:29-0500 BMI (Body Mass Index) 37.79 kg/m2 Ottoniel [facility], [place] 11-12-2020 14:29-0500 Body Temperature 97.9 [degF] Ottoniel [facility] [employer] [facility], [place] 11-12-2020 14:29-0500 Body weight 90.72 kg Ottoniel [facility] [employer] [facility] , [place] 11-12-2020 14:29-0500 BP Diastolic 42 mm[Hg] Ottoniel [facility] [employer] [facility] , [place] 11-12-2020 14:29-0500 BP Systolic 172 mm[Hg] Ottoniel [facility] , [place] 11-12-2020 14:29-0500 Height 154.9 cm Ottoniel [facility] [place] 11-12-2020 14:29-0500 Pulse (Heart Rate) 76 /min Ottoniel [place] 11-12-2020 14:29-0500 Respiratory Rate 14 /min Ottoniel [facility]lotteF[facility] [place] Encounters Encounter Date Encounter Type Care Provider Facility Start: 02-18-2024 End: 02-18-2024 ambulatory MARTHA Mcgovern ROSALINDA [facility] Start: 01-12-2024 End: 01-12-[address] [facility] Start: 01-12-2024 End: 01-12-2024 Office outpatient visit 25 minutes Deirdre Earl MD Work Phone: [facility] Comment on above: Presence of stent in LAD coronary artery (Primary Dx); Essential hypertension; Chronic coronary artery disease; Hypertriglyceridemia; Coronary artery disease involving gakona coronary artery of gakona heart without angina pectoris; Mixed hyperlipidemia; Palpitations; Shortness of breath; Other chest pain; Claudication ([facility]) Start: 01-09-2024 Telephone encounter [facility] Start: 12-24-2023 Telephone encounter Carter wynn MD Work Phone: [facility] Start: 12-23-2023 ambulatory Carter donald MD Work Phone: [facility] Comment on above: Type 2 diabetes angel itus with hyperglycemia, with long-term current use of insulin ([facility]) (Primary Dx) Start: 12-16-2023 Refill Carter donald MD Work Phone: [facility] Comment on above: Type 2 diabetes angel itus with hyperglycemia, with long-term current use of insulin ([facility]) (Primary Dx) Start: 12-15-2023 Telephone encounter Brea sarabia [facility] Start: 12-15-2023 End: 12-15-2023 ambulatory [facility] Start: 12-15-2023 End: 12-15-2023 Office outpatient visit 25 minutes Carter Wetzel MD Work Phone: [facility] Comment on above: Type 2 diabetes angel itus with hyperglycemia, with long-term current use of insulin ([facility]) (Primary Dx); Other hyperlipidemia; Acquired hypothyroidism; Primary hypertension; Diabetic polyneuropathy associated with diabetes mellitus due to underlying condition ([facility]); Drug intolerance avoid sulfonylureas given history of hypoglycemia and admission to the hospital Start: 12-11-2023 End: 12-11-2023 ambulatory BLAIR YANEZ Not Available Start: 12-01-2023 Refill Martha Tellez APRN-PARMJIT Work Phone: [facility] Comment on above: Type 2 diabetes angel itus with diabetic peripheral angiopathy without gangrene ([facility]) Start: 07-17-2023 End: 07-20-2023 Evaluation and management of inpatient DAGO GARDNER [facility] Start: 01-02-2023 End: 01-06-2023 Evaluation and management of inpatient HARIS ANGELO [facility] Start: 01-02-2023 End: 01-06-2023 Evaluation and management of inpatient Raymond Lopes MD Work Phone: [facility] Med Surg Comment on above: SBO (small bowel obs truction) (HCC) (Primary Dx) Start: 05-13-[address] Tellez PERSONALIZED LIVING MANAGER NURSE-SCREEN PRINTING MACHINE LOADER UNLOADER Work Phone: [employer] Work Phone: Start: 01-30-2022 End: 02-01-2022 Subsequent hospital visit by physician [facility] [address] Mammography Comment on above: Screening mammogram for breast cancer Start: 12-14-2020 End: 12-14-2020 Patient encounter procedure MINNA SEGURA [facility] Start: 11-12-2020 End: 11-12-2020 Emergency department patient visit Ottoniel Shelton Work Phone: [facility] ED Comment on above: Fall, initial encoun ter (Primary Dx); Calcaneal spur of foot, left; Closed traumatic nondisplaced fracture of left calcaneus, initial encounter; Lumbar sprain, initial encounter Start: 09-18-[address] Tellez PERSONALIZED LIVING MANAGER NURSE-SCREEN PRINTING MACHINE LOADER UNLOADER Work Phone: [employer] Work Phone: Start: 06-03-2017 End: 06-04-2017 Ambulatory SOLOMON SCHMITT [facility] Start: 05-05-2017 End: 03-02-2021 Patient encounter status [address] Work Phone: Procedures Date Procedure Procedure Detail Performing Clinician Start: 01-12-2024 Follow-up visit Follow-up DEIRDRE EARL Start: 12-15-2023 Hemoglobin glycosylated a1c Carter Wetzel MD Work Phone: Start: 07-03-2023 Microalbumin [Mass/v olume] in Urine by Test strip Martha Tellez PERSONALIZED LIVING MANAGER NURSE-SCREEN PRINTING MACHINE LOADER UNLOADER Work Phone: Start: 01-06-2023 Glucose blood reagent strip Haris Angelo MD Work Phone: Start: 01-06-2023 End: 01-06-2023 Blood count complete auto&auto difrntl wbc Vickie Barahona PERSONALIZED LIVING MANAGER NURSE - HEALTHCARE ADMINISTRATIVE ASSISTANT Work Phone: Start: 01-05-2023 Glucose blood reagent strip Haris Angelo MD Work Phone: Start: 01-05-2023 Glucose blood reagent strip Haris Angelo MD Work Phone: Start: 01-05-2023 Glucose blood reagent strip Haris Angelo MD Work Phone: Start: 01-05-[address]IC METABOLIC PANE L W/ REFLEX TO MG FOR LOW K Vickie Barahona PERSONALIZED LIVING MANAGER NURSE - HEALTHCARE ADMINISTRATIVE ASSISTANT Work Phone: Start: 01-05-2023 End: 01-05-2023 Blood count complete auto&auto difrntl wbc Vickie Barahona PERSONALIZED LIVING MANAGER NURSE - HEALTHCARE ADMINISTRATIVE ASSISTANT Work Phone: Start: 01-04-2023 Glucose blood reagent strip Haris Angelo MD Work Phone: Start: 01-04-2023 Glucose blood reagent strip Haris Angelo MD Work Phone: Start: 01-04-2023 Us retroperitoneal r eal time w/image complete Tacho Au MD Work Phone: Start: 01-04-2023 BASIC METABOLIC PANE L W/ REFLEX TO MG FOR LOW K Vickie Barahona PERSONALIZED LIVING MANAGER NURSE - HEALTHCARE ADMINISTRATIVE ASSISTANT Work Phone: Start: 01-04-2023 Cell count misc [...] TO MG FOR LOW K Vickiegwen Barahona PERSONALIZED LIVING MANAGER NURSE - HEALTHCARE ADMINISTRATIVE ASSISTANT Work Phone: Start: 01-03-2023 Natriuretic peptide Lisa ttgwen Barahona PERSONALIZED LIVING MANAGER NURSE - HEALTHCARE ADMINISTRATIVE ASSISTANT Work Phone: Start: 01-03-2023 Glucose blood reagent [...] bi 2-view breast inc cad Minna Voss PERSONALIZED LIVING MANAGER NURSE - SCREEN PRINTING MACHINE LOADER UNLOADER Work Phone: Start: 05-03-2021 [address] 119 [...] 05-03-2031 Screening for malignant neoplasm of colon [place] Start: 05-03-2026 Screening for malignant neoplasm of colon Colonoscopy [facility] Start: 01-11-2025 Adult BMI Screening Adult BMI Screening [facility] Start: 01-11-2025 Tobacco Screening Tobacco Screening [facility] Start: 12-14-2024 Adult BMI Screening Adult BMI Screening [facility] Start: 12-14-2024 Diabetic foot examination Diabetic Foot Exam [facility] Start: 12-14-2024 Tobacco Screening Tobacco Screening [facility] Start: 07-26-2024 End: 07-26-2024 Patient encounter procedure 07/26/2024 9:15 AM EDT Office Visit [facility] [address] [facility] [address] [place] [phone] Deisy Flower MD [address] [place] [address] [facility] Start: 07-16-2024 Adult BMI Screening Adult BMI Screening [facility] Start: 07-16-2024 Tobacco Screening Tobacco Screening [facility] Start: 06-13-2024 Diabetic foot examination Diabetic Foot Exam [facility] Start: 06-13-2024 Influenza vaccination Influenza Vaccine [facility] Start: 04-14-2024 Urine screening for protein Urine Microalbumin [facility] Start: 02-23-2024 End: 02-23-2024 Patient encounter procedure 02/23/2024 11:15 AM EDT Office Visit [facility] [address] [facility] [address] [place] [address] Martha Tellez, PERSONALIZED LIVING MANAGER NURSE-SCREEN PRINTING MACHINE LOADER UNLOADER [address] [facility] [facility] [address] [place] [address] [facility] Start: 01-31-2024 Screening for malignant neoplasm of breast Breast cancer screen [place] Start: 01-23-2024 End: 01-23-2024 Patient encounter procedure 01/23/2024 9:30 AM EDT Appointment [facility] [address] [place] [phone] Deirdre Earl MD [address] [place], [place] [id number] [facility] Start: 01-12-2024 End: 01-11-2025 US.doppler Extremity arteries - bilateral for physiologic artery study Vas art doppler lwr bilat mult lev/PVR Vascular Ultrasound Routine Claudication ([facility]) Expected: 01/12/2024, Expires: 01/11/2025 [facility] Work Phone: Comment on above: Expected: 01/12/2024, Expires: Start: 01-12-2024 End: 01-12-2024 Patient encounter procedure 01/12/2024 10:00 AM EDT Office Visit [facility] [address] [place] [address] Deirdre Earl MD [address] [place] [address] [facility] Start: 01-06-2024 GFR test (Diabetes, CKD 3-4, OR last GFR 15-59) GFR test (Diabetes, CKD 3-4, OR last GFR 15-59) [facility] Start: 01-04-2024 Urine screening for protein Diabetic Alb to Cr ratio (uACR) test [facility] Start: 12-26-2023 Hemoglobin A1c measurement A1C test (Diabetic or Prediabetic) [facility] Start: 12-15-2023 End: 12-15-2023 Patient encounter procedure 12/15/2023 10:45 AM EST Office Visit [facility] [address] [place] [address] Carter Wetzel MD [address] [place] [address] [facility] Start: 07-17-2023 Glaucoma screening Diabetic retinal exam [facility] [employer] [facility] Comment on above: Postponed from 09/21/2015 (Patient Refus ed) Start: 07-13-2023 Screening for malignant neoplasm of colon Colon cancer screen colonoscopy [place] Start: 07-04-2023 Depression Monitoring Depression Monitoring [facility] [employer] Start: 07-02-2023 Lipid panel Lipids [facility] Start: 07-01-2023 Pneumococcal 65+ years Vaccine (2 - PCV) Pneumococcal 65+ years Vaccine (2 - PCV) [facility] Start: 06-13-2023 COVID-19 Vaccine ( season) COVID-19 Vaccine ( season) [facility] Start: 06-13-2023 Influenza vaccination Influenza Vaccine [facility] Start: 02-19-2023 Diabetic foot examination Diabetic foot exam [facility] Start: 01-03-2023 Depression Monitoring Depression Monitoring [place] Start: 12-31-2022 Hemoglobin A1c measurement A1C test (Diabetic or Prediabetic) [facility] [employer] Start: 11-01-2022 Annual Wellness Visit (AWV) Annual Wellness Visit (AWV) [facility] [employer] Start: 10-31-2022 DTaP/Tdap/Td vaccine (1 - Tdap) DTaP/Tdap/Td vaccine (1 - Tdap) [facility] Comment on above: Postponed from 1972 (Insurance / F inancial) Start: 10-31-2022 Urine screening for protein Diabetic microalbuminuria test [facility] Start: 10-03-2022 Creatinine measurement Creatinine [facility] [employer] Start: 10-03-2022 Potassium [Moles/volume] in Serum or Plasma [facility]assium [facility] Start: 03-30-2022 Lipid panel Lipids [facility] [employer] Start: 03-30-2022 Screening for malignant neoplasm of colon FIT/FOBT: Average risk [facility] Start: 03-17-2022 Pneumococcal 65+ years Vaccine (1 of 1 - PPSV23) Pneumococcal 65+ years Vaccine (1 of 1 - PPSV23) [facility] [place] Start: 02-27-2022 End: 02-27-2022 Patient encounter procedure 02/27/2022 Office Visit Primary Care Minna Voss, PERSONALIZED LIVING MANAGER NURSE - SCREEN PRINTING MACHINE LOADER UNLOADER [address] [place] [address] [facility] Start: 01-11-2022 Diabetic foot examination [facility]abetic foot [facility] Start: 08-05-2021 COVID-19 Vaccine (3 - Booster for Moderna series) COVID-19 Vaccine (3 - Booster for Moderna series) [place] Start: 05-04-2021 Screening for malignant neoplasm of breast Breast cancer screen [place], [place] Start: 04-30-2021 COVID-19 Vaccine (3 - Booster for Moderna series) COVID-19 Vaccine (3 - Booster for Moderna series) [facility] Start: 12-11-2020 End: 12-11-2020 Office Visit 12/11/2020 Office Visit Primary Care Minna Segura, PERSONALIZED LIVING MANAGER NURSE - SCREEN PRINTING MACHINE LOADER UNLOADER [address] [place] [address] [phone] [facility] Start: 05-27-2020 Diabetic foot examination Diabetic foot exam [place] Start: 01-12-2020 Creatinine measurement Creatinine monitoring [place], [place] Start: 01-12-2020 Potassium monitoring Potassium monitoring [place] Start: 04-04-2019 Annual Wellness Visit (AWV) Annual Wellness Visit (AWV) [place] Start: 08-13-2018 Diabetic retinal exam Diabetic retinal exam [place] Start: 2018 Fall Risk Screening Fall Risk Screening [facility] Start: 05-07-2018 Lipid panel Lipid screen [place] Start: 03-17-2018 Diabetic microalbuminuria test Diabetic microalbuminuria test [place] Start: 03-17-2018 Pneumococcal 65+ years Vaccine (2 - PCV) Pneumococcal 65+ years Vaccine (2 - PCV) [place] Start: 06-26-2017 HbA1c (Bld) [Mass fraction] A1C test (Diabetic or Prediabetic) [place] Start: 09-18-2016 Thyroid stimulating hormone measurement TSH [place] Start: 09-18-2016 TSH Qn TSH testing [place] Start: 09-21-2015 Diabetic retinal exam Diabetic retinal exam [place], [place] Start: 2003 Shingles Vaccine (1 of 2) Shingles Vaccine (1 of 2) [place] Start: 1998 Screening for malignant neoplasm of colon [place] Start: 1972 DTaP,Tdap and Td Vaccines (1 - Tdap) DTaP,Tdap and Td Vaccines (1 - Tdap) [employer] Start: 1972 DTaP/Tdap/Td vaccine (1 - Tdap) DTaP/Tdap/Td vaccine (1 - Tdap) [employer] Start: 1971 Adult BMI Follow Up Plan Adult [facility] Plan [facility] Start: 1965 Depression Screening [facility]ening [facility] Start: 1955 Glaucoma screening Diabetic Ophthalmology Exam [facility] Start: 1955 Hepatitis C screening Hepatitis C screen [employer] [place] Start: 1953 Medicare Annual Wellness Visit Medicare Annual Wellness Visit [facility] Start: 1955 Tobacco Counseling Tobacco Counseling [facility] Adult NIV/Positive Airway Pressure Adult NIV/Positive Airway Pressure Respiratory Care Routine HS until discontinued starting 01/03/2023 [employer] Phone: Comment on above: HS until discontinued starting End: 01-04-2023 PAUL Screen with Reflex PAUL Screen with Reflex Lab Routine Tomorrow AM for 1 Occurrences starting 01/04/2023 until 01/04/2023 [employer] Phone: Comment on above: Tomorrow AM for 1 Occurrences starting 0 01/04/2023 until 01/04/2023 PAUL Screen with Reflex PAUL Scree n with Reflex Lab Routine 01/04/2023 6:31 AM EDT [employer] Phone: Electrophoresis Prot ein, Serum Electrophoresis Protein, Serum Lab Routine 01/04/2023 6:31 AM EDT [employer] Phone: Glucose [Mass/volume ] in Serum or Plasma [employer] Phone: Comment on above: As Needed until discontinued starting 4X Daily (AC & HS) u ntil discontinued starting 01/03/2023 Oxygen therapy [[facility] Data Set] Initiate Oxygen Therapy Protocol Respiratory Care Routine As Needed until discontinued starting 01/03/2023 [employer] Work Phone: Comment on above: As Needed until discontinued starting Immunizations Immunization Date Immunization Notes Care Provider Deb cook 09-16-2023 influenza virus vacc ine, unspecified formulation Deirdre Earl MD Work Phone: [employer] 07-01-2022 Influenza, FLUAD, (a ge 65 y+), Adjuvanted, 0.5mL Raymond Lopes MD Work Phone: [facility] [employer] 07-01-2022 pneumococcal polysaccharide vaccine, 23 valent Raymond Lopes MD Work Phone: [facility] Work Phone: 07-01-2022 influenza virus vacc ine, unspecified formulation Martha Rosalinda [facility] Work Phone: [facility] [email or web address] 06-27-2021 Influenza, Quadv, adjuvanted, 65 yrs +, IM, PF (Fluad) [place] [id number] [employer] Work Phone: 04-12-2021 zoster vaccine recombinant [place] [id number] [employer] Phone: 03-05-2021 COVID-19, Moderna, Primary or Immunocompromised, PF, 100mcg/0.5mL [place] [id number] [employer] Phone: 02-05-2021 COVID-19, Moderna, Primary or Immunocompromised, PF, 100mcg/0.5mL [place] [id number] [employer] Phone: 12-22-2020 zoster vaccine recombinant [place] [address] [employer] Phone: 08-31-2020 Influenza, Quadv, adjuvanted, 65 yrs +, IM, PF (Fluad) [facility] [employer] Phone: 08-14-2020 Influenza, High-dose , Quadv, 65 yrs +, IM (Fluzone) [place] [id number] [employer] Phone: 07-29-2019 influenza, high dose seasonal, preservative-free St [address] [employer] Phone: 07-06-2019 seasonal influenza, intradermal, preservative free [address] [employer] Phone: 06-15-2019 seasonal influenza, intradermal, preservative free [facility] [employer] Phone: 06-13-2019 seasonal influenza, intradermal, preservative free [facility] [employer] Phone: 07-20-2018 influenza, high dose seasonal, preservative-free [facility] [employer] Phone: 03-17-2017 pneumococcal polysaccharide vaccine, 23 valent [employer] 06-26-2016 influenza, injectabl e, quadrivalent, preservative free Ottoniel [facility] 06-04-2016 seasonal influenza, intradermal, preservative free [place] [id number] [employer] Phone: 07-12-2015 Influenza Vaccine, unspecified formulation Ottoniel Gigwell- [place] , [place] 09-12-2010 pneumococcal polysaccharide vaccine, 23 valent [facility] [employer] Phone: 05-15-2006 pneumococcal polysaccharide vaccine, 23 valent [place] [id number] [employer] Phone: Payers Date Payer Category Payer Medicare [id number] 2023 Medicare [id number] 2020 Medicare [id number]. [id number] 2018 Medicaid [id number]. [id number] 2014 Medicare [id number] 1955 Unknown [id number] [id number] 1953 Unknown [id number] 2.16.8 [id number] 1953 Unknown [id number] 2.16.8 [id number] 1953 Unknown [id number] 1953 Unknown [id number] 2.16.8 [id number] 1953 Unknown [id number] [id number] 1953 Unknown [id number] [id number] Social History Date Type Detail Facility Start: 11-12-2020 End: 01-12-2024 Tobacco smoking status NHIS Current every day smoker [place], [place] End: 01-11-2023 History of tobacco use Cigarette Smoker [place] Start: 11-12-2020 End: 01-12-2024 Tobacco use and exposure Never used [place] Start: 11-12-2020 End: 01-03-2023 Alcohol intake Current non-drinker of alcohol (finding) [place] Start: 09-11-2020 End: 01-02-2023 Tobacco Comment about 5 per day [place] Start: 1955 Sex Assigned At Not on file [place], [place] Start: 12-24-2021 End: 01-03-2023 Exposure to SARS-CoV-2 (event) Not sure [place] Start: 09-11-2020 End: 11-15-2020 Cigarettes smoked current (pack per day) - Reported 0.25 [facility] Start: 12-12-2021 History SDOH Financial 5 [employer] Phone: Start: 11-15-2020 End: 12-12-2021 History SDOH Food Worry 1 [employer] Phone: History of tobacco use Tobacco U se Types Packs/Day Years Used Date Smoking Tobacco: Every Day Cigarettes 0.3 40 E-Cigarettes Smokeless Tobacco: Never [facility] [employer] Phone: Start: 05-16-2023 Tobacco smoking stat us CTIS [facility] End: 01-11-2023 History of tobacco use Current smoker [facility] Start: 07-16-2023 End: 01-12-2024 Alcohol intake Ex-drinker (finding) [facility] Start: 11-15-2020 End: 07-16-2023 Tobacco use panel [facility] Childcare Unknown [facility] [employer] Medical Equipment Procedure Code Equipment Code Equipment Origin al Text Equipment Identifier Dates B-D INS SYRINGE 0.5CC/30GX1/2 30G X 1/2 0.5 ML MISC [id number] Start: 08-08-2016 BD INSULIN SYRIN GE ULTRAFINE 31G X 5/16 0.3 ML MISC [id number] Start: 02-21-2017 THEST THREE TIME S DAILY TEST THREE TIMES DAILY [id number] Start: 06-03-2017 USE DIRECTED TWICE A DAY [id number] Start: 05-30-2022 TEST THREE TIMES A DAY & NEEDED FOR SYMPTOMS OF IRREGULAR BLOOD GLUCOSE. ONE TOUCH VIVIO [id number] Start: 07-29-2022 USE TO TEST 6 TI MES DAILY [id number] Start: 02-10-2023 Use to inject insulin 4 times daily [id number] Start: 12-01-2023 USE DIRECTED TWICE A DAY 30 [id number] Start: 08-07-2023 End: 12-01-2023 Clinical Notes 01-06-2023 to 01-12-2024 Deirdre Earl MD - 01/12/2024 10:00 AM EDTPatient InstructionsTelephone Encounter - Valeria Samuel, [facility] - 01/09/2024 1:25 PM EDTTelephone Encounter - Valeria Samuel, [facility] - 01/09/2024 1:25 PM EDT Note Date & Type Note Facility 01-12-2024 History of Presen t illness Narrative Sanya Randall Date of visit: 01/12/2024 Date of : 1955 Age: 68 y.o. Patient Active Problem List Diagnosis Diabetes mellitus ([facility]) GERD (gastroesophageal reflux disease) Hyperlipidemia Essential hypertension Depression Diabetic neuropathy ([facility]) PK treated with BiPAP Preoperative evaluation to rule out surgical contraindication Severe obesity (BMI 35.0-39.9) with comorbidity ([facility]) Tobacco abuse Presence of stent in LAD coronary artery Chronic coronary artery disease Encounter for pre-operative cardiovascular clearance Allergies Allergen Reactions Keflex [Cephalexin] Yeast infection Levemir Flexpen [Insulin Detemir U-100] Other reaction(s): Unknown Levemir [Insulin Detemir] Itching Moxifloxacin Itching Other reaction(s): Unknown Prednisone Itching Dcgzdfu-Siq-Bve Reductase Inhibitors Ultram [Tramadol] Other (See Comments) [...] Past Medical History: Diagnosis Date Angina pectoris ([facility]) Arthritis Asthma CAD (coronary artery disease) Chronic back pain Depression Diabetes mellitus ([facility]) Diabetes mellitus type 2, controlled ([facility]) Diabetic neuropathy ([facility]) GERD (gastroesophageal reflux disease) H/O heart artery stent Hyperlipidemia Hypertension Hypothyroidism Knee pain Obesity PK (obstructive sleep apnea) CPAP Shortness of breath Skin cancer No data recorded No data recorded No data recorded Past Surgical History: Procedure Laterality Date ABDOMINAL SURGERY fibroid tumor removal ARTHROSCOPY KNEE Right 11/18/2018 Performed by Ottoniel Pimentel DO at [facility] BREAST BIOPSY Right 2007 BENIGN CARDIAC CATHETERIZATION x4 stents CHOLECYSTECTOMY COLONOSCOPY N/A 05/03/2021 Performed by Clif Wilcox DO at [facility] COLONOSCOPY N/A 07/30/2018 Performed by Indra Mckinney MD at [facility] CORONARY STENT PLACEMENT EGD N/A 07/30/2018 Performed by Indra Mckinney MD at [facility] NECK SURGERY TUBAL LIGATION Family History [...] she is having testing for this in [place] Will get ABIs Restart lisinopril Suspect she has PVD She is on invokana, will switch to jardiance, will alert endocrine Direct LDL 2022 131 Zetia Repatha Crestor 5mg, increase to 10mg TODAYS ORDERS No orders of the defined types were placed in this encounter. FOLLOW UP No follow-ups on file. PCP: PCP Not In System Referring Physician: Minna Voss, NUZHAT-SCREEN PRINTING MACHINE LOADER UNLOADER [address] [place] [address] documented in this encounter [employer] 01-12-2024 Instructions Ela Vidales CMA - 01/12/2024 10:00 AM EDT Are You Ready To Kick The Habit? Free Tobacco Cessation Resources [facility] Tobacco Treatment Center Services [facility] Tobacco Treatment Centers provide all employees with free tobacco cessation services that include: Counseling to understand nicotine addiction Education about medications that can help you successfully quit Assistance with developing a plan to quit Call to set up an individual appointment or find out when group classes will be held: [facility]: [phone] [facility]: [phone] [facility]: [phone] [facility]: [phone] Quit Smoking Action Plan and Resources [facility] offers an eight-week, online smoking cessation plan to all [facility] employees, regardless of whether [place] is your medical insurance provider. Go to www.[employer].org/employeewell ness and click the Health Risk Assessment and Resources link to get started. In the [employer] menu, click Action Plans instead of Health Risk Assessment to access the Quit Smoking Action Plan. Additional smoking cessation resources are also available to all [facility] employees on the [employer] web page at www.[employer]/quit smoking. [place] Tobacco Cessation Program If [place] is your medical insurance provider, there are more free resources available to you, including: No copays or deductibles on local tobacco cessation counseling services to help you quit Prescription assistance for tobacco cessation medications to help you quit For details about the tobacco cessation program available to [place] members, go to www.[employer] (Search: Tobacco Cessation Program). [place] Tobacco Quit Line 3-655-OPPW-NOW ( ) is a toll-free, telephonic service that helps [place] residents quit smoking and using tobacco. It is staffed by experts who tailor a quit plan for you and provide you with advice. [place] Tobacco Quit Line 3-669-MUJW-NOW ( ) is a toll-free, telephonic service that helps [place] residents quit smoking and using tobacco. It is staffed by experts who tailor a quit plan for you and provide you with advice. Two weeks of nicotine replacement therapy may be provided at no charge, if needed. Additional Resources These national organizations also offer free information and resources to help you quit tobacco: [place] [employer]--www.cancer.org/healthy/ stayawayfromtobacco [place] Heart [employer]--www.heart.org (Search: Quit Smoking) Centers for Disease Control and Prevention--www.cdc.gov/tobacco [place] Lung [employer]--www.lungusa.org documented in this encounter [facility] 01-09-2024 Miscellaneous Notes Called patient to remind them to bring their most current copy of their medication list with them to their appt. Patient verbalizes understanding. documented in this encounter [facility] 01-09-2024 Telephone encounter Note Called patient to remind them to bring their most current copy of their medication list with them to their appt. Patient verbalizes understanding. [facility] 12-24-2023 Miscellaneous Notes ----- Message from Carter Wetzel MD sent at 12/23/2023 10:59 PM EDT ----- sensor download reviewed and interpreted on file in media. Postprandial hyperglycemia noted. Increase mealtime insulin by 5 units at each meal. Loi, Also kindly inform patient about sensor download billing protocol for the office Patient informed and verbalized understanding documented in this encounter [facility] 12-24-2023 Telephone encounter Note ----- Message from Carter Wetzel MD sent at 12/23/2023 10:59 PM EDT ----- sensor download reviewed and interpreted on file in media. Postprandial hyperglycemia noted. Increase mealtime insulin by 5 units at each meal. Loi, Also kindly inform patient about sensor download billing protocol for the office [facility] 12-24-2023 Telephone encounter Note Patient informed and verbalized understanding [facility] 12-23-2023 History of Presen t illness Narrative Images from the original note were not included. sensor download reviewed and interpreted on file in media. Postprandial hyperglycemia noted. Increase mealtime insulin by 5 units at each meal. Loi, Also kindly inform patient about sensor download billing protocol for the office. documented in this encounter [facility] 12-16-2023 Miscellaneous Notes OK to sign and send. Insurance rejects baqsimi Change to Glucagon injection Ok to sign and send documented in this encounter [facility] 12-16-2023 Telephone encounter Note OK to sign and send. Insurance rejects baqsimi [facility] 12-16-2023 Telephone encounter Note Change to Glucagon injection [facility] 12-16-2023 Telephone encounter Note Ok to sign and send [facility] 12-15-2023 Miscellaneous Notes ----- Message from Carter Wetzel MD sent at 12/15/2023 11:38 AM EST ----- G 7 sensors Rx. Dexcom G7 order initiated. [facility] Note ----- Message from Carter Wetzel MD sent at 12/15/2023 11:38 AM EST ----- G 7 sensors [facility]. [facility]-15-2023 Telephone encounter Note Dexcom G7 order initiated. [facility] 12-15-2023 History of Presen t illness Narrative +REASON FOR VISIT: Sanya Randall returns today for follow-up of her diabetes. DIABETES HISTORY: Type of Diabetes: Type 2 Diabetes Mellitus Duration of Diabetes: since 1982 INTERVAL HISTORY: Lab Results Component Value Date MNMJAQW6D 8.6 (A) 12/15/2023 IKNJIHP4D 8.7 (A) 06/13/2023 EDCDQNS6A 7.1 (A) 12/25/2022 QTDMDYC2D 8.1 (A) 10/17/2022 Blood sugar was less than 55 (BG 43) needing hospitalization and third-constitution party assistance so she will qualify for [...] Past Medical History: Diagnosis Date Angina pectoris ([facility]) Arthritis Asthma CAD (coronary artery disease) Chronic back pain Depression Diabetes mellitus ([facility]) Diabetes mellitus type 2, controlled ([facility]) Diabetic neuropathy ([facility]) GERD (gastroesophageal reflux disease) H/O heart artery stent Hyperlipidemia Hypertension Hypothyroidism Knee pain Obesity PK (obstructive sleep apnea) CPAP Shortness of breath Skin cancer Past Surgical History: Procedure Laterality Date ABDOMINAL SURGERY fibroid tumor removal ARTHROSCOPY KNEE Right 11/18/2018 Performed by Ottoniel Pimentel DO at [facility] BREAST BIOPSY Right 2007 BENIGN CARDIAC CATHETERIZATION x4 stents CHOLECYSTECTOMY COLONOSCOPY N/A 05/03/2021 Performed by Clif Wilcox DO at [facility] COLONOSCOPY N/A 07/30/2018 Performed by Indra Mckinney MD at [facility] CORONARY STENT PLACEMENT EGD N/A 07/30/2018 Performed by Indra Mckinney MD at [facility] NECK SURGERY TUBAL LIGATION Current Outpatient [...] hyperglycemia, with long-term current use of insulin ([facility]) - POCT Hemoglobin A1c [...] with diabetes mellitus due to underlying condition ([facility]) 6. Drug intolerance avoid sulfonylureas given history [...] modification advised. Multiple chronic conditions as listed bwlpt-tolxztzeh-ecokwiqjr diagnosis, management and prognosis. Answered patient's questions [...] to the note. Carter Wetzel MD, MPH, [facility] [address] [place] [id number] Dept: [phone] FAX: [phone] documented in this encounter [facility] 12-15-2023 Instructions Carter Wetzel MD - 12/15/2023 10:45 AM EST I started Dexco G7 sensor today. Come back Friday or friday to download sensor, ask for vishnu , come after 3pm documented in this encounter [facility] 12-01-2023 Miscellaneous Notes OK to sign and send documented in this encounter [facility] 12-01-2023 Telephone encounter Note OK to sign and send [facility] 01-06-2023 History of Presen t illness [...] from the original note were not included. [facility] Fred Correa MD; Arthur Mclaughlin MD; Maurisio Ames MD; MD Yumi Javed MD; Shira Billingsley MD [facility] Internal Medicine IN-PATIENT SERVICE [facility] Progress Note Date: 01/05/2023 Patient name: Sanya Randall Date of admission: 01/02/2023 8:42 PM Account: [id number] Date of : 1955 PCP: NUZHAT Carver [...] the management of SBO (small bowel obstruction) ([facility]). Difficult medical history of HTN, HLD, [...] History: Diagnosis Date LAURA (acute kidney injury) ([facility]) 01/03/2023 BMI 40.0-44.9, adult ([facility]) 01/31/2021 CAD (coronary artery disease) Claudication in peripheral vascular disease ([facility]) 12/19/2014 Depression Emphysema of lung ([facility]) GERD (gastroesophageal reflux disease) Hypercholesterolemia Hypertension [...] medications as directed 11/22/15 07/04/22 Yusef Monroe, PERSONALIZED LIVING MANAGER NURSE - SCREEN PRINTING MACHINE LOADER UNLOADER Allergies: Avelox [moxifloxacin], Dust mite extract, Keflex [cephalexin], Levemir [insulin detemir], Molds & smuts, Other, Prednisone, and Ultram [tramadol] Social History: Tobacco: reports that she has been smoking cigarettes and e-cigarettes. She has a 10.00 pack-year smoking history. She has never used smokeless tobacco. Alcohol: reports no history of alcohol use. Drug Use: reports current drug use. Drug: Marijuana ([place]). Family History: Family History Problem Relation Age [...] # 2.70 1.0 - 4.8 k/uL Absolute [place] # 0.90 0.1 - 1.3 k/uL Absolute [...] AM Copy sent to Dr. Minna Voss, PERSONALIZED LIVING MANAGER NURSE - SCREEN PRINTING MACHINE LOADER UNLOADER Please note that this chart was generated using voice recognition [employer] dictation software. Although every effort was made to ensure the accuracy of this automated stunt performer, some errors in stunt performer may have occurred. Images from the original [...] 191* Luiza Talley MD 01/05/2023, 8:22 AM Rotary Furnace Operator page Dr. Lu to get a order to d/c fluids for pt. Order received and placed. Bowel sounds active. Large loose brown stool. Denies any N&V. Rotary Furnace Operator responded to consult for advance directives. See ACP note of this date. No documents executed so pt's 3 children are all primary agents. Rotary Furnace Operator left booklet with pt. Pt is hoping her pharmacy ancillary will be able to visit; she's a member at [facility] in [place]. Pt also shared medical update and welcomed prayer. 01/04/23 1251 Encounter Summary Encounter Overview/Reason Advance Care Planning Service Provided For: Patient Referral/Consult From: Patient Support System Children;Family members;Caodaism/alberto community Last Encounter 01/04/23 Complexity of Encounter Moderate Begin Time 1100 End Time 1120 Total Time Calculated 20 min Spiritual/Emotional needs Type Spiritual Support Advance Care Planning Type ACP conversation Assessment/Intervention/Outcome Assessment Calm Intervention Active listening;Discussed illness injury and it s impact;Explored/Affirmed feelings, thoughts, concerns;Explored Coping Skills/Resources;Prayer (assurance of)/Armstrong;Sustaining Presence/Ministry of presence Outcome Coping;Engaged in conversation;Expressed [...] from the original note were not included. [facility] Fred Correa MD; Arthur Mclaughlin MD; Maurisio Ames MD; MD Yumi Javed MD; Shira Billingsley MD [facility] Internal Medicine IN-PATIENT SERVICE [facility] Progress Note Date: 01/04/2023 Patient name: Sanya Randall Date of admission: 01/02/2023 8:42 PM Account: [id number] Date of : 1955 PCP: NUZHAT Carver [...] History: Diagnosis Date LAURA (acute kidney injury) ([facility]) 01/03/2023 BMI 40.0-44.9, adult ([facility]) 01/31/2021 CAD (coronary artery disease) Claudication in peripheral vascular disease ([facility]) 12/19/2014 Depression Emphysema of lung ([facility]) GERD (gastroesophageal reflux disease) Hypercholesterolemia Hypertension [...] directed 11/22/15 07/04/22 Yusef Monroe APRN - SCREEN PRINTING MACHINE LOADER UNLOADER Allergies: Avelox [moxifloxacin], Dust mite extract, Keflex [cephalexin], Levemir [insulin detemir], Molds & smuts, Other, Prednisone, and Ultram [tramadol] Social History: Tobacco: reports that she has been smoking cigarettes and e-cigarettes. She has a 10.00 pack-year smoking history. She has never used smokeless tobacco. Alcohol: reports no history of alcohol use. Drug Use: reports current drug use. Drug: Marijuana ([place]). Family History: Family History Problem Relation Age [...] # 2.90 1.0 - 4.8 k/uL Absolute [place] # 0.80 0.1 - 1.3 k/uL Absolute [...] Dr. Wetzel (endocrine). LAURA (acute kidney injury) ([facility]) 01/03/2023 Yes Plan: Patient status inpatient [...] AM Copy sent to Dr. Minna Voss, PERSONALIZED LIVING MANAGER NURSE - SCREEN PRINTING MACHINE LOADER UNLOADER Please note that this chart was generated using voice recognition [employer] dictation software. Although every effort was made to ensure the accuracy of this automated stunt performer, some errors in stunt performer may have occurred. Rotary Furnace Operator inform Dr. Carl that the pt. results [...] refused V60 has NG tube. RA 96% Rotary Furnace Operator perfect served message Dr. Carl to let her know that the results for the CT w/ contrast were in. Dr. Carl placed an ordered a KUB for tonight and to keep the NG tube clamped unless nausea occurs. No nausea at this time, will continue to monitor. Rotary Furnace Operator received consult to see patient; patient stated she did not want to speak with a hospital healthcare architect but with her own pharmacy ancillary, Magdaleno Cortez, Chema Costa; communications writer called Gas Appliance Repairer Diego while in patient's room and facilitated communication in this regard; communications writer also called patient's sister and daughter, per patient's request due to patient having a hard time talking and because patient did not have her cell phone; listening presence and support; welcomed prayer; 01/03/23 0850 Encounter Summary Encounter Overview/Reason Spiritual/Emotional Needs Service Provided For: Patient Referral/Consult From: Patient;Rounding Support System Family members;Children;Caodaism/fa ith community Last Encounter 01/03/23 Complexity of Encounter Moderate Spiritual/Emotional needs Type Spiritual Support Assessment/Intervention/Outcome Assessment Anxious;Coping;Impaired resilience;Powerlessness;Tearful Intervention Active listening;Discussed belief system/jehovah's witness practices/alberto;Explored/Affirme d feelings, thoughts, concerns;Prayer (assurance of)/Armstrong;Sustaining Presence/Ministry of presence Outcome Engaged in conversation;Expressed feelings, needs, and concerns;Expressed Gratitude;Receptive;Coping;Comfo rt Plan and Referrals Plan/Referrals Contacted support as requested per patient/family request Plan (Pastor Diego Mariano of [place], [place]) Comprehensive Nutrition Assessment Type and Reason [...] loss Fluid Accumulation: No significant fluid accumulation Rugby League Footballer Strength: Not Performed Nutrition Assessment: Pt admitted [...] NPO Anthropometric Measures: Height: 5' (152.4 cm) [place] Body Weight (IBW): 100 lbs (45 kg) [...] Used for Energy Requirements: Current Energy (kcal/day): Gilliam x 1-1.2= 0894-9953 kcal Weight Used for Protein Requirements: Current [...] to determine Kena Rudd RD, RASHAD Contact: [phone] Torres to notify him of new consult Pt. arrived to floor and placed in room 2046. Pt. Is alert x 4. Admission question and assessment completed. Call lights and bedside table in reach. Pt. resting comfortable. Images from the original note were not included. [facility] Fred Correa MD; Arthur Mclaughlin MD; Maurisio Ames MD; MD Yumi Javed MD; Shira Billingsley MD [facility] Internal Medicine IN-PATIENT SERVICE [facility] Date: 01/03/2023 Patientname: Sanya Randall Date of admission: 01/02/2023 8:42 PM Account: [id number] Date of : 1955 PCP: Minna Voss [...] Medical History: Diagnosis Date BMI 40.0-44.9, adult ([facility]) 01/31/2021 CAD (coronary artery disease) Claudication in peripheral vascular disease ([facility]) 12/19/2014 Depression Emphysema of lung ([facility]) GERD (gastroesophageal reflux disease) Hypercholesterolemia Hypertension [...] directed 11/22/15 07/04/22 Yusef Monroe, NUZHAT - SCREEN PRINTING MACHINE LOADER UNLOADER Allergies: Avelox [moxifloxacin], Dust mite extract, Keflex [cephalexin], Levemir [insulin detemir], Molds & smuts, Other, Prednisone, and Ultram [tramadol] Social History: Tobacco: reports that she has been smoking cigarettes and e-cigarettes. She has a 10.00 pack-year smoking history. She has never used smokeless tobacco. Alcohol: reports no history of alcohol use. Drug Use: reports current drug use. Drug: Marijuana ([place]). Family History: Family History Problem Relation Age [...] # 2.70 1.0 - 4.8 k/uL Absolute [place] # 1.30 0.1 - 1.3 k/uL Absolute [...] NEGATIVE Ketones, Urine TRACE (A) NEGATIVE Specific [place], UA 1.029 1.000 - 1.030 Urine Hgb [...] this chart was generated using voice recognition [employer] dictation software. Although every effort was made to ensure the accuracy of this automated stunt performer, some errors in [place] [address]. documented in this encounter [facility] Work Phone: 01-06-2023 Hospital course Narrative Images from the original note were not included. IN-PATIENT SERVICE [facility] Internal Medicine Discharge Summary Patient ID: Sanya Randall : 1955 ACCOUNT: [id number] Patient's PCP: Minna Voss, PERSONALIZED LIVING MANAGER NURSE - SCREEN PRINTING MACHINE LOADER UNLOADER Admit Date: 01/02/2023 Discharge Date: 01/06/2023 Length [...] GI side effects, will follow-up with her support specialist as outpatient Patient voiced understanding General Appearance: [...] this patient's care. documented in this encounter [facility]: 01-06-[facility]23 Hospital Discharg e instructions Markel [...] Contact Information Primary Emergency Contact: Meredith Harper [facility] Mobile Relation: Child Secondary Emergency Contact: Makenna Rangel Address: [address] [place] [address] Mobile Relation: Brother/Sister 911 Dispatcher needed? No Past Surgical History: Past Surgical [...] disease) K21.9 Depression F32.A Emphysema of lung ([facility]) J43.9 Mixed hyperlipidemia E78.2 Psoriasis L40.9 Tobacco user Z72.0 Sleep apnea G47.30 Claudication in peripheral vascular disease ([facility]) I73.9 Diabetes mellitus with peripheral artery disease ([facility]) E11.51 Chronic obstructive pulmonary disease ([facility]) J44.9 Chronic pain of both ears H92.03, G89.29 Cystitis N30.90 Need for prophylactic vaccination and inoculation against influenza Z23 Chronic knee pain M25.569, G89.29 Trigger finger, acquired M65.30 Cough due to bronchospasm J98.01 Alopecia L65.9 BMI 40.0-44.9, adult ([facility]) Z68.41 Chronic ischemic heart disease I25.9 Diabetic neuropathy ([facility]) E11.40 Diabetic retinopathy associated with type 2 diabetes mellitus ([facility]) E11.319 Hirsutism L68.0 Hyperaldosteronism ([facility]) E26.9 Menopausal and postmenopausal disorder N95.9 Severe obesity (BMI 35.0-39.9) with comorbidity ([facility]) E66.01 SBO (small bowel obstruction) ([facility]) K56.609 LAURA (acute kidney injury) ([facility]) resolved N17.9 Isolation/Infection: Isolation No Isolation [...] Status: {IP PT MENTAL STATUS:} IV Access: {[facility] IV ACCESS:039519076} Nursing Mobility/ADLs: Walking {[facility]P DME ADLs:633317314} Transfer {CHP DME ADLs:293406115} Bathing {CHP DME ADLs:583816442} Dressing {CHP DME ADLs:650537640} Toileting {CHP DME ADLs:488237070} Feeding {CHP DME ADLs:364020677} Manager Biologics {[facility] DME ADLs:599666017} Med Delivery { [facility] MED Delivery:459376965} Wound Care Documentation and Therapy: Elimination: Continence: Bowel: {YES / NO:} Bladder: {YES / NO:} Urinary Catheter: {Urinary Catheter:620931685} Colostomy/Ileostomy/Ileal Conduit: {YES / NO:} Date of Last BM: No intake or output data in the 24 hours ending 01/06/23 1005 No intake/output data recorded. Safety Concerns: { [facility] Safety Concerns:172298371} Impairments/Disabilities: { [facility] Impairments/Disabilities:3052198 73} Nutrition Therapy: Current Nutrition Therapy: { [facility] Diet List:616537455} Routes of Feeding: {[facility] DME Other Feedings:769459794} Liquids: {Stenocaptioner liquid thickness:37965} Daily Fluid Restriction: {[facility] DME Yes amt example:822600848} Last Modified Barium Swallow with Video (Video Swallowing Test): {Done Not Done Date:079135034} Treatments at the Time of Hospital Discharge: Respiratory Treatments: Oxygen Therapy: {Therapy; copd oxygen:75906} Ventilator: {[facility] Vent List:035155927} Rehab Therapies: {THERAPEUTIC INTERVENTION:8459686449} Weight Bearing Status/Restrictions: {[facility] Weight Bearin} Other Medical Equipment (for information only, NOT a DME order): {EQUIPMENT:771621928} Other Treatments: Patient's personal belongings (please select all that are sent with patient): {[facility] DME Belongings:196502608} RN SIGNATURE: {Esignature:157258634} CASE MANAGEMENT/SOCIAL WORK SECTION Inpatient Status Date: Readmission Risk Assessment Score: Readmission Risk Risk of Unplanned Readmission: 12 Discharging to Facility/ Agency Name: Address: Phone: Fax: Dialysis Facility (if applicable) Name: Address: Dialysis Schedule: Phone: Fax: Level Vial Inspector/Restaurant Manager signature: {Esignature:617024899} PHYSICIAN SECTION Prognosis: {Prognosis:3693055372} Condition at Discharge: { Patient Condition:439828362} Rehab Potential (if transferring to Rehab): {Prognosis:8800340858} Recommended Labs or Other Treatments After Discharge: Physician Certification: I certify the above information and transfer of Sanya Randall is necessary for the continuing treatment of the diagnosis listed and that she requires {Admit to Appropriate Level of Care:47709} for {GREATER/LESS:188583843} 30 days. Update Admission H&P: {[facility] DME Changes in HandP:460585935} PHYSICIAN SIGNATURE: documented in this encounter [employer] Phone: Evaluation note Diagnosis Screening mammogram for breast cancer documented in this encounter [employer] Phone: evaluation note* Diagnosis SBO (small bowel obstruction) (HCC)- Primary Unspecified intestinal obstruction SBO (small bowel obstruction) (HCC) Unspecified intestinal obstruction Diabetes mellitus with peripheral artery disease ([facility]) Type II or unspecified type diabetes mellitus with peripheral circulatory disorders, not stated as uncontrolled Emphysema of lung (HCC) Other emphysema Hypothyroidism Unspecified hypothyroidism LAURA (acute kidney injury) ([facility]) resolved Acute kidney failure, unspecified documented in this encounter [employer] Phone: evaluation note* Diagnosis Type 2 diabetes mellitus with diabetic peripheral angiopathy without gangrene ([facility]) documented in this encounter [employer] SystemEvaluation note* Diagnosis Type 2 diabetes mellitus with hyperglycemia, with long-term current use of insulin ([facility])- Primary Other hyperlipidemia Acquired hypothyroidism Unspecified hypothyroidism Primary hypertension Unspecified essential hypertension Diabetic polyneuropathy associated with diabetes mellitus due to underlying condition ([facility]) Drug intolerance avoid sulfonylureas given history of hypoglycemia and admission to the hospital Other drug allergy documented in this encounter [employer] note* Diagnosis Type 2 diabetes mellitus with hyperglycemia, with long-term current use of insulin ([facility])- Primary [facility] this [facility]* Diagnosis Type 2 diabetes mellitus with hyperglycemia, with long-term current use of insulin ([facility])- Primary [facility] Diagnosis Presence of stent in LAD coronary artery- Primary Essential hypertension Unspecified essential hypertension Chronic coronary artery disease Coronary atherosclerosis of unspecified type of vessel, [place] or graft Hypertriglyceridemia Pure hyperglyceridemia Coronary artery disease involving [place] coronary artery of [place] heart without angina pectoris Mixed hyperlipidemia Palpitations Shortness of breath Other chest pain Claudication (CMS-HCC) Unspecified peripheral vascular disease documented in this encounter [facility] on filedocumented in this encounter [facility] filedocumented in this encounter [facility]Not on filedocumented in this encounter [facility] SystemInstructionsNot on filedocumented in this encounter [facility] Summary Purpose Family History No Family History Records FoundNo Family History Records FoundNo Family History Records FoundNo Family History Records FoundNo Family History Records FoundNo Family History Records FoundNo Family History Records Found Advance Directives No Advanced Directives Records FoundDocuments on File Type Date Recorded Patient Payroll And Benefits Assistant Expl anation ACP-Advance Directive ACP-Power of Organ Recovery Coordinator Documents on File Type Date Recorded Patient Payroll And Benefits Assistant Expl anation ACP-Advance Directive ACP-Power of Organ Recovery Coordinator Latest Code Status on File Code Status [...] treatment. Recommend follow-up with PCP and your licensed aircraft maintenance engineer as soon as possible. Please call tomorrow to schedule follow-up ointment. * Attachments The following attachments cannot be sent through Care Everywhere. * Foot Fracture (Austrian) * Back: Strain (Austrian) * Back Pain: Relief: General Info (Austrian) documented in this encounter Assessments Diagnosis Fall, initial encounter- Primary Calcaneal spur of foot, left Closed traumatic nondisplaced fracture of left calcaneus, initial encounter Lumbar sprain, initial encounter Reason for Referral Specialty Diagnoses / Procedures Referred By Contac t Referred To Contact Diagnoses Type 2 diabetes mellitus with hyperglycemia, with long-term current use of insulin ([facility]) Carter Wetzel MD [address] [place] [address] Referral ID Status Reason Start Date Expiration Date V isits Requested Visits Authorized [id number] Pending Review 1 1 Specialty Diagnoses / Procedures Referred By Contac t Referred To Contact Diagnoses Other hyperlipidemia Carter Wetzel MD [address] [place] [address] Referral ID Status Reason Start Date Expiration Date V isits Requested Visits Authorized [id number] Pending Review 1 1 Specialty Diagnoses / Procedures Referred By Contac t Referred To Contact Diagnoses Claudication ([facility] [place]) Procedures Vas art doppler lwr bilat mult lev/PVR Deirdre Earl MD [address] [place] [address] Referral ID Status Reason Start Date Expiration Date V isits Requested Visits Authorized [id number] Pending Review 01/12/2024 01/11/2025 1 1 Additional Source Comments INFORMATION SOURCE (unrecogn ized section and content) DATE CREATED AUTHOR 04/08/2018 Loren Swift [facility] DATE CREATED AUTHOR AUTHOR'S ORGANIZ ATION 09/21/2018 [facility] DATE CREATED AUTHOR AUTHOR'S ORGANIZ ATION 12/15/2020 [facility] DATE CREATED AUTHOR AUTHOR'S ORGANIZ ATION 07/21/2023 [facility] DATE CREATED AUTHOR AUTHOR'S ORGANIZ ATION 12/13/2023 [facility] EPIC DATE CREATED AUTHOR AUTHOR'S ORGANIZ ATION 01/12/2024 [facility] DATE CREATED AUTHOR AUTHOR'S ORGANIZ ATION [...] W OR WO CAD BILATERAL Colton-Minna Mays, PERSONALIZED LIVING MANAGER NURSE - SCREEN PRINTING MACHINE LOADER UNLOADER [address] [place] [address] Referral ID Status Reason Start Date Expiration Date Visits Re quested Visits Authorized [id number] Closed 10/31/2021 10/31/2022 1 1 Reason Comments Abdominal Pain Chest Pain Nausea Specialty Diagnoses / Procedures Referred By Contac t Referred To Contact Diagnoses SBO (small bowel obstruction) ([facility]) Haris Angelo MD [address] [place] [address] [facility] [address] [place] [address] Referral ID Status Reason Start Date Expiration Date Visits Re quested Visits Authorized [id number] 1 1 Reason Onset Date Comments Med [...] Care Teams (unrecognized sec tion and content) Cloth Weigher Relationship Specialty Start Date End Date Minna Voss, PERSONALIZED LIVING MANAGER NURSE - SCREEN PRINTING MACHINE LOADER UNLOADER [address] [place] [address] PCP - General Family Medicine 08/28/20 Cloth Weigher Relationship Specialty Start Date End Date Minna Voss, PERSONALIZED LIVING MANAGER NURSE - SCREEN PRINTING MACHINE LOADER UNLOADER [address] [place] [address] PCP - General Family Medicine 08/28/20 Cloth Weigher Relationship Specialty Start Date End Date Minna Voss, PERSONALIZED LIVING MANAGER NURSE-SCREEN PRINTING MACHINE LOADER UNLOADER [address] [place] [address] PCP - General Family Medicine 04/04/23 Cloth Weigher Relationship Specialty Start Date End Date Pcp, [place] [address] PCP - General Family Medicine 12/15/23 Cloth Weigher Relationship Specialty Start Date End Date Pcp, [place] [address] PCP - General Family Medicine 12/15/23 Cloth Weigher Relationship Specialty Start Date End Date Pcp, [place] [address] PCP - General Family Medicine 12/15/23 Cloth Weigher Relationship Specialty Start Date End Date Pcp, [place] [address] PCP - General Family Medicine 12/15/23 Cloth Weigher Relationship Specialty Start Date End Date Pcp, [place] [address] PCP - General Family Medicine 12/15/23 Scheduled [...] RN) 2100 (Due - Provider: Royce Curry [facility]) sodium chloride flush 0.9 % injection 5-40 [...] Savanah Cortes RN)1110 (New Bag - Provider: Sharad Lewis)2140 (New Bag - Provider: Savanah Cortes [...] BE BASED ON THE PRIMARY CLINICAL RECORDS. [employer] provides no warranty or guarantee of the accuracy or completeness of information in this document.
== END 2024-03-25 08:05 | disposition home or self-care (01) ==
LOC: VC 08:04
PROVIDERS: PCP Radiology Diagnostic Radiology; Visit Provider Radiology Diagnostic Radiology
DX: I80.01 Phlebitis and thrombophlebitis of superficial vessels of right lower extremity (principal)
CPT/HCPCS: 93971; G0463